=== PATIENT | female | born 1965 | race Caucasian/White ===

== ENCOUNTER 2017-11-18 15:36 | Emergency (ER) | payer MEDICAID ==
[2015-08-10 13:39] VITALS: Wt 90.7 kg
[~2017-11-18 15:36] MED LIST: ACE3 PO; ACE325 PO; ACE325S PR; ADV250/50 INH; ADV500/50 INH; ALB17R INH; ALB18R INH; ALBU8.5H IH; ALBU8.5H12 IH; ALBUDR INH; AMO500 PO; ASPI-1061 PO; AZI250 PO; AZIT-1 PO; AZIT-18 PO; BACDS PO; BEN100 PO; CALC-515 PO; CEF300 PO; CIPR-214 PO; CLI150 PO; CODE118S5 PO; CYC10 PO; CYCL10TA29 PO; DIA10 PO; DILT30TA63 PO; DIP25 PO; DOC100 PO; DOXY-179 PO; DOXY-228 PO; ESOM40CA42 PO; ESTR1.2525 PO; FLUT1DIS28 IH; GAB300 PO; GABA-549 PO; GLIM2TAB42 PO; GLIM4TAB49 PO; GLIM4TAB50 PO; HYD5L PO; HYDR-3250 PO; HYDR-385 PO; HYDR-4309 PO; HYDR12.558 PO; HYDR473S4 PO; IBU800 PO; IBUP-1487 PO; IBUP800T37 PO; INSU100C12 SQ; INSU100I30 SUBQ; INSU100V24 SQ; KET10 PO; LANI SUBQ; LEVA1.2513 NEB; LEVO-85 PO; LEVO750T25 PO; LIS10 PO; LISI-346 PO; LISI-355 PO; LISI-362 PO; LISI20TA29 PO; LOR10/325 PO; LOR5/325 PO; LOR7.5/325 PO; LORA10TA2 PO; METF-420 PO; METH4TAB66 PO; METO50TA19 PO; MON10 PO; MULT-1379 PO; NAP250 PO; NAP500 PO; NIC10R INH; NITR-105 PO; NOR5/325 PO; OMEP-114 PO; OMEP-125 PO; OMEP-218 PO; OMEP40CA79 PO; OND4 PO; ONDA4TAB PO; ONDA8TAB94 PO; OXYC-689 PO; OXYC-763 PO; OXYC-865 PO; OXYC5TAB38 PO; OXYGEN INH; OXYXL5 PO; PANT20TA26 PO; PENI-22 PO; PER PO; PRE20 PO; PRED-1 PO; PRED-416 PO; PRED20TA6 PO; SUC1 FT; SUCR1TAB51 PO; TAM4 PO; TIO18R; TIO18R IH; TIO18R INH; TOLT4CAP13 PO; TRA50 PO; VEN375 PO; VENL75CA58 PO; VENL75TA98 PO; ZOLP-350 PO; [UNRECOGNIZED DRUG - CODE] PO; [UNRECOGNIZED DRUG - CODE] TD
[2017-11-18] MEDS ORDERED: DICL-195 (15:49)
[2017-11-18] MEDS ORDERED: GEMF600T91 (15:49)
--- NOTE | 2017-11-18 16:35 | RADIOLOGY IMAGING REPORT ---
FACILITY: [facility] [place] PATIENT NAME: Subha Martinez : 1965 MR: [id number] V: [id number] EXAM DATE: ORDERING PHYSICIAN: CANDE GALICIA TECHNOLOGIST: [facility] Patient: Subha Martinez : 1965 Visit/Account:[id number] Date of Sevice: 11/18/2017 CHEST PA AND LAT History: Chest pain, shortness of breath. Comparison to 01/14/2017. FINDINGS: Lungs are clear, no effusion. No pneumothorax. Heart size within normal limits. Mediastinal contour w ithin normal limits. IMPRESSION: No evidence of acute cardiopulmonary disease. Report Dictated By: Bradford Hoover MD at 11/18/2017 4:30 PM Report E-Signed By: Bradford Hoover MD at 11/18/2017 4:31 PM WSN:[id number]
--- NOTE | 2017-11-18 16:39 | EKG ---
FACILITY: [facility] PATIENT NAME: ANJANA GONZALEZ : [id number] MR: [id number] V: [id number] EXAM DATE: ORDERING PHYSICIAN: CANDE GALICIA TECHNOLOGIST: CARLOTA Test Reason : WEAKNESS Blood Pressure : / mmHG Vent. Rate : 092 BPM Atrial Rate : 092 BPM P-R Int : 128 ms QRS Dur : 090 ms QT Int : 380 ms P-R-T Axes : 071 051 071 degrees QTc Int : 469 ms Normal sinus rhythm Widespread, non-specific T changes. When compared with ECG of 16-JUN-2016 12:16, T changes are more prominent on current ECG Confirmed by ROJAS VARGAS ([id number]) on 11/18/2017 5:25:43 PM Referred By: RONNA Confirmed By:ORJAS VARGAS
[2017-11-18 16:50] LABS: PLATELET COUNT, AUTOMATED 370 K/uL (150-450)
[2017-11-18] MEDS ORDERED: INSU HUM REG 100 U/ML(ER ONLY) 10 ML VIAL SUBQ ONE (17:05)
[2017-11-18] MEDS ORDERED: DOXYCYCLINE HYCL 100 MG TAB TH PO ONE (17:55)
[2017-11-18 18:00] VITALS: BP 135/89
[2017-11-18] MEDS ORDERED: DOXY-179 PO (18:03)
--- NOTE | 2017-11-18 18:06 | ER Report ---
History and Physical Time Seen By MD: 16:05 Hx. of Stated Complaint: PT REPORTS SORE THROAT, COUGH, CHEST PAIN FOR A COUPLE WEEKS HPI/ROS CHIEF COMPLAINT: Not feeling well HISTORY OF PRESENT ILLNESS: 52-year-old female patient presents to emergency room with complaint of not feeling well. Patient states she is having a cough, body aches. She denies having a fever. She states she is not taking any medication for this. She states that her grandchildren have had influenza. She states she started getting sick a 2 weeks ago, however states she was feeling better approximate four-day started feeling worse. She states she does have some generalized body aches. She denies having any fevers, nausea, vomiting or diarrhea. REVIEW OF SYSTEMS: Respiratory: As noted above Cardiovascular: No chest pain, no palpitations. Gastrointestinal: No vomiting, no abdominal pain. Musculoskeletal: No back pain. Allergies: Coded Allergies: Penicillins (Verified Allergy, Severe, BLISTERS, 11/18/17) corn (Verified Allergy, Mild, UNKNOWN, 11/18/17) TINGLING FEELING dextromethorphan (Verified Allergy, Mild, 11/18/17) grass pollen-January ([employer] blue) grass, std (Verified Allergy, Mild, ITCHING, 11/18/17) guaifenesin (Verified Allergy, Mild, 11/18/17) pseudoephedrine (Verified Allergy, Mild, 11/18/17) pneumococcal vaccine (Unverified Allergy, Unknown, 11/18/17) Uncoded Allergies: ANIMALS (Allergy, Mild, 09/03/08) FLU VACCINE (Allergy, Unknown, SWELLING TO FACE, 01/29/14) MOLD (Allergy, Unknown, 01/29/14) Home Meds Active Scripts Doxycycline Hyclate (DOXYCYCLINE HYCLATE) 100 Mg Tablet, 100 MG PO BID, #18 TAB Prov:CANDE GALICIA 11/18/17 Prednisone (PREDNISONE) 20 Mg Tablet, 60 MG PO QDAY, #6 TAB 0 Refills Prov:PERRI SCOTT MD 01/14/17 Ondansetron (ZOFRAN ODT) 4 Mg Tab.rapdis, 4 MG PO Q6H Y for NAUSEA/VOMITING, # 20 TAB.MARGOT 0 Refills Prov:PERRI SCOTT MD 11/05/16 Oxycodone Hcl/Acetaminophen (PERCOCET 5-325 MG TABLET) 1 Each Tablet, 1 EACH PO Q4H Y for PAIN, #10 TAB 0 Refills Prov:PERRI SCOTT MD 11/05/16 Methylprednisolone (METHYLPREDNISOLONE) 4 Mg Tab.ds.pk, 4 MG PO DIRECTED, #1 PACK 0 Refills Prov:PERRI SCOTT MD 11/05/16 Acetaminophen/Codeine (TYLENOL #3 (OR EQUIV)) 1 Ea Tab, 1 EA PO Q4H Y for COUGH , #12 TAB 0 Refills Prov:PERRI SCOTT MD 10/02/16 Prednisone (PREDNISONE) 20 Mg Tablet, 60 MG PO QDAY, #6 TAB 0 Refills Prov:PERRI SCOTT MD 10/02/16 Estrogens, Conjugated (PREMARIN) 1.25 Mg Tablet, 1.25 MG PO QDAY, #30 TAB Prov:LARS BECKFORD MD 08/09/15 Fluticasone/Salmeterol (ADVAIR 250-50 DISKUS) 1 Each Disk.w.dev, 1 PUFF IH DAILY , #1 DISK Prov:LARS BECKFORD MD 08/09/15 Omeprazole (OMEPRAZOLE) 20 Mg Capsule.dr, 1 CAP PO BID, #60 CAP Prov:LARS BECKFORD MD 08/09/15 Albuterol Sulfate 90 Mcg/Act (PROAIR HFA 90 MCG/ACT) 8.5 Gm Hfa.aer.ad, 2 PUFF IH QID, #1 INHALER Prov:LARS BECKFORD MD 08/09/15 Venlafaxine Hcl (VENLAFAXINE HCL ER) 75 Mg Tab.er.24, 75 MG PO BID, #60 TAB Prov:LARS BECKFORD MD 08/09/15 Glimepiride (GLIMEPIRIDE) 4 Mg Tablet, 0.5 TAB PO QDAY, #15 TAB Prov:LARS BECKFORD MD 08/09/15 Reported Medications Gemfibrozil (GEMFIBROZIL) 600 Mg Tablet, QDAY 11/18/17 Diclofenac Sodium (DICLOFENAC SODIUM) 75 Mg Tablet., PRN 11/18/17 Lisinopril (LISINOPRIL) 10 Mg Tablet, 10 MG PO HS 09/09/15 Insulin Glargine (LANTUS) 100 Unit/Ml Soln, 42 UNIT SUBQ HS 09/09/15 Lisinopril (LISINOPRIL) 10 Mg Tablet, 20 MG PO QAM 08/18/15 Metoprolol Succinate (METOPROLOL SUCCINATE) 50 Mg Tab.er.24h, 1 TAB PO QDAY, TAB 01/23/15 Gabapentin (GABAPENTIN) 300 Mg Capsule, 300 MG PO TID Take one three times a day 03/15/13 Oxygen (Oxygen) 2 L Inha, 2.5 L INH, 0 Refills OR DIRECTED 06/24/11 Fluvastatin Sodium (Lescol) 20 Mg Capsule, 20 MG PO QHS, 0 Refills 06/24/11 Past Medical/Surgical History Patient has a past medical history of migraines, angina, hypertension, hyperlipidemia, sleep apnea, asthma, emphysema, pneumonia, tuberculosis, COPD, ulcers, reflux, cholecystitis, pyelonephritis, frequent UTIs, ovarian cancer, bursitis, arthritis, back pain, diabetes, alcohol use, depression, anxiety, suicide attempt, cervical cancer. Patient has a surgical history of pancreas removed, hysterectomy, right elbow surgery, no surgery, cholecystectomy. Patient has a family medical history of cancer, CAD, stroke, diabetes. Reviewed Nurses Notes: Yes Hx Smoking: Yes (3-4 cigarettes/day FOR 40YEARS ) Smoking Status: Current: Every Day Smoker Exposure to Second Hand Smoke?: Yes Hx Substance Use Disorder: No Hx Alcohol Use: Yes Constitutional Vital Sign - Last 24 Hours 11/18/17 11/18/17 11/18/17 11/18/17 15:40 15:45 16:00 16:30 Temp 98.2 Pulse 93 Resp 16 B/P (MAP) 146/108 146/108 (121) 129/100 (110) 92/72 (79) Pulse Ox 93 O2 Delivery Room Air 11/18/17 11/18/17 11/18/17 11/18/17 17:00 17:36 17:45 17:55 Pulse 89 92 B/P (MAP) 125/96 (106) 117/90 (99) Pulse Ox 87 98 11/18/17 11/18/17 18:00 18:05 Pulse 89 91 B/P (MAP) 135/89 (104) Pulse Ox 85 91 Medical Decision Making Data Points Result Diagram: 11/18/17 1627 11/18/17 1627 Laboratory Hematology Test 11/18/17 15:50 11/18/17 16:27 11/18/17 17:36 11/18/17 17:48 Influenza Virus Type A (PCR) Negative (NEGATIVE) Influenza Virus Type B (PCR) Negative (NEGATIVE) Group A Streptococcus Screen Negative (NEGATIVE) Red Blood Count 5.64 M/uL (4.17-5.56) Mean Corpuscular Volume 91.8 fL (80.0-96.0) Mean Corpuscular Hemoglobin 31.1 pg (26.0-33.0) Mean Corpuscular Hemoglobin Concent 33.9 g/dL (32.0-36.0) Red Cell Distribution Width 13.8 % (11.5-14.5) Mean Platelet Volume 9.2 fL (7.2-11.1) Neutrophils (%) (Auto) 68.4 % (39.4-72.5) Lymphocytes (%) (Auto) 21.2 % (17.6-49.6) Monocytes (%) (Auto) 8.9 % (4.1-12.4) Eosinophils (%) (Auto) 0.5 % (0.4-6.7) Basophils (%) (Auto) 1.0 % (0.3-1.4) Nucleated RBC Relative Count (auto) 0.0 /100WBC Neutrophils # (Auto) 14.7 K/uL (2.0-7.4) Lymphocytes # (Auto) 4.6 K/uL (1.3-3.6) Monocytes # (Auto) 1.9 K/uL (0.3-1.0) Eosinophils # (Auto) 0.1 K/uL (0.0-0.5) Basophils # (Auto) 0.2 K/uL (0.0-0.1) Nucleated RBC Absolute Count (auto) 0.01 K/uL Peripheral Blood Smear Yes Y/N Sodium Level 131 mmol/L (137-145) Potassium Level 4.4 mmol/L (3.5-5.0) Chloride Level 91 mmol/L (98-107) Carbon Dioxide Level 23 mmol/L (22-31) Blood Urea Nitrogen 12 mg/dl (7-18) Creatinine 0.70 mg/dl (0.52-1.04) Glomerular Filtration Rate Calc > 60.0 Random Glucose 439 mg/dl (75-110) Calcium Level 9.9 mg/dl (8.4-10.2) Total Bilirubin 0.8 mg/dl (0.2-1.3) Aspartate Amino Transf (AST/SGOT) 23 U/L (0-35) Alanine Aminotransferase (ALT/SGPT) 21 U/L (0-56) Alkaline Phosphatase 164 U/L (0-126) Troponin I < 0.012 ng/ml B-Type Natriuretic Peptide 13 pg/ml (0-100) Total Protein 8.7 gm/dl (6.3-8.2) Albumin 4.7 g/dl (3.5-5.0) Urine Color Yellow Urine Clarity Clear Urine pH 6.0 pH (4.8-9.5) Urine Specific [place] 1.026 Urine Protein Negative mg/dL (NEGATIVE) Urine Glucose (UA) 500 mg/dL (NEGATIVE) Urine Ketones 20 mg/dL (NEGATIVE) Urine Blood Negative (NEGATIVE) Urine Nitrite Negative (NEGATIVE) Urine Bilirubin Negative (NEGATIVE) Urine Urobilinogen Negative mg/dL (0.2-1.9) Urine Leukocyte Esterase Negative (NEGATIVE) Urine RBC <1 /HPF (0-2/HPF) Urine WBC None /HPF (0-5/HPF) Urine Squamous Epithelial Cells Few /LPF (</=FEW) Urine Transitional Epithelial Cells Few /LPF (NONE-FEW) Urine Bacteria Negative /HPF (NONE-FEW) Urine Mucus None /HPF (NONE-FEW) Whole Blood Glucose 392 mg/DL (75-110) Chemistry Test 11/18/17 15:50 11/18/17 16:27 11/18/17 17:36 11/18/17 17:48 Influenza Virus Type A (PCR) Negative (NEGATIVE) Influenza Virus Type B (PCR) Negative (NEGATIVE) Group A Streptococcus Screen Negative (NEGATIVE) White Blood Count 21.5 k/uL (4.5-11.0) Red Blood Count 5.64 M/uL (4.17-5.56) Hemoglobin 17.6 g/dL (12.0-16.0) Hematocrit 51.8 % (34.0-47.0) Mean Corpuscular Volume 91.8 fL (80.0-96.0) Mean Corpuscular Hemoglobin 31.1 pg (26.0-33.0) Mean Corpuscular Hemoglobin Concent 33.9 g/dL (32.0-36.0) Red Cell Distribution Width 13.8 % (11.5-14.5) Platelet Count 370 K/uL (150-450) Mean Platelet Volume 9.2 fL (7.2-11.1) Neutrophils (%) (Auto) 68.4 % (39.4-72.5) Lymphocytes (%) (Auto) 21.2 % (17.6-49.6) Monocytes (%) (Auto) 8.9 % (4.1-12.4) Eosinophils (%) (Auto) 0.5 % (0.4-6.7) Basophils (%) (Auto) 1.0 % (0.3-1.4) Nucleated RBC Relative Count (auto) 0.0 /100WBC Neutrophils # (Auto) 14.7 K/uL (2.0-7.4) Lymphocytes # (Auto) 4.6 K/uL (1.3-3.6) Monocytes # (Auto) 1.9 K/uL (0.3-1.0) Eosinophils # (Auto) 0.1 K/uL (0.0-0.5) Basophils # (Auto) 0.2 K/uL (0.0-0.1) Nucleated RBC Absolute Count (auto) 0.01 K/uL Peripheral Blood Smear Yes Y/N Glomerular Filtration Rate Calc > 60.0 Calcium Level 9.9 mg/dl (8.4-10.2) Total Bilirubin 0.8 mg/dl (0.2-1.3) Aspartate Amino Transf (AST/SGOT) 23 U/L (0-35) Alanine Aminotransferase (ALT/SGPT) 21 U/L (0-56) Alkaline Phosphatase 164 U/L (0-126) Troponin I < 0.012 ng/ml B-Type Natriuretic Peptide 13 pg/ml (0-100) Total Protein 8.7 gm/dl (6.3-8.2) Albumin 4.7 g/dl (3.5-5.0) Urine Color Yellow Urine Clarity Clear Urine pH 6.0 pH (4.8-9.5) Urine Specific [place] 1.026 Urine Protein Negative mg/dL (NEGATIVE) Urine Glucose (UA) 500 mg/dL (NEGATIVE) Urine Ketones 20 mg/dL (NEGATIVE) Urine Blood Negative (NEGATIVE) Urine Nitrite Negative (NEGATIVE) Urine Bilirubin Negative (NEGATIVE) Urine Urobilinogen Negative mg/dL (0.2-1.9) Urine Leukocyte Esterase Negative (NEGATIVE) Urine RBC <1 /HPF (0-2/HPF) Urine WBC None /HPF (0-5/HPF) Urine Squamous Epithelial Cells Few /LPF (</=FEW) Urine Transitional Epithelial Cells Few /LPF (NONE-FEW) Urine Bacteria Negative /HPF (NONE-FEW) Urine Mucus None /HPF (NONE-FEW) Whole Blood Glucose 392 mg/DL (75-110) Urinalysis Test 11/18/17 17:36 Urine Color Yellow Urine Clarity Clear Urine pH 6.0 pH (4.8-9.5) Urine Specific [place] 1.026 Urine Protein Negative mg/dL (NEGATIVE) Urine Glucose (UA) 500 mg/dL (NEGATIVE) Urine Ketones 20 mg/dL (NEGATIVE) Urine Blood Negative (NEGATIVE) Urine Nitrite Negative (NEGATIVE) Urine Bilirubin Negative (NEGATIVE) Urine Urobilinogen Negative mg/dL (0.2-1.9) Urine Leukocyte Esterase Negative (NEGATIVE) Urine RBC <1 /HPF (0-2/HPF) Urine WBC None /HPF (0-5/HPF) Urine Squamous Epithelial Cells Few /LPF (</=FEW) Urine Transitional Epithelial Cells Few /LPF (NONE-FEW) Urine Bacteria Negative /HPF (NONE-FEW) Urine Mucus None /HPF (NONE-FEW) EKG/Imaging EKG Interpretation 12 lead EKG: Rhythm: normal sinus rhythm with a ventricular rate of 92 bpm [place]: normal QRS: normal ST segments: normal Imaging CHEST PA AND LAT History: Chest pain, shortness of breath. Comparison to 01/14/2017. FINDINGS: Lungs are clear, no effusion. No pneumothorax. Heart size within normal limits. Mediastinal contour within normal limits. IMPRESSION: No evidence of acute cardiopulmonary disease. Report Dictated By: Bradford Hoover MD at 11/18/2017 4:30 PM Report E-Signed By: Bradford Hoover MD at 11/18/2017 4:31 PM ED Course/Re-evaluation ED Course Patient was admitted to exam room, history and physical were obtained. Differential diagnoses were considered. On examination lungs are clear, heart was regular. A CBC, CMP, chest x-ray, EKG, troponin were done. The lab results were unremarkable except the patient did have an elevated blood sugar 435, elevated white count 21,000. Chest x-ray was unremarkable, EKG showed a normal sinus rhythm. Discussed with patient about her high blood sugar which I believe is contributing to her not feeling well. She states that she has not been taking her insulin as she has run out and been out for couple days. 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 Patient received 10 units of regular insulin subcutaneous here in the emergency room. I did bring her blood sugar down to 390. We'll go ahead and discharge patient home. She is to increase her fluid intake, get plenty of rest. I would like her to take the antibiotics were prescribed as a believe she has a sinusitis. The elevated white count I do not believe is remarkable as she does have a history of her white count being elevated. Patient doesn't have a left shift today nor has she in the past. I discussed taking decongestants for the congestion, increasing fluid intake and return to emergency room if condition worsens. Patient verbalized understanding and agreement with plan. Decision to Disposition Date: Nov 18, 2017 Decision to Disposition Time: 18:05 Depart Departure Latest Vital Signs Vital Signs Date Time Temp Pulse Resp B/P (MAP) Pulse Ox O2 Delivery O2 Flow Rate FiO2 11/18/17 18:05 91 91 11/18/17 18:00 135/89 (104) 11/18/17 15:40 98.2 16 Room Air Impression: Primary Impression: Sinusitis Condition: Improved Disposition: HOME OR SELF-CARE Referrals: IVORY TORRES PA-C (PCP) New Scripts Doxycycline Hyclate (DOXYCYCLINE HYCLATE) 100 Mg Tablet 100 MG PO BID, #18 TAB Prov: CANDE GALICIA 11/18/17 Patient Instructions: Sinusitis (ED) Additional Instructions: Increase fluid intake. Get plenty of rest. superintendent warehouse your insulin as directed. Return to the ER if condition worsens. You should have improvement in the next 3-5 days. You may take a decongestant of choice. Problem Qualifiers Primary Impression: Sinusitis Sinusitis location: frontal Chronicity: acute Recurrence: non-recurrent Qualified Codes: J01.10 - Acute frontal sinusitis, unspecified CANDE GALICIA Nov 18, 2017 18:06
== END 2017-11-18 18:13 | disposition home or self-care (01) ==
LOC: ER 15:49
DX: J01.10 Acute frontal sinusitis, unspecified (principal); E11.65 Type 2 diabetes mellitus with hyperglycemia; F17.210 Nicotine dependence, cigarettes, uncomplicated; R06.02 Shortness of breath
CPT/HCPCS: 36416; 71046; 81001; 82948; 83880; 84484; 85025; 87081; 87502; 87880; 93005; 96372; 99284; J1815; 82040; 82247; 82310; 82374; 82435; 82565; 82947; 84075; 84132; 84155; 84295; 84450; 84460; 84520

== ENCOUNTER 2018-01-01 12:11 | Emergency (ER) | payer MEDICAID ==
[2015-08-10 13:39] VITALS: Wt 90.7 kg
[~2018-01-01 12:11] MED LIST changes: +DICL-195; +GEMF600T91
--- NOTE | 2018-01-01 12:21 | ER Report ---
History and Physical Time Seen By MD: 12:21 Hx. of Stated Complaint: patient states that she has been having really bad left shoulder pain for a long time; pain has been getting worse; states pain at a 8/10 pain HPI/ROS CHIEF COMPLAINT: Left shoulder pain HISTORY OF PRESENT ILLNESS: 52-year-old female patient presents to emergency room with complaint of left shoulder pain. Patient states she's had this pain for quite some time. States it is gotten worse recently. Patient states the pain became so bad that she was dropped her grandchild. She denies any injury to the shoulder, she states she's not had any treatment for this in the past. She denies any numbness tingling to the arm. States she occasionally gets numbness and tailing to the fingers. States pain seems to radiate through the back of the shoulder as well as the anterior shoulder. Patient states she is not taking any medication for this. REVIEW OF SYSTEMS: Respiratory: Patient is a pack-a-day smoker. Cardiovascular: No chest pain, no palpitations. Gastrointestinal: No vomiting, no abdominal pain. Musculoskeletal: No back pain. Allergies: Coded Allergies: Penicillins (Verified Allergy, Severe, BLISTERS, 01/01/18) corn (Verified Allergy, Mild, UNKNOWN, 01/01/18) TINGLING FEELING dextromethorphan (Verified Allergy, Mild, 01/01/18) grass pollen-January ([facility] blue) grass, std (Verified Allergy, Mild, ITCHING, 01/01/18) guaifenesin (Verified Allergy, Mild, 01/01/18) pseudoephedrine (Verified Allergy, Mild, 01/01/18) pneumococcal vaccine (Unverified Allergy, Unknown, 01/01/18) Uncoded Allergies: ANIMALS (Allergy, Mild, 09/03/08) FLU VACCINE (Allergy, Unknown, SWELLING TO FACE, 01/29/14) MOLD (Allergy, Unknown, 01/29/14) Home Meds Active Scripts Ondansetron (ZOFRAN ODT) 4 Mg Tab.rapdis, 4 MG PO Q6H Y for NAUSEA/VOMITING, # 20 TAB.MARGOT 0 Refills Prov:PERRI SCOTT MD 11/05/16 Estrogens, Conjugated (PREMARIN) 1.25 Mg Tablet, 1.25 MG PO QDAY, #30 TAB Prov:LARS BECKFORD MD 08/09/15 Fluticasone/Salmeterol (ADVAIR 250-50 DISKUS) 1 Each Disk.w.dev, 1 PUFF IH DAILY , #1 DISK Prov:LARS BECKFORD MD 08/09/15 Omeprazole (OMEPRAZOLE) 20 Mg Capsule.dr, 1 CAP PO BID, #60 CAP Prov:LARS BECKFORD MD 08/09/15 Albuterol Sulfate 90 Mcg/Act (PROAIR HFA 90 MCG/ACT) 8.5 Gm Hfa.aer.ad, 2 PUFF IH QID, #1 INHALER Prov:LARS BECKFORD MD 08/09/15 Venlafaxine Hcl (VENLAFAXINE HCL ER) 75 Mg Tab.er.24, 75 MG PO BID, #60 TAB Prov:LARS BECKFORD MD 08/09/15 Glimepiride (GLIMEPIRIDE) 4 Mg Tablet, 0.5 TAB PO QDAY, #15 TAB Prov:LARS BECKFORD MD 08/09/15 Reported Medications Cyclobenzaprine Hcl (CYCLOBENZAPRINE HCL) 10 Mg Tablet, 10 MG PO TID, #9 TAB 01/01/18 Gemfibrozil (GEMFIBROZIL) 600 Mg Tablet, QDAY 11/18/17 Diclofenac Sodium (DICLOFENAC SODIUM) 75 Mg Tablet., PRN 11/18/17 Lisinopril (LISINOPRIL) 10 Mg Tablet, 10 MG PO HS 09/09/15 Insulin Glargine (LANTUS) 100 Unit/Ml Soln, 42 UNIT SUBQ HS 09/09/15 Lisinopril (LISINOPRIL) 10 Mg Tablet, 20 MG PO QAM 08/18/15 Metoprolol Succinate (METOPROLOL SUCCINATE) 50 Mg Tab.er.24h, 1 TAB PO QDAY, TAB 01/23/15 Gabapentin (GABAPENTIN) 300 Mg Capsule, 300 MG PO TID Take one three times a day 03/15/13 Fluvastatin Sodium (Lescol) 20 Mg Capsule, 20 MG PO QHS, 0 Refills 06/24/11 Discontinued Reported Medications Oxygen (Oxygen) 2 L Inha, 2.5 L INH, 0 Refills OR DIRECTED 06/24/11 Discontinued Scripts Doxycycline Hyclate (DOXYCYCLINE HYCLATE) 100 Mg Tablet, 100 MG PO BID, #18 TAB Prov:CANDE GALICIA 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/18/17 Prednisone (PREDNISONE) 20 Mg Tablet, 60 MG PO QDAY, #6 TAB 0 Refills Prov:PERRI SCOTT MD 01/14/17 Oxycodone Hcl/Acetaminophen (PERCOCET 5-325 MG TABLET) 1 Each Tablet, 1 EACH PO Q4H Y for PAIN, #10 TAB 0 Refills Prov:PERRI SCOTT MD 11/05/16 Methylprednisolone (METHYLPREDNISOLONE) 4 Mg Tab.ds.pk, 4 MG PO DIRECTED, #1 PACK 0 Refills Prov:PERRI SCOTT MD 11/05/16 Acetaminophen/Codeine (TYLENOL #3 (OR EQUIV)) 1 Ea Tab, 1 EA PO Q4H Y for COUGH , #12 TAB 0 Refills Prov:PERRI SCOTT MD 10/02/16 Prednisone (PREDNISONE) 20 Mg Tablet, 60 MG PO QDAY, #6 TAB 0 Refills Prov:PERRI SCOTT MD 10/02/16 Past Medical/Surgical History Patient has a past medical history of migraines, angina, hypertension, hyperlipidemia, asthma, emphysema, pneumonia, tuberculosis, COPD, reflux, cholecystitis, pyelonephritis, ovarian cancer, right hip bursitis, arthritis to hands, slipped disc in back, or dentition, diabetes, alcohol use, depression, anxiety, suicide attempt. Patient has a surgical history of nose surgery, right elbow surgery, hysterectomy, cholecystectomy, appendectomy, pancreatic surgery, heart catheter. Patient has a family medical history cancer, CAD, stroke, diabetes. Reviewed Nurses Notes: Yes Hx Smoking: Yes (3-4 cigarettes/day FOR 40YEARS ) Smoking Status: Current: Every Day Smoker Exposure to Second Hand Smoke?: Yes Hx Substance Use Disorder: No Hx Alcohol Use: Yes Constitutional Vital Sign - Last 24 Hours 01/01/18 01/01/18 01/01/18 01/01/18 12:15 12:15 12:30 12:41 Temp 98.4 Pulse 81 79 Resp 19 B/P (MAP) 151/101 151/101 (118) 130/95 (107) Pulse Ox 89 86 O2 Delivery Room Air 01/01/18 01/01/18 01/01/18 01/01/18 12:41 12:41 12:44 12:44 Pulse 79 75 Resp 16 16 Pulse Ox 86 97 O2 Delivery Room Air Nasal Cannula O2 Flow Rate 2.0 01/01/18 01/01/18 01/01/18 01/01/18 12:45 13:11 13:15 13:20 Pulse 82 77 B/P (MAP) 138/95 (109) 135/96 (109) Pulse Ox 91 91 01/01/18 01/01/18 13:30 13:45 B/P (MAP) 126/95 (105) 111/88 (96) Physical Exam General Appearance: The patient is alert, has no immediate need for airway protection and no current signs of toxicity. Respiratory: Chest is non tender, lungs are wheezy throughout to auscultation. Cardiac: regular rate and rhythm Gastrointestinal: Abdomen is soft and non tender, no masses, bowel sounds normal. Musculoskeletal: Neck: Neck is supple and non tender. Extremities have full range of motion and are non tender. Patient has tenderness with palpation, passive range of motion with the left arm. Skin: No rashes or lesions. DIFFERENTIAL DIAGNOSIS: After history and physical exam differential diagnosis was considered for strain, arthritis, fracture, tendinitis. Medical Decision Making EKG/Imaging Imaging Technique: CHEST PA AND LAT HISTORY: wheezing COMPARISON: Chest radiographs November 18, 2017 Findings: The lungs are clear. No pleural effusion or pneumothorax. The cardiomediastinal silhouette is unchanged. Impression: 1. No acute cardiopulmonary process. Report Dictated By: Danis Galicia DO at 01/01/2018 1:24 PM Report E-Signed By: Danis Galicia DO at 01/01/2018 1:25 PM Technique: SHOULDER MIN 2 VIEWS LEFT HISTORY: shoulder pain Comparison studies: None FINDINGS: There is no acute fracture. The alignment of the left shoulder is maintained. Mild marginal osteophyte formation is seen within the glenohumeral and acromioclavicular joints. Soft tissues are unremarkable. IMPRESSION: 1. No acute osseous process. 2. Mild degenerative changes. Report Dictated By: Danis Galicia DO at 01/01/2018 1:23 PM Report E-Signed By: Danis Galicia DO at 01/01/2018 1:24 PM ED Course/Re-evaluation ED Course Patient was admitted to an exam room, history and physical were obtained. Differential diagnoses were considered. On reexamination patient had tenderness to the left shoulder. There is no swelling or bruising noted. X-rays done of the left shoulder which showed no acute fractures, however did show mild degeneration. I discussed the findings with the patient. Patient was placed in a sling. We will go ahead and discharge her home at this time. She is to wear the sling for the next 7-10 days. She is to follow-up with her primary care provider in next 3-5 days for further evaluation. I anticipated probably recommend doing physical therapy. She is to ice her shoulder. I anticipate progressed will help with the shoulder pain and then patient can take Tylenol or ibuprofen as if her pain as well. Discusses the patient who verbalized understanding and agreement with plan. Decision to Disposition Date: January 01, 2018 Decision to Disposition Time: 13:40 Depart Departure Latest Vital Signs Vital Signs Date Time Temp Pulse Resp B/P (MAP) Pulse Ox O2 Delivery O2 Flow Rate FiO2 01/01/18 13:45 111/88 (96) 01/01/18 13:20 77 91 01/01/18 12:44 16 01/01/18 12:44 Nasal Cannula 2.0 01/01/18 12:15 98.4 Impression: Primary Impression: Chronic shoulder pain Condition: Improved Disposition: HOME OR SELF-CARE Referrals: IVORY TORRES PA-C (PCP) Patient Instructions: Shoulder Pain (ED) Additional Instructions: Wear sling 23/24 hours a day for the next 7-10 days. Limit activity by pain. Alternate ice and heat to the shoulder. Follow up with your primary care provider in the next 3-5 days. Take Tylenol or Ibuprofen as needed for pain. Return to the ER if condition worsens. Continue with normal medications. Problem Qualifiers Primary Impression: Chronic shoulder pain Laterality: left Qualified Codes: M25.512 - Pain in left shoulder; G89.29 - Other chronic pain CANDE GALICIA January 01, 2018 12:21
[2018-01-01] MEDS ORDERED: CYCL10TA29 PO (12:25)
[2018-01-01] MEDS ORDERED: ALBUTEROL/IPRATROPIUM 3 ML NEB NEB ONE (12:30)
--- NOTE | 2018-01-01 13:28 | RADIOLOGY IMAGING REPORT ---
FACILITY: [facility] PATIENT NAME: Subha Martinez : 1965 MR: [id number] V: [id number] EXAM DATE: ORDERING PHYSICIAN: CANDE GALICIA TECHNOLOGIST: Location: [facility] [place] Patient: Subha Martinez : 1965 Visit/Account:[id number] Date of Sevice: 01/01/2018 Technique: SHOULDER MIN 2 VIEWS LEFT HISTORY: shoulder pain Comparison studies: None FINDINGS: There is no acute fracture. The alignment of the left shoulder is maintained. Mild margin al osteophyte formation is seen within the glenohumeral and acromioclavicular joints. Soft tissues a re unremarkable. IMPRESSION: 1. No acute osseous process. 2. Mild degenerative changes. Report Dictated By: Danis Galicia DO at 01/01/2018 1:23 PM Report E-Signed By: Danis Galicia DO at 01/01/2018 1:24 PM WSN:[email or web address]
--- NOTE | 2018-01-01 13:29 | RADIOLOGY IMAGING REPORT ---
[place] [facility] [place]IENT NAME: Subha Martinez : 1965 MR: [id number] V: [id number] EXAM DATE: ORDERING PHYSICIAN: CANDE GALICIA TECHNOLOGIST: Location: [facility] Patient: Subha Martinez : 1965 Visit/Account:[id number] Date of Sevice: 01/01/2018 Technique: CHEST PA AND LAT HISTORY: wheezing COMPARISON: Chest radiographs November 18, 2017 Findings: The lungs are clear. No pleural effusion or pneumothorax. The cardiomediastinal silhouett e is unchanged. Impression: 1. No acute cardiopulmonary process. Report Dictated By: Danis Galicia DO at 01/01/2018 1:24 PM Report E-Signed By: Danis Galicia DO at 01/01/2018 1:25 PM WSN:[id number]
[2018-01-01 13:45] VITALS: BP 111/88
== END 2018-01-01 13:48 | disposition home or self-care (01) ==
LOC: ER 12:15
DX: M25.512 Pain in left shoulder (principal); G89.29 Other chronic pain
CPT/HCPCS: 71046; 73030; 94640; 99282; A4565; J7620

== ENCOUNTER 2018-01-14 19:23 | Emergency (ER) | payer MEDICAID ==
[2015-08-10 13:39] VITALS: Wt 90.7 kg
[~2018-01-14 19:23] MED LIST changes: +METF-421 PO
--- NOTE | 2018-01-14 19:36 | ER Report ---
History and Physical Time Seen By MD: 19:36 Hx. of Stated Complaint: PATIENT STATES THAT SHE HAS LEFT LOWER LEG PAIN DUE TO A FALL HPI/ROS CHIEF COMPLAINT: Fall with left knee pain HISTORY OF PRESENT ILLNESS: 52-year-old female patient presents to emergency room with complaint of left knee pain. Patient states that she was at home and had just taken her bowl to the sink. She states she had her granddaughter in her arm, when her legs gave out. She states she fell to her knees. She states that she is having significant amount of tenderness to the knee and the tibia. She states she has had some numbness and tingling to the lateral aspect of the left lower leg. She states she did put some ice on her knee, however she is not taking any medication for this. She denies any head injury, nausea, vomiting or diarrhea. REVIEW OF SYSTEMS: Respiratory: No cough, no dyspnea. Cardiovascular: No chest pain, no palpitations. Gastrointestinal: No vomiting, no abdominal pain. Musculoskeletal: As noted above Allergies: Coded Allergies: Penicillins (Verified Allergy, Severe, BLISTERS, 01/14/18) corn (Verified Allergy, Mild, UNKNOWN, 01/14/18) TINGLING FEELING dextromethorphan (Verified Allergy, Mild, 01/14/18) grass pollen-January ([facility]) grass, std (Verified Allergy, Mild, ITCHING, 01/14/18) guaifenesin (Verified Allergy, Mild, 01/14/18) pseudoephedrine (Verified Allergy, Mild, 01/14/18) pneumococcal vaccine (Unverified Allergy, Unknown, 01/14/18) Uncoded Allergies: ANIMALS (Allergy, Mild, 09/03/08) FLU VACCINE (Allergy, Unknown, SWELLING TO FACE, 01/29/14) MOLD (Allergy, Unknown, 01/29/14) Home Meds Active Scripts Ondansetron (ZOFRAN ODT) 4 Mg Tab.rapdis, 4 MG PO Q6H Y for NAUSEA/VOMITING, # 20 TAB.MARGOT 0 Refills Prov:PERRI SCOTT MD 11/05/16 Estrogens, Conjugated (PREMARIN) 1.25 Mg Tablet, 1.25 MG PO QDAY, #30 TAB Prov:LARS BECKFORD MD 08/09/15 Fluticasone/Salmeterol (ADVAIR 250-50 DISKUS) 1 Each Disk.w.dev, 1 PUFF IH DAILY , #1 DISK Prov:LARS BECKFORD MD 08/09/15 Omeprazole (OMEPRAZOLE) 20 Mg Capsule.dr, 1 CAP PO BID, #60 CAP Prov:LARS BECKFORD MD 08/09/15 Albuterol Sulfate 90 Mcg/Act (PROAIR HFA 90 MCG/ACT) 8.5 Gm Hfa.aer.ad, 2 PUFF IH QID, #1 INHALER Prov:LARS BECKFORD MD 08/09/15 Venlafaxine Hcl (VENLAFAXINE HCL ER) 75 Mg Tab.er.24, 75 MG PO BID, #60 TAB Prov:LARS BECKFORD MD 08/09/15 Glimepiride (GLIMEPIRIDE) 4 Mg Tablet, 0.5 TAB PO QDAY, #15 TAB Prov:LARS BECKFORD MD 08/09/15 Reported Medications Cyclobenzaprine Hcl (CYCLOBENZAPRINE HCL) 10 Mg Tablet, 10 MG PO TID, #9 TAB 01/01/18 Gemfibrozil (GEMFIBROZIL) 600 Mg Tablet, QDAY 11/18/17 Lisinopril (LISINOPRIL) 10 Mg Tablet, 10 MG PO HS 09/09/15 Insulin Glargine (LANTUS) 100 Unit/Ml Soln, 42 UNIT SUBQ HS 09/09/15 Lisinopril (LISINOPRIL) 10 Mg Tablet, 20 MG PO QAM 08/18/15 Metoprolol Succinate (METOPROLOL SUCCINATE) 50 Mg Tab.er.24h, 1 TAB PO QDAY, TAB 01/23/15 Gabapentin (GABAPENTIN) 300 Mg Capsule, 300 MG PO TID Take one three times a day 03/15/13 Fluvastatin Sodium (Lescol) 20 Mg Capsule, 20 MG PO QHS, 0 Refills 06/24/11 Discontinued Reported Medications Diclofenac Sodium (DICLOFENAC SODIUM) 75 Mg Tablet., PRN 11/18/17 Past Medical/Surgical History Patient has a past medical history of migraines, angina, hypertension, hyperlipidemia, sleep apnea, asthma, emphysema, pneumonia, tuberculosis, COPD, reflux, cholecystitis, pyelonephritis, frequent UTI, ovarian cancer, right hip bursitis, arthritis, back pain, diabetes, alcohol use, depression, anxiety, suicide attempt. Patient has surgical history of nose surgery, right elbow surgery, hysterectomy , cholecystectomy, appendectomy, pancreatic surgery, heart catheter. Patient has a family medical history of cancer, CAD, stroke, diabetes. Reviewed Nurses Notes: Yes Hx Smoking: Yes (3-4 cigarettes/day FOR 40YEARS ) Smoking Status: Current: Every Day Smoker Exposure to Second Hand Smoke?: Yes Hx Substance Use Disorder: No Hx Alcohol Use: Yes Constitutional Vital Sign - Last 24 Hours 01/14/18 19:28 Temp 98.9 Pulse 95 Resp 18 B/P (MAP) 153/105 Pulse Ox 90 O2 Delivery Room Air Physical Exam General Appearance: The patient is alert, has no immediate need for airway protection and no current signs of toxicity. Respiratory: Chest is non tender, lungs are wheezy throughout to auscultation. Cardiac: regular rate and rhythm Musculoskeletal: Extremities have full range of motion and are non tender. Patient does have tenderness to the left knee, there is no swelling noted, no bruising. Skin: No rashes or lesions. DIFFERENTIAL DIAGNOSIS: After history and physical exam differential diagnosis was considered for contusion, fracture, sprain. Medical Decision Making EKG/Imaging Imaging EXAMINATION: Left knee 4 views HISTORY: Fall with pain. COMPARISON: None. FINDINGS: Bones of the left knee demonstrate normal alignment. No evidence of fracture or dislocation. Joint spaces are preserved. Soft tissues are radiographically unremarkable. No significant knee joint effusion is evident. IMPRESSION: Negative left knee. Report Dictated By: Galen Ott MD at 01/14/2018 8:20 PM Report E-Signed By: Galen Ott MD at 01/14/2018 8:21 PM ED Course/Re-evaluation ED Course Patient was admitted and examined, history and physical were obtained. Differential diagnoses were considered. On examination patient has tenderness to the left knee, there is no swelling, no bruising noted. And x-rays done of the left knee, was read by the radiologist as negative. I discussed findings with patient. We will go ahead and treat her with anti-inflammatories and have her follow-up with her primary care provider. Patient is to limit her activity by pain, she is to take Tylenol as needed for pain as well. Patient verbalized understanding and agreement with plan. Decision to Disposition Date: January 14, 2018 Decision to Disposition Time: 20:29 Depart Departure Latest Vital Signs Vital Signs Date Time Temp Pulse Resp B/P (MAP) Pulse Ox O2 Delivery O2 Flow Rate FiO2 01/14/18 19:28 98.9 95 18 153/105 90 Room Air Impression: Primary Impression: Knee contusion Condition: Improved Disposition: HOME OR SELF-CARE Referrals: IVROY TORRES PA-C (PCP) New Scripts Ketorolac Tromethamine (KETOROLAC TROMETHAMINE) 10 Mg Tab 10 MG PO Q6H, #20 TAB Prov: CANDE GALICIA 01/14/18 Patient Instructions: Contusion in Adults (ED) Additional Instructions: Limit activity by pain. Ice the knee 2-3 times a day for 10-15 minutes. Continue with normal medications. Follow up with your primary care provider in the next week. You may take Tylenol as needed for pain. Return to the ER if condition worsens. Problem Qualifiers Primary Impression: Knee contusion Encounter type: initial encounter Laterality: left Qualified Codes: S80.02XA - Contusion of left knee, initial encounter CANDE GALICIA January 14, 2018 19:36
--- NOTE | 2018-01-14 20:26 | RADIOLOGY IMAGING REPORT ---
[place] [facility] [place] Subha [place] : 1965 MR: [id number] V: [id number] EXAM DATE: ORDERING PHYSICIAN: CANDE GALICIA TECHNOLOGIST: Location: [facility] - [place] Patient: Subha Martinez : 1965 Visit/Account:[id number] Date of Sevice: 01/14/2018 EXAMINATION: Left knee 4 views HISTORY: Fall with pain. COMPARISON: None. FINDINGS: Bones of the left knee demonstrate normal alignment. No evidence of fracture or dislocation. Joint sp aces are preserved. Soft tissues are radiographically unremarkable. No significant knee joint effusio n is evident. IMPRESSION: Negative left knee. Report Dictated By: Galen Ott MD at 01/14/2018 8:20 PM Report E-Signed By: Galen Ott MD at 01/14/2018 8:21 PM [id number]
[2018-01-14 20:30] VITALS: BP 120/89
[2018-01-14] MEDS ORDERED: KETOROLAC TROM 10 MG TAB TH PO ONE (20:30)
[2018-01-14] MEDS ORDERED: KET10 PO (20:31)
== END 2018-01-14 20:36 | disposition home or self-care (01) ==
LOC: ER 19:34
DX: S80.02XA Contusion of left knee, initial encounter (principal)
CPT/HCPCS: 73564; 99282

== ENCOUNTER 2018-03-22 13:11 | Emergency (ER) | payer MEDICAID ==
[2015-08-10 13:39] VITALS: Wt 91.0 kg
[~2018-03-22 13:11] MED LIST changes: -GEMF600T91; +GEMF600T91 PO
[2018-03-22] MEDS ORDERED: BENZ100C4 PO (13:21)
[2018-03-22] MEDS ORDERED: BUSP7.5T7 PO (13:21)
--- NOTE | 2018-03-22 13:25 | ER Report ---
History and Physical Time Seen By MD: 13:24 Hx. of Stated Complaint: "I THINK A SPIDER BIT ME" REDNESS TO MEDIAL LOWER BACK HPI/ROS Chief Concern: spider bite History of Present Illnesses: 52-year-old reports she noticed a spot on her back yesterday and was unsure what it was from. Reports recently getting of an illness but vomiting twice this morning. States she has had a sore throat starting this morning. Denies treatments tried. Denies associated symptoms. Reports a cough due to a long history of smoking since she can remember. No treatments tried. Further reports having to urinate more and feeling a significant urge to urinate starting 1 week ago. Denies treatments tried. Denies associated symptoms. Reports increased stress following a in the family. No medical treatments tired. Constitutional: Reports recent illness. Denies malaise, chills, fever. HEENT: Denies headache. Reports sore throat. Cardiovascular: Denies chest pain, palpitations, or diaphoresis. Respiratory: Reports cough. Denies shortness of breath or wheezing. Gastrointestinal System: Reports vomiting. Denies diarrhea or constipation. Genitourinary: Reports urinary frequency and urgency. Denies hematuria. Musculoskeletal: Denies muscular pain, no joint pain. Psychiatric. Reports increased stress. Allergies: Coded Allergies: Penicillins (Verified Allergy, Severe, BLISTERS, 03/22/18) corn (Verified Allergy, Mild, UNKNOWN, 03/22/18) TINGLING FEELING dextromethorphan (Verified Allergy, Mild, 03/22/18) grass pollen-January ([place] blue) grass, std (Verified Allergy, Mild, ITCHING, 03/22/18) guaifenesin (Verified Allergy, Mild, 03/22/18) pseudoephedrine (Verified Allergy, Mild, 03/22/18) pneumococcal vaccine (Unverified Allergy, Unknown, 03/22/18) Uncoded Allergies: ANIMALS (Allergy, Mild, 09/03/08) FLU VACCINE (Allergy, Unknown, SWELLING TO FACE, 01/29/14) MOLD (Allergy, Unknown, 01/29/14) Home Meds Active Scripts Lidocaine (Lidocaine) 5 % Adh..patch, 1 PATCH TD DAILY for 10 Days, PATCH Prov:CANDE GALICIA SPA RECEPTIONIST 03/22/18 Valacyclovir Hcl (VALACYCLOVIR) 1,000 Mg Tablet, 1000 MG PO TID for 7 Days, #21 Prov:FRIDACANDE SPA RECEPTIONIST 03/22/18 Ketorolac Tromethamine (KETOROLAC TROMETHAMINE) 10 Mg Tab, 10 MG PO Q6H, #20 TAB Prov:CANDE GALICIA SPA RECEPTIONIST 01/14/18 Ondansetron (ZOFRAN ODT) 4 Mg Tab.rapdis, 4 MG PO Q6H Y for NAUSEA/VOMITING, # 20 TAB.MARGOT 0 Refills Prov:PERRI SCOTT MD 11/05/16 Estrogens, Conjugated (PREMARIN) 1.25 Mg Tablet, 1.25 MG PO QDAY, #30 TAB Prov:LARS BECKFORD MD 08/09/15 Fluticasone/Salmeterol (ADVAIR 250-50 DISKUS) 1 Each Disk.w.dev, 1 PUFF IH DAILY , #1 DISK Prov:LARS BECKFORD MD 08/09/15 Omeprazole (OMEPRAZOLE) 20 Mg Capsule.dr, 1 CAP PO BID, #60 CAP Prov:LARS BECKFORD MD 08/09/15 Albuterol Sulfate 90 Mcg/Act (PROAIR HFA 90 MCG/ACT) 8.5 Gm Hfa.aer.ad, 2 PUFF IH QID, #1 INHALER Prov:LARS BECKFORD MD 08/09/15 Venlafaxine Hcl (VENLAFAXINE HCL ER) 75 Mg Tab.er.24, 75 MG PO BID, #60 TAB Prov:LARS BECKFORD MD 08/09/15 Glimepiride (GLIMEPIRIDE) 4 Mg Tablet, 0.5 TAB PO QDAY, #15 TAB Prov:LARS BECKFORD MD 08/09/15 Reported Medications Buspirone Hcl (BUSPIRONE HCL) 7.5 Mg Tablet, 7.5 MG PO BID, #10 TAB 03/22/18 Benzonatate 100 Mg Cap (TESSALON PERLE 100 MG CAP) 100 Mg Capsule, 100 MG PO ONCE, #15 CAP 03/22/18 Cyclobenzaprine Hcl (CYCLOBENZAPRINE HCL) 10 Mg Tablet, 10 MG PO TID, #9 TAB 01/01/18 Gemfibrozil (GEMFIBROZIL) 600 Mg Tablet, 1 TAB PO QDAY 11/18/17 Lisinopril (LISINOPRIL) 10 Mg Tablet, 10 MG PO HS 09/09/15 Insulin Glargine (LANTUS) 100 Unit/Ml Soln, 42 UNIT SUBQ HS 09/09/15 Lisinopril (LISINOPRIL) 10 Mg Tablet, 20 MG PO QAM 08/18/15 Metoprolol Succinate (METOPROLOL SUCCINATE) 50 Mg Tab.er.24h, 1 TAB PO QDAY, TAB 01/23/15 Gabapentin (GABAPENTIN) 300 Mg Capsule, 300 MG PO TID Take one three times a day 03/15/13 Fluvastatin Sodium (Lescol) 20 Mg Capsule, 20 MG PO QHS, 0 Refills 06/24/11 Past Medical/Surgical History Past Medical History: Asthma, sleep apnea, "spots on lungs" 1985, hypertension, hypercholesterolemia Past Surgical History: Colonoscopy 2006, cholecystectomy 2006, heart cath 1999 Reviewed Nurses Notes: Yes Hx Smoking: Yes (3-4 cigarettes/day FOR 40YEARS ) Smoking Status: Current: Every Day Smoker Exposure to Second Hand Smoke?: Yes Hx Substance Use Disorder: No Hx Alcohol Use: Yes Constitutional Vital Sign - Last 24 Hours 03/22/18 03/22/18 13:15 14:50 Temp 98.6 Pulse 89 Resp 18 B/P (MAP) 143/92 122/85 (97) Pulse Ox 90 O2 Delivery Room Air Physical Exam Constitutional: 52-year-old female in no acute distress. Skin: [place] and well perfused BL. Papular rash 3cm in diameter located on the lumbar spine. HEENT: Normocephalic and atraumatic. Non-injected. No exudates. PERRLA. Corneas grossly intact. Extra ocular movements intact, peripheral vision grossly intact. TMs beatrice hawkins without effusion. Throat with erythema. Cardiovascular: PMI - left midclavicular at the 5th ICS. Aortic, pulmonic, tricuspid, and mitral areas - clear S1/S2; no murmur, no S3, or S4. Respiratory: Respiratory Excursion BL equal and symmetrical; no presence of lag ; quiet, rhythmic and effortless. No retractions. BL clear and equal. GI: nondistended, normoactive BS x4 quadrants, nontender. Musculoskeletal: Active motion of all extremities. Neurologic: Alert and oriented x3. Language clear. Normal and coordinated gait. Differential Diagnoses: infection, shingles, strep throat, UTI Medical Decision Making Data Points Laboratory Hematology Test 03/22/18 13:54 03/22/18 13:55 Group A Streptococcus Screen Negative (NEGATIVE) Urine Color Yellow Urine Clarity Clear Urine pH 6.0 pH (4.8-9.5) Urine Specific [place] 1.030 Urine Protein Negative mg/dL (NEGATIVE) Urine Glucose (UA) 500 mg/dL (NEGATIVE) Urine Ketones 20 mg/dL (NEGATIVE) Urine Blood Negative (NEGATIVE) Urine Nitrite Negative (NEGATIVE) Urine Bilirubin Negative (NEGATIVE) Urine Urobilinogen Negative mg/dL (0.2-1.9) Urine Leukocyte Esterase Small (NEGATIVE) Urine RBC 1 /HPF (0-2/HPF) Urine WBC 2 /HPF (0-5/HPF) Urine Squamous Epithelial Cells Many /LPF (</=FEW) Urine Bacteria Negative /HPF (NONE-FEW) Urine Mucus None /HPF (NONE-FEW) Chemistry Test 03/22/18 13:54 03/22/18 13:55 Group A Streptococcus Screen Negative (NEGATIVE) Urine Color Yellow Urine Clarity Clear Urine pH 6.0 pH (4.8-9.5) Urine Specific [place] 1.030 Urine Protein Negative mg/dL (NEGATIVE) Urine Glucose (UA) 500 mg/dL (NEGATIVE) Urine Ketones 20 mg/dL (NEGATIVE) Urine Blood Negative (NEGATIVE) Urine Nitrite Negative (NEGATIVE) Urine Bilirubin Negative (NEGATIVE) Urine Urobilinogen Negative mg/dL (0.2-1.9) Urine Leukocyte Esterase Small (NEGATIVE) Urine RBC 1 /HPF (0-2/HPF) Urine WBC 2 /HPF (0-5/HPF) Urine Squamous Epithelial Cells Many /LPF (</=FEW) Urine Bacteria Negative /HPF (NONE-FEW) Urine Mucus None /HPF (NONE-FEW) Urinalysis Test 03/22/18 13:55 Urine Color Yellow Urine Clarity Clear Urine pH 6.0 pH (4.8-9.5) Urine Specific [place] 1.030 Urine Protein Negative mg/dL (NEGATIVE) Urine Glucose (UA) 500 mg/dL (NEGATIVE) Urine Ketones 20 mg/dL (NEGATIVE) Urine Blood Negative (NEGATIVE) Urine Nitrite Negative (NEGATIVE) Urine Bilirubin Negative (NEGATIVE) Urine Urobilinogen Negative mg/dL (0.2-1.9) Urine Leukocyte Esterase Small (NEGATIVE) Urine RBC 1 /HPF (0-2/HPF) Urine WBC 2 /HPF (0-5/HPF) Urine Squamous Epithelial Cells Many /LPF (</=FEW) Urine Bacteria Negative /HPF (NONE-FEW) Urine Mucus None /HPF (NONE-FEW) ED Course/Re-evaluation ED Course 52-year-old female presents to the emergency department after she noticed a rash on her back. History and physical examination obtained. Differential diagnoses considered and shared with the patient. UA and rapid strep test obtained which were negative. The patients rash is indicated fo shingles. She will be placed on valacyclovir and lidocaine patch. She has been encouraged to keep the rash covered. Her urine is not indicative of a UTI but we will culture the urine and call her if she necessitates treatment. Her symptoms of vomiting and cough are likely due to a viral infection. The patient has been encouraged to retnurn to the emergency department if her condition does not improve or if it worsens. She states understanding and has no further questions at this time. Decision to Disposition Date: Mar 22, 2018 Decision to Disposition Time: 14:46 Depart Departure Latest Vital Signs Vital Signs Date Time Temp Pulse Resp B/P (MAP) Pulse Ox O2 Delivery O2 Flow Rate FiO2 03/22/18 14:50 122/85 (97) 03/22/18 13:15 98.6 89 18 90 Room Air Impression: Primary Impression: Shingles Condition: Improved Disposition: HOME OR SELF-CARE Referrals: IVORY TORRES PA-C (PCP) New Scripts Lidocaine (Lidocaine) 5 % Adh..patch 1 PATCH TD DAILY for 10 Days, PATCH Prov: CANDE GALICIAP 03/22/18 Valacyclovir Hcl (VALACYCLOVIR) 1,000 Mg Tablet 1000 MG PO TID for 7 Days, #21 Prov: CANDE GALICIA 03/22/18 Patient Instructions: Shingles (ED) Additional Instructions: Take valacyclovir once in the morning, once in the afternoon, and once in the evening for 7 days. Use lidocaine patch once daily as needed for pain. We will call you if you need to placed on antibiotics for a urinary tract infection. Return to the emergency department if your condition worsens. Problem Qualifiers Primary Impression: Shingles Herpes zoster complications: without complications Qualified Codes: B02.9 - Zoster without complications CANDE GALICIA [facility] Mar 22, 2018 13:25
[2018-03-22] MEDS ORDERED: LIDO700A19 TD (14:44)
[2018-03-22] MEDS ORDERED: VALA100059 PO (14:44)
[2018-03-22 14:50] VITALS: BP 122/85
== END 2018-03-22 15:01 | disposition home or self-care (01) ==
LOC: ER 13:22
DX: B02.9 Zoster without complications (principal)
CPT/HCPCS: 81001; 87081; 87088; 87880; 99282

== ENCOUNTER 2018-05-09 16:34 | Inpatient (IN) | payer MEDICAID ==
[~2018-05-09] VITALS: Ht 162.6 cm; Wt 72.6 kg
[~2018-05-09 16:34] MED LIST changes: +BENZ100C4 PO; +BUSP7.5T7 PO; +DILT120C18 PO; -GEMF600T91 PO; +GEMF600T92 PO; +INSU100I28 SQ; +LIDO700A19 TD; -METF-421 PO; +METF-452 PO; +VALA100059 PO
[2018-05-09 16:54] VITALS: BP 115/77
[2018-05-09] MEDS ORDERED: ZOLP-350 PO (17:00)
[2018-05-09] MEDS ORDERED: NS(*) 0.9% 1000 ML BAG 1,000 ML IV PRN (17:32)
[2018-05-09] MEDS ORDERED: LEVALBUTEROL 1.25 MG/3 ML NEB NEB PRN (17:35)
[2018-05-09] MEDS ORDERED: ZOLPIDEM TARTRATE 10 MG TAB PO PRN (17:40)
[2018-05-09] MEDS ORDERED: BENZONATATE 100 MG CAP PO PRN (17:40)
--- NOTE | 2018-05-09 17:54 | History & Physical ---
History of Present Illness Chief Complaint Short of breath History of Present Illness 52yo female with PMHx significant for COPD, type 2 DM, HTN. She was [facility] for an exacerbation of her COPD. She states she has not done very well since returning home. She has had continued cough, wheezing, dyspnea, feverish/flushed sensations, high blood glucose readings. She reports she was unable to use her oxygen as her machine was not functional. She states she has been taking her medications as prescribed. She has been smoking "3 or 4" cigarettes a day. She was evaluated in the outpatient clinic and referred for admission. History Problems: (1) Adjustment disorder with depressed mood Status: Chronic (2) Depression Status: Chronic (3) Hyperlipidemia Status: Chronic (4) GERD (gastroesophageal reflux disease) Status: Chronic (5) Type II diabetes mellitus Status: Chronic (6) Sleep apnea Status: Chronic (7) Chronic back pain Status: Chronic (8) Chronic hip pain Status: Chronic (9) Tobacco dependency Status: Chronic (10) Chronic shoulder pain Status: Chronic (11) Shingles Status: Acute (12) COPD (chronic obstructive pulmonary disease) Status: Chronic (13) HTN (hypertension) Status: Chronic (14) History of hysterectomy Status: Chronic (15) Hx of splenectomy Status: Chronic (16) Hx of cholecystectomy Status: Chronic (17) Hx of elbow surgery Status: Chronic (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 Prov:LARS BECKFORD MD 05/04/18 Insulin Lispro 100 Un/Ml Pen (HUMALOG 3 ML PEN) 100 Unit/1 Ml Insuln.pen, 3-15 UNIT SQ PRN PRN for sliding scale Humalog, #5 UNITS 4 Refills Prov:LARS BECKFORD MD 05/04/18 Insulin Glargine 100 Un/Ml Pen (LANTUS SOLOSTAR PEN) 100 Unit/1 Ml Insuln.pen, 50 UNIT SUBQ QAM, #5 UNITS 4 Refills Prov:LARS BECKFORD MD 05/04/18 Glimepiride (GLIMEPIRIDE) 4 Mg Tablet, 0.5 TAB PO BID, #15 TAB Prov:LARS BECKFORD MD 05/04/18 Ondansetron (ZOFRAN ODT) 4 Mg Tab.rapdis, 4 MG PO Q6H PRN for NAUSEA/VOMITING, #20 TAB.MARGOT 0 Refills Prov:PERRI SCOTT MD 11/05/16 Estrogens, Conjugated (PREMARIN) 1.25 Mg Tablet, 1.25 MG PO QDAY, #30 TAB Prov:LARS BECKFORD MD 08/09/15 Fluticasone/Salmeterol (ADVAIR 250-50 DISKUS) 1 Each Disk.w.dev, 1 PUFF IH DAILY, #1 DISK Prov:LARS BECKFORD MD 08/09/15 Omeprazole (OMEPRAZOLE) 20 Mg Capsule.dr, 1 CAP PO BID, #60 CAP Prov:LARS BECKFORD MD 08/09/15 Albuterol Sulfate 90 Mcg/Act (PROAIR HFA 90 MCG/ACT) 8.5 Gm Hfa.aer.ad, 2 PUFF IH QID, #1 INHALER Prov:LARS BECKFORD MD 08/09/15 Venlafaxine Hcl (VENLAFAXINE HCL ER) 75 Mg Tab.er.24, 75 MG PO BID, #60 TAB Prov:LARS BECKFORD MD 08/09/15 Reported Medications Zolpidem Tartrate (AMBIEN) 10 Mg Tablet, 1 TAB PO QHS PRN for INSOMNIA, TAB 05/09/18 Buspirone Hcl (BUSPIRONE HCL) 7.5 Mg Tablet, 7.5 MG PO BID, #10 TAB 03/22/18 Benzonatate 100 Mg Cap (TESSALON PERLE 100 MG CAP) 100 Mg Capsule, 100 MG PO DAILY, #15 CAP 03/22/18 Cyclobenzaprine Hcl (CYCLOBENZAPRINE HCL) 10 Mg Tablet, 10 MG PO TID, #9 TAB 01/01/18 Lisinopril (LISINOPRIL) 10 Mg Tablet, 10 MG PO HS 09/09/15 Lisinopril (LISINOPRIL) 10 Mg Tablet, 20 MG PO QAM 08/18/15 Fluvastatin Sodium (Lescol) 20 Mg Capsule, 20 MG PO QHS, 0 Refills 06/24/11 Discontinued Reported Medications Gemfibrozil (GEMFIBROZIL) 600 Mg Tablet, 1 TAB PO QDAY 11/18/17 Insulin Glargine (LANTUS) 100 Unit/Ml Soln, 42 UNIT SUBQ HS 09/09/15 Allergies: Coded Allergies: Penicillins (Verified Allergy, Severe, BLISTERS, 05/09/18) Influenza Virus Vaccines (Verified Allergy, Intermediate, SWELLING TO FACE, 05/09/18) corn (Verified Allergy, Mild, UNKNOWN, 05/09/18) TINGLING FEELING dextromethorphan (Verified Allergy, Mild, 05/09/18) grass pollen-January ([employer] blue) grass, std (Verified Allergy, Mild, ITCHING, 05/09/18) guaifenesin (Verified Allergy, Mild, 05/09/18) pseudoephedrine (Verified Allergy, Mild, 05/09/18) pneumococcal vaccine (Unverified Allergy, Unknown, 05/09/18) Uncoded Allergies: ANIMALS (Allergy, Mild, 09/03/08) MOLD (Allergy, Unknown, 01/29/14) Patient History: Blood clots CHILD FH: CAD (coronary artery disease) FATHER BROTHER OR SISTER FH: COPD (chronic obstructive pulmonary disease) BROTHER OR SISTER BROTHER OR SISTER FH: CVA (cerebrovascular accident) FATHER FH: HTN (hypertension) FATHER BROTHER OR SISTER FH: depression MOTHER FH: diabetes mellitus FATHER BROTHER OR SISTER MOTHER FH: kidney failure FATHER FH: stroke FATHER Hx Smoking: Yes (4-5 cigarettes/day FOR 40YEARS ) Smoking Status: Current: Every Day Smoker Exposure to Second Hand Smoke?: Yes Caffeine Intake: Coffee, Tea, Soda Caffeine/Cups Per Day: 10-15 cups Hx Alcohol Use: Yes Hx Substance Use Disorder: No Social Drug Use: Never Social Drugs: Marijuana Review of Systems Constitutional: Fever; No Chills, No Night Sweats Neurological: No Syncope, No Confusion, No Weakness Eyes: No Vision Change, No Loss of Vision ENT: No Hearing Loss, No Sinus Congestion Cardiovascular: No Chest Pain, No Palpitations Respiratory: Shortness of Breath, Cough, Wheezing Gastrointestinal: No Nausea, No Vomiting, No Diarrhea, No Constipation, No Hematemesis, No Hematochezia, No Melena Genitourinary: Dysuria Musculoskeletal: Pain Psychiatric: Depression, Anxiety Exam Vital Signs Vital Signs Date Time Temp Pulse Resp B/P (MAP) Pulse Ox O2 Delivery O2 Flow Rate FiO2 05/09/18 17:15 95 Nasal Cannula 2.0 05/09/18 16:54 98.7 77 27 115/77 (90) General Appearance: Alert, Awake Neuro: No Gross deficits Eyes: PERRLA ENT: Oropharynx Clear, Other (edentulous) Neck: No Masses Cardiovascular: Regular Rate and Rhythm, No Edema, No JVD Respiratory: Other (bilateral wheezing/no rales) Chest: No Tenderness GI: Abd Soft and Non-Tender : No CVA Tenderness Extremities: Warm, Perfused Integumentary: Skin Intact without Lesion / Mass Psych: Alert & Oriented X3 Assessment and Plan Problems: (1) COPD exacerbation Status: Acute Assessment & Plan: Will admit to medical floor, place on supplemental oxygen, give respiratory treatments, start IV steroids, check CXR and labs. Will consider starting IV antibiotics as well. Monitor closely and modify therapy as needed. We did discuss the need to stop smoking completely and she reports understanding. (2) Type II diabetes mellitus Status: Chronic Assessment & Plan: Place on ADA diet. Will change to twice daily dosing of her Lantus. Will continue her Amaryl as well. Will monitor glucoses and use SSI as needed. The steroids will certainly exacerbate her glucose levels. (3) HTN (hypertension) Status: Chronic Assessment & Plan: Will continue the diltiazem for now. Hold the lisinopril. Monitor closely. (4) GERD (gastroesophageal reflux disease) Status: Chronic Assessment & Plan: Continue PPI therapy. (5) Hyperlipidemia Status: Chronic Assessment & Plan: She has been on Lescol, which is not on formulary. Venous Thromboembolism Antithrombotics Is Pt On Any Antithrombotics?: Yes DEE BECKFORD MD May 09, 2018 17:54
[2018-05-09] MEDS: INSULIN HUM LISPRO 100 UN/ML 3 ML VIAL SUBQ PRN ×2 (18:18→21:22)
[2018-05-09 19:15] LABS: PLATELET COUNT, AUTOMATED 566 K/uL (150-450)
[2018-05-09 19:22] VITALS: BP 128/84
--- NOTE | 2018-05-09 20:50 | RADIOLOGY IMAGING REPORT ---
FAC[place] [facility] [place] NAME: Subha Martinez : 1965 MR: [id number] V: [id number] EXAM DATE: ORDERING PHYSICIAN: DEE BECKFORD TECHNOLOGIST: Location: [facility] Patient: Subha Martinez : 1965 Visit/Account:[id number] Date of Sevice: 05/09/2018 Study: Frontal and lateral views of the chest Indication: Dyspnea/hypoxia/COPD Comparison study: April 29, 2018 Findings: PA and lateral views of the chest demonstrate no evidence of acute infiltrate. There is no evidence of pleural effusion. There is no evidence of pneumothorax. The mediastinal, cardiac, and diaphragmatic contours are unremarkable. The visualized bony structures are unremarkable. IMPRESSION: Unremarkable chest. Report Dictated By: Nicolas Schwartz at 05/09/2018 8:46 PM Report E-Signed By: Nicolas Schwartz at 05/09/2018 8:46 PM WSN:[id number]
[2018-05-09] MEDS: methylPREDNIS SUCC 125 MG/2ML IVP SCH (21:23)
[2018-05-09] MEDS: INSULIN GLARGINE 100 U/ML 3 ML PEN SUBQ SCH (21:24)
[2018-05-09] MEDS: busPIRone HCL 5 MG TAB PO SCH (21:24)
[2018-05-10 04:59] VITALS: BP 134/87
[2018-05-10] MEDS: LEVALBUTEROL 1.25 MG/3 ML NEB NEB PRN ×3 (05:10→23:29)
[2018-05-10 08:06] VITALS: BP 122/86
[2018-05-10] MEDS: INSULIN HUM LISPRO 100 UN/ML 3 ML VIAL SUBQ PRN ×4 (08:28→21:00)
[2018-05-10] MEDS: methylPREDNIS SUCC 125 MG/2ML IVP SCH (08:28)
[2018-05-10] MEDS: PANTOPRAZOLE SOD 40 MG TABEC PO SCH (08:29)
[2018-05-10] MEDS: ACETAMINOPHEN 325 MG TAB PO PRN ×2 (08:29→15:44)
[2018-05-10] MEDS: busPIRone HCL 5 MG TAB PO SCH ×2 (08:30→20:57)
[2018-05-10] MEDS: DILTIAZEM CD 120 MG CAPCR PO SCH (08:30)
[2018-05-10] MEDS: GLIMEPIRIDE 2 MG TAB PO SCH (08:30)
[2018-05-10] MEDS: INSULIN GLARGINE 100 U/ML 3 ML PEN SUBQ SCH ×3 (08:31→21:01)
[2018-05-10] MEDS: ENOXAPARIN 40 MG/0.4ML SYR SC SCH (08:31)
[2018-05-10] MEDS ORDERED: predniSONE 20 MG TAB PO SCH (08:45)
[2018-05-10 10:21] VITALS: Ht 162.6 cm; Wt 72.6 kg
--- NOTE | 2018-05-10 10:55 | Hospitalist Progress Note ---
Subjective Progress Notes Subjective 52F admitted for hyperglycemia and acute on chronic hypoxic respiratory failure. CARLOS overnight, remains on slightly elevated O2. Patient Complains of: Neurological: No: Syncope Cardiovascular: No: Chest Pain, Palpitations Respiratory: Cough, Shortness of Breath, Wheezing Gastrointestinal: No Nausea, No Vomiting Physical Exam Vital Signs Date Time Temp Pulse Resp B/P (MAP) Pulse Ox O2 Delivery O2 Flow Rate FiO2 05/10/18 10:37 96 Nasal Cannula 3.0 05/10/18 08:06 97.7 74 20 122/86 (98) Intake and Output 05/10/18 07:00 # Voids 2 General Appearance: Alert, Awake, No Acute Distress Neuro: No Gross deficits Eyes: PERRLA ENT: Normal Neck: No Masses Cardiovascular: Normal Rhythm & Peripheral Pulses Respiratory: Other (wheezing mild, 2L NC.) GI: Soft and Non-Tender Musculoskeletal: No Weakness/Pain Extremities: Soft and Non Tender Integumentary: Skin Intact without Lesion / Mass Psych: Alert & Oriented X3 Result Diagram: 05/09/18190605/09/181906 Assessment and Plan Problems: (1) COPD exacerbation Status: Acute Assessment & Plan: Supplemental oxygen, give respiratory treatments, steroids, CXR no acute changes. Monitor off Abx. Monitor closely and modify therapy as needed. We did discuss the need to stop smoking completely and she reports understanding. Home O2 apparently not functioning, will contact provider to have service. (2) Type II diabetes mellitus Status: Chronic Assessment & Plan: Place on ADA diet. Will change to twice daily dosing of her Lantus and increased dose. Will continue her Amaryl as well. Will monitor glucoses and use SSI as needed. The steroids will certainly exacerbate her glucose levels. (3) HTN (hypertension) Status: Chronic Assessment & Plan: Will continue the diltiazem for now. Hold the lisinopril. Monitor closely. (4) GERD (gastroesophageal reflux disease) Status: Chronic Assessment & Plan: Continue PPI therapy. (5) Hyperlipidemia Status: Chronic Assessment & Plan: She has been on Lescol, which is not on formulary. Exam Sepsis Risk: No Definite Risk PASTOR ELIOT REYNA DO May 10, 2018 10:55
[2018-05-10] MEDS ORDERED: predniSONE 20 MG TAB PO ONE (12:00)
--- NOTE | 2018-05-10 13:17 | Medical Nutrition Therapy ---
Nutrition Anthropometrics Height (Inches): 64.00 Height (Calculated Centimeters: [phone] Weight (Pounds): 160 Weight (Calculated Kilograms): 72.575 Harvey Nutrition Score: Adequate Harvey Nutrition Risk Score: 19 Dietary Referral Nutrition Risk Factors: Unplanned Loss >10lbs Nutrition Risk Comment: pt. states rosanne her throat is sore from the intubation Physical Findings Physical Appearance: Overweight BMI 25-29 Skin Appearance Skin Appearance: Edema Edema Location Modifier: Edema Location: Type of Edema: Degree of Edema: Gastrointestinal Symptoms GI Symtoms: Tube Present: Bowel Sounds: Recent Bowel Pattern: Stool Characteristics: Nutritional Diagnosis Nutritional Risk Acuity 2: Blood Glucose > 300mg/dl Nutritional Risk Acuity 3: COPD Unstable Nutritional Risk Acuity 4: Good Appetite Past Medical History: Hx of hyperlipidemia, GERD, T2DM, shingles, COPD, and HTN. Nutritional Acuity: 2-Moderate Nutrition Diagnosis: Inappropriate Carb Intake Nutrition Etiology: Inadeq. Food/Ginette Intake Nutrition Problem/Etiology/Sym: Inappropriate carb intake, as related to inadequate food/beverage intake, as evidenced by BG levels >300. Energy Requirement: 1700 (Scott , AF-1.3) Protein Requirement: 60 (.8g/kg) Fluid Requirement: 1700 (1ml/kcal) Diet Type: Diabetic Nutrition Intervention: Cont diet as ordered, Encourage intake Diet Comment To RSA: ALLERGY- CORN Nutrition Monitoring & Eval RD Patient Assessment Time: [address] Assessment Type: RD Assessment Patient Nutrition Acuity: 2-Moderate Follow Up Date: May 14, 2018 Nutritional Comment: 05/10. Admitted for SOB. Pt being treated for COPD exacerbation. Pt is having BG levels >300. Receiving 30 units lantus BID and 2-10 units Humalog SUBQ. Pt is on diabetic diet, has been consuming 100% of meals. Pt is 64in, 160lbs, and has a BMI of 27.5. Noted pt has poor dentition, suggest soft foods. Observed pt was going into kitchen on floor and taking yogurt, cheese and regular pop. Possible hoarding. Which may be contributing to elevated BG levels. Upon last visit, diabetes education was provided but pt was not very perceptive. Pt also mentioned money was an issue for food. Recommend pt cosumes 1700 kcal and 60g of protein each day. Will cont to monitor BG. NURY MAS May 10, 2018 11:58
[2018-05-10 13:59] VITALS: BP 132/85
[2018-05-10 15:35] VITALS: BP 121/77
[2018-05-10] MEDS ORDERED: INSULIN HUM LISPRO 100 UN/ML 3 ML VIAL SUBQ ONE ×2 (17:15→20:50)
[2018-05-10 19:28] VITALS: BP 128/84
[2018-05-10 23:41] VITALS: BP 107/64
[2018-05-11 03:55] VITALS: BP 108/72
[2018-05-11 05:48] LABS: PLATELET COUNT, AUTOMATED 515 K/uL (150-450)
[2018-05-11 07:30] VITALS: BP 100/73
[2018-05-11] MEDS: INSULIN HUM LISPRO 100 UN/ML 3 ML VIAL SUBQ PRN ×2 (08:09→11:57)
[2018-05-11] MEDS: INSULIN HUM LISPRO 100 UN/ML 3 ML VIAL SUBQ SCH ×2 (08:09→11:56)
--- NOTE | 2018-05-11 08:39 | Hospitalist Progress Note ---
Subjective Progress Notes Subjective Overall, she reports feeling improved. She still has some cough and audible wheezes. Glucoses still up, but improved. Physical Exam Vital Signs Date Time Temp Pulse Resp B/P (MAP) Pulse Ox O2 Delivery O2 Flow Rate FiO2 05/11/18 07:30 98.2 81 16 100/73 (82) 95 Nasal Cannula 1.0 Intake and Output 05/11/18 06:59 Intake Total 3259 ml Balance 3259 ml Intake Oral 2580 ml IV Total 679 ml # Voids 5 # Bowel Movements 1 General Appearance: Alert, Awake Cardiovascular: Regular Rate and Rhythm Respiratory: Other (scattered expiratory wheezes bilaterally) GI: Soft and Non-Tender Extremities: Warm, Perfused Result Diagram: 05/11/18 0505/11/18 05 Item Value Date Time Whole Blood Glucose 256 mg/DL H 05/11/18 0751 Random Glucose 616 mg/dl *H 05/10/18 2037 Whole Blood Glucose 560 mg/DL *H 05/10/18 2026 Whole Blood Glucose 468 mg/DL H 05/10/18 1710 Whole Blood Glucose 325 mg/DL H 05/10/18 1156 Whole Blood Glucose 330 mg/DL H 05/10/18 0808 Whole Blood Glucose 203 mg/DL H 05/09/18 2122 Assessment and Plan Problems: (1) COPD exacerbation Status: Acute Assessment & Plan: Continue supplemental oxygen, respiratory treatments and transitioned to oral steroids. CXR no acute changes. Monitor off Antibiotics. We did discuss the need to stop smoking completely and she reports understanding. Home O2 apparently not functioning, will contact provider to have service. (2) Type II diabetes mellitus Status: Chronic Assessment & Plan: On ADA diet. We have increased her Lantus to 35 units BID. Will continue her Amaryl as well. Will monitor glucoses and use SSI as needed. The steroids will certainly exacerbate her glucose levels. (3) HTN (hypertension) Status: Chronic Assessment & Plan: Will continue the diltiazem for now. Hold the lisinopril. Monitor closely. (4) GERD (gastroesophageal reflux disease) Status: Chronic Assessment & Plan: Continue PPI therapy. (5) Hyperlipidemia Status: Chronic Assessment & Plan: She has been on Lescol, which is not on formulary. Exam Sepsis Risk: No Definite Risk DEE BECKFORD MD May 11, 2018 08:39
[2018-05-11] MEDS: DILTIAZEM CD 120 MG CAPCR PO SCH (08:42)
[2018-05-11] MEDS: ENOXAPARIN 40 MG/0.4ML SYR SC SCH (08:43)
[2018-05-11] MEDS: GLIMEPIRIDE 2 MG TAB PO SCH (08:43)
[2018-05-11] MEDS: PANTOPRAZOLE SOD 40 MG TABEC PO SCH (08:43)
[2018-05-11] MEDS: busPIRone HCL 5 MG TAB PO SCH (08:44)
[2018-05-11] MEDS ORDERED: INSULIN GLARGINE 100 U/ML 3 ML PEN SUBQ SCH (09:00)
[2018-05-11] MEDS ORDERED: predniSONE 20 MG TAB PO SCH (09:00)
[2018-05-11 11:39] VITALS: BP 109/75
[2018-05-11] MEDS ORDERED: INSU100I30 SUBQ (14:25)
[2018-05-11] MEDS ORDERED: PRED20TA6 PO (14:25)
--- NOTE | 2018-05-11 14:31 | Hospitalist Depart ---
Discharge Summary Reason for Hosp/Final Diag: (1) COPD exacerbation Status: Acute Hospital Course & Plan: She will continue supplemental oxygen, respiratory treatments and complete a weaning course of oral steroids. Her CXR showed no acute changes. Her WBC count was elevated secondary to steroids. We did discuss the need to stop smoking completely and she reports understanding. Her home O2 was apparently not functioning as well. We did contact provider to have service repaired/restarted. She will follow up closely with her primary care provider as an outpatient. (2) Type II diabetes mellitus Status: Chronic Hospital Course & Plan: On ADA diet. We have increased her Lantus to 35 units BID. She will continue her Amaryl as well. She will monitor glucoses AC and HS and use SSI as needed. The steroids will certainly exacerbate her glucose levels. (3) HTN (hypertension) Status: Chronic Hospital Course & Plan: Will continue the diltiazem for now. We have stopped the lisinopril. (4) GERD (gastroesophageal reflux disease) Status: Chronic Hospital Course & Plan: Continue PPI therapy. (5) Hyperlipidemia Status: Chronic Hospital Course & Plan: She has been on Lescol, which will be continued. Departure Weight (Pounds): 160 Weight (Ounces): 9.0 Result Diagram: 05/11/1852305/11/18523 Condition: Improved Discharge: Home Time Spent: > 30 min Discharge Instructions Home Meds Active Scripts Prednisone (PREDNISONE) 20 Mg Tablet, 60 MG PO QDAY, #14 TAB 0 Refills Three tabs PO daily for two days, then two tabs a day for two days, then one tab a day for two days, then one-half tab a day for two days then off. Prov:DEE BECKFORD MD 05/11/18 Insulin Glargine 100 Un/Ml Pen (LANTUS SOLOSTAR PEN) 100 Unit/1 Ml Insuln.pen, 35 UNIT SUBQ BID, #5 UNITS 4 Refills Prov:DEE BECKFORD MD 05/11/18 Diltiazem Hcl (DILTIAZEM 24HR CD) 120 Mg Cap.er.24h, 120 MG PO QDAY, #30 CAP 4 Refills Prov:LARS BECKFORD MD 05/04/18 Insulin Lispro 100 Un/Ml Pen (HUMALOG 3 ML PEN) 100 Unit/1 Ml Insuln.pen, 3-15 UNIT SQ PRN PRN for sliding scale Humalog, #5 UNITS 4 Refills Prov:LARS BECKFORD MD 05/04/18 Glimepiride (GLIMEPIRIDE) 4 Mg Tablet, 0.5 TAB PO BID, #15 TAB Prov:LARS BECKFORD MD 05/04/18 Estrogens, Conjugated (PREMARIN) 1.25 Mg Tablet, 1.25 MG PO QDAY, #30 TAB Prov:LARS BECKFORD MD 08/09/15 Fluticasone/Salmeterol (ADVAIR 250-50 DISKUS) 1 Each Disk.w.dev, 1 PUFF IH DAILY, #1 DISK Prov:LARS BECKFORD MD 08/09/15 Omeprazole (OMEPRAZOLE) 20 Mg Capsule.dr, 1 CAP PO BID, #60 CAP Prov:LARS BECKFORD MD 08/09/15 Albuterol Sulfate 90 Mcg/Act (PROAIR HFA 90 MCG/ACT) 8.5 Gm Hfa.aer.ad, 2 PUFF IH QID, #1 INHALER Prov:LARS BECKFORD MD 08/09/15 Venlafaxine Hcl (VENLAFAXINE HCL ER) 75 Mg Tab.er.24, 75 MG PO BID, #60 TAB Prov:LARS BECKFORD MD 08/09/15 Reported Medications Zolpidem Tartrate (AMBIEN) 10 Mg Tablet, 1 TAB PO QHS PRN for INSOMNIA, TAB 05/09/18 Buspirone Hcl (BUSPIRONE HCL) 7.5 Mg Tablet, 7.5 MG PO BID, #10 TAB 03/22/18 Benzonatate 100 Mg Cap (TESSALON PERLE 100 MG CAP) 100 Mg Capsule, 100 MG PO DAILY, #15 CAP 03/22/18 Cyclobenzaprine Hcl (CYCLOBENZAPRINE HCL) 10 Mg Tablet, 10 MG PO TID, #9 TAB 01/01/18 Fluvastatin Sodium (Lescol) 20 Mg Capsule, 20 MG PO QHS, 0 Refills 06/24/11 Discontinued Reported Medications Lisinopril (LISINOPRIL) 10 Mg Tablet, 10 MG PO HS 09/09/15 Lisinopril (LISINOPRIL) 10 Mg Tablet, 20 MG PO QAM 08/18/15 Gemfibrozil (GEMFIBROZIL) 600 Mg Tablet, 1 TAB PO QDAY 11/18/17 Insulin Glargine (LANTUS) 100 Unit/Ml Soln, 42 UNIT SUBQ HS 09/09/15 Discontinued Scripts Prednisone 10 Mg Tab (PREDNISONE 10 MG TAB) 10 Mg Tablet, 0 PO DAILY PRN for as directed, #34 TAB 40mg po qd X 4d, then 30mg po qd X 3d, then 20mg po qd X 3d, then 10mg po qd x 3d then stop. Prov:LARS BECKFORD MD 05/04/18 Ondansetron (ZOFRAN ODT) 4 Mg Tab.rapdis, 4 MG PO Q6H PRN for NAUSEA/VOMITING, #20 TAB.MARGOT 0 Refills Prov:PERRI SCOTT MD 11/05/16 Diet: Diabetic Activity: As Tolerated, No Exertion Special Instructions: Continue home oxygen. Follow up with Dr. Hampton in next 4-5 days or sooner if any problems. Copies to: SILVERIO HAMPTON MD ; Venous Thromboembolism Antithrombotics Is Pt On Any Antithrombotics?: Yes DEE BECKFORD MD May 11, 2018 14:31
== END 2018-05-11 15:45 | disposition home or self-care (01) | DRG 192 ==
LOC: MED 16:39
PROVIDERS: ADMIT Internal Medicine; ATTEND Internal Medicine
DX: J44.1 Chronic obstructive pulmonary disease with (acute) exacerbation (principal); F17.210 Nicotine dependence, cigarettes, uncomplicated; E11.9 Type 2 diabetes mellitus without complications; I10 Essential (primary) hypertension; K21.9 Gastro-esophageal reflux disease without esophagitis; G89.29 Other chronic pain; E78.5 Hyperlipidemia, unspecified; F32.9 Major depressive disorder, single episode, unspecified; G47.30 Sleep apnea, unspecified; Z79.4 Long term (current) use of insulin; Z99.81 Dependence on supplemental oxygen; Z90.710 Acquired absence of both cervix and uterus; Z90.49 Acquired absence of other specified parts of digestive tract; Z88.0 Allergy status to penicillin; Z88.8 Allergy status to other drugs, medicaments and biological substances; Z88.7 Allergy status to serum and vaccine
CPT/HCPCS: 36415; 36416; 71046; 81001; 82040; 82247; 82310; 82374; 82435; 82565; 82947; 82948; 84075; 84132; 84155; 84295; 84450; 84460; 84520; 85025; 87088; 94640; J1650; J1815; J2930; J7030; J7512

== ENCOUNTER 2018-11-19 11:19 | Inpatient (IN) | payer MEDICAID ==
[~2018-11-19] VITALS: Ht 167.6 cm; Wt 67.6 kg
[2018-11-19] VITALS (22 sets, daily range): BP systolic 91–132; BP diastolic 56–80
[~2018-11-19 11:19] MED LIST changes: -LIDO700A19 TP; -POLY17PO11 PO; -VANC1.5P11 IV; -[UNRECOGNIZED DRUG - OTHER] PO
--- NOTE | 2018-11-19 11:23 | ER Report ---
History and Physical Time Seen By MD: 11:22 HPI/ROS CHIEF COMPLAINT: Altered mental status elevated blood sugar HISTORY OF PRESENT ILLNESS: History mostly provided by EMS, she was altered and confused. Past medical history for COPD apparently uncontrolled diabetes patient was found prone in her bed there is no history of fall or trauma. Patient is unable to provide useful history. Electronic medical record was reviewed on this patient patient has no significant contact with a primary care provider. Her most recent visits are either trip to the emergency department for acute care of or admissions due to COPD or diabetes. Patient has no living will and is a full code. Additional history from EMS is that there is a fair amount of vomit that appeared "no" in the home the home itself is fairly filthy and there is evidence of hoarding REVIEW OF SYSTEMS: Unable to obtain useful working review of systems as patient is obtunded. Allergies: Coded Allergies: Penicillins (Verified Allergy, Severe, BLISTERS, 08/18/18) pneumococcal vaccine (Verified Allergy, Severe, HIVES, 08/18/18) Influenza Virus Vaccines (Verified Allergy, Intermediate, SWELLING TO FACE, 08/18/18) corn (Verified Allergy, Mild, UNKNOWN, 08/18/18) TINGLING FEELING dextromethorphan (Verified Allergy, Mild, 08/18/18) grass pollen-January ([place] blue) grass, std (Verified Allergy, Mild, ITCHING, 08/18/18) guaifenesin (Verified Allergy, Mild, 08/18/18) ibuprofen (Verified Allergy, Mild, 08/18/18) LIQUID CAPSULES pseudoephedrine (Verified Allergy, Mild, 08/18/18) Uncoded Allergies: ANIMALS (Allergy, Mild, 09/03/08) MOLD (Allergy, Unknown, 01/29/14) Home Meds Active Scripts Prednisone (PREDNISONE) 20 Mg Tablet, 40 MG PO DAILY, #10 TAB Prov:CANDE GALICIA 08/18/18 Prednisone (PREDNISONE) 20 Mg Tablet, 60 MG PO QDAY, #14 TAB 0 Refills Three tabs PO daily for two days, then two tabs a day for two days, then one tab a day for two days, then one-half tab a day for two days then off. Prov:DEE BECKFORD MD 05/11/18 Insulin Glargine 100 Un/Ml Pen (LANTUS SOLOSTAR PEN) 100 Unit/1 Ml Insuln.pen, 35 UNIT SUBQ BID, #5 UNITS 4 Refills Prov:DEE BECKFORD MD 05/11/18 Diltiazem Hcl (DILTIAZEM 24HR CD) 120 Mg Cap.er.24h, 120 MG PO QDAY, #30 CAP 4 Refills Prov:LARS BECKFORD MD 05/04/18 Insulin Lispro 100 Un/Ml Pen (HUMALOG 3 ML PEN) 100 Unit/1 Ml Insuln.pen, 3-15 UNIT SQ PRN PRN for sliding scale Humalog, #5 UNITS 4 Refills Prov:LARS BECKFORD MD 05/04/18 Glimepiride (GLIMEPIRIDE) 4 Mg Tablet, 0.5 TAB PO BID, #15 TAB Prov:LARS BECKFORD MD 05/04/18 Estrogens, Conjugated (PREMARIN) 1.25 Mg Tablet, 1.25 MG PO QDAY, #30 TAB Prov:LARS BECKFORD MD 08/09/15 Fluticasone/Salmeterol (ADVAIR 250-50 DISKUS) 1 Each Disk.w.dev, 1 PUFF IH DAILY, #1 DISK Prov:LARS BECKFORD MD 08/09/15 Omeprazole (OMEPRAZOLE) 20 Mg Capsule.dr, 1 CAP PO BID, #60 CAP Prov:LARS BECKFORD MD 08/09/15 Albuterol Sulfate 90 Mcg/Act (PROAIR HFA 90 MCG/ACT) 8.5 Gm Hfa.aer.ad, 2 PUFF IH QID, #1 INHALER Prov:LARS BECKFORD MD 08/09/15 Venlafaxine Hcl (VENLAFAXINE HCL ER) 75 Mg Tab.er.24, 75 MG PO BID, #60 TAB Prov:LARS BECKFORD MD 08/09/15 Reported Medications Zolpidem Tartrate (AMBIEN) 10 Mg Tablet, 1 TAB PO QHS PRN for INSOMNIA, TAB 05/09/18 Buspirone Hcl (BUSPIRONE HCL) 7.5 Mg Tablet, 7.5 MG PO BID, #10 TAB 03/22/18 Benzonatate 100 Mg Cap (TESSALON PERLE 100 MG CAP) 100 Mg Capsule, 100 MG PO DAILY, #15 CAP 03/22/18 Cyclobenzaprine Hcl (CYCLOBENZAPRINE HCL) 10 Mg Tablet, 10 MG PO TID, #9 TAB 01/01/18 Fluvastatin Sodium (Lescol) 20 Mg Capsule, 20 MG PO QHS, 0 Refills 06/24/11 Past Medical/Surgical History Past Medical/Surgical History Patient has a past medical history of migraines, chest pain, angina, hypertension, hyperlipidemia, sleep apnea, asthma, if his edema, pneumonia, tuberculosis, COPD, reflux, cholecystitis, pyelonephritis, frequent UTI, ovarian cancer, right hip bursitis, arthritis, back pain, diabetes, alcohol use, depression, anxiety, suicide attempt, cervical cancer. Patient has a surgical history of nose surgery, elbow surgery, hysterectomy, cholecystectomy, appendectomy, Gabrielle pancreectomy, heart catheter. Patient has a family medical history of cancer, CAD, stroke, diabetes. Hx Smoking: Yes (4-5 cigarettes/day FOR 40YEARS ) Smoking Status: Current: Every Day Smoker Exposure to Second Hand Smoke?: Yes Hx Substance Use Disorder: No Hx Alcohol Use: Yes Constitutional Vital Sign - Last 24 Hours 11/19/18 11/19/18 11/19/18 11/19/18 11:19 11:20 11:20 11:30 Resp 24 B/P (MAP) 139/101 (114) 139/111 157/122 (134) O2 Delivery Nasal Cannula 11/19/18 11/19/18 11/19/18 11/19/18 11:34 11:45 11:49 12:00 Pulse 102 100 Resp 23 23 B/P (MAP) 163/111 (128) 154/103 (120) Pulse Ox 99 97 11/19/18 11/19/18 11/19/18 11/19/18 12:04 12:15 12:19 12:30 Pulse 99 Resp 23 19 B/P (MAP) 145/113 (124) 150/125 (133) Pulse Ox 99 94 11/19/18 11/19/18 11/19/18 11/19/18 12:34 12:38 12:45 12:50 Pulse 96 93 Resp 20 20 B/P (MAP) 140/85 (103) 127/86 (100) Pulse Ox 97 11/19/18 11/19/18 11/19/18 11/19/18 13:00 13:05 13:15 13:20 Pulse 91 90 Resp 18 20 B/P (MAP) 134/89 (104) 120/81 (94) Pulse Ox 95 95 11/19/18 11/19/18 11/19/18 11/19/18 13:30 13:35 13:45 13:50 Pulse 88 89 Resp 20 19 B/P (MAP) 126/82 (97) 128/89 (102) Pulse Ox 95 96 Intake and Output 11/19/18 11/19/18 11/20/18 15:00 23:00 07:00 Intake Total 2000 ml Output Total 600 ml Balance 1400 ml Physical Exam General/Constitutional: Patient is awake, confused, mumbling words patient is able to state her name. Increased work of breathing with accessory muscle use is noted Head: Normocephalic and atraumatic. Eyes: Conjunctival clear, Pupils are equal and reactive to light. Anicteric Ears:External canals are clear. Tympanic membranes are clear with normal landmarks and light reflex. Nares: No rhinorrhea or bleeding. Turbinates are pink and moist. Oropharyngeal: Mucous membranes are moist. There is no pharyngeal erythema or exudate. There are no palatal petechiae. Uvula is midline and symmetrical. No pooling of secretions, and is able to phonate her name. There is no stridor Neck: Supple, no adenopathy. Cardiovascular: Heart is regular rate and rhythm without audible murmurs, rubs or gallops. Pulmonary: Lungs are clear to auscultation bilaterally. There are no wheezes, rales, or rhonchi. Chest rise is symmetrical small respirations are present and tidal CO2 was 8 with sats 98% Abdomen: Soft, nontender, no guarding or peritoneal signs. Extremities: No gross deformities, No peripheral cyanosis. Able to move all 4 extremities. Neuro: Obtunded.. Skin: No rashes, skin is warm dry and well perfused. Medical Decision Making Data Points Result Diagram: 11/20/1844611/20/18446 Laboratory Hematology Test 11/19/18 11:25 11/19/18 11:40 11/19/18 11:56 11/19/18 12:39 Prothrombin Time 14.0 seconds (12.0-14.4) Prothromb Time International Ratio 1.08 Activated Partial Thromboplast Time 24 seconds (23-35) Urine Color Straw Urine Clarity Clear Urine pH 6.0 pH (4.8-9.5) Urine Specific [place] 1.024 Urine Protein 30 mg/dL (NEGATIVE) Urine Glucose (UA) 500 mg/dL (NEGATIVE) Urine Ketones 80 mg/dL (NEGATIVE) Urine Blood Large (NEGATIVE) Urine Nitrite Negative (NEGATIVE) Urine Bilirubin Negative (NEGATIVE) Urine Urobilinogen Negative mg/dL (0.2-1.9) Urine Leukocyte Esterase Trace (NEGATIVE) Urine RBC 2 /HPF (0-2/HPF) Urine WBC 16 /HPF (0-5/HPF) Urine WBC Clumps Few /HPF Urine Squamous Epithelial Cells None /LPF (NONE-FEW) Urine Bacteria Negative /HPF (NONE-FEW) Urine Mucus Few /HPF (NONE-FEW) Urine Opiates Screen Negative Urine Barbiturates Screen Negative Ur Tricyclic Antidepressants Screen Negative Urine Phencyclidine Screen Negative Urine Amphetamines Screen Negative Urine Benzodiazepines Screen Negative Urine Cocaine Screen Negative Urine Cannabinoids Screen Negative Blood Gas Puncture Site Right radial Blood Gas Patient Temperature 36.9 DEGREES Arterial Blood Partial Pressure CO2 < 25 mmHg (32-37) Arterial Blood Partial Pressure O2 90 mmHg (60-80) Arterial Blood HCO3 3 mmol/L (20-26) Arterial Blood Oxygen Saturation 95 % (92-100) Arterial Blood Base Excess -25.0 mmol/L Bharat Test Acceptable Oxygen Liters/Minute 21% Magnesium Level 2.3 mg/dl (1.7-2.2) Ammonia < 9 UMOL/L (9-33) Total Creatine Kinase 21 U/L (30-135) Troponin I < 0.012 ng/ml Salicylates Level < 10 mg/L Salicylate Last Dose Date unk Acetaminophen Level < 10 ug/ml Acetone, Qualitative Moderate Chemistry Test 11/19/18 11:25 11/19/18 11:40 11/19/18 11:56 11/19/18 12:39 Prothrombin Time 14.0 seconds (12.0-14.4) Prothromb Time International Ratio 1.08 Activated Partial Thromboplast Time 24 seconds (23-35) Urine Color Straw Urine Clarity Clear Urine pH 6.0 pH (4.8-9.5) Urine Specific [place] 1.024 Urine Protein 30 mg/dL (NEGATIVE) Urine Glucose (UA) 500 mg/dL (NEGATIVE) Urine Ketones 80 mg/dL (NEGATIVE) Urine Blood Large (NEGATIVE) Urine Nitrite Negative (NEGATIVE) Urine Bilirubin Negative (NEGATIVE) Urine Urobilinogen Negative mg/dL (0.2-1.9) Urine Leukocyte Esterase Trace (NEGATIVE) Urine RBC 2 /HPF (0-2/HPF) Urine WBC 16 /HPF (0-5/HPF) Urine WBC Clumps Few /HPF Urine Squamous Epithelial Cells None /LPF (NONE-FEW) Urine Bacteria Negative /HPF (NONE-FEW) Urine Mucus Few /HPF (NONE-FEW) Urine Opiates Screen Negative Urine Barbiturates Screen Negative Ur Tricyclic Antidepressants Screen Negative Urine Phencyclidine Screen Negative Urine Amphetamines Screen Negative Urine Benzodiazepines Screen Negative Urine Cocaine Screen Negative Urine Cannabinoids Screen Negative Blood Gas Puncture Site Right radial Blood Gas Patient Temperature 36.9 DEGREES Arterial Blood Partial Pressure CO2 < 25 mmHg (32-37) Arterial Blood Partial Pressure O2 90 mmHg (60-80) Arterial Blood HCO3 3 mmol/L (20-26) Arterial Blood Oxygen Saturation 95 % (92-100) Arterial Blood Base Excess -25.0 mmol/L Bharat Test Acceptable Oxygen Liters/Minute 21% Magnesium Level 2.3 mg/dl (1.7-2.2) Ammonia < 9 UMOL/L (9-33) Total Creatine Kinase 21 U/L (30-135) Troponin I < 0.012 ng/ml Salicylates Level < 10 mg/L Salicylate Last Dose Date unk Acetaminophen Level < 10 ug/ml Acetone, Qualitative Moderate Coagulation Test 11/19/18 11:25 Prothrombin Time 14.0 seconds Prothromb Time International Ratio 1.08 Activated Partial Thromboplast Time 24 seconds Toxicology Test 11/19/18 11:40 11/19/18 12:39 Urine Opiates Screen Negative Urine Barbiturates Screen Negative Ur Tricyclic Antidepressants Screen Negative Urine Phencyclidine Screen Negative Urine Amphetamines Screen Negative Urine Benzodiazepines Screen Negative Urine Cocaine Screen Negative Urine Cannabinoids Screen Negative Salicylates Level < 10 mg/L Salicylate Last Dose Date unk Acetaminophen Level < 10 ug/ml Acetone, Qualitative Moderate Urinalysis Test 11/19/18 11:40 Urine Color Straw Urine Clarity Clear Urine pH 6.0 pH (4.8-9.5) Urine Specific [place] 1.024 Urine Protein 30 mg/dL (NEGATIVE) Urine Glucose (UA) 500 mg/dL (NEGATIVE) Urine Ketones 80 mg/dL (NEGATIVE) Urine Blood Large (NEGATIVE) Urine Nitrite Negative (NEGATIVE) Urine Bilirubin Negative (NEGATIVE) Urine Urobilinogen Negative mg/dL (0.2-1.9) Urine Leukocyte Esterase Trace (NEGATIVE) Urine RBC 2 /HPF (0-2/HPF) Urine WBC 16 /HPF (0-5/HPF) Urine WBC Clumps Few /HPF Urine Squamous Epithelial Cells None /LPF (NONE-FEW) Urine Bacteria Negative /HPF (NONE-FEW) Urine Mucus Few /HPF (NONE-FEW) Microbiology Microbiology Date/Time Source Procedure Growth Status 11/19/18 11:36 Blood Line Draw Blood Culture - Final Resulted 11/19/18 11:36 Blood Culture - Preliminary Staphylococcus, Coagulase Pos Resulted 11/19/18 11:25 Blood Line Draw Blood Culture - Final Resulted 11/19/18 11:25 Blood Culture - Preliminary Staphylococcus, Coagulase Pos Resulted 11/19/18 11:40 Cath Urine Urine Culture - Preliminary Staphylococcus, Coagulase Pos Resulted EKG/Imaging EKG Interpretation EKG shows sinus tachycardia with bilateral enlargement of the atria. Monitor Interpretation: Normal Sinus Rhythm ED Course/Re-evaluation Clinical Indication for ER IV: Hydration, IV Access ED Course Plan at this time will be workup for hyperglycemia suspect diabetic ketoacidosis also considering possibility of infection and placed on the sepsis protocol will give IV fluid resuscitation at 30 mL/kg evidence of upper airway obstruction patient appears to be maintaining her own airway we will check an ABG along with chemistry panel CBC troponin EKG CT of the head and C-spine and will consider CT of the abdomen and pelvis if abdominal pathology is concerned Decision to Disposition Date: Nov 19, 2018 Decision to Disposition Time: 13:41 Depart Departure Latest Vital Signs Vital Signs Date Time Temp Pulse Resp B/P (MAP) Pulse Ox O2 Delivery O2 Flow Rate FiO2 11/19/18 13:50 89 19 96 11/19/18 13:45 128/89 (102) 11/19/18 11:20 Nasal Cannula Impression: Primary Impression: Hyperglycemia Additional Impression: DKA (diabetic ketoacidoses) Condition: Improved Disposition: Admitted from ER (to ICU DR Roman) Referrals: IVORY TORRES PA-C (PCP) Problem Qualifiers Additional Impression: DKA (diabetic ketoacidoses) Diabetes mellitus type: type 1 Diabetes mellitus complication detail: with coma Qualified Codes: E10.11 - Type 1 diabetes mellitus with ketoacidosis with coma LULI FRIEND MD Nov 19, 2018 11:23
[2018-11-19] MEDS ORDERED: NS(*) 0.9% 1000 ML BAG 1,000 ML IV ONE ×4 (11:25→13:25)
[2018-11-19] MEDS ORDERED: INSU HUM REG 100 U/ML(ER ONLY) 10 ML VIAL IV ONE (11:30)
[2018-11-19] MEDS ORDERED: INS HUM REG* 100 U/ML(ER ONLY) 100 UNIT in NS(*) 0.9% 100 ML BAG 99 ML IV SCH ×2 (11:30→17:05)
[2018-11-19] MEDS ORDERED: SODIUM BICARB 8.4% 50 MEQ/50ML IV ONE (12:00)
[2018-11-19 12:03] LABS: INR 1.08
[2018-11-19] MEDS ORDERED: SODIUM BICAR(* 8.4% 50 ML SYR 50 ML SYR IVP ONE (12:05)
[2018-11-19 12:06] LABS: PLATELET COUNT, AUTOMATED 529 K/uL (150-450)
--- NOTE | 2018-11-19 12:25 | EKG ---
FACILITY: [facility] PATIENT NAME: ANJANA GONZALEZ : [id number] MR: [id number] V: [id number] EXAM DATE: ORDERING PHYSICIAN: LULI FRIEND TECHNOLOGIST: Test Reason : sepsis Blood Pressure : / mmHG Vent. Rate : 102 BPM Atrial Rate : 102 BPM P-R Int : 122 ms QRS Dur : 090 ms QT Int : 352 ms P-R-T Axes : 083 079 058 degrees QTc Int : 458 ms Sinus tachycardia Biatrial enlargement Abnormal ECG When compared with ECG of 03-MAY-2018 11:23, Questionable change in QRS duration Confirmed by SILVERIO RIZZO ([id number]) on 11/19/2018 7:24:07 PM Referred By: Confirmed By:SILVERIO RIZZO
--- NOTE | 2018-11-19 12:33 | RADIOLOGY IMAGING REPORT ---
FACILITY: [facility] [place] PATIENT NAME: Subha Martinez : 1965 MR: [id number] V: [id number] EXAM DATE: ORDERING PHYSICIAN: LLUI FRIEND TECHNOLOGIST: Location: [facility] [place] Patient: Subha Martinez : 1965 Visit/Account:[id number] Date of Sevice: 11/19/2018 Chest single view: HISTORY: AMS. Diabetic ketoacidosis. COMPARISON: 08/18/2018 FINDINGS: Portable chest 1208 hours: Cardiomediastinal silhouette is within normal limits. There is no infiltrate or pleural effusion. No pneumothorax. Pulmonary vasculature is normal. Atherosclerotic changes are present in the aorta. IMPRESSION: No evidence of acute cardiopulmonary abnormality. Report Dictated By: Kareen Metcalf MD at 11/19/2018 12:24 PM Report E-Signed By: Kareen Metcalf MD at 11/19/2018 12:26 PM WSN:[id number]
--- NOTE | 2018-11-19 12:43 | RADIOLOGY IMAGING REPORT ---
FACILITY: [facility] [place] PATIENT NAME: Subha Martinez : 1965 MR: [id number] V: [id number] EXAM DATE: ORDERING PHYSICIAN: LULI FRIEND TECHNOLOGIST: Location: [facility] Patient: Subha Martinez : 1965 Visit/Account:[id number] Date of Sevice: 11/19/2018 EXAMINATION: CT head without IV contrast HISTORY: Altered mental status. COMPARISON: CT head from 06/16/2016. TECHNIQUE: Contiguous axial images were obtained from the skull base to the vertex without intraven ous contrast. Sagittal and coronal reformatted images are also submitted. One of the following dose optimization techniques was utilized in the performance of this exam: Autom ated exposure control; adjustment of the mA and/or kV according to the patient's size; or use of an i terative reconstruction technique. Specific details can be referenced in the facility's radiology C T exam operational policy. FINDINGS: Brain volume: Normal. Ventricles: Normal. Acute ischemic changes: None. Hemorrhage: No acute intracranial hemorrhage. Masses/edema: None. Conklin-white: Negative. White matter: Normal. Vessels: Minimal calcified plaque of the bilateral carotid siphons. Extra-axial: Negative. Calvarium/scalp: Negative. Skull base/visualized face: Negative. Visualized sinuses/orbits: Negative. IMPRESSION: No acute hemorrhage or intracranial mass lesion. No CT evidence of acute infarct. Report Dictated By: May Hill MD at 11/19/2018 12:36 PM Report E-Signed By: May Hill MD at 11/19/2018 12:39 PM WSN:[id number]
[2018-11-19] MEDS ORDERED: INSU HUM REG 100 U/ML(ER ONLY) 10 ML VIAL IVP ONE (13:30)
[2018-11-19] MEDS: KCL/NS* 20 MEQ/1000 ML PREMIX 1,000 ML IV SCH ×2 (16:30→23:10)
[2018-11-19] MEDS ORDERED: INSULIN HUM REG 100 UN/ML 3 ML 100 UNIT in NS(*) 0.9% 100 ML BAG 100 ML IV SCH (16:30)
--- NOTE | 2018-11-19 16:42 | History & Physical ---
History of Present Illness Chief Complaint Altered mental status History of Present Illness This patient was brought to the emergency room by EMS after being found unresponsive. It is unclear how long she was down and the patient is unable to provide history. He family reports that she has been noncompliant with her medications. 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 Prov:DEE BECKFORD MD 05/11/18 Insulin Glargine 100 Un/Ml Pen (LANTUS SOLOSTAR PEN) 100 Unit/1 Ml Insuln.pen, 35 UNIT SUBQ BID, #5 UNITS 4 Refills Prov:DEE BECKFORD MD 05/11/18 Diltiazem Hcl (DILTIAZEM 24HR CD) 120 Mg Cap.er.24h, 120 MG PO QDAY, #30 CAP 4 Refills Prov:LARS BECKFORD MD 05/04/18 Insulin Lispro 100 Un/Ml Pen (HUMALOG 3 ML PEN) 100 Unit/1 Ml Insuln.pen, 3-15 UNIT SQ PRN PRN for sliding scale Humalog, #5 UNITS 4 Refills Prov:LARS BECKFORD MD 05/04/18 Glimepiride (GLIMEPIRIDE) 4 Mg Tablet, 0.5 TAB PO BID, #15 TAB Prov:LARS BECKFORD MD 05/04/18 Estrogens, Conjugated (PREMARIN) 1.25 Mg Tablet, 1.25 MG PO QDAY, #30 TAB Prov:LARS BECKFORD MD 08/09/15 Fluticasone/Salmeterol (ADVAIR 250-50 DISKUS) 1 Each Disk.w.dev, 1 PUFF IH DAILY, #1 DISK Prov:LARS BECKFORD MD 08/09/15 Omeprazole (OMEPRAZOLE) 20 Mg Capsule.dr, 1 CAP PO BID, #60 CAP Prov:LARS BECKFORD MD 08/09/15 Albuterol Sulfate 90 Mcg/Act (PROAIR HFA 90 MCG/ACT) 8.5 Gm Hfa.aer.ad, 2 PUFF IH QID, #1 INHALER Prov:LARS BECKFORD MD 08/09/15 Venlafaxine Hcl (VENLAFAXINE HCL ER) 75 Mg Tab.er.24, 75 MG PO BID, #60 TAB Prov:LARS BECKFORD MD 08/09/15 Reported Medications Zolpidem Tartrate (AMBIEN) 10 Mg Tablet, 1 TAB PO QHS PRN for INSOMNIA, TAB 05/09/18 Buspirone Hcl (BUSPIRONE HCL) 7.5 Mg Tablet, 7.5 MG PO BID, #10 TAB 03/22/18 Benzonatate 100 Mg Cap (TESSALON PERLE 100 MG CAP) 100 Mg Capsule, 100 MG PO DAILY, #15 CAP 03/22/18 Cyclobenzaprine Hcl (CYCLOBENZAPRINE HCL) 10 Mg Tablet, 10 MG PO TID, #9 TAB 01/01/18 Fluvastatin Sodium (Lescol) 20 Mg Capsule, 20 MG PO QHS, 0 Refills 06/24/11 Allergies: Coded Allergies: Penicillins (Verified Allergy, Severe, BLISTERS, 08/18/18) pneumococcal vaccine (Verified Allergy, Severe, HIVES, 08/18/18) Influenza Virus Vaccines (Verified Allergy, Intermediate, SWELLING TO FACE, 08/18/18) corn (Verified Allergy, Mild, UNKNOWN, 08/18/18) TINGLING FEELING dextromethorphan (Verified Allergy, Mild, 08/18/18) grass pollen-January ([place] blue) grass, std (Verified Allergy, Mild, ITCHING, 08/18/18) guaifenesin (Verified Allergy, Mild, 08/18/18) ibuprofen (Verified Allergy, Mild, 08/18/18) LIQUID CAPSULES pseudoephedrine (Verified Allergy, Mild, 08/18/18) Uncoded Allergies: ANIMALS (Allergy, Mild, 09/03/08) MOLD (Allergy, Unknown, 01/29/14) Patient History: Blood clots CHILD FH: CAD (coronary artery disease) FATHER BROTHER OR SISTER FH: COPD (chronic obstructive pulmonary disease) BROTHER OR SISTER BROTHER OR SISTER FH: CVA (cerebrovascular accident) FATHER FH: HTN (hypertension) FATHER BROTHER OR SISTER FH: depression MOTHER FH: diabetes mellitus FATHER BROTHER OR SISTER MOTHER FH: kidney failure FATHER FH: stroke FATHER Hx Smoking: Yes (4-5 cigarettes/day FOR 40YEARS ) Smoking Status: Current: Every Day Smoker Exposure to Second Hand Smoke?: Yes Caffeine Intake: Coffee, Tea, Soda Caffeine/Cups Per Day: 10-15 cups Hx Alcohol Use: Yes Hx Substance Use Disorder: No Social Drug Use: Never Social Drugs: Marijuana Review of Systems All Systems Reviewed/Normal: Yes Exam Vital Signs Vital Signs Date Time Temp Pulse Resp B/P (MAP) Pulse Ox O2 Delivery O2 Flow Rate FiO2 11/19/18 16:05 87 41 89 11/19/18 15:45 106/66 (79) 11/19/18 11:20 Nasal Cannula Neuro: No Gross deficits Eyes: PERRLA Cardiovascular: Regular Rate and Rhythm Respiratory: Clear to Auscultation GI: Abd Soft and Non-Tender Extremities: Edema Integumentary: No Cyanosis Psych: Other (Confused to person, place, and time.) Medical Decision Making Data Points Result Diagram: 11/19/18 1125 11/19/18 1427 Assessment and Plan Problems: (1) DKA (diabetic ketoacidoses) Status: Acute Assessment & Plan: She was profoundly acidotic and her glucose was elevated on arrival. She has been started on fluid resuscitation and an IV insulin infusion. (2) Pancreatitis, acute Assessment & Plan: She is NPO. Venous Thromboembolism Antithrombotics Is Pt On Any Antithrombotics?: No Exam Sepsis Risk: No Definite Risk Problem Qualifiers (1) DKA (diabetic ketoacidoses): Diabetes mellitus type: type 1 Diabetes mellitus complication detail: with coma Qualified Codes: E10.11 - Type 1 diabetes mellitus with ketoacidosis with coma SILVERIO RIZZO DO Nov 19, 2018 16:42
[2018-11-19] MEDS: KCL/D1/2NS 20 MEQ 1000 ML 1,000 ML IV PRN ×2 (17:25→23:10)
--- NOTE | 2018-11-19 17:31 | NUR ---
Patient's blood sugar at [address] Roman called and order to start NS 1/2 with 20KCL @ 150cc/hr
[2018-11-20] VITALS (20 sets, daily range): BP systolic 107–156; BP diastolic 66–97; Ht 167.6 cm; Wt 67.6 kg
[2018-11-20 04:53] LABS: PLATELET COUNT, AUTOMATED 412 K/uL (150-450)
[2018-11-20] MEDS: KCL/NS* 20 MEQ/1000 ML PREMIX 1,000 ML IV SCH (05:50)
[2018-11-20] MEDS: KCL/D1/2NS 20 MEQ 1000 ML 1,000 ML IV PRN (05:56)
[2018-11-20] MEDS ORDERED: KCL/D1/2NS 20 MEQ 1000 ML 1,000 ML IV PRN (07:28)
[2018-11-20] MEDS ORDERED: VANCOMYCIN(*) 1 GM VIAL 1 GM, VANCOMYCIN HCL 0.750 GM VIAL 0.75 GM in NS(*) 0.9% 250 ML... IVPB ONE (07:30)
--- NOTE | 2018-11-20 08:06 | Hospitalist Progress Note ---
Subjective Progress Notes Subjective She rested all night, but still not interactive. Physical Exam Vital Signs Date Time Temp Pulse Resp B/P (MAP) Pulse Ox O2 Delivery O2 Flow Rate FiO2 11/20/18 06:00 84 20 131/87 (102) 89 Room Air 11/20/18 04:00 99.0 2.0 Intake and Output 11/20/18 07:00 Intake Total 5106 ml Output Total 2235 ml Balance 2871 ml Intake Oral 0 ml IV Total 5106 ml Output Urine Total 2235 ml General Appearance: No Acute Distress Neuro: Other (Responds to voice, but not answering questions. Following some commands. GLORIA) ENT: Other (No teeth. No obvious discharge or swelling from the gums) Cardiovascular: Regular Rate and Rhythm Respiratory: Clear to Auscultation GI: Soft and Non-Tender (Non-distended) Integumentary: Other (No sores on feet/legs/buttock/back) Result Diagram: 11/20/1844611/20/18446 Monitor Interpretation: Normal Sinus Rhythm Assessment and Plan Problems: (1) DKA (diabetic ketoacidoses) Status: Acute Assessment & Plan: She was found severely altered and on the ground in her home. She was profoundly acidotic and her glucose was elevated on arrival. She has been hydrated and started on an insulin drip. The AG has closed and the bicarb is 19. Will try stopping insulin drip, decreased D5 IVF, start Lantus and cover with SSI. (2) Bacteremia Status: Acute Assessment & Plan: Blood cultures x2 growing GPC. Vancomycin started. No obvious source, but possibly urinary (i.e. 16 wbc and no SCE). Urine culture pending. Recheck CXR and will get an echo. (3) Altered mental status Status: Acute Assessment & Plan: Likely secondary to DKA and bacteremia. Head CT without acute abnormalities. She responds to voice. GLORIA. Might need an MRI of the brain if not improving. (4) Pancreatitis, acute Status: Resolved Assessment & Plan: Lipase was elevated upon admission. Now wnl and has a benign abdominal exam. She can eat when mental status improves. Exam Sepsis Risk: No Definite Risk Problem Qualifiers (1) DKA (diabetic ketoacidoses): Diabetes mellitus type: type 1 Diabetes mellitus complication detail: with coma Qualified Codes: E10.11 - Type 1 diabetes mellitus with ketoacidosis with coma WESLY MARIN MD Nov 20, 2018 08:06
--- NOTE | 2018-11-20 08:36 | RADIOLOGY IMAGING REPORT ---
FACILITY: [facility] PATIENT NAME: Subha Martinez : 1965 MR: [id number] V: [id number] EXAM DATE: ORDERING PHYSICIAN: WESLY MARIN TECHNOLOG[place]: [place] [facility] [place] : 1965 Visit/Account:[id number] Date of Sevice: 11/20/2018 Single view of the chest Indication: Hypoxia. Comparison: Examination chest November 19, 2018 Findings: Heart size within normal limits. Lungs are stable and clear. No new focal infiltrate or failure. No acute bony finding. No pneumothorax or pleural effusion. IMPRESSION: 1. No acute cardiopulmonary process. Report Dictated By: Kaiden Vee MD at 11/20/2018 8:30 AM Report E-Signed By: Kaiden Vee MD at 11/20/2018 8:30 AM WSN:[id number]
[2018-11-20] MEDS: ENOXAPARIN 40 MG/0.4ML SYR SC SCH (08:57)
[2018-11-20] MEDS: INSULIN GLARGINE 100 U/ML 3 ML PEN SUBQ SCH ×2 (08:57→20:59)
[2018-11-20] MEDS: PANTOPRAZOLE SOD 40 MG IV VIAL IVP SCH (09:50)
--- NOTE | 2018-11-20 10:55 | Pharmacy Note ---
Vancomycin Management Note Vanco Dosing Note Pharmacy Services Pharmacokinetic Dosing Consult, Vancomycin Pharmacy has been consulted for dosing and monitoring of vancomycin for 53 year old female for bacteremia/UTI. Pertinent Past Medical History: * Antibiotics prior to admission; unknown Additional Antimicrobials: [*] Start [*] , Stop [*] [*] Start [*] , Stop [*] [*] Start [*] , Stop [*] [*] Start [*] , Stop [*] Patient Information: Height (cm): 167.6 cm Actual Body Weight (ABW): 67.8 kg Pertinent Lab Tests WHITE BLOOD COUNT 26.4 NEUTROPHILS 82.3% BLOOD UREA NITROGEN 19 SCR 0.5 (calculated CrCl using 0.8) VANCOMYCIN TROUGH VANCOMYCIN RANDOM Culture Results: BLOOD G+ cocci URINE G+ cocci SPUTUM * WOUND * Assessment: CrCl ~65 ml/min Renal function is stable Vancomycin Monitoring Assessment Goal Vancomycin Trough Level: 15-20 Plan: 1) Vancomycin 25 mg/kg loading dose (based on ABW): 1750 mg IV x 1 2) Vancomycin maintenance dose (based on ABW): 1000mg Q12H 3) Vancomycin monitoring: vanco level ordered for 11/21 @1830 (before the 4th dose) Pharmacy will continue to monitor daily and adjust regimen as appropriate. Thank you for the consult. WENDY MARQUEZ Nov 20, 2018 10:55
[2018-11-20] MEDS: INSULIN HUM LISPRO 100 UN/ML 3 ML VIAL SUBQ PRN ×4 (11:08→20:59)
--- NOTE | 2018-11-20 11:19 | Medical Nutrition Therapy ---
Nutrition Anthropometrics Height (Inches): 66.00 Height (Calculated Centimeters: 167.694488 Weight (Pounds): 149 Weight (Calculated Kilograms): 67.755 Harvey Nutrition Score: Probably Inadequate Harvey Nutrition Risk Score: 14 Dietary Referral Nutrition Risk Factors: Unplanned Loss >10lbs Nutrition Risk Comment: pt. states rosanne her throat is sore from the intubation Physical Findings Physical Appearance: Skin Appearance Skin Appearance: Edema Edema Location Modifier: Edema Location: Type of Edema: Degree of Edema: Gastrointestinal Symptoms GI Symtoms: Tube Present: Bowel Sounds: Recent Bowel Pattern: Stool Characteristics: Nutritional Diagnosis Nutritional Risk Acuity 2: Blood Glucose > 300mg/dl Nutritional Risk Acuity 3: COPD Unstable Nutritional Risk Acuity 4: Good Appetite Past Medical History: Hx of hyperlipidemia, GERD, T2DM, shingles, COPD, pancreatectomy, elbow surgery, cholecystectomy, hysterectomy, tuberculosis and HTN. Nutritional Acuity: 2-Moderate Nutrition Diagnosis: Inappropriate Carb Intake Nutrition Etiology: Inability Manage SelfCare Nutrition Problem/Etiology/Sym: Inappropriate carb intake related to inability to manage self care as evidenced by dx of DKA and elevated WBG (320-392) and RBG (367) levels. Energy Requirement: 1701 (MSJ, 1.1 TEF 1.2 AF) Protein Requirement: 68 (1g AA/kg of BW) Fluid Requirement: 1701 (1ml/kcal) Diet Type: NPO (Nothing by Mouth) Nutrition Intervention: Incr diet as tolerated Diet Comment To RSA: ALLERGIC TO CORN Nutrition Monitoring & Eval RD Patient Assessment Time: [address] Assessment Type: RD Assessment Patient Nutrition Acuity: 2-Moderate Follow Up Date: Nov 23, 2018 Nutritional Comment: 11/20: Pt dx with DKA, acute pancreatitis-resolved, and bacteremia. Pt has hx of hyperlipidemia, GERD, T2DM, shingles, COPD, pancreatectomy, elbow surgery, cholecystectomy, hysterectomy, tuberculosis and HTN. Pt is currently taking enoxaparin (anticoagulant). Pt has elevated WBG (320-392), RBG (367), BUN (19), alkaline phosphatase (154). Pt has decreased creatinine (0.50), albumin (3.1), total protein (6.0). Pt is allergic to corn. regulatory intern talked to Pt's daughter (primary care consultant) about diabetes, carbohydrate counting, and provided her with educational handouts. Pt is on NPO day 1. Continue to monitor and icrease diet as able. -INGRIS GARCIA Nov 20, 2018 08:46
[2018-11-20] MEDS: ACETAMINOPHEN(*)1000 MG/100 ML 100 ML IVPB PRN ×2 (12:22→20:53)
[2018-11-20] MEDS: GI COCKTAIL 60 ML BTL PO PRN (18:48)
[2018-11-20] MEDS: VANCOMYCIN(*) 1 GM VIAL 1 GM in NS(*) 0.9% 250 ML BAG 250 ML IVPB SCH (19:23)
[2018-11-21 00:45] VITALS: BP 128/77
[2018-11-21 04:24] VITALS: BP 141/95
[2018-11-21] MEDS: GI COCKTAIL 60 ML BTL PO PRN (05:15)
[2018-11-21] MEDS: ACETAMINOPHEN(*)1000 MG/100 ML 100 ML IVPB PRN (05:19)
[2018-11-21 06:10] LABS: PLATELET COUNT, AUTOMATED 372 K/uL (150-450)
[2018-11-21] MEDS: INSULIN HUM LISPRO 100 UN/ML 3 ML VIAL SUBQ PRN ×4 (06:58→17:04)
[2018-11-21 07:30] VITALS: BP 122/79
[2018-11-21] MEDS: VANCOMYCIN(*) 1 GM VIAL 1 GM in NS(*) 0.9% 250 ML BAG 250 ML IVPB SCH ×2 (07:46→17:54)
[2018-11-21] MEDS ORDERED: KCL (*) 20 MEQ/100 ML PREMIX 100 ML IV SCH ×2 (08:05→15:30)
[2018-11-21] MEDS ORDERED: VANCOMYCIN(*) 1 GM VIAL 1 GM in NS(*) 0.9% 250 ML BAG 250 ML IVPB SCH (09:00)
[2018-11-21] MEDS: ENOXAPARIN 40 MG/0.4ML SYR SC SCH (09:26)
[2018-11-21] MEDS: INSULIN GLARGINE 100 U/ML 3 ML PEN SUBQ SCH ×2 (09:36→20:19)
[2018-11-21] MEDS: PANTOPRAZOLE SOD 40 MG IV VIAL IVP SCH (09:38)
[2018-11-21] MEDS ORDERED: ACETAMINOPHEN 500 MG TAB PO PRN (11:20)
[2018-11-21] MEDS: FAMOTIDINE 20 MG TAB PO SCH ×2 (12:17→20:18)
--- NOTE | 2018-11-21 12:56 | NUR ---
Physical Therapy Impression PT eval complete. Recommendations pending progress. Currently Pt is confused and demonstrates unsteady and impulsive mobility. Physical Therapy Goals 1. I bed mobility. 2. Mod I transfers. 3. Mod I gait x 150' with appropriate assistive device. 4. Ascend/descend 12 stairs Mod I. Patient's Goals
[2018-11-21 13:36] VITALS: BP 136/89
--- NOTE | 2018-11-21 13:40 | NUR ---
0938 11/21 called pharmacy and spoke to Pamela-- informed Pamela that only half of 0730 IV vanco dose infused earlier and IV access was lost. Stated new IV and asked for instructions. Pamela stated to finish vanco dose and she with re-time trough and future doses. New dose of vanco appeared in EMAR at this time--- this dose was non-administered as the original 0730 dose was to finish.
--- NOTE | 2018-11-21 15:29 | Hospitalist Progress Note ---
Subjective Progress Notes Subjective 53F admitted for DKA. Sleeping on entering room, reports abdominal pain. Minimal PO intake. Patient Complains of: Gastrointestinal: No Nausea, No Vomiting Physical Exam Vital Signs Date Time Temp Pulse Resp B/P (MAP) Pulse Ox O2 Delivery O2 Flow Rate FiO2 11/21/18 15:13 89 Nasal Cannula 1.0 11/21/18 13:36 99.4 87 20 136/89 (105) Intake and Output 11/21/18 07:00 Intake Total 2018 ml Output Total 1950 ml Balance 68 ml Intake Oral 500 ml IV Total 1518 ml Output Urine Total 1950 ml # Voids 1 General Appearance: Awake, No Acute Distress, Afebrile Neuro: No Gross deficits ENT: Normal Cardiovascular: Normal Rhythm & Peripheral Pulses Respiratory: No Respiratory Distress GI: Soft and Non-Tender Extremities: Soft and Non Tender, Warm, Pulses, Perfused Result Diagram: 11/21/18 0547 11/21/18 0807 Monitor Interpretation: Normal Sinus Rhythm Assessment and Plan Problems: (1) DKA (diabetic ketoacidoses) Status: Acute Assessment & Plan: She was found severely altered and on the ground in her home. She was profoundly acidotic and her glucose was elevated on arrival. She was hydrated and started on an insulin drip. Lantus and cover with SSI. (2) Bacteremia Status: Acute Assessment & Plan: Blood cultures x2 growing MRSA. Urine culture growing same MRSA. On vancomycin. Echo no evidence of vegetations. (3) Altered mental status Status: Acute Assessment & Plan: Improved. Likely secondary to DKA and bacteremia. Head CT without acute abnormalities. She responds to voice and is participating in her care. (4) Pancreatitis, acute Status: Resolved Assessment & Plan: Lipase was elevated upon admission. Continues to endorse abdominal pain, increased pain Rx regimen. Exam Sepsis Risk: Severe Sepsis Risk Problem Qualifiers (1) DKA (diabetic ketoacidoses): Diabetes mellitus type: type 1 Diabetes mellitus complication detail: with coma Qualified Codes: E10.11 - Type 1 diabetes mellitus with ketoacidosis with coma ELIOT MARQUEZ DO Nov 21, 2018 15:29
--- NOTE | 2018-11-21 17:43 | RADIOLOGY IMAGING REPORT ---
FACILITY: [facility] - [place] PATIENT NAME: Subha Martinez : 1965 MR: [id number] V: [id number] EXAM DATE: ORDERING PHYSICIAN: ELIOT REYNA TECHNOLOGIST: Location: [facility] - [place] Patient: Subha Martinez : 1965 Visit/Account:[id number] Date of Sevice: 11/21/2018 US GUIDANCE VASCULAR ACCESS HISTORY: PICC for vancomycin Ultrasound was utilized to gain entrance into the left brachial vein. An image documenting needle wi thin the left brachial vein was saved and sent to PACS for permanent archiving. IMPRESSION: 1. Ultrasound utilized for entry into left brachial vein. Images sent to PACS for permanent archivi ng Report Dictated By: Alex Miller MD at 11/21/2018 5:37 PM Report E-Signed By: Alex Miller MD at 11/21/2018 5:38 PM WSN:[email or web address]
--- NOTE | 2018-11-21 17:44 | RADIOLOGY IMAGING REPORT ---
FACILITY: [facility] - [place] PATIENT NAME: Subha Martinez : 1965 MR: [id number] V: [id number] EXAM DATE: ORDERING PHYSICIAN: ELIOT REYNA TECHNOLOGIST: Location: [facility] [place] Patient: Subha Martinez : 1965 Visit/Account:[id number] Date of Sevice: 11/21/2018 PICC LINE INSERTION HISTORY: halfway IV vanc Technique: The skin over the left arm was prepped draped and anesthetized with 1% lidocaine. Utilizing ultrasou nd guidance entry into the left brachial vein was achieved. An image was sent to PACS for permanent archiving. An 018 wire was advanced to the cavoatrial junction. The peel-away sheath was placed. A n appropriately measured PICC catheter was then advanced to the cavoatrial junction documented with a fluoroscopic image. The PICC line was secured with a stay fix device. IMPRESSION: 1. Successful placement of a a PIC line within the left brachial vein as described. Four separate time of 0.2 minutes. AK 0.80mGy Report Dictated By: Alex Miller MD at 11/21/2018 5:32 PM Report E-Signed By: Alex Miller MD at 11/21/2018 5:39 PM GIOVANNIN:ANDRIY
[2018-11-21] MEDS: NS(*) 0.9% 1000 ML BAG 1,000 ML IV PRN (17:53)
[2018-11-21] MEDS: KCL (*) 20 MEQ/100 ML PREMIX 100 ML IV SCH ×2 (18:15→20:40)
[2018-11-21] MEDS ORDERED: NS(*) 0.9% 250 ML BAG 250 ML ONE (18:15)
[2018-11-21] MEDS ORDERED: ACETAMINOPHEN(*)1000 MG/100 ML 100 ML IVPB PRN (19:35)
[2018-11-21] MEDS: DOCUSATE SODIUM 100 MG CAP PO SCH (20:18)
[2018-11-21] MEDS: oxyCODONE HCL 5 MG CAP PO PRN (20:18)
[2018-11-21 20:22] VITALS: BP 118/78
[2018-11-21] MEDS ORDERED: ALBUTEROL 2.5 MG/3 ML NEB NEB PRN (20:50)
[2018-11-21] MEDS ORDERED: PANTOPRAZOLE SOD 20 MG TABEC PO SCH (21:00)
[2018-11-21] MEDS ORDERED: PANTOPRAZOLE SOD 40 MG TABEC PO SCH (21:00)
[2018-11-21] MEDS: VENLAFAXINE XR 75 MG CAPCR PO SCH (21:16)
[2018-11-21] MEDS: busPIRone HCL 5 MG TAB PO SCH (21:16)
[2018-11-21] MEDS: ONDANSETRON 4 MG/2 ML VIAL IVP PRN (23:04)
[2018-11-21 23:10] VITALS: BP 98/65
[2018-11-22 04:00] VITALS: BP 123/86
[2018-11-22] MEDS: oxyCODONE HCL 5 MG CAP PO PRN ×3 (04:51→18:22)
[2018-11-22] MEDS: NS(*) 0.9% 1000 ML BAG 1,000 ML IV PRN (04:53)
[2018-11-22 04:58] LABS: PLATELET COUNT, AUTOMATED 377 K/uL (150-450)
[2018-11-22] MEDS: ONDANSETRON 4 MG/2 ML VIAL IVP PRN (05:20)
[2018-11-22] MEDS: VANCOMYCIN(*) 1 GM VIAL 1 GM in NS(*) 0.9% 250 ML BAG 250 ML IVPB SCH (05:21)
[2018-11-22] MEDS: SALMETEROL/FLUTIC 250/50 1 INH INH SCH ×2 (06:00→17:58)
[2018-11-22 07:45] VITALS: BP 103/74
[2018-11-22] MEDS: INSULIN HUM LISPRO 100 UN/ML 3 ML VIAL SUBQ PRN ×4 (08:18→20:42)
[2018-11-22] MEDS ORDERED: DILTIAZEM CD 120 MG CAPCR PO SCH (09:00)
[2018-11-22] MEDS: POLYETHYLENE GLYCOL 17 GM PKT PO SCH (09:00)
[2018-11-22] MEDS: VENLAFAXINE XR 75 MG CAPCR PO SCH ×2 (09:21→20:40)
[2018-11-22] MEDS: DOCUSATE SODIUM 100 MG CAP PO SCH ×2 (09:21→20:40)
[2018-11-22] MEDS: busPIRone HCL 5 MG TAB PO SCH ×2 (09:21→20:43)
[2018-11-22] MEDS: FAMOTIDINE 20 MG TAB PO SCH ×2 (09:21→20:40)
[2018-11-22] MEDS: PANTOPRAZOLE SOD 40 MG TABEC PO SCH ×2 (09:22→20:40)
[2018-11-22] MEDS: INSULIN GLARGINE 100 U/ML 3 ML PEN SUBQ SCH ×2 (09:25→20:41)
[2018-11-22] MEDS: ENOXAPARIN 40 MG/0.4ML SYR SC SCH (09:25)
[2018-11-22] MEDS ORDERED: IOPAMIDOL 76% 150 ML INFUS BTL 0 ML ONE (09:45)
[2018-11-22] MEDS ORDERED: IOPAMIDOL 76% 150 ML INFUS BTL 150 ML ONE (10:21)
--- NOTE | 2018-11-22 10:53 | Hospitalist Progress Note ---
Subjective Progress Notes Subjective She c/o left flank pain. No fever. Decreased appetite. No N/V. Physical Exam Vital Signs Date Time Temp Pulse Resp B/P (MAP) Pulse Ox O2 Delivery O2 Flow Rate FiO2 11/22/18 07:45 98.5 72 14 103/74 (84) 96 Nasal Cannula 1.0 Intake and Output 11/22/18 07:00 Intake Total 2233 ml Balance 2233 ml Intake Oral 680 ml IV Total 1553 ml # Voids 3 General Appearance: Alert, Awake Cardiovascular: Regular Rate and Rhythm Respiratory: Clear to Auscultation Chest: No Tenderness GI: Other (Tender over left upper and lower quadrants/some guarding/no rebound/BS present) Result Diagram: 11/22/1843811/22/18438 Monitor Interpretation: Normal Sinus Rhythm Assessment and Plan Problems: (1) DKA (diabetic ketoacidoses) Status: Acute Assessment & Plan: She was found with altered mental status on the ground in her home. She was profoundly acidotic and her glucose was elevated on arrival. She was given IV fluids and started on an insulin drip. She has now been transitioned to Lantus and additional coverage with SSI. (2) Bacteremia Status: Acute Assessment & Plan: Blood cultures x2 growing MRSA. Urine culture growing same MRSA. On IV vancomycin. Echocardiogram showed no evidence of vegetations. (3) Altered mental status Status: Acute Assessment & Plan: Improved. Likely secondary to acute illness/bacteremia. Head CT without acute abnormalities. She is now awake and alert. (4) Pancreatitis, acute Status: Resolved Assessment & Plan: Lipase was elevated upon admission. Continues to have left- sided abdominal pain. Will check CT scan to evaluate. Question if abdomen may be source of her bacteremia? Exam Sepsis Risk: Sepsis Risk Problem Qualifiers (1) DKA (diabetic ketoacidoses): Diabetes mellitus type: type 1 Diabetes mellitus complication detail: with coma Qualified Codes: E10.11 - Type 1 diabetes mellitus with ketoacidosis with coma DEE BECKFORD MD Nov 22, 2018 10:53
[2018-11-22] MEDS: KCL/NS* 20 MEQ/1000 ML PREMIX 1,000 ML IV PRN ×2 (11:08→20:43)
[2018-11-22 11:09] VITALS: BP 126/92
--- NOTE | 2018-11-22 12:25 | RADIOLOGY IMAGING REPORT ---
FACILITY: [facility] PATIENT NAME: Subha Martinez : 1965 MR: [id number] V: [id number] EXAM DATE: ORDERING PHYSICIAN: DEE BECKFORD TECHNOLOGIST: Location: [facility] Patient: Subha Martinez : 1965 Visit/Account:[id number] Date of Sevice: 11/22/2018 EXAMINATION: CT chest with IV contrast CT abdomen with IV contrast CT pelvis with IV contrast HISTORY: Left flank pain. Bacteremia. TECHNIQUE: Spiral scan was obtained through the chest, abdomen and pelvis during injection of nonio savanah iodinated intravenous contrast. Sagittal and coronal reformatted images are also submitted. One of the following dose optimization techniques was utilized in the performance of this exam: Autom ated exposure control; adjustment of the mA and/or kV according to the patient's size; or use of an i terative reconstruction technique. Specific details can be referenced in the facility's radiology C T exam operational policy. CONTRAST: 75 mL of IV Isovue-370 COMPARISON: None available. FINDINGS: CT THORAX: Lower neck: Negative. Lungs / pleura: Patchy opacities in the lung bases with trace bilateral pleural effusion, left worse than right. 4 mm pulmonary nodule in the right upper lobe (series 3, image 129). 5 mm pulmonary no dule in the lateral right middle lobe (series 3, image 227). 6 mm pulmonary nodule in the medial rig ht lower lobe (series 3, image 183). Calcified granuloma in the medial left upper lobe. Mediastinum / marsha: Negative. Heart / pericardium: Negative. Vessels: The left upper extremity central line terminates near the atrial caval junction. Mild calc ified plaque in the aortic arch. Lymph nodes: Mildly enlarged mediastinal lymph nodes measuring up to 1.2 x 1.0 cm. Calcified para-ao rtic lymph nodes. Musculoskeletal / Body wall: Negative. CT ABDOMEN AND PELVIS: Liver / biliary: Periportal edema. Postop cholecystectomy. Mild biliary ductal dilatation is likely related to the prior cholecystectomy. The common bile duct measures up to 8 mm. Pancreas: Distal pancreatectomy. Otherwise negative. Spleen: Splenectomy. Otherwise negative. Adrenal glands: Negative. Kidneys: Focal hypoenhancement of the superior lateral portion of the left kidney with associated rama tral region of hypoenhancement measuring 1.5 cm consistent with pyelonephritis and phlegmon/early abs cess. Hypoenhancement of the superior posterior portion of the right kidney with associated 1.4 cm r egion of hypoenhancement in the renal parenchyma and adjacent 3.1 x 1.9 cm perinephric fluid collecti on posteriorly consistent with pyelonephritis, parenchymal phlegmon/early abscess, and perinephric ab scess. Partial thrombosis of the right renal vein. The left renal vein is patent. No hydronephrosi s. 3 mm nonobstructing stone in the inferior right kidney. Pelvic structures: Hysterectomy. Otherwise negative. Bowel: No obstruction or bowel wall thickening. The appendix is not confidently identified, however there are no pericecal inflammatory changes to suggest acute appendicitis. Peritoneum / retroperitoneum / mesenteries: Mild free fluid. No free air. Vessels: Partial thrombosis of the right renal vein. Moderate aortoiliac calcification with no aneur ysm. Lymph nodes: Mildly prominent retroperitoneal and periportal lymph nodes are likely reactive. Musculoskeletal / Body wall: 2.7 x 1.9 cm fluid collection with peripheral enhancement suspicious for abscess in the abductor musculature of the right thigh (series 2, image 211). Multilevel degenerati ve disc disease and facet hypertrophy in the thoracolumbar spine. IMPRESSION: 1. Bilateral pyelonephritis with small areas of phlegmon/early abscess in the renal parenchyma and 3 .1 x 1.9 cm perinephric abscess posterior to the upper right kidney. No hydronephrosis. Nonobstruct ing 3 mm stone in the right kidney. 2. Partially thrombosed right renal vein. 3. Patchy opacities in the lung bases with trace pleural effusions, left worse than right. Possible aspiration or pneumonia. 4. Mildly enlarged mediastinal and upper abdominal lymph nodes are likely reactive.5. 2.7 x 1.9 cm fluid collection with peripheral enhancement suspicious for abscess in the abductor musculature of th e right thigh (series 2, image 211). 6. Nonspecific periportal edema and mild free fluid in the abdomen and pelvis. This could be relate d to IV hydration. 7. 3 pulmonary nodules measuring up to 6 mm. Follow-up chest CT in 3-6 months is recommended. Results were called to DEE BECKFORD at 11/22/2018 12:19 PM. Report Dictated By: Darwin Menard MD at 11/22/2018 11:50 AM Report E-Signed By: Darwin Menard MD at 11/22/2018 12:20 PM WSN:[email or web address]
--- NOTE | 2018-11-22 12:46 | NUR ---
Occupational Therapy Impression OT evaluation complete. Pt c/o of abdominal pain requiring Min A bed mobility in/out. Independent LB dressing. Requiring CGA sit<>stands and side steps with RW. Pt impulsive and unsteady. Pt requesting return to bed. Family present and involved in cares. Pt may require further rehab prior to discharge home pending length of stay medically and functional improvements. Occupational Therapy Goals 1) Pt will be SBA UB/LB dressing. 2) Pt will be SBA toilet task. 3) Pt will be SBA grooming seated. 4) Pt and family will be educated on appropriate AE needs. Patient's Goal
[2018-11-22 14:42] VITALS: BP 133/85
--- NOTE | 2018-11-22 16:40 | NUR ---
Physical Therapy Impression Pt reporting significant abdominal pain, refusing PT session at this time. RN aware of pain. Physical Therapy Goals 1. I bed mobility. 2. Mod I transfers. 3. Mod I gait x 150' with appropriate assistive device. 4. Ascend/descend 12 stairs Mod I. Patient's Goals
[2018-11-22] MEDS ORDERED: VANCOMYCIN(*) 1 GM VIAL 1 GM, VANCOMYCIN HCL 0.750 GM VIAL 0.75 GM in NS(*) 0.9% 250 ML... IVPB ONE (18:00)
--- NOTE | 2018-11-22 18:15 | Pharmacy Note ---
Vancomycin Management Note Vanco Dosing Note Patient is on vancomycin for bacteremia/UTI, pharmacy monitoring and adjusting doses. Antimicrobials: Vancomycin 1000 mg every 12 hours, Day 2 Pertinent Lab Tests WHITE BLOOD COUNT 26.4, 16.7 today NEUTROPHILS 82.3 down today to73.2 SCR 0.5 (using 0.8 for CrCL calculation: CrCl ~ 74 ml/min) VANCOMYCIN RANDOM done on 11/21 was 7.72 (patient lost IV access and only partial dose given). Another random done today was 5.03 Culture Results: BLOOD growing MRSA URINE growing MRS Assessment: CrCl 74 ml/min Renal function is stable Vancomycin Monitoring Assessment: Goal Vancomycin Trough Level: 15-20 mcg/ml Plan: 1) Vancomycin dose: Re-load with 25 mg/kg dose of 1759 mg then 1000 mg every 12 hours 2) Vancomycin monitoring: A level will be ordered for 1 hour before the 3rd dose on 11/23/18 at 1700 Pharmacy will continue to monitor daily and adjust regimen as appropriate. ITZEL VICTORIA Nov 22, 2018 18:15
[2018-11-22 19:36] VITALS: BP 139/95
--- NOTE | 2018-11-22 19:42 | Antimicrobial Stewardship ---
Antimicrobial Stewardship Empiricly appropriate: Yes Comment On Vancomycin for treatment of bacteremia/UTI. Approriate Cultures done: Yes Gram stain show Microbs: Yes Organism identified: Yes Review the antibiotic sensitiv: Yes (MRSA) Renal/Hepatic dosing: Yes Serum concentration checked: Yes (Patient started 11/20/18 on Vancomycin with 1.75 gm load then 1 gm q12h. Patient lost IV access and only partial dose received. Random Tr on 11/21 was 7.72 and another random on 11/22 was 5.03) Comment Re-loaded with Vancomycin 1.75 gm on 11/22/18 then continue with 1 gm IV q12h due to subtherapeutic troughs. Reviewed for Drug Interaction: Yes Monitored for Toxicities: Yes IV to PO Opportunity: No Determine standard duration: 14 days ITZEL VICTORIA Nov 22, 2018 19:42
[2018-11-22 23:28] VITALS: BP 137/96
[2018-11-23 03:13] VITALS: BP 121/78
[2018-11-23] MEDS: oxyCODONE HCL 5 MG CAP PO PRN ×4 (03:20→22:10)
[2018-11-23] MEDS: KCL/NS* 20 MEQ/1000 ML PREMIX 1,000 ML IV PRN ×2 (03:20→15:36)
[2018-11-23 05:55] LABS: PLATELET COUNT, AUTOMATED 340 K/uL (150-450)
[2018-11-23] MEDS: SALMETEROL/FLUTIC 250/50 1 INH INH SCH ×2 (06:00→18:00)
[2018-11-23] MEDS ORDERED: VANCOMYCIN(*) 1 GM VIAL 1 GM in NS(*) 0.9% 250 ML BAG 250 ML IVPB SCH (06:00)
[2018-11-23] MEDS ORDERED: VANCOMYCIN(*) 1 GM VIAL 1 GM, VANCOMYCIN (*) 0.5 GM VIAL 0.5 GM in NS(*) 0.9% 250 ML BA... IVPB SCH (06:30)
[2018-11-23] MEDS ORDERED: VANCOMYCIN (*) 0.5 GM VIAL 0.5 GM in NS(*) 0.9% 100 ML BAG 100 ML IVPB ONE (07:00)
[2018-11-23] MEDS: KCL (*) 20 MEQ/100 ML PREMIX 100 ML IV SCH ×2 (07:08→09:31)
[2018-11-23 07:11] VITALS: BP 111/72
[2018-11-23] MEDS ORDERED: NS(*) 0.9% 250 ML BAG 250 ML ONE (07:11)
[2018-11-23] MEDS: INSULIN HUM LISPRO 100 UN/ML 3 ML VIAL SUBQ PRN ×4 (08:02→20:27)
[2018-11-23] MEDS: busPIRone HCL 5 MG TAB PO SCH ×2 (09:32→20:28)
[2018-11-23] MEDS: FAMOTIDINE 20 MG TAB PO SCH ×2 (09:32→20:29)
[2018-11-23] MEDS: PANTOPRAZOLE SOD 40 MG TABEC PO SCH ×2 (09:33→20:29)
[2018-11-23] MEDS: POLYETHYLENE GLYCOL 17 GM PKT PO SCH (09:33)
[2018-11-23] MEDS: ENOXAPARIN 40 MG/0.4ML SYR SC SCH (09:33)
[2018-11-23] MEDS: DOCUSATE SODIUM 100 MG CAP PO SCH ×2 (09:33→20:29)
[2018-11-23] MEDS: VENLAFAXINE XR 75 MG CAPCR PO SCH ×2 (09:33→20:29)
[2018-11-23] MEDS: INSULIN GLARGINE 100 U/ML 3 ML PEN SUBQ SCH ×2 (09:34→20:27)
--- NOTE | 2018-11-23 10:09 | Hospitalist Progress Note ---
Subjective Progress Notes Subjective This patient was admitted for DKA and was also found to have pyelonephritis. She had no acute events overnight. Patient Complains of: Cardiovascular: No: Chest Pain Respiratory: No: Shortness of Breath Physical Exam Vital Signs Date Time Temp Pulse Resp B/P (MAP) Pulse Ox O2 Delivery O2 Flow Rate FiO2 11/23/18 07:36 95 Nasal Cannula 1.0 11/23/18 07:11 99.3 86 18 111/72 (85) Intake and Output 11/23/18 07:00 Intake Total 570 ml Balance 570 ml Intake Oral 0 ml IV Total 570 ml # Voids 5 Cardiovascular: Regular Rate and Rhythm Respiratory: Clear to Auscultation Result Diagram: 11/23/18 0536 11/23/18 0536 Monitor Interpretation: Normal Sinus Rhythm Assessment and Plan Problems: (1) DKA (diabetic ketoacidoses) Status: Acute Assessment & Plan: She was found with altered mental status on the ground in her home. She was profoundly acidotic and her glucose was elevated on arrival. She was given IV fluids and started on an insulin drip. She has now been transitioned to Lantus and additional coverage with SSI. (2) Pyelonephritis Assessment & Plan: She is growing MRSA out of all blood cultures and a urine culture. She is on vancomycin, but has been slow to reach therapeutic range. A CT scan showed a possible abscess in the right kidney. Dr. Ryan is aware of her case. (3) Altered mental status Status: Acute Assessment & Plan: Resolved with treatment of DKA. (4) Pancreatitis, acute Status: Resolved Assessment & Plan: Lipase was elevated upon admission. She was initially NPO and now her lipase is normal. Exam Sepsis Risk: No Definite Risk Problem Qualifiers (1) DKA (diabetic ketoacidoses): Diabetes mellitus type: type 1 Diabetes mellitus complication detail: with coma Qualified Codes: E10.11 - Type 1 diabetes mellitus with ketoacidosis with coma SILVERIO RIZZO DO Nov 23, 2018 10:08
[2018-11-23 11:46] VITALS: BP 117/85
--- NOTE | 2018-11-23 14:18 | NUR ---
Occupational Therapy Impression Upon OT arrival, pt fdc to bathroom with no walker, no socks, and IV plugged into wall while running. Pt safely assisted to bathroom by OT. Educated family on appropriate safety measures if they are adamant to assist pt when OOB. Pt independent with bed mobility. independent toileting, independent ambulation in room. Skilled OT goals met. No further skilled OT needs at this time. Rec HH if pt desires for continued strengthening. Occupational Therapy Goals 1) Pt will be SBA UB/LB dressing. 2) Pt will be SBA toilet task. 3) Pt will be SBA grooming seated. 4) Pt and family will be educated on appropriate AE needs. Patient's Goal
--- NOTE | 2018-11-23 14:21 | NUR ---
Physical Therapy Impression This PT responded to ondina's request for someone to come into Pt's room because, "my grandma is shaking". This PT responded immediately and noted Pt alert and resting in bed. Pt states her hands are shaking. No visible shaking noted. Nursing then responded to evaluate Pt's blood sugar - measured at 168. Offered PT services at this time, Pt declined. Offered and retrieved warm blanket for Pt. Physical Therapy Goals 1. I bed mobility. 2. Mod I transfers. 3. Mod I gait x 150' with appropriate assistive device. 4. Ascend/descend 12 stairs Mod I. Patient's Goals
[2018-11-23 15:29] VITALS: BP 128/87
--- NOTE | 2018-11-23 15:40 | Medical Nutrition Therapy ---
Nutrition Anthropometrics Height (Inches): 66.00 Height (Calculated Centimeters: 167.188820 Weight (Pounds): 149 Weight (Calculated Kilograms): 67.755 Harvey Nutrition Score: Probably Inadequate Harvey Nutrition Risk Score: 16 Dietary Referral Nutrition Risk Factors: Unplanned Loss >10lbs Nutrition Risk Comment: pt. states rosanne her throat is sore from the intubation Physical Findings Physical Appearance: Skin Appearance Skin Appearance: Edema Edema Location Modifier: Edema Location: Type of Edema: Degree of Edema: Gastrointestinal Symptoms GI Symtoms: Tube Present: Bowel Sounds: Recent Bowel Pattern: Stool Characteristics: Nutritional Diagnosis Nutritional Risk Acuity 2: Blood Glucose > 300mg/dl Nutritional Risk Acuity 3: COPD Unstable Nutritional Risk Acuity 4: Good Appetite Past Medical History: Hx of hyperlipidemia, GERD, T2DM, shingles, COPD, pancreatectomy, elbow surgery, cholecystectomy, hysterectomy, tuberculosis and HTN. Nutritional Acuity: 2-Moderate Nutrition Diagnosis: Inappropriate Carb Intake Nutrition Etiology: Inability Manage SelfCare Nutrition Problem/Etiology/Sym: Inappropriate carb intake related to inability to manage self care as evidenced by dx of DKA and elevated WBG (320-392) and RBG (367) levels. Energy Requirement: 1701 (MSJ, 1.1 TEF 1.2 AF) Protein Requirement: 68 (1g AA/kg of BW) Fluid Requirement: 1701 (1ml/kcal) Diet Type: Medical Liquid/GI soft Nutrition Intervention: Incr diet as tolerated Nutritional Needs Comment: OFFER NUTRITIONAL SUPPLEMENT Diet Comment To RSA: ALLERGIC TO CORN Nutrition Monitoring & Eval Nutrition Goals: Eat 50-100% Meal Nutrition Follow-Up: Fair Intake RD Patient Assessment Time: [address] Assessment Type: RD Assessment Patient Nutrition Acuity: 2-Moderate Follow Up Date: Nov 24, 2018 Nutritional Comment: 11/20: Pt dx with DKA, acute pancreatitis-resolved, and bacteremia. Pt has hx of hyperlipidemia, GERD, T2DM, shingles, COPD, pancreatectomy, elbow surgery, cholecystectomy, hysterectomy, tuberculosis and HTN. Pt is currently taking enoxaparin (anticoagulant). Pt has elevated WBG (320-392), RBG (367), BUN (19), alkaline phosphatase (154). Pt has decreased creatinine (0.50), albumin (3.1), total protein (6.0). Pt is allergic to corn. advisory internship talked to Pt's daughter (primary rn care manager) about diabetes, carbohydrate counting, and provided her with educational handouts. Pt is on NPO day 1. Continue to monitor and icrease diet as able. -JTrinh 11/23: Per doc note, pt is having decreased appetite. Pt was NPO for 5 meals, ordered 3 meals and consumed: 80%, 10%, 90%, and denied 2 meals. Pt has decreased albumin (2.3), total AA (4.9), calicum (7.7), creatinine (0.50), BUN (5), sodium (130), potassium (2.9) and elevated AST (169), ALT (105), alkaline phosphate (499), RBG (163), WBG (173-271). Pt is on a soft mechanical diet. Pt is not meeting nutritional needs for past 3 days, recommend nutrition support if appetite does not increase, Jevity- 2.4ml/hr over 10 hours, providing 780 kcal, 222 kcal from fat, 438 kcal from carbohydrates, 123 kcal from protein. Continue to monitor. -JJ Nutritional Support Current Enteral / Parental: Tube Feeding Recommended Enteral / Parental: Tube Feeding Recommended Tube Feeding Formu: Jevity 1cal/ml-Standard Tube Feeding Supplement Streng: Full Recommended Feeding Route: FT Placed Nasogastric Recommended Rate: 2.4ml/hr Recommended Goal Rate: 2.4ml/hr Recommended Duration: 10 (10 hours, overnight while asleep) Recommended Feeding Comment: overnight, or while asleep Recommended Calories: 780 Recommended Protein: 31 (31 g of AA) Recommended Lipids Calories: 225 Total Recommended Calories: 780 INGRIS VICTORIA Nov 23, 2018 09:48
[2018-11-23] MEDS: VANCOMYCIN(*) 1 GM VIAL 1 GM, VANCOMYCIN (*) 0.5 GM VIAL 0.5 GM in NS(*) 0.9% 250 ML BA... IVPB SCH (18:12)
[2018-11-23 19:18] VITALS: BP 118/82
[2018-11-23] MEDS ORDERED: ZOLPIDEM TARTRATE 10 MG TAB PO PRN (19:30)
[2018-11-23] MEDS: ONDANSETRON 4 MG/2 ML VIAL IVP PRN (20:27)
[2018-11-23] MEDS: GI COCKTAIL 60 ML BTL PO PRN (20:28)
[2018-11-23 23:23] VITALS: BP 106/89
[2018-11-24 03:38] VITALS: BP 111/79
[2018-11-24] MEDS: SALMETEROL/FLUTIC 250/50 1 INH INH SCH ×2 (05:23→17:31)
[2018-11-24] MEDS: KCL/NS* 20 MEQ/1000 ML PREMIX 1,000 ML IV PRN (05:28)
[2018-11-24] MEDS: oxyCODONE HCL 5 MG CAP PO PRN ×3 (05:28→20:45)
[2018-11-24] MEDS: VANCOMYCIN(*) 1 GM VIAL 1 GM, VANCOMYCIN (*) 0.5 GM VIAL 0.5 GM in NS(*) 0.9% 250 ML BA... IVPB SCH (06:07)
[2018-11-24 07:12] VITALS: BP 105/77
[2018-11-24] MEDS: INSULIN HUM LISPRO 100 UN/ML 3 ML VIAL SUBQ PRN ×4 (08:00→20:48)
[2018-11-24] MEDS: FAMOTIDINE 20 MG TAB PO SCH ×2 (08:58→20:45)
[2018-11-24] MEDS: VENLAFAXINE XR 75 MG CAPCR PO SCH ×2 (08:58→20:45)
[2018-11-24] MEDS: PANTOPRAZOLE SOD 40 MG TABEC PO SCH ×2 (08:58→20:45)
[2018-11-24] MEDS: DOCUSATE SODIUM 100 MG CAP PO SCH ×2 (08:59→20:45)
[2018-11-24] MEDS: busPIRone HCL 5 MG TAB PO SCH ×2 (08:59→20:46)
[2018-11-24] MEDS: POLYETHYLENE GLYCOL 17 GM PKT PO SCH (08:59)
[2018-11-24] MEDS: ENOXAPARIN 40 MG/0.4ML SYR SC SCH (08:59)
[2018-11-24] MEDS: INSULIN GLARGINE 100 U/ML 3 ML PEN SUBQ SCH ×2 (09:00→20:48)
--- NOTE | 2018-11-24 09:28 | Hospitalist Consultation ---
History of Present Illness Requesting Physician Hospitalist service Reason for Consult Pyelonephritis with bacteremia and perinephric abscess History of Present Illness 53 yo woman who presented with DKA and sepsis, found to have MRSA UTI and bacteremia. Imaging studies demonstrated bilateral pyelonephritis and likely right upper pole posterior perinephric abscess. History Home Meds Active Scripts Prednisone (PREDNISONE) 20 Mg Tablet, 40 MG PO DAILY, #10 TAB Prov:CANDE GALICIA WEB OPERATIONS LEAD 08/18/18 Prednisone (PREDNISONE) 20 Mg Tablet, 60 MG PO QDAY, #14 TAB 0 Refills Three tabs PO daily for two days, then two tabs a day for two days, then one tab a day for two days, then one-half tab a day for two days then off. Prov:DEE BECKFORD MD 05/11/18 Insulin Glargine 100 Un/Ml Pen (LANTUS SOLOSTAR PEN) 100 Unit/1 Ml Insuln.pen, 35 UNIT SUBQ BID, #5 UNITS 4 Refills Prov:DEE BECKFORD MD 05/11/18 Diltiazem Hcl (DILTIAZEM 24HR CD) 120 Mg Cap.er.24h, 120 MG PO QDAY, #30 CAP 4 Refills Prov:LARS BECKFORD MD 05/04/18 Insulin Lispro 100 Un/Ml Pen (HUMALOG 3 ML PEN) 100 Unit/1 Ml Insuln.pen, 3-15 UNIT SQ PRN PRN for sliding scale Humalog, #5 UNITS 4 Refills Prov:LARS BECKFORD MD 05/04/18 Glimepiride (GLIMEPIRIDE) 4 Mg Tablet, 0.5 TAB PO BID, #15 TAB Prov:LARS BECKFORD MD 05/04/18 Estrogens, Conjugated (PREMARIN) 1.25 Mg Tablet, 1.25 MG PO QDAY, #30 TAB Prov:LARS BECKFORD MD 08/09/15 Fluticasone/Salmeterol (ADVAIR 250-50 DISKUS) 1 Each Disk.w.dev, 1 PUFF IH DAILY, #1 DISK Prov:LARS BECKFORD MD 08/09/15 Omeprazole (OMEPRAZOLE) 20 Mg Capsule.dr, 1 CAP PO BID, #60 CAP Prov:LARS BECKFORD MD 08/09/15 Albuterol Sulfate 90 Mcg/Act (PROAIR HFA 90 MCG/ACT) 8.5 Gm Hfa.aer.ad, 2 PUFF IH QID, #1 INHALER Prov:LARS BECKFORD MD 08/09/15 Venlafaxine Hcl (VENLAFAXINE HCL ER) 75 Mg Tab.er.24, 75 MG PO BID, #60 TAB Prov:LARS BECKFORD MD 08/09/15 Reported Medications Zolpidem Tartrate (AMBIEN) 10 Mg Tablet, 1 TAB PO QHS PRN for INSOMNIA, TAB 05/09/18 Buspirone Hcl (BUSPIRONE HCL) 7.5 Mg Tablet, 7.5 MG PO BID, #10 TAB 03/22/18 Benzonatate 100 Mg Cap (TESSALON PERLE 100 MG CAP) 100 Mg Capsule, 100 MG PO DAILY, #15 CAP 03/22/18 Cyclobenzaprine Hcl (CYCLOBENZAPRINE HCL) 10 Mg Tablet, 10 MG PO TID, #9 TAB 01/01/18 Fluvastatin Sodium (Lescol) 20 Mg Capsule, 20 MG PO QHS, 0 Refills 06/24/11 Allergies: Coded Allergies: Penicillins (Verified Allergy, Severe, BLISTERS, 08/18/18) pneumococcal vaccine (Verified Allergy, Severe, HIVES, 08/18/18) Influenza Virus Vaccines (Verified Allergy, Intermediate, SWELLING TO FACE, 08/18/18) corn (Verified Allergy, Mild, UNKNOWN, 08/18/18) TINGLING FEELING dextromethorphan (Verified Allergy, Mild, 08/18/18) grass pollen-January ([facility]) grass, std (Verified Allergy, Mild, ITCHING, 08/18/18) guaifenesin (Verified Allergy, Mild, 08/18/18) ibuprofen (Verified Allergy, Mild, 08/18/18) LIQUID CAPSULES pseudoephedrine (Verified Allergy, Mild, 08/18/18) Uncoded Allergies: ANIMALS (Allergy, Mild, 09/03/08) MOLD (Allergy, Unknown, 01/29/14) Patient History: Blood clots CHILD FH: CAD (coronary artery disease) FATHER BROTHER OR SISTER FH: COPD (chronic obstructive pulmonary disease) BROTHER OR SISTER BROTHER OR SISTER FH: CVA (cerebrovascular accident) FATHER FH: HTN (hypertension) FATHER BROTHER OR SISTER FH: depression MOTHER FH: diabetes mellitus FATHER BROTHER OR SISTER MOTHER FH: kidney failure FATHER FH: stroke FATHER Hx Smoking: Yes (4-5 cigarettes/day FOR 40YEARS ) Smoking Status: Current: Every Day Smoker Exposure to Second Hand Smoke?: Yes Caffeine Intake: Coffee, Tea, Soda Caffeine/Cups Per Day: 10-15 cups Hx Alcohol Use: Yes Hx Substance Use Disorder: No Social Drug Use: Occasional Social Drugs: Marijuana Exam Vital Signs Vital Signs Date Time Temp Pulse Resp B/P (MAP) Pulse Ox O2 Delivery O2 Flow Rate FiO2 11/24/18 07:12 98.7 82 20 105/77 (86) 92 High-Flow Nasal Cannula 1.0 Medical Decision Making Data Points Result Diagram: 11/23/18 0536 11/23/18 1356 Assessment and Plan Condition I reviewed her CT scan. She is clinically responding to therapy but has persistent elevated WBC. If that fails to normalize in next 1-2 days or if her fever recurs, it would be reasonable to drain the collection percutaneously and may speed her recovery. If her WBC count does normalize and she continues to make progress I would re-image her kidneys in 2-3 weeks. Call me for any questions [phone] Venous Thromboembolism Antithrombotics Is Pt On Any Antithrombotics?: No Exam Sepsis Risk: No Definite Risk MIYA ASENCIO MD Nov 24, 2018 09:28
--- NOTE | 2018-11-24 09:51 | Medical Nutrition Therapy ---
Nutrition Anthropometrics Height (Inches): 66.00 Height (Calculated Centimeters: 167.498577 Weight (Pounds): 149 Weight (Calculated Kilograms): 67.755 Harvey Nutrition Score: Probably Inadequate Harvey Nutrition Risk Score: 17 Dietary Referral Nutrition Risk Factors: Unplanned Loss >10lbs Nutrition Risk Comment: pt. states rosanne her throat is sore from the intubation Physical Findings Physical Appearance: Skin Appearance Skin Appearance: Edema Edema Location Modifier: Edema Location: Type of Edema: Degree of Edema: Gastrointestinal Symptoms GI Symtoms: Tube Present: Bowel Sounds: Recent Bowel Pattern: Stool Characteristics: Nutritional Diagnosis Nutritional Risk Acuity 2: Blood Glucose > 300mg/dl Nutritional Risk Acuity 3: COPD Unstable Nutritional Risk Acuity 4: Good Appetite Past Medical History: Hx of hyperlipidemia, GERD, T2DM, shingles, COPD, pancreatectomy, elbow surgery, cholecystectomy, hysterectomy, tuberculosis and HTN. Nutritional Acuity: 2-Moderate Nutrition Diagnosis: Inappropriate Carb Intake Nutrition Etiology: Inability Manage SelfCare Nutrition Problem/Etiology/Sym: Inappropriate carb intake related to inability to manage self care as evidenced by dx of DKA and elevated WBG (320-392) and RBG (367) levels. Energy Requirement: 1701 (MSJ, 1.1 TEF 1.2 AF) Protein Requirement: 68 (1g AA/kg of BW) Fluid Requirement: 1701 (1ml/kcal) Diet Type: Medical Liquid/GI soft Nutrition Intervention: Incr diet as tolerated Nutritional Needs Comment: OFFER NUTRITIONAL SUPPLEMENT Diet Comment To RSA: ALLERGIC TO CORN Nutritional Support Current Enteral / Parental: Tube Feeding Recommended Enteral / Parental: Tube Feeding Recommended Tube Feeding Formu: Jevity 1cal/ml-Standard Tube Feeding Supplement Streng: Full Recommended Feeding Route: FT Placed Nasogastric Recommended Rate: 2.4ml/hr Recommended Goal Rate: 2.4ml/hr Recommended Duration: 10 (10 hours, overnight while asleep) Recommended Feeding Comment: overnight, or while asleep Recommended Calories: 780 Recommended Protein: 31 (31 g of AA) Recommended Lipids Calories: 225 Total Recommended Calories: 780 Nutrition Monitoring & Eval RD Patient Assessment Time: [address] Assessment Type: RD Re-Assessment Patient Nutrition Acuity: 2-Moderate Follow Up Date: Nov 25, 2018 Nutritional Comment: 11/20: Pt dx with DKA, acute pancreatitis-resolved, and bacteremia. Pt has hx of hyperlipidemia, GERD, T2DM, shingles, COPD, pancreatectomy, elbow surgery, cholecystectomy, hysterectomy, tuberculosis and HTN. Pt is currently taking enoxaparin (anticoagulant). Pt has elevated WBG (320-392), RBG (367), BUN (19), alkaline phosphatase (154). Pt has decreased creatinine (0.50), albumin (3.1), total protein (6.0). Pt is allergic to corn. cad intern talked to Pt's daughter (primary resident care supervisor) about diabetes, carbohydrate counting, and provided her with educational handouts. Pt is on NPO day 1. Continue to monitor and icrease diet as able. -JJ 11/23: Per doc note, pt is having decreased appetite. Pt was NPO for 5 meals, ordered 3 meals and consumed: 80%, 10%, 90%, and denied 2 meals. Pt has decreased albumin (2.3), total AA (4.9), calicum (7.7), creatinine (0.50), BUN (5), sodium (130), potassium (2.9) and elevated AST (169), ALT (105), alkaline phosphate (499), RBG (163), WBG (173-271). Pt is on a soft mechanical diet. Pt is not meeting nutritional needs for past 3 days, recommend nutrition support if appetite does not increase, Jevity- 2.4ml/hr over 10 hours, providing 780 kcal, 222 kcal from fat, 438 kcal from carbohydrates, 123 kcal from protein. Continue to monitor. -JJ 11/24/18 Monitoring for improved intake. Pt refused dinner on 11/23/18. No new labs or notes to assess progress from. Pt on mechanical soft diet due to sore throat. Pt allergic to corn, no corn/corn products will be provided. cad intern wrote nutrition support recommendation if improvement in intake is not observed. Continue to monitor intakes. -SHREYAS SPARKS Nov 24, 2018 09:51
[2018-11-24] MEDS ORDERED: ASPIRIN 325 MG TAB PO ONE (09:55)
[2018-11-24 11:46] VITALS: BP 119/84
--- NOTE | 2018-11-24 12:45 | Hospitalist Progress Note ---
Subjective Progress Notes Subjective 53F admitted for DKA and MRSA bacteremia. CARLOS overnight, slowly improving. Some CP this am, EKG and troponin pending. Patient Complains of: Cardiovascular: Chest Pain Respiratory: No: Cough Gastrointestinal: No Nausea, No Vomiting Physical Exam Vital Signs Date Time Temp Pulse Resp B/P (MAP) Pulse Ox O2 Delivery O2 Flow Rate FiO2 11/24/18 11:46 98.5 84 16 119/84 (96) 91 High-Flow Nasal Cannula 2.0 Intake and Output 11/24/18 06:59 Intake Total 1847 ml Balance 1847 ml Intake Oral 0 ml IV Total 1847 ml # Voids 10 # Bowel Movements 1 General Appearance: Alert, Awake, No Acute Distress Neuro: No Gross deficits ENT: Normal Cardiovascular: Normal Rhythm & Peripheral Pulses Respiratory: No Respiratory Distress Result Diagram: 11/23/18 0536 11/23/18 1356 Monitor Interpretation: Normal Sinus Rhythm Assessment and Plan Problems: (1) MRSA bacteremia Assessment & Plan: Therapeutic on vancomycin, repeat Cx pending for 03.31 am, small abscess near kidney and in hip abductor. Dr Negron looked at image of leg, very deep abscess is of size may resolve with antibiotic. If not resolved would need IR drainage. (2) Pyelonephritis Assessment & Plan: She is growing MRSA out of all blood cultures and a urine culture. She is on vancomycin, but has been slow to reach therapeutic range. A CT scan showed a possible abscess in the right kidney. Dr. Ryan is aware of her case. Will need re-imaging and may need IR drainage if not resolving. (3) DKA (diabetic ketoacidoses) Status: Acute Assessment & Plan: She was found with altered mental status on the ground in her home. She was profoundly acidotic and her glucose was elevated on arrival. She was given IV fluids and started on an insulin drip. She has now been transitioned to Lantus and additional coverage with SSI. (4) Altered mental status Status: Acute Assessment & Plan: Resolved with treatment of DKA. (5) Pancreatitis, acute Status: Resolved Assessment & Plan: Lipase was elevated upon admission. She was initially NPO and now her lipase is normal. Exam Sepsis Risk: No Definite Risk Problem Qualifiers (1) DKA (diabetic ketoacidoses): Diabetes mellitus type: type 1 Diabetes mellitus complication detail: with coma Qualified Codes: E10.11 - Type 1 diabetes mellitus with ketoacidosis with coma ELIOT MARQUEZ DO Nov 24, 2018 12:45
--- NOTE | 2018-11-24 12:50 | NUR ---
Physical Therapy Impression Pt. demonstrates independence with transfers and ambulation within her room. She declined further ambulation due to stomach discomfort. Pt. declines to practice stairs, but expressed confidence ascending/descending the steps at her home. Because of these things, it may be appropriate for pt to be d/c'd from therapy. Recommend home when medially appropriate. Physical Therapy Goals 1. I bed mobility. 2. Mod I transfers. 3. Mod I gait x 150' with appropriate assistive device. 4. Ascend/descend 12 stairs Mod I. Patient's Goals
--- NOTE | 2018-11-24 14:58 | EKG ---
FACILITY: [facility] [place] PATIENT NAME: ANJANA GONZALEZ : [id number] MR: [id number] V: [id number] EXAM DATE: ORDERING PHYSICIAN: ELIOT REYNA TECHNOLOGIST: Test Reason : chest pain Blood Pressure : / mmHG Vent. Rate : 084 BPM Atrial Rate : 084 BPM P-R Int : 118 ms QRS Dur : 096 ms QT Int : 376 ms P-R-T Axes : 055 049 032 degrees QTc Int : 444 ms Normal sinus rhythm with sinus arrhythmia Nonspecific T wave abnormality Abnormal ECG When compared with ECG of 19-NOV-2018 11:36, Nonspecific T wave abnormality now evident in Inferior leads Nonspecific T wave abnormality now evident in Lateral leads Confirmed by Eliot Gloria ([id number]) on 11/24/2018 10:11:05 PM Referred By: Confirmed By:Eliot Reyna
[2018-11-24 15:41] VITALS: BP 115/83
[2018-11-24] MEDS ORDERED: NITROGLYCERIN 0.4 MG SUBL SL PRN (17:25)
[2018-11-24] MEDS ORDERED: VANCOMYCIN(*) 1 GM VIAL 1 GM, VANCOMYCIN (*) 0.5 GM VIAL 0.25 GM in NS(*) 0.9% 250 ML B... IVPB SCH (18:15)
--- NOTE | 2018-11-24 18:17 | Pharmacy Note ---
Vancomycin Management Note Vanco Dosing Note Vancomycin Management Note Vanco Dosing Note Patient is on vancomycin for bacteremia/UTI, pharmacy monitoring and adjusting doses. Antimicrobials: Vancomycin 1500 mg every 12 hours Pertinent Lab Tests WHITE BLOOD COUNT 20.5 NEUTROPHILS 82.3 down today to 73.7 SCR 0.5 (using 0.8 for CrCL calculation: CrCl ~ 74 ml/min) VANCOMYCIN RANDOM done on 11/21 was 7.72 (patient lost IV access and only partial dose given). Another random done today was 5.03 VANCOMYCIN TROUGH on 11/24/18 0500 was 16.2 and 11/24/18 1700 was 20.58 Culture Results: BLOOD growing MRSA URINE growing MRSA Assessment: CrCl 74 ml/min Renal function is stable Vancomycin Monitoring Assessment: Goal Vancomycin Trough Level: 15-20 mcg/ml Plan: 1) Vancomycin dose: Reduce dose down to 1250 mg IV q12h 2) Vancomycin monitoring: A level will be ordered for 1 hour before the next dose on 11/25/18 at 0500 Pharmacy will continue to monitor daily and adjust regimen as appropriate. ITZEL VICTORIA Nov 24, 2018 18:17
[2018-11-24 19:12] VITALS: BP 112/75
[2018-11-24] MEDS ORDERED: ACETAMINOPHEN 500 MG TAB PO PRN (21:10)
[2018-11-24 23:38] VITALS: BP 109/72
[2018-11-25] MEDS: KCL/NS* 20 MEQ/1000 ML PREMIX 1,000 ML IV PRN (00:19)
[2018-11-25 03:57] VITALS: BP 117/75
[2018-11-25] MEDS: SALMETEROL/FLUTIC 250/50 1 INH INH SCH ×2 (05:17→17:27)
[2018-11-25 06:00] LABS: PLATELET COUNT, AUTOMATED 439 K/uL (150-450)
[2018-11-25 07:11] VITALS: BP 105/68
[2018-11-25] MEDS: oxyCODONE HCL 5 MG CAP PO PRN ×3 (07:25→20:01)
[2018-11-25] MEDS: POLYETHYLENE GLYCOL 17 GM PKT PO SCH (08:28)
[2018-11-25] MEDS: FAMOTIDINE 20 MG TAB PO SCH ×2 (08:32→21:10)
[2018-11-25] MEDS: DOCUSATE SODIUM 100 MG CAP PO SCH ×2 (08:32→21:10)
[2018-11-25] MEDS: VENLAFAXINE XR 75 MG CAPCR PO SCH ×2 (08:32→21:10)
[2018-11-25] MEDS: ENOXAPARIN 40 MG/0.4ML SYR SC SCH (08:33)
[2018-11-25] MEDS: INSULIN GLARGINE 100 U/ML 3 ML PEN SUBQ SCH ×2 (08:33→21:10)
[2018-11-25] MEDS: busPIRone HCL 5 MG TAB PO SCH ×2 (08:33→21:09)
[2018-11-25] MEDS: POTASSIUM CHL 10 MEQ TABCR PO SCH ×2 (09:10→17:07)
[2018-11-25] MEDS ORDERED: MAGNESIUM SUL* 2 GM/50 ML IVPB 50 ML IVPB ONE (09:30)
--- NOTE | 2018-11-25 10:50 | Medical Nutrition Therapy ---
Nutrition Anthropometrics Height (Inches): 66.00 Height (Calculated Centimeters: 167.638937 Weight (Pounds): 149 Weight (Calculated Kilograms): 67.755 Harvey Nutrition Score: Probably Inadequate Harvey Nutrition Risk Score: 17 Dietary Referral Nutrition Risk Factors: Unplanned Loss >10lbs Nutrition Risk Comment: pt. states rosanne her throat is sore from the intubation Physical Findings Physical Appearance: Skin Appearance Skin Appearance: Edema Edema Location Modifier: Edema Location: Type of Edema: Degree of Edema: Gastrointestinal Symptoms GI Symtoms: Tube Present: Bowel Sounds: Recent Bowel Pattern: Stool Characteristics: Nutritional Diagnosis Nutritional Risk Acuity 2: Blood Glucose > 300mg/dl Nutritional Risk Acuity 3: COPD Unstable Nutritional Risk Acuity 4: Good Appetite Past Medical History: Hx of hyperlipidemia, GERD, T2DM, shingles, COPD, pancreatectomy, elbow surgery, cholecystectomy, hysterectomy, tuberculosis and HTN. Nutritional Acuity: 2-Moderate Nutrition Diagnosis: Inappropriate Carb Intake Nutrition Etiology: Inability Manage SelfCare Nutrition Problem/Etiology/Sym: Inappropriate carb intake related to inability to manage self care as evidenced by dx of DKA and elevated WBG (320-392) and RBG (367) levels. Energy Requirement: 1701 (MSJ, 1.1 TEF 1.2 AF) Protein Requirement: 68 (1g AA/kg of BW) Fluid Requirement: 1701 (1ml/kcal) Diet Type: Medical Liquid/GI soft Nutrition Intervention: Incr diet as tolerated Nutritional Needs Comment: OFFER NUTRITIONAL SUPPLEMENT Diet Comment To RSA: ALLERGIC TO CORN Nutritional Support Current Enteral / Parental: Tube Feeding Recommended Enteral / Parental: Tube Feeding Recommended Tube Feeding Formu: Jevity 1cal/ml-Standard Tube Feeding Supplement Streng: Full Recommended Feeding Route: FT Placed Nasogastric Recommended Rate: 2.4ml/hr Recommended Goal Rate: 2.4ml/hr Recommended Duration: 10 (10 hours, overnight while asleep) Recommended Feeding Comment: overnight, or while asleep Recommended Calories: 780 Recommended Protein: 31 (31 g of AA) Recommended Lipids Calories: 225 Total Recommended Calories: 780 Nutrition Monitoring & Eval Nutrition Goals: Eat 50-100% Meal Nutrition Follow-Up: Poor Intake Nutrition Monitoring: Pt consuming 0-25% of mechanical soft and ADA diet. RD Patient Assessment Time: [address] Assessment Type: RD Re-Assessment Patient Nutrition Acuity: 2-Moderate Follow Up Date: Nov 26, 2018 Nutritional Comment: 11/20: Pt dx with DKA, acute pancreatitis-resolved, and bacteremia. Pt has hx of hyperlipidemia, GERD, T2DM, shingles, COPD, pancreatectomy, elbow surgery, cholecystectomy, hysterectomy, tuberculosis and HTN. Pt is currently taking enoxaparin (anticoagulant). Pt has elevated WBG (320-392), RBG (367), BUN (19), alkaline phosphatase (154). Pt has decreased creatinine (0.50), albumin (3.1), total protein (6.0). Pt is allergic to corn. senior internal auditor talked to Pt's daughter (primary child care center assistant director) about diabetes, carbohydrate counting, and provided her with educational handouts. Pt is on NPO day 1. Continue to monitor and icrease diet as able. -JJ 11/23: Per doc note, pt is having decreased appetite. Pt was NPO for 5 meals, ordered 3 meals and consumed: 80%, 10%, 90%, and denied 2 meals. Pt has decreased albumin (2.3), total AA (4.9), calicum (7.7), creatinine (0.50), BUN (5), sodium (130), potassium (2.9) and elevated AST (169), ALT (105), alkaline phosphate (499), RBG (163), WBG (173-271). Pt is on a soft mechanical diet. Pt is not meeting nutritional needs for past 3 days, recommend nutrition support if appetite does not increase, Jevity- 2.4ml/hr over 10 hours, providing 780 kcal, 222 kcal from fat, 438 kcal from carbohydrates, 123 kcal from protein. Continue to monitor. -JJ 11/24/18 Monitoring for improved intake. Pt refused dinner on 11/23/18. No new labs or notes to assess progress from. Pt on mechanical soft diet due to sore throat. Pt allergic to corn, no corn/corn products will be provided. senior internal auditor wrote nutrition support recommendation if improvement in intake is not observed. Continue to monitor intakes. -AKG 11/25 Diet now ADA and mechanical soft. Intake remains poor with 0-25% intakes at meals. Offering nutritional supplement. MD note reports no acute events. Pt on enoxaparin and insulin. Pt has MRSA bacteriaemia and pyelonephritis. Whole blood glucose ranging from 81-253. K is decreased 3.3, as is Na 132. AST of 37 is increased. ALP of 595 is increased. Total protein of 4.6 and albumin of 2.1 are decreased. senior internal auditor did calaculate TF to meet a portion of pt needs, if intake continues to be poor. Continue to monitor intake. -SHREYAS SPARKS Nov 25, 2018 10:50
--- NOTE | 2018-11-25 11:00 | Hospitalist Progress Note ---
Subjective Progress Notes Subjective Still having abdominal pain. Eating and drinking some. She reported getting more sleep last night. Physical Exam Vital Signs Date Time Temp Pulse Resp B/P (MAP) Pulse Ox O2 Delivery O2 Flow Rate FiO2 11/25/18 08:00 79 11/25/18 07:20 95 Nasal Cannula 1.0 11/25/18 07:11 98.8 20 105/68 (80) Intake and Output 11/25/18 07:00 Intake Total 1370 ml Balance 1370 ml Intake Oral 120 ml IV Total 1250 ml # Voids 2 General Appearance: Alert, Awake, No Acute Distress GI: Other (Soft, but reported diffuse abdominal pain with palpation.) : Other (Mild flank pain with percussion) Result Diagram: 11/25/18 0510 11/25/18 0510 Monitor Interpretation: Normal Sinus Rhythm Assessment and Plan Problems: (1) MRSA bacteremia Status: Acute Assessment & Plan: Therapeutic on vancomycin, repeat Cx pending for 03.31 am, small abscess near kidney and in hip abductor. Dr Negron looked at image of leg, very deep abscess is of size may resolve with antibiotic. If not resolved would need IR drainage. No valvular vegetations on TTE. Still with low grade fevers. WBC elevated, but trending down. Repeat blood cultures tomorrow. (2) Pyelonephritis Status: Acute Assessment & Plan: She is growing MRSA out of all blood cultures and a urine culture. She is on vancomycin, but has been slow to reach therapeutic range. A CT scan showed a possible abscess in the right kidney. Dr. Ryan is aware of her case. Will need re-imaging and may need IR drainage if not resolving. (3) Elevated LFTs Status: Acute Assessment & Plan: AST peaked at 593 on 11/22 and now trending down. Alkaline phosphatase has persistently been elevated and trending up since 11/20. Total bilirubin is WNL. GGT pending. Will follow. (4) DKA (diabetic ketoacidoses) Status: Acute Assessment & Plan: She was found with altered mental status on the ground in her home. She was profoundly acidotic and her glucose was elevated on arrival. She was given IV fluids and started on an insulin drip. She has now been transitioned to Lantus and additional coverage with SSI. (5) Altered mental status Status: Acute Assessment & Plan: Resolved with treatment of DKA. (6) Pancreatitis, acute Status: Resolved Assessment & Plan: Lipase was elevated upon admission. She was initially NPO and now her lipase is normal. Exam Sepsis Risk: No Definite Risk Problem Qualifiers (1) DKA (diabetic ketoacidoses): Diabetes mellitus type: type 1 Diabetes mellitus complication detail: with coma Qualified Codes: E10.11 - Type 1 diabetes mellitus with ketoacidosis with coma WESLY MARIN MD Nov 25, 2018 11:00
[2018-11-25 11:37] VITALS: BP 116/84
[2018-11-25] MEDS ORDERED: MAGNESIUM HYDROXIDE* 30ML UDCP PO PRN (14:50)
[2018-11-25] MEDS ORDERED: BISACODYL 10 MG SUPP PR PRN (14:50)
[2018-11-25 15:22] VITALS: BP 117/94
[2018-11-25] MEDS: LIDOCAINE 5% PATCH TP SCH (15:22)
[2018-11-25] MEDS: INSULIN HUM LISPRO 100 UN/ML 3 ML VIAL SUBQ PRN ×2 (17:07→21:10)
[2018-11-25] MEDS ORDERED: VANCOMYCIN(*) 1 GM VIAL 1 GM, VANCOMYCIN (*) 0.5 GM VIAL 0.5 GM in NS(*) 0.9% 250 ML BA... IVPB SCH (18:00)
[2018-11-25] MEDS ORDERED: NS(*) 0.9% 500 ML BAG 500 ML ONE (18:18)
--- NOTE | 2018-11-25 19:07 | Pharmacy Note ---
Vancomycin Management Note Vanco Dosing Note Vancomycin Management Note Vanco Dosing Note Patient is on vancomycin for bacteremia/UTI, pharmacy monitoring and adjusting doses. Antimicrobials: Vancomycin 1500 mg every 12 hours Pertinent Lab Tests WHITE BLOOD COUNT 20.5 NEUTROPHILS 82.3 down today to 73.7 SCR 0.5 (using 0.8 for CrCL calculation: CrCl ~ 74 ml/min) VANCOMYCIN RANDOM done on 11/21 was 7.72 (patient lost IV access and only partial dose given). Another random done today was 5.03 so dose increased to 1500 mg q12h VANCOMYCIN TROUGH on 11/24/18 0500 16.2 and next Tr was 20.58 on 11/24/18 1700 so reduced dose to 1.25 gm q12h; 11/25/18 24.16 so held dose for 12 hrs TR 15.66 started 1500 mg Q18h with next Tr 11/26/18 1100. Culture Results: BLOOD growing MRSA URINE growing MRSA Assessment: CrCl 74 ml/min Renal function is stable Vancomycin Monitoring Assessment: Goal Vancomycin Trough Level: 15-20 mcg/ml Plan: 1) Vancomycin dose: Reduce dose down to 1500 mg IV q18h due to drug accumulation 2) Vancomycin monitoring: A level will be ordered for 1 hour before the next dose on 11/26/18 at 1100 Pharmacy will continue to monitor daily and adjust regimen as appropriate. ITZEL VICTORIA Nov 25, 2018 19:07
[2018-11-25 20:01] VITALS: BP 98/75
[2018-11-25] MEDS ORDERED: PATCH REMOVAL 1 EA TP SCH (21:00)
[2018-11-25 23:24] VITALS: BP 99/70
[2018-11-26 03:24] VITALS: BP 110/78
[2018-11-26] MEDS: oxyCODONE HCL 5 MG CAP PO PRN ×2 (03:32→11:39)
[2018-11-26] MEDS: SALMETEROL/FLUTIC 250/50 1 INH INH SCH (06:02)
[2018-11-26 06:19] LABS: PLATELET COUNT, AUTOMATED 563 K/uL (150-450)
[2018-11-26 07:21] VITALS: BP 99/69
[2018-11-26] MEDS: POTASSIUM CHL 10 MEQ TABCR PO SCH (08:27)
[2018-11-26] MEDS: FAMOTIDINE 20 MG TAB PO SCH (08:28)
[2018-11-26] MEDS: busPIRone HCL 5 MG TAB PO SCH (08:28)
[2018-11-26] MEDS: VENLAFAXINE XR 75 MG CAPCR PO SCH (08:28)
[2018-11-26] MEDS: POLYETHYLENE GLYCOL 17 GM PKT PO SCH (08:28)
[2018-11-26] MEDS: DOCUSATE SODIUM 100 MG CAP PO SCH (08:28)
[2018-11-26] MEDS: LIDOCAINE 5% PATCH TP SCH (08:28)
[2018-11-26] MEDS: ENOXAPARIN 40 MG/0.4ML SYR SC SCH (08:29)
[2018-11-26] MEDS: INSULIN HUM LISPRO 100 UN/ML 3 ML VIAL SUBQ PRN (08:29)
[2018-11-26] MEDS: INSULIN GLARGINE 100 U/ML 3 ML PEN SUBQ SCH (08:30)
--- NOTE | 2018-11-26 09:43 | Hospitalist Depart ---
Discharge Summary Reason for Hosp/Final Diag: (1) MRSA bacteremia Status: Acute Hospital Course & Plan: She had blood and urine cultures done at the time of admission, all of which did grow MRSA. She was placed on IV vancomycin for initial treatment. CT scan showed a perinephric abscess in the right kidney and phlegmon/possible early abscess on left. She was also noted to have possible abscess in right hip abductor musculature. Her transthoracic echocardiogram did not show any definite vegetations. The case was discussed with cardiology (regarding possible KEITH) and urology (regarding possible drainage of perinephric abscess). 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 Unfortunately, she had repeat blood cultures which are already growing gram positive cocci at day one. The case was further discussed with Dr. Landeros (Hospitalist at [facility]) who was willing to take her in transfer for further evaluation and treatment. She will most likely need KEITH and possible Interventional Radiology drainage of her renal abscess. (2) Pyelonephritis Status: Acute Hospital Course & Plan: It is possible this could be the original source, but it is suspected these probably arose from septic emboli from possible endocarditis. (3) Elevated LFTs Status: Acute Hospital Course & Plan: She had transient elevation of her liver function tests. AST peaked at 593 on 11/22 and returned to normal. Alkaline phosphatase has persistently been mildly elevated and trending upwards. Total bilirubin has remained in normal range. GGT pending. (4) DKA (diabetic ketoacidoses) Status: Acute Hospital Course & Plan: She was found with altered mental status on the ground in her home. She was profoundly acidotic and her glucose was elevated on arrival. She was given IV fluids and initially started on an IV insulin drip. She has now been transitioned to Lantus and additional coverage with SSI. (5) Altered mental status Status: Acute Hospital Course & Plan: Her mental status has returned to normal. CT scan of brain was unremarkable. Resolved with initiation of treatment of acute illness. (6) Pancreatitis, acute Status: Resolved Hospital Course & Plan: Lipase was modestly elevated upon admission. Her lipase did normalize quickly. She was initially NPO, but is now eating and drinking fairly normally. Departure Weight (Pounds): 149 Weight (Ounces): 6.0 Result Diagram: 11/26/18 0551 11/26/1851 Item Value Date Time Sodium Level 139 mmol/L 11/19/18 1239 Potassium Level 4.8 mmol/L 11/19/18 1239 Chloride Level 98 mmol/L 11/19/18 1239 Carbon Dioxide Level 7 mmol/L *L 11/19/18 1239 Blood Urea Nitrogen 29 mg/dl H 11/19/18 1239 Creatinine 1.00 mg/dl 11/19/18 1239 Glomerular Filtration Rate Calc 57.6 11/19/18 1239 Random Glucose 835 mg/dl *H 11/19/18 1239 Calcium Level 10.6 mg/dl H 11/19/18 1239 Magnesium Level 2.3 mg/dl H 11/19/18 1239 Total Bilirubin 0.4 mg/dl 11/19/18 1239 Aspartate Amino Transf (AST/SGOT) 12 U/L 11/19/18 1239 Alanine Aminotransferase (ALT/SGPT) 17 U/L 11/19/18 1239 Alkaline Phosphatase 222 U/L H 11/19/18 1239 Total Protein 6.9 g/dl 11/19/18 1239 Albumin 4.0 g/dl 11/19/18 1239 Lipase 2662 U/L H 11/19/18 1239 Troponin I < 0.012 ng/ml 11/19/18 1239 Total Creatine Kinase 21 U/L L 11/19/18 1239 Lactate 3.2 mmol/L H 11/19/18 1239 Lactate 1.6 mmol/L 11/19/18 1639 Lipase 136 U/L 11/20/18 0447 Albumin 3.1 g/dl L 11/20/18 0447 Total Protein 6.0 g/dl L 11/20/18 0447 Alkaline Phosphatase 154 U/L H 11/20/18 0447 Alanine Aminotransferase (ALT/SGPT) 16 U/L 11/20/18 0447 Aspartate Amino Transf (AST/SGOT) 9 U/L 11/20/18 0447 Total Bilirubin 0.3 mg/dl 11/20/18 0447 Calcium Level 9.2 mg/dl 11/20/18 0447 Random Glucose 367 mg/dl H 11/20/18 0447 Glomerular Filtration Rate Calc > 60.0 11/20/18 0447 Creatinine 0.50 mg/dl L 11/20/18 0447 Blood Urea Nitrogen 19 mg/dl H 11/20/18 0447 Carbon Dioxide Level 19 mmol/L L 11/20/18 0447 Chloride Level 115 mmol/L H 11/20/18 0447 Potassium Level 3.6 mmol/L 11/20/18 0447 Sodium Level 141 mmol/L 11/20/18 0447 Albumin 2.3 g/dl L 11/23/18 0536 Total Protein 4.9 g/dl L 11/23/18 0536 Alkaline Phosphatase 499 U/L H 11/23/18 0536 Alanine Aminotransferase (ALT/SGPT) 105 U/L H 11/23/18 0536 Aspartate Amino Transf (AST/SGOT) 169 U/L H 11/23/18 0536 Total Bilirubin 1.3 mg/dl 11/23/18 0536 Calcium Level 7.7 mg/dl L 11/23/18 0536 Random Glucose 163 mg/dl H 11/23/18 0536 Glomerular Filtration Rate Calc > 60.0 11/23/18 0536 Creatinine 0.50 mg/dl L 11/23/18 0536 Blood Urea Nitrogen 5 mg/dl L 11/23/18 0536 Carbon Dioxide Level 24 mmol/L 11/23/18 0536 Chloride Level 100 mmol/L 11/23/18 0536 Potassium Level 2.9 mmol/L *L 11/23/18 0536 Sodium Level 130 mmol/L L 11/23/18 0536 Troponin I < 0.012 ng/ml 11/24/18 1024 Troponin I < 0.012 ng/ml 11/24/18 1710 Albumin 2.1 g/dl L 11/25/18 0510 Total Protein 4.6 g/dl L 11/25/18 0510 Alkaline Phosphatase 595 U/L H 11/25/18 0510 Alanine Aminotransferase (ALT/SGPT) 50 U/L 11/25/18 0510 Aspartate Amino Transf (AST/SGOT) 37 U/L H 11/25/18 0510 Total Bilirubin 1.1 mg/dl 11/25/18 0510 Calcium Level 7.7 mg/dl L 11/25/18 0510 Random Glucose 76 mg/dl 11/25/18 0510 Glomerular Filtration Rate Calc > 60.0 11/25/18 0510 Creatinine 0.80 mg/dl 11/25/18 0510 Blood Urea Nitrogen 3 mg/dl L 11/25/18 0510 Carbon Dioxide Level 24 mmol/L 11/25/18 0510 Chloride Level 102 mmol/L 11/25/18 0510 Potassium Level 3.3 mmol/L L 11/25/18 0510 Sodium Level 132 mmol/L L 11/25/18 0510 Troponin I < 0.012 ng/ml 11/24/18 2215 Albumin 2.1 g/dl L 11/26/18 0551 Total Protein 4.8 g/dl L 11/26/18 0551 Alkaline Phosphatase 662 U/L H 11/26/18 0551 Alanine Aminotransferase (ALT/SGPT) 44 U/L 11/26/18 0551 Aspartate Amino Transf (AST/SGOT) 24 U/L 11/26/18 0551 Total Bilirubin 0.8 mg/dl 11/26/18 0551 Magnesium Level 1.9 mg/dl 11/26/18 0551 Calcium Level 7.9 mg/dl L 11/26/18 0551 Urine Mucus Few /HPF 11/19/18 1140 Urine Bacteria Negative /HPF 11/19/18 1140 Urine Squamous Epithelial Cells None /LPF 11/19/18 1140 Urine WBC Clumps Few /HPF 11/19/18 1140 Urine WBC 16 /HPF 11/19/18 1140 Urine RBC 2 /HPF 11/19/18 1140 Urine Leukocyte Esterase Trace H 11/19/18 1140 Urine Urobilinogen Negative mg/dL 11/19/18 1140 Urine Bilirubin Negative 11/19/18 1140 Urine Nitrite Negative 11/19/18 1140 Urine Blood Large 11/19/18 1140 Urine Ketones 80 mg/dL H 11/19/18 1140 Urine Glucose (UA) 500 mg/dL 11/19/18 1140 Urine Protein 30 mg/dL 11/19/18 1140 Urine Specific Woodruff 1.024 11/19/18 1140 Urine pH 6.0 pH 11/19/18 1140 Urine Clarity Clear 11/19/18 1140 Urine Color Straw 11/19/18 1140 Vancomycin Level Trough 24.16 ug/ml 11/25/18 0510 Random Vancomycin Level 15.66 ug/ml 11/25/18 1713 Vancomycin Level Trough 20.58 ug/ml 11/24/18 1710 Vancomycin Level Trough 16.20 ug/ml 11/24/18 0524 Vancomycin Level Trough 13.83 ug/ml 11/23/18 1720 Random Vancomycin Level 7.72 ug/ml 11/21/18 1614 Salicylates Level < 10 mg/L 11/19/18 1239 Salicylate Last Dose Date unk 11/19/18 1239 Acetaminophen Level < 10 ug/ml 11/19/18 1239 Acetone, Qualitative Moderate 11/19/18 1239 Urine Cannabinoids Screen Negative 11/19/18 1140 Urine Cocaine Screen Negative 11/19/18 1140 Urine Benzodiazepines Screen Negative 11/19/18 1140 Urine Amphetamines Screen Negative 11/19/18 1140 Urine Phencyclidine Screen Negative 11/19/18 1140 Ur Tricyclic Antidepressants Screen Negative 11/19/18 1140 Urine Barbiturates Screen Negative 11/19/18 1140 Urine Opiates Screen Negative 11/19/18 1140 White Blood Count 23.5 k/uL H 11/19/18 1125 Hemoglobin 16.3 g/dL H 11/19/18 1125 Platelet Count 529 K/uL H 11/19/18 1125 White Blood Count 26.4 k/uL H 11/20/18 0447 Hemoglobin 13.8 g/dL 11/20/18 0447 Hematocrit 42.2 % 11/20/18 0447 Platelet Count 412 K/uL 11/20/18 0447 White Blood Count 16.7 k/uL H 11/22/18 0439 Hemoglobin 12.8 g/dL 11/22/18 0439 Hematocrit 37.7 % 11/22/18 0439 Platelet Count 377 K/uL 11/22/18 0439 White Blood Count 20.5 k/uL H 11/23/18 0536 Hemoglobin 12.3 g/dL 11/23/18 0536 Hematocrit 35.7 % 11/23/18 0536 Platelet Count 340 K/uL 11/23/18 0536 White Blood Count 20.3 k/uL H 11/21/18 0547 Hemoglobin 12.8 g/dL 11/21/18 0547 Hematocrit 39.2 % 11/21/18 0547 Platelet Count 372 K/uL 11/21/18 0547 White Blood Count 18.7 k/uL H 11/25/18 0510 Hemoglobin 11.0 g/dL L 11/25/18 0510 Hematocrit 32.6 % L 11/25/18 0510 Platelet Count 439 K/uL 11/25/18 0510 Blood Gas Puncture Site Right radial 11/19/18 1156 Blood Gas Patient Temperature 36.9 DEGREES 11/19/18 1156 Arterial Blood pH 7.16 *L 11/19/18 1156 Arterial Blood Partial Pressure CO2 < 25 mmHg L 11/19/18 1156 Arterial Blood Partial Pressure O2 90 mmHg H 11/19/18 1156 Arterial Blood HCO3 3 mmol/L *L 11/19/18 1156 Arterial Blood Oxygen Saturation 95 % 11/19/18 1156 Arterial Blood Base Excess -25.0 mmol/L 11/19/18 1156 Bharat Test Acceptable 11/19/18 1156 Oxygen Liters/Minute 21% 11/19/18 1156 Oxygen Liters/Minute 21% 11/21/18 0433 Bharat Test Acceptable 11/21/18 0433 Arterial Blood Base Excess -8.0 mmol/L 11/21/18 0433 Arterial Blood Oxygen Saturation 91 % L 11/21/18 0433 Arterial Blood HCO3 17 mmol/L L 11/21/18 0433 Arterial Blood Partial Pressure O2 62 mmHg 11/21/18 0433 Arterial Blood Partial Pressure CO2 26 mmHg L 11/21/18 0433 Arterial Blood pH 7.41 11/21/18 0433 Blood Gas Patient Temperature 101 DEGREES 11/21/18 0433 Blood Gas Puncture Site Left radial 11/21/18 0433 Arterial Blood pH 7.22 L 11/19/18 1504 Prothrombin Time 14.0 seconds 11/19/18 1125 Prothromb Time International Ratio 1.08 11/19/18 1125 Activated Partial Thromboplast Time 24 seconds 11/19/18 1125 [facility] *LIVE* [address] [place] [address] ALEXANDRA CHOWDHURY M.D., DIRECTOR OF LABORATORY SERVICES ELIOT KUO M.D., PATHOLOGIST RUN DATE: 11/22/18 Specimen Inquiry Report PAGE 1 RUN TIME: 0940 PATIENT: ANJANA GONZALEZ ACCT: [id number] LOC: [facility] U: [id number] AGE/SX: 53/F ROOM: [facility] RE11/19/[address]: SILVERIO RIZZO DO : 1965 BED: 273 DIS: STATUS: ADM IN TLOC: SPEC #: [id number] MIKO: 11/19/18 STATUS: COMP REQ #: [id number] RECD: 11/19/[address] [facility] [place] [address]: LULI FRIEND MD SOURCE: BLOOD LINE ENTR: 11/19/[address] [facility] [address]: IVORY TORRES PA-C SPDESC: ORDERED: BCGS, CULT BLOOD Procedure Result Verified ------- ----- BLOOD CULTURE GRAM STAIN Final 11/20/18 AEROBIC BOTTLE POSITIVE GRAM POSITIVE COCCI IN CLUSTERS PRESENT POSITIVE BLOOD CULTURE GRAM STAIN REPORT CALLED TO: MARYLOU HELMS RN ICU DATE/TIME REPORT CALLED: 11/20/18 @ 0125 CALLED BY: RICARDO FORMAN GROWTH IN BOTH THE AEROBIC AND ANAEROBIC BOTTLES CALLED AT 11/20/18 04:40 TO: MARYLOU HELMS RN CALLED BY: RICARDO FORMAN * This is a updated result. * A prior result that was reported as final has been changed.@ Old result entered: by LAB.[email or web address]@ Old result verified: by LAB.[email or web address]@ New result added: by LABANGELO RESULTS CALLED TO AND READ BACK BY (FIRST & LAST NAME, CREDENTIALS) MARYLOU HELMS RN ICU @ 0440 BLOOD CULTURE Final 11/22/18-939 Organism 1 STAPHYLOCOCCUS AUREUS GROWTH PRESENT IN BOTH THE AEROBIC AND A NAEROBIC BOTTLES BETA LACTAMASE: POSITIVE * This is a updated result. * A prior result that was reported as final has been changed.@ Old result entered: by [email or web address]@ Old result verified: by LAB.[email or web address]@ New result added: by LAB.WILLIAM CONTINUED ON NEXT PAGE [facility] [place] [place] [facility]* [address] [place] [address] ALEXANDRA CHOWDHURY M.D., DIRECTOR OF LABORATORY SERVICES ELIOT KUO M.D., PATHOLOGIST RUN DATE: 11/22/18 Specimen Inquiry Report PAGE 2 RUN TIME: 939 SPEC: [id number] PATIENT: ANJANA GONZALEZ [id number] (Continued) Procedure Result Verified BLOOD CULTURE Final (continued) 11/22/18 RESULTS CALLED TO AND READ BACK BY (FIRST & LAST NAME, CREDENTIALS) HILL TRAYLOR RN [facility]. RX --------- --- CIPROFLOXACIN >=8 R CLINDAMYCIN <=0.25 S ERYTHROMYCIN >=8 R GENTAMICIN <=0.5 S LEVOFLOXACIN 4 I LINEZOLID 2 S OXACILLIN >=4 R BENZYLPENICILLIN >=0.5 R RIFAMPIN <=0.5 S TETRACYCLINE <=1 S TRIMETHOPRIM/SULFAMETHOXAZOLE <=10 S VANCOMYCIN 1 S END OF REPORT [facility] *LIVE* [address] [facility] [place] [address] ALEXANDRA CHOWDHURY M.D., DIRECTOR OF LABORATORY SERVICES ELIOT KUO M.D., PATHOLOGIST RUN DATE: 11/22/18 Specimen Inquiry Report PAGE 1 RUN TIME: 938 PATIENT: ANJANA GONZALEZ ACCT: [id number] LOC: MED U: [id number] AGE/SX: 53/F ROOM: 2273 RE11/19/[address]: SILVERIO RIZZO DO : 1965 BED: 273 DIS: STATUS: ADM IN TLOC: SPEC #: [id number] MIKO: 11/19/18 STATUS: COMP REQ #: [id number] RECD: 11/19/18-[address]: LULI FRIEND MD SOURCE: BLOOD LINE ENTR: 11/19/18-[address]: IVORY TORRES PA-C SPDESC: ORDERED: BCGS, CULT BLOOD Procedure Result Verified BLOOD CULTURE GRAM STAIN Final 11/20/18-441 AEROBIC BOTTLE POSITIVE (PEDIATRIC BOT) GRAM POSITIVE COCCI IN CLUSTERS PRESENT POSITIVE BLOOD CULTURE GRAM STAIN REPORT CALLED TO: MARYLOU HELMS RN ICU DATE/TIME REPORT CALLED: 11/20/18 @ 2687 CALLED BY: RICARDO FORMAN BLOOD CULTURE Final 11/22/18-1172 Organism 1 STAPHYLOCOCCUS AUREUS GROWTH PRESENT IN THE AEROBIC BOTTLE BETA LACTAMASE: POSITIVE STA [facility]UREUS M.I.C. RX --------- --- CIPROFLOXACIN >=8 R CLINDAMYCIN <=0.25 S ERYTHROMYCIN >=8 R GENTAMICIN <=0.5 S LEVOFLOXACIN 4 I LINEZOLID 2 S OXACILLIN >=4 R BENZYLPENICILLIN >=0.5 R RIFAMPIN <=0.5 S TETRACYCLINE <=1 S TRIMETHOPRIM/SULFAMETHOXAZOLE <=10 S VANCOMYCIN 1 S [facility] *LIVE* [address] [place], [place] [address] ALEXANDRA CHOWDHURY M.D., DIRECTOR OF LABORATORY SERVICES ELIOT KUO M.D., PATHOLOGIST RUN DATE: 11/21/18 Specimen Inquiry Report PAGE 1 RUN TIME: 825 PATIENT: ANJANA GONZALEZ ACCT: [id number] LOC: MED U: [id number] AGE/SX: 53/F ROOM: [facility] R E11/19/[address]: SILVERIO RIZZO DO : 1965 BED: 273 DIS: STATUS: ADM IN TLOC: SPEC #: [id number] MIKO: 11/19/18 STATUS: COMP REQ #: [id number] RECD: 11/19/[address] [facility] [place] [address]: LULI FRIEND MD SOURCE: SO ENTR: 11/19/[address] [facility] [address]: IVORY TORRES PA-C SPDESC: ORDERED: CULT URINE Procedure Result Verified URINE CULTURE Final 11/21/18-824 Organism 1 STAPHYLOCOCCUS AUREUS >100,000 COL/ML BETA LACTAMASE: POSITIVE STA [facility] M.I.C. RX --------- --- CIPROFLOXACIN >=8 R GENTAMICIN <=0.5 S LEVOFLOXACIN 4 I LINEZOLID 2 S NITROFURANTOIN <=16 S OXACILLIN >=4 R BENZYLPENICILLIN >=0.5 R RIFAMPIN <=0.5 S TETRACYCLINE <=1 S TRIMETHOPRIM/SULFAMETHOXAZOLE <=10 S VANCOMYCIN 1 S [facility] *LIVE* [address] [facility] [place] [address] ALEXANDRA CHOWDHURY M.D., DIRECTOR OF LABORATORY SERVICES ELIOT KUO M.D., PATHOLOGIST RUN DATE: 11/24/18 Specimen Inquiry Report PAGE 1 RUN TIME: 1312 PATIENT: ANJANA GONZALEZ ACCT: [id number] LOC: MED U: [id number] AGE/SX: 53/F ROOM: [facility] RE11/19/[address]: SILVERIO RIZZO DO : 1965 BED: 273 DIS: STATUS: ADM IN TLOC: SPEC #: [id number] MIKO: 11/21/18 STATUS: COMP REQ #: [id number] RECD: 11/21/[address] [facility] [place] [address]: WESLY MARIN MD SOURCE: BLOOD ENTR: 11/20/[address] [facility] [address]: IVORY TORRES PA-C [facility]: SILVERIO RIZZO DO ORDERED: BCGS, CULT BLOOD Procedure Result Verified ------- ----- BLOOD CULTURE GRAM STAIN Final 11/22/18-552 AEROBIC BOTTLE POSITIVE GRAM POSITIVE COCCI POSITIVE BLOOD CULTURE GRAM STAIN REPORT CALLED TO: DEWEY GORDON RN DATE/TIME REPORT CALLED: 11/21/2018 AT 2150 CALLED BY: EFREN FORDE ANAEROBIC BOTTLE POSITIVE GRAM POSITIVE COCCI PRESENT CALLED TO: SHELLIE SUBRAMANIAN RN DATE/TIME REPORT CALLED: 11/22/18 @ 05 CALLED BY: RICARDO FORMAN * This is a updated result. * A prior result that was reported as final has been changed.@ Old result entered: by [email or web address]@ Old result verified: by LAB.BETO@ New result added: by ALVIN RESULTS CALLED TO AND READ BACK BY (FIRST & LAST NAME, CREDENTIALS) CALLED TO: SHELLIE RODRIGUEZ [facility] & READ BACK BY: ALVIN BLOOD CULTURE Final 11/24/18-1312 Organism 1 STAPHYLOCOCCUS AUREUS GROWTH PRESENT IN BOTH THE AEROBIC AND ANAEROBIC BOTTLES CONTINUED ON NEXT PAGE [facility] *LIVE* [address] [place] [address] ALEXANDRA CHOWDHURY M.D., DIRECTOR OF LABORATORY SERVICES ELIOT KUO M.D., PATHOLOGIST RUN DATE: 11/24/18 Specimen Inquiry Report PAGE 2 RUN TIME: 1312 SPEC: [id number] PATIENT: ANJANA GONZALEZ [id number] (Continued) Procedure Result Verified BLOOD CULTURE Final (continued) 11/24/18-1312 [facility] M.I.[facility] RX --------- --- CIPROFLOXACIN >=8 R CLINDAMYCIN <=0.25 S ERYTHROMYCIN >=8 R GENTAMICIN <=0.5 S LEVOFLOXACIN 4 I LINEZOLID 2 S OXACILLIN >=4 R BENZYLPENICILLIN >=0.5 R RIFAMPIN <=0.5 S TETRACYCLINE <=1 S TRIMETHOPRIM/SULFAMETHOXAZOLE <=10 S VANCOMYCIN 1 S END OF REPORT [facility] *LIVE* [address] [place] [address] ALEXANDRA CHOWDHURY M.D., DIRECTOR OF LABORATORY SERVICES ELIOT KUO M.D., PATHOLOGIST RUN DATE: 11/24/18 Specimen Inquiry Report PAGE 1 RUN TIME: 1313 PATIENT: ANJANA GONZALEZ ACCT: [id number] LOC: MED U: [id number] AGE/SX: 53/F ROOM: 2273 RE11/19/[address]: SILVERIO RIZZO DO : 1965 BED: 273 DIS: STATUS: ADM IN TLOC: SPEC #: [id number] MIKO: 11/21/18 STATUS: COMP REQ #: [id number] RECD: 11/21/[address]: WESLY MARIN MD SOURCE: BLOOD ENTR: 11/20/[address] [facility] [address]: IVORY TORRES PA-C SPDESC: SILVERIO RIZZO DO ORDERED: BCGS, CULT BLOOD Procedure Result Verified BLOOD CULTURE GRAM STAIN Final 11/22/18 AEROBIC BOTTLE POSITIVE GRAM POSITIVE COCCI POSITIVE BLOOD CULTURE GRAM STAIN REPORT CALLED TO: DEWEY GORDON RN DATE/TIME REPORT CALLED: 11/21/2018 AT 2150 CALLED BY: EFREN FORDE ANAEROBIC BOTTLE POSITIVE GRAM POSITIVE COCCI PRESENT CALLED TO: SHELLIE SUBRAMANIAN RN DATE/TIME REPORT CALLED: 11/22/18 @ 0546 CALLED BY: RICARDO FORMAN * This is a updated result. * A prior result that was reported as final has been changed.@ Old result entered: by LAB.[email or web address]@ Old result verified: by LAB.[email or web address]@ New result added: by ALVIN RESULTS CALLED TO AND READ BACK BY (FIRST & LAST NAME, CREDENTIALS) CALLED TO: SHELLIE SUBRAMANIAN RN MEDSUR & READ BACK BY: ALVIN BLOOD CULTURE Final 11/24/18-1313 Organism 1 STAPHYLOCOCCUS AUREUS GROWTH PRESENT IN BOTH THE AEROBIC AND ANAEROBIC BOTTLES SEE #410 FOR SUSCEPTIBILITIES [facility] *LIVE* [address] [place] [address] ALEXANDRA CHOWDHURY M.D., DIRECTOR OF LABORATORY SERVICES ELIOT KUO M.D., PATHOLOGIST RUN DATE: 11/26/18 Specimen Inquiry Report PAGE 1 RUN TIME: 0014 PATIENT: ANJANA GONZALEZ ACCT: [id number] LOC: MED U: [id number] AGE/SX: 53/F ROOM: 2273 RE11/19/[address]: SILVERIO RIZZO DO : 1965 BED: 273 DIS: STATUS: ADM IN TLOC: --------- --- SPEC #: [id number] MIKO: 11/25/18 STATUS: RES REQ #: [id number] RECD: 11/25/[address]: ELIOT MARQUEZ DO SOURCE: BLOOD ENTR: 11/24/18-[address]: IVORY TORRES PA-C SPDESC: SILVERIO RIZZO DO ORDERED: BCGS, CULT BLOOD COMMENTS: Comments: Collect 2 samples from different sites 15 minutes apart Procedure Result Verified BLOOD CULTURE GRAM STAIN Final 11/26/18-13 AEROBIC BOTTLE POSITIVE GRAM POSITIVE COCCI POSITIVE BLOOD CULTURE GRAM STAIN REPORT CALLED TO: REYES GONZALEZ DATE/TIME REPORT CALLED: 11-26-18 @0011 CALLED BY: ANGELICA LEÓN BLOOD CULTURE Preliminary 11/25/18-999 NO GROWTH SO FAR, SET LATE. REINCUBATED [facility] [place] [place] [facility]* [address] [facility] [place] [address] ALEXANDRA CHOWDHURY M.D., DIRECTOR OF LABORATORY SERVICES ELIOT KUO M.D., PATHOLOGIST RUN DATE: 11/26/18 Specimen Inquiry Report PAGE 1 RUN TIME: 227 PATIENT: ANJANA GONZALEZ ACCT: [id number] LOC: MED U: [id number] AGE/SX: 53/F ROOM: 227 RE11/19/[address]: SILVERIO RIZZO DO : 1965 BED: 273 DIS: STATUS: ADM IN TLOC: SPEC #: [id number] MIKO: 11/25/18 STATUS: RES REQ #: [id number] RECD: 11/25/[address]: ELIOT MARQUEZ DO SOURCE: BLOOD ENTR: 11/24/[address] [facility] [address]: IVORY TORRES PA-C SPDESC: SILVERIO RIZZO DO ORDERED: BCGS, CULT BLOOD COMMENTS: Comments: Collect 2 samples from different sites 15 minutes apart Procedure Result Verified BLOOD CULTURE GRAM STAIN Final 11/26/18 AEROBIC BOTTLE POSITIVE (PEDS) GRAM POSITIVE COCCI POSITIVE BLOOD CULTURE GRAM STAIN REPORT CALLED TO: MARYLOU FRANCOIS DATE/TIME REPORT CALLED: 11-26-18 @0 CALLED BY: ANGELICA LEÓN BLOOD CULTURE Preliminary 11/25/18-999 NO GROWTH SO FAR, SET LATE. REINCUBATED Imaging PATIENT NAME: Anjana Gonzalez : 1965 MR: [id number] V: [id number] EXAM DATE: ORDERING PHYSICIAN: LULI FRIEND TECHNOLOGIST: Location: [facility] Patient: Anjana Gonzalez : 1965 Visit/Account:[id number] Date of Sevice: 11/19/2018 EXAMINATION: CT head without IV contrast HISTORY: Altered mental status. COMPARISON: CT head from 06/16/2016. TECHNIQUE: Contiguous axial images were obtained from the skull base to the vertex without intravenous contrast. Sagittal and coronal reformatted images are also submitted. One of the following dose optimization techniques was utilized in the performance of this exam: Automated exposure control; adjustment of the mA and/or kV according to the patient's size; or use of an iterative reconstruction technique. Specific details can be referenced in the facility's radiology CT exam operational policy. FINDINGS: Brain volume: Normal. Ventricles: Normal. Acute ischemic changes: None. Hemorrhage: No acute intracranial hemorrhage. Masses/edema: None. Conklin-white: Negative. White matter: Normal. Vessels: Minimal calcified plaque of the bilateral carotid siphons. Extra-axial: Negative. Calvarium/scalp: Negative. Skull base/visualized face: Negative. Visualized sinuses/orbits: Negative. IMPRESSION: No acute hemorrhage or intracranial mass lesion. No CT evidence of acute infarct. Report Dictated By: May Hill MD at 11/19/2018 12:36 PM Report E-Signed By: May Hill MD at 11/19/2018 12:39 PM WSN:[id number] PATIENT NAME: Anjana Gonzalez : 1965 MR: [id number] V: [id number] EXAM DATE: ORDERING PHYSICIAN: DEE BECKFORD TECHNOLOGIST: Location: [facility] [place] Patient: Anjana Gonzalez : 1965 Visit/Account:[id number] Date of Sevice: 11/22/2018 EXAMINATION: CT chest with IV contrast CT abdomen with IV contrast CT pelvis with IV contrast HISTORY: Left flank pain. Bacteremia. TECHNIQUE: Spiral scan was obtained through the chest, abdomen and pelvis during injection of nonionic iodinated intravenous contrast. Sagittal and coronal reformatted images are also submitted. One of the following dose optimization techniques was utilized in the performance of this exam: Automated exposure control; adjustment of the mA and/or kV according to the patient's size; or use of an iterative reconstruction technique. Specific details can be referenced in the facility's radiology CT exam operational policy. CONTRAST: 75 mL of IV [id number] COMPARISON: None available. FINDINGS: CT THORAX: Lower neck: Negative. Lungs / pleura: Patchy opacities in the lung bases with trace bilateral pleural effusion, left worse than right. 4 mm pulmonary nodule in the right upper lobe (series 3, image 129). 5 mm pulmonary nodule in the lateral right middle lobe (series 3, image 227). 6 mm pulmonary nodule in the medial right lower lobe (series 3, image 183). Calcified granuloma in the medial left upper lobe. Mediastinum / marsha: Negative. Heart / pericardium: Negative. Vessels: The left upper extremity central line terminates near the atrial caval junction. Mild calcified plaque in the aortic arch. Lymph nodes: Mildly enlarged mediastinal lymph nodes measuring up to 1.2 x 1.0 cm. Calcified para-aortic lymph nodes. Musculoskeletal / Body wall: Negative. CT ABDOMEN AND PELVIS: Liver / biliary: Periportal edema. Postop cholecystectomy. Mild biliary ductal dilatation is likely related to the prior cholecystectomy. The common bile duct measures up to 8 mm. Pancreas: Distal pancreatectomy. Otherwise negative. Spleen: Splenectomy. Otherwise negative. Adrenal glands: Negative. Kidneys: Focal hypoenhancement of the superior lateral portion of the left kidney with associated central region of hypoenhancement measuring 1.5 cm con sistent with pyelonephritis and phlegmon/early abscess. Hypoenhancement of the superior posterior portion of the right kidney with associated 1.4 cm region of hypoenhancement in the renal parenchyma and adjacent 3.1 x 1.9 cm perinephric fluid collection posteriorly consistent with pyelonephritis, parenchymal phlegmon/early abscess, and perinephric abscess. Partial thrombosis of the right renal vein. The left renal vein is patent. No hydronephrosis. 3 mm nonobstructing stone in the inferior right kidney. Pelvic structures: Hysterectomy. Otherwise negative. Bowel: No obstruction or bowel wall thickening. The appendix is not confidently identified, however there are no pericecal inflammatory changes to suggest acute appendicitis. Peritoneum / retroperitoneum / mesenteries: Mild free fluid. No free air. Vessels: Partial thrombosis of the right renal vein. Moderate aortoiliac calcification with no aneurysm. Lymph nodes: Mildly prominent retroperitoneal and periportal lymph nodes are likely reactive. Musculoskeletal / Body wall: 2.7 x 1.9 cm fluid collection with peripheral enhancement suspicious for abscess in the abductor musculature of the right thigh (series 2, image 211). Multilevel degenerative disc disease and facet hypertrophy in the thoracolumbar spine. IMPRESSION: 1. Bilateral pyelonephritis with small areas of phlegmon/early abscess in the renal parenchyma and 3.1 x 1.9 cm perinephric abscess posterior to the upper right kidney. No hydronephrosis. Nonobstructing 3 mm stone in the right kidney. 2. Partially thrombosed right renal vein. 3. Patchy opacities in the lung bases with trace pleural effusions, left worse than right. Possible aspiration or pneumonia. 4. Mildly enlarged mediastinal and upper abdominal lymph nodes are likely reactive.5. 2.7 x 1.9 cm fluid collection with peripheral enhancement suspicious for abscess in the abductor musculature of the right thigh (series 2, image 211). 6. Nonspecific periportal edema and mild free fluid in the abdomen and pelvis. This could be related to IV hydration. 7. 3 pulmonary nodules measuring up to 6 mm. Follow-up chest CT in 3-6 months is recommended. Results were called to DEE BECKFORD at 11/22/2018 12:19 PM. Report Dictated By: Darwin Menard MD at 11/22/2018 11:50 AM Report E-Signed By: Darwin Menard MD at 11/22/2018 12:20 PM WSN:[id number] EKG PATIENT NAME: ANJANA GONZALEZ : [id number] MR: [id number] V: [id number] EXAM DATE: ORDERING PHYSICIAN: LULI FRIEND TECHNOLOGIST: Test Reason : sepsis Blood Pressure : / mmHG Vent. Rate : 102 BPM Atrial Rate : 102 BPM P-R Int : 122 ms QRS Dur : 090 ms QT Int : 352 ms P-R-T Axes : 083 079 058 degrees QTc Int : 458 ms Sinus tachycardia Biatrial enlargement Abnormal ECG When compared with ECG of 03-MAY-2018 11:23, Questionable change in QRS duration Confirmed by SILVERIO RIZZO ([id number]) on 11/19/2018 7:24:07 PM Referred By: Confirmed By:SILVERIO RIZZO Condition: Improved Discharge: Another Hospital ([facility]) Time Spent: > 30 min Discharge Instructions Home Meds Active Scripts Vancomycin HCl/D5w (Vancomycin 1.5 Gram/250 ml-D5w) 1.5 Gram/250 Ml Plast..bag, 1.5 GM IV q18hrs for 42 Days, BAG Prov:DEE BECKFORD MD 11/26/18 [Gi Cocktail 60 Ml Btl] 60 ML SUSP No Conflict Check, 10 ML PO TID PRN for DYSPEPSIA for 14 Days, #30 BOT 5 ML Prov:DEE BECKFORD MD 11/26/18 Lidocaine (Lidocaine) 5 % Adh..patch, 1 EACH TP QDAY for 14 Days, #14 PATCH.24H Prov:DEE BECKFORD MD 11/26/18 Polyethylene Glycol 3350 (POLYETHYLENE GLYCOL 3350) 17 Gm Powd.pack, 17 GM PO QDAY for 30 Days, #30 PACK Prov:DEE BECKFORD MD 11/26/18 Oxycodone Hcl (OXYCODONE HCL) 5 Mg Tablet, 5 MG PO Q6H PRN for PAIN for 7 Days, #30 TAB Prov:DEE BECKFORD MD 11/26/18 Insulin Glargine 100 Un/Ml Pen (LANTUS SOLOSTAR PEN) 100 Unit/1 Ml Insuln.pen, 20 UNIT SUBQ BID, #5 UNITS 4 Refills Prov:DEE BECKFORD MD 11/26/18 Insulin Lispro 100 Un/Ml Pen (HUMALOG 3 ML PEN) 100 Unit/1 Ml Insuln.pen, 3-15 UNIT SQ PRN PRN for sliding scale Humalog, #5 UNITS 4 Refills Prov:LARS BECKFORD MD 05/04/18 Estrogens, Conjugated (PREMARIN) 1.25 Mg Tablet, 1.25 MG PO QDAY, #30 TAB Prov:LARS BECKFORD MD 08/09/15 Fluticasone/Salmeterol (ADVAIR 250-50 DISKUS) 1 Each Disk.w.dev, 1 PUFF IH DAILY, #1 DISK Prov:LARS BECKFORD MD 08/09/15 Omeprazole (OMEPRAZOLE) 20 Mg Capsule.dr, 1 CAP PO BID, #60 CAP Prov:LARS BECKFORD MD 08/09/15 Albuterol Sulfate 90 Mcg/Act (PROAIR HFA 90 MCG/ACT) 8.5 Gm Hfa.aer.ad, 2 PUFF IH QID, #1 INHALER Prov:LARS BECKFORD MD 08/09/15 Venlafaxine Hcl (VENLAFAXINE HCL ER) 75 Mg Tab.er.24, 75 MG PO BID, #60 TAB Prov:LARS BECKFORD MD 08/09/15 Reported Medications Zolpidem Tartrate (AMBIEN) 10 Mg Tablet, 1 TAB PO QHS PRN for INSOMNIA, TAB 05/09/18 Buspirone Hcl (BUSPIRONE HCL) 7.5 Mg Tablet, 7.5 MG PO BID, #10 TAB 03/22/18 Fluvastatin Sodium (Lescol) 20 Mg Capsule, 20 MG PO QHS, 0 Refills 06/24/11 Discontinued Reported Medications Benzonatate 100 Mg Cap (TESSALON PERLE 100 MG CAP) 100 Mg Capsule, 100 MG PO DAILY, #15 CAP 03/22/18 Cyclobenzaprine Hcl (CYCLOBENZAPRINE HCL) 10 Mg Tablet, 10 MG PO TID, #9 TAB 01/01/18 Discontinued Scripts Prednisone (PREDNISONE) 20 Mg Tablet, 40 MG PO DAILY, #10 TAB Prov:CANDE GALICIA [facility] 08/18/18 Prednisone (PREDNISONE) 20 Mg Tablet, 60 MG PO QDAY, #14 TAB 0 Refills Three tabs PO daily for two days, then two tabs a day for two days, then one tab a day for two days, then one-half tab a day for two days then off. Prov:DEE BECKFORD MD 05/11/18 Diltiazem Hcl (DILTIAZEM 24HR CD) 120 Mg Cap.er.24h, 120 MG PO QDAY, #30 CAP 4 Refills Prov:LARS BECKFORD MD 05/04/18 Glimepiride (GLIMEPIRIDE) 4 Mg Tablet, 0.5 TAB PO BID, #15 TAB Prov:LARS BECKFORD MD 05/04/18 Diet: Diabetic Activity: As Tolerated Special Instructions: She will be transferred to [facility] for further evaluation and treatment. Venous Thromboembolism Antithrombotics Is Pt On Any Antithrombotics?: No Problem Qualifiers (1) DKA (diabetic ketoacidoses): Diabetes mellitus type: type 1 Diabetes mellitus complication detail: with coma Qualified Codes: E10.11 - Type 1 diabetes mellitus with ketoacidosis with coma DEE BECKFORD MD Nov 26, 2018 09:43
[2018-11-26] MEDS ORDERED: VANC1.5P11 IV (09:49)
[2018-11-26] MEDS ORDERED: OXYC5TAB38 PO (09:49)
[2018-11-26] MEDS ORDERED: POLY17PO11 PO (09:49)
[2018-11-26] MEDS ORDERED: [UNRECOGNIZED DRUG - OTHER] PO (09:49)
[2018-11-26] MEDS ORDERED: INSU100I30 SUBQ (09:49)
[2018-11-26] MEDS ORDERED: LIDO700A19 TP (09:49)
[2018-11-26] MEDS ORDERED: VANCOMYCIN(*) 1 GM VIAL 1 GM, VANCOMYCIN (*) 0.5 GM VIAL 0.5 GM in NS(*) 0.9% 250 ML BA... IVPB ONE (10:00)
[2018-11-26] MEDS ORDERED: ALTEPLASE RECOMB 2 MG VIAL IVP ONE (10:45)
--- NOTE | 2018-11-26 15:40 | Medical Nutrition Therapy ---
Nutrition Anthropometrics Height (Inches): 66.00 Height (Calculated Centimeters: 167.603133 Weight (Pounds): 149 Weight (Calculated Kilograms): 67.755 BMI: 24 Harvey Nutrition Score: Probably Inadequate Harvey Nutrition Risk Score: 17 Dietary Referral Nutrition Risk Factors: Unplanned Loss >10lbs Nutrition Risk Comment: pt. states rosanne her throat is sore from the intubation Physical Findings Physical Appearance: Skin Appearance Skin Appearance: Edema Edema Location Modifier: Edema Location: Type of Edema: Degree of Edema: Gastrointestinal Symptoms GI Symtoms: Tube Present: Bowel Sounds: Recent Bowel Pattern: Stool Characteristics: Nutritional Diagnosis Nutritional Risk Acuity 2: Blood Glucose > 300mg/dl Nutritional Risk Acuity 3: COPD Unstable Nutritional Risk Acuity 4: Good Appetite Past Medical History: Hx of hyperlipidemia, GERD, T2DM, shingles, COPD, pancreatectomy, elbow surgery, cholecystectomy, hysterectomy, tuberculosis and HTN. Nutritional Acuity: 2-Moderate Nutrition Diagnosis: Inappropriate Carb Intake Nutrition Etiology: Inability Manage SelfCare Nutrition Problem/Etiology/Sym: Inappropriate carb intake related to inability to manage self care as evidenced by dx of DKA and elevated WBG (320-392) and RBG (367) levels. Energy Requirement: 1701 (MSJ, 1.1 TEF 1.2 AF) Protein Requirement: 68 (1g AA/kg of BW) Fluid Requirement: 1701 (1ml/kcal) Diet Type: Medical Liquid/GI soft Nutrition Intervention: Incr diet as tolerated Nutritional Needs Comment: OFFER NUTRITIONAL SUPPLEMENT Diet Comment To RSA: ALLERGIC TO CORN Nutritional Support Recommended Enteral / Parental: Tube Feeding Recommended Tube Feeding Formu: Jevity 1cal/ml-Standard Tube Feeding Supplement Streng: Full Recommended Feeding Route: FT Placed Nasogastric Recommended Rate: 2.4ml/hr Recommended Goal Rate: 2.4ml/hr Recommended Duration: 10 (10 hours, overnight while asleep) Recommended Feeding Comment: overnight, or while asleep Recommended Calories: 780 Recommended Protein: 31 (31 g of AA) Recommended Lipids Calories: 225 Total Recommended Calories: 780 Nutrition Monitoring & Eval RD Patient Assessment Time: [address] Assessment Type: RD Re-Assessment Patient Nutrition Acuity: 2-Moderate Follow Up Date: Nov 27, 2018 Nutritional Comment: 11/20: Pt dx with DKA, acute pancreatitis-resolved, and bacteremia. Pt has hx of hyperlipidemia, GERD, T2DM, shingles, COPD, pancreatectomy, elbow surgery, cholecystectomy, hysterectomy, tuberculosis and HTN. Pt is currently taking enoxaparin (anticoagulant). Pt has elevated WBG (320-392), RBG (367), BUN (19), alkaline phosphatase (154). Pt has decreased creatinine (0.50), albumin (3.1), total protein (6.0). Pt is allergic to corn. [employer] compliance internship talked to Pt's daughter (primary child day care provider) about diabetes, carbohydrate counting, and provided her with educational handouts. Pt is on NPO day 1. Continue to monitor and icrease diet as able. -J 11/23: Per doc note, pt is having decreased appetite. Pt was NPO for 5 meals, ordered 3 meals and consumed: 80%, 10%, 90%, and denied 2 meals. Pt has decreased albumin (2.3), total AA (4.9), calicum (7.7), creatinine (0.50), BUN (5), sodium (130), potassium (2.9) and elevated AST (169), ALT (105), alkaline phosphate (499), RBG (163), WBG (173-271). Pt is on a soft mechanical diet. Pt is not meeting nutritional needs for past 3 days, recommend nutrition support if appetite does not increase, Jevity- 2.4ml/hr over 10 hours, providing 780 kcal, 222 kcal from fat, 438 kcal from carbohydrates, 123 kcal from protein. Continue to monitor. - 11/24/18 Monitoring for improved intake. Pt refused dinner on 11/23/18. No new labs or notes to assess progress from. Pt on mechanical soft diet due to sore throat. Pt allergic to corn, no corn/corn products will be provided. [employer] compliance internship wrote nutrition support recommendation if improvement in intake is not observed. Continue to monitor intakes. -AK 11/25 Diet now ADA and mechanical soft. Intake remains poor with 0-25% intakes at meals. Offering nutritional supplement. MD note reports no acute events. Pt on enoxaparin and insulin. Pt has MRSA bacteriaemia and pyelonephritis. Whole blood glucose ranging from 81-253. K is decreased 3.3, as is Na 132. AST of 37 is increased. ALP of 595 is increased. Total protein of 4.6 and albumin of 2.1 are decreased. [employer] compliance internship did calaculate TF to meet a portion of pt needs, if intake continues to be poor. Continue to monitor intake. -AKG 11/26: Pt on ADA diet and mechanical soft. Pt has decreased sodium (130), creatinine (5), calcium (7.9), albumin (2.1), and total protein (4.8) levels. Pt has elevated WBG (285), RBG (296), alkaline phosphatase (662) levels. Pt refused breakfast, lunch and dinner on 11/25. Recommend nutrition support. Continue to monitor. -INGRIS GARCIA Nov 26, 2018 10:02
== END 2018-11-26 12:05 | disposition short-term general hospital (02) | DRG 637 ==
LOC: ER 11:49 → ICU 13:57 → MED 11-20 16:10
PROVIDERS: ADMIT Family Medicine; ATTEND Family Medicine
PROC: 05HA33Z Insertion of Infusion Device into Left Brachial Vein, Percutaneous Approach (ICD-10-PCS; principal; 2018-11-19)
PROC: B54NZZA Ultrasonography of Left Upper Extremity Veins, Guidance (ICD-10-PCS; 2018-11-19)
DX: E10.11 Type 1 diabetes mellitus with ketoacidosis with coma (principal); K85.90 Acute pancreatitis without necrosis or infection, unspecified; N15.1 Renal and perinephric abscess; N10 Acute pyelonephritis; L02.415 Cutaneous abscess of right lower limb; B95.62 Methicillin resistant Staphylococcus aureus infection as the cause of diseases classified elsewhere; I10 Essential (primary) hypertension; E78.5 Hyperlipidemia, unspecified; G47.30 Sleep apnea, unspecified; J44.9 Chronic obstructive pulmonary disease, unspecified; K21.9 Gastro-esophageal reflux disease without esophagitis; F32.9 Major depressive disorder, single episode, unspecified; F17.210 Nicotine dependence, cigarettes, uncomplicated; Z88.0 Allergy status to penicillin; Z88.7 Allergy status to serum and vaccine; Z88.8 Allergy status to other drugs, medicaments and biological substances; Z88.6 Allergy status to analgesic agent; Z79.4 Long term (current) use of insulin; Z85.41 Personal history of malignant neoplasm of cervix uteri; Z90.49 Acquired absence of other specified parts of digestive tract; Z90.710 Acquired absence of both cervix and uterus
CPT/HCPCS: 36415; 36416; 36573; 36600; 70450; 71045; 71260; 74177; 80202; 80305; 80329; 81001; 82009; 82040; 82140; 82247; 82310; 82374; 82435; 82550; 82565; 82800; 82803; 82947; 82948; 82977; 83605; 83690; 83735; 84075; 84132; 84155; 84295; 84450; 84460; 84484; 84520; 85025; 85610; 85730; 87040; 87077; 87088; 87186; 93005; 93306; 94640; 96365; 96366; 96375; 97163; 97166; 99285; C1751; C1758; C9113; J0131; J1650; J1815; J2405; J2997; J3370; J3475; J3480; J3490; J7030; J7040; J7050; Q9967

== ENCOUNTER → 2018-11-19 | Outpatient (CLI) | payer MEDICAID ==
[~2018-11-19] MED LIST changes: +DILT120C12 PO; -DILT120C18 PO; -GEMF600T92 PO; +GEMF600T96 PO; -HYDR-4309 PO; +HYDR-653 PO; +LIDO700A19 TP; +POLY17PO11 PO; +VANC1.5P11 IV; +[UNRECOGNIZED DRUG - OTHER] PO
[2018-11-20 08:36] VITALS: BMI 24.1
== END ==
LOC: AMB 10:49
PROVIDERS: ATTEND Nurse Practitioner
DX: R40.4 Transient alteration of awareness (principal); E10.65 Type 1 diabetes mellitus with hyperglycemia; Z79.4 Long term (current) use of insulin; R06.82 Tachypnea, not elsewhere classified; E86.0 Dehydration; R11.2 Nausea with vomiting, unspecified
CPT/HCPCS: A0425; A0427

== ENCOUNTER → 2018-11-26 | Outpatient (CLI) | payer MEDICAID ==
[2018-11-20 08:36] VITALS: BMI 24.1
[~2018-11-26] MED LIST changes: +LIDO700A19 TP; +POLY17PO11 PO; +VANC1.5P11 IV; +[UNRECOGNIZED DRUG - OTHER] PO
== END ==
LOC: AMB 11:33
PROVIDERS: ATTEND Nurse Practitioner
DX: N12 Tubulo-interstitial nephritis, not specified as acute or chronic (principal); R79.89 Other specified abnormal findings of blood chemistry; R09.02 Hypoxemia
CPT/HCPCS: A0425; A0426

== ENCOUNTER 2018-12-21 09:47 | Inpatient (IN) | payer MEDICAID ==
[2018-11-20 08:36] VITALS: Ht 160 cm; Wt 72.1 kg
[~2018-12-21] VITALS: Ht 160 cm; Wt 72.1 kg
[~2018-12-21 09:47] MED LIST changes: -OMEP-125 PO; +OMEP-126 PO
[2018-12-21 14:45] VITALS: BP 139/81
[2018-12-21] MEDS: oxyCODONE HCL 5 MG CAP PO PRN ×2 (15:47→20:18)
--- NOTE | 2018-12-21 15:53 | NUR ---
Physical Therapy Impression PT eval complete. Please see EMR Other Reports for details. Physical Therapy Goals 1. Independent bed mobility. 2. Mod I transfers. 3. Mod I gait x 150' with appropriate assistive device. 4. Ascend/descend 4 stairs SBA. Patient's Goals
--- NOTE | 2018-12-21 16:00 | PT ECF NOTE ---
Type of Note: Initial Note Primary Medical Diagnosis: MRSA Bacteremia, please see MD documentation for details., IV antibiotics Physical Therapy Evaluation Date: 12/21/18 SUBJECTIVE: Prior Hospitalization: [facility] 11/19/18-11/26/18 then transfer to [facility] until 12/21/18 Prior Level of Function: Independent with functional mobility and also caring for her young grandchildren Prior Living Status: Single level house, Living with family Community Services: No known needs Home Accessibility: Stairs without rails Equipment Owned: none Medical Complications/Past Medical History: Extensive, please see EMR for details Psychosocial Support: Pt lives with her daughter and grandchildren Pain Scale (0-10): Pt requesting pain medication at time of eval, nurse aware. OBJECTIVE: Bed Mobility: Min A for LEs into bed; SBA supine>sit Assistive device: Head of bed elevated Transfers: CGA to stand from bed Assistive Device: none Gait: CGA x 20' with hand-hold assist ASSESSMENT: Pt presents with decreased functional endurance and independence with mobility due to prolonged hospitalization. Pt will benefit from skilled PT for functional endurance and mobility training in order to return to prior level of function. Problem List/Current Limitations: Pain, Decreased activity tolerance, Decreased strength, Generalized weakness Short Term Goals: 1. Independent bed mobility. 2. Mod I transfers. 3. Mod I gait x 150' with appropriate assistive device. 4. Ascend/descend 4 stairs SBA. Senior Care Goals: Return home. Patient Goals: Return home Rehabilitation Prognosis: Fair Barriers for Discharge: None identified PLAN: The patient will benefit from skilled physical therapy services 5 times per week for 2 weeks including: Therapeutic Exercise Therapeutic Activities Transfer Training Gait Training Stair Training Manual Therapy ADL's Safety Training Neuromuscular Re-educ. Pt/Caregiver Training Bed Mobility Thank you for this referral. If you have any questions, concerns, or comments about this report or plan, please contact me at . Jamee Gracia, PT, DPT, GCS MTDD
--- NOTE | 2018-12-21 16:01 | NUR ---
Occupational Therapy Impression OT evaluation completed. Please refer to notes regarding details for plan of care and goals. Occupational Therapy Goals 1. Pt. to perform dressing activities with I. 2. Pt. to perform showering activities with Mod I. 3. Pt. to perform toileting activities with I. 4. Pt. to improve Christine Index of ADL score by 2 points. Patient's Goal
--- NOTE | 2018-12-21 16:09 | OT ECF NOTE ---
Type of Note: Initial Note Primary Medical Diagnosis: MRSA bacterium / IV antibiotics Occupational Therapy Evaluation Date: 12/21/18 SUBJECTIVE: Prior Hospitalization: 11/19/18 to o11/26/18 ([facility] medical) transferred to [facility] on 11/26/18. Prior Level of Function: Independent Prior Living Status: Mobile home Living with family Assist by family Community Services: Independent Home Accessibility: Stairs without rails Equipment Owned: Medical Complications/Past Medical History: Please refer to chart for details. Psychosocial Support: Supportive family Pain Scale (0-10): 5/10 OBJECTIVE: Strength: MMT: Right Left Shoulder Flexion [*] [*] Elbow Flexion [*] [*] Wrist Extension [*] [*] Primary Clinician [*] [*] (5= normal, 4= good, 3= fair, 2= poor, 1= trace) ROM: Sensation: [*] Functional Transfer: Assistive Device: Gait belt Transfer Ability: CGA ADL: Upper body dressing: Assistive device: Upper body dressing ability: Lower body dressing: Assistive device: Lower body dressing ability: Toileting: Assistive device: Grab rails Toileting ability: SBA Grooming/hygiene: MARTINEZ Assistive device: Grooming ability: Bathing: N/T Assistive device: Bathing ability: Standardized Assessment: Christine Index of Activities of Daily Living- Pt. scored a 14/20 on this Index upon initial evaluation. ASSESSMENT: Pt. is a 53 year old female who was admitted to [facility] on 12/21/18 following a stay at [facility] from 11/26/18. Pt. is admitted with COPD and complicated extensive medical history. Pt. was independent with all activities prior to [facility] medical floor admission on 11/19/18. Pt. resides in [place] with her daughter and grand children and is currently moving from an apartment to mobile home. Pt. will need to be very Independent prior to d/c to home. Problem List/Current Limitations: Decreased activity radha Generalized weakness Short Term Goals: 1. Pt. to perform dressing activities with I. 2. Pt. to perform showering activities with Mod I. 3. Pt. to perform toileting activities with I. 4. Pt. to improve Christine Index of ADL score by 2 points. Helpdesk Manager Goals: Return home. Patient Goals: Return home Rehabilitation Prognosis: Fair Barriers to Discharge: Extensive health history PLAN: The patient will benefit from skilled occupational therapy services 5 times per week for 2 weeks including: Ther ex Ther act Thank you for this referral. If you have any questions, concerns, or comments about this report or plan, please contact me at . Arlene Khan OTR/L Occupational Therapist [place]
[2018-12-21] MEDS ORDERED: NS(*) 0.9% 500 ML BAG 500 ML ONE (16:14)
[2018-12-21] MEDS ORDERED: MAGNESIUM HYDROXIDE* 30ML UDCP PO PRN (16:15)
[2018-12-21] MEDS: CALCIUM CARBONATE/VITAMIN D3 PO SCH (16:22)
[2018-12-21] MEDS: VANCOMYCIN(*) 1 GM VIAL 1 GM, VANCOMYCIN HCL 0.750 GM VIAL 0.75 GM in NS(*) 0.9% 250 ML... IVPB SCH (16:22)
--- NOTE | 2018-12-21 16:33 | History & Physical ---
History of Present Illness Chief Complaint Antibiotic therapy, rehabilitation. History of Present Illness The patient is a 53 year old female transferred to [facility] from [facility] for ongoing Vancomycin therapy through January 16. She will also need rehabilitation with PT and OT. The patient [facility]. She was found to have bilateral pyelonephritis with perinephric abscesses. She was transferred to [facility] on November 26 for further evaluation and treatment. She underwent placement of percutaneous drains for both perinephric abscesses. She was also noted to have an empyema. All cultures including blood, perinephric abscess and empyema fluid grew MRSA. She underwent VATS for the empyema. She developed a catheter related clot in her L upper extremity and was placed on enoxaprin 80mg bid. She was started on Vancomycin for her infections and is currently on 1750mg daily. She was transferred to [facility] to finish antibiotic therapy and will complete treatment on January 16. History Problems: (1) Status post thoracotomy Status: Resolved (2) MRSA bacteremia Status: Resolved (3) DKA (diabetic ketoacidoses) Status: Resolved (4) Pyelonephritis Status: Resolved (5) Hx of tuberculosis Status: Chronic (6) Chronic hip pain Status: Chronic (7) Type II diabetes mellitus Status: Chronic (8) HTN (hypertension) Status: Chronic (9) GERD (gastroesophageal reflux disease) Status: Chronic (10) Hyperlipidemia Status: Chronic (11) Adjustment disorder with depressed mood Status: Chronic (12) Chronic back pain Status: Chronic (13) Sleep apnea Status: Chronic (14) Depression Status: Chronic (15) Hx of cervical cancer Status: Chronic (16) Empyema lung Status: Acute (17) Perinephric abscess Status: Acute Home Meds Active Scripts Vancomycin HCl/D5w (Vancomycin 1.5 Gram/250 ml-D5w) 1.5 Gram/250 Ml Plast..bag, 1.5 GM IV q18hrs for 42 Days, BAG Prov:DEE BECKFORD MD 11/26/18 [Gi Cocktail 60 Ml Btl] 60 ML SUSP No Conflict Check, 10 ML PO TID PRN for DYSPEPSIA for 14 Days, #30 BOT 5 ML Prov:DEE BECKFORD MD 11/26/18 Lidocaine (Lidocaine) 5 % Adh..patch, 1 EACH TP QDAY for 14 Days, #14 PATCH.24H Prov:DEE BECKFORD MD 11/26/18 Polyethylene Glycol 3350 (POLYETHYLENE GLYCOL 3350) 17 Gm Powd.pack, 17 GM PO QDAY for 30 Days, #30 PACK Prov:DEE BECKFORD MD 11/26/18 Oxycodone Hcl (OXYCODONE HCL) 5 Mg Tablet, 5 MG PO Q6H PRN for PAIN for 7 Days, #30 TAB Prov:DEE BECKFORD MD 11/26/18 Insulin Glargine 100 Un/Ml Pen (LANTUS SOLOSTAR PEN) 100 Unit/1 Ml Insuln.pen, 20 UNIT SUBQ BID, #5 UNITS 4 Refills Prov:DEE BECKFORD MD 11/26/18 Insulin Lispro 100 Un/Ml Pen (HUMALOG 3 ML PEN) 100 Unit/1 Ml Insuln.pen, 3-15 UNIT SQ PRN PRN for sliding scale Humalog, #5 UNITS 4 Refills Prov:LARS BECKFORD MD 05/04/18 Estrogens, Conjugated (PREMARIN) 1.25 Mg Tablet, 1.25 MG PO QDAY, #30 TAB Prov:LARS BECKFORD MD 08/09/15 Fluticasone/Salmeterol (ADVAIR 250-50 DISKUS) 1 Each Disk.w.dev, 1 PUFF IH DAILY, #1 DISK Prov:LARS BECKFORD MD 08/09/15 Omeprazole (OMEPRAZOLE) 20 Mg Capsule.dr, 1 CAP PO BID, #60 CAP Prov:LARS BECKFORD MD 08/09/15 Albuterol Sulfate 90 Mcg/Act (PROAIR HFA 90 MCG/ACT) 8.5 Gm Hfa.aer.ad, 2 PUFF IH QID, #1 INHALER Prov:LARS BECKFORD MD 08/09/15 Venlafaxine Hcl (VENLAFAXINE HCL ER) 75 Mg Tab.er.24, 75 MG PO BID, #60 TAB Prov:LARS BECKFORD MD 08/09/15 Reported Medications Zolpidem Tartrate (AMBIEN) 10 Mg Tablet, 1 TAB PO QHS PRN for INSOMNIA, TAB 05/09/18 Buspirone Hcl (BUSPIRONE HCL) 7.5 Mg Tablet, 7.5 MG PO BID, #10 TAB 03/22/18 Fluvastatin Sodium (Lescol) 20 Mg Capsule, 20 MG PO QHS, 0 Refills 06/24/11 Allergies: Coded Allergies: Penicillins (Verified Allergy, Severe, BLISTERS, 08/18/18) pneumococcal vaccine (Verified Allergy, Severe, HIVES, 08/18/18) Influenza Virus Vaccines (Verified Allergy, Intermediate, SWELLING TO FACE, 08/18/18) corn (Verified Allergy, Mild, UNKNOWN, 08/18/18) TINGLING FEELING dextromethorphan (Verified Allergy, Mild, 08/18/18) grass pollen-January (Novinda blue) grass, std (Verified Allergy, Mild, ITCHING, 08/18/18) guaifenesin (Verified Allergy, Mild, 08/18/18) ibuprofen (Verified Allergy, Mild, 08/18/18) LIQUID CAPSULES pseudoephedrine (Verified Allergy, Mild, 08/18/18) Uncoded Allergies: ANIMALS (Allergy, Mild, 09/03/08) MOLD (Allergy, Unknown, 01/29/14) Patient History: Blood clots CHILD FH: CAD (coronary artery disease) FATHER BROTHER OR SISTER FH: COPD (chronic obstructive pulmonary disease) BROTHER OR SISTER BROTHER OR SISTER FH: CVA (cerebrovascular accident) FATHER FH: HTN (hypertension) FATHER BROTHER OR SISTER FH: depression MOTHER FH: diabetes mellitus FATHER BROTHER OR SISTER MOTHER FH: kidney failure FATHER FH: stroke FATHER Other Social/Family Hx The patient is . She takes care of her daughter's children but is otherwise disabled. Hx Smoking: Yes (4-5 cigarettes/day FOR 40YEARS ) Smoking Status: Current: Every Day Smoker Exposure to Second Hand Smoke?: Yes Caffeine Intake: Coffee, Tea, Soda Caffeine/Cups Per Day: 10-15 cups Hx Alcohol Use: Yes Hx Substance Use Disorder: No Social Drug Use: Occasional Social Drugs: Marijuana History of IV Drug Use: No Review of Systems All Systems Reviewed/Normal: Yes, Except as Noted Constitutional: No Fever Neurological: Weakness Cardiovascular: Chest Pain (Due to thoracotomy.) Respiratory: Cough Musculoskeletal: Pain (L chest and abdomen.) Psychiatric: Depression Exam Vital Signs Vital Signs Date Time Temp Pulse Resp B/P (MAP) Pulse Ox O2 Delivery O2 Flow Rate FiO2 12/21/18 14:51 93 Room Air 12/21/18 14:45 98.2 80 16 139/81 (100) General Appearance: Alert, Awake, Other (Appears to be in pain.) Neuro: No Gross deficits Eyes: PERRLA Cardiovascular: Other (Tachy regular.) Respiratory: Other (Decreased BS without rales, rhonchi or wheezing.) Chest: Other (Bandage present over L posterior/lateral chest wall. No drainage.) GI: Other (Abdomen soft, nondistended. Tender on the L to palpation without mass, rebound or guarding. ) Medical Decision Making Pre-Admit Course Medical Record Review: Yes Assessment and Plan Problems: (1) Perinephric abscess Status: Acute Assessment & Plan: S/P percutaneous drainage. Cultures grew MRSA. To continue Vancomycin through January 16. She is on oxycodone for acute pain as well as gabapentin 300mg tid. Vanco trough, CBC, BMP and CRP ordered for Sunday 12/24. Will do a vanco trough and basic labs on 12/22 as well. (2) Empyema lung Status: Acute Assessment & Plan: S/P VATS. Cultures grew MRSA. Treatment with vancomycin through January 16. (3) MRSA bacteremia Status: Resolved Assessment & Plan: [facility] grew MRSA. Repeat cultures at [facility] were negative after the patient was on treatment with vancomycin. (4) Blood clot in vein Status: Acute Assessment & Plan: On enoxaprin 80mg bid. Per records from [facility], she is to be on treatment for at least 3 months. (5) DEANNE (iron deficiency anemia) Status: Acute Assessment & Plan: Continue ferrous sulfate 325mg daily with food. (6) Type II diabetes mellitus Status: Chronic Assessment & Plan: Will continue Lantus 5u daily and SSI. (7) HTN (hypertension) Status: Chronic Assessment & Plan: Continue lisinopril 5mg daily and Cardizem CD 120mg daily. (8) GERD (gastroesophageal reflux disease) Status: Chronic Assessment & Plan: Continue a PPI. She takes omeprazole at home. Will place on Protonix here. (9) Hyperlipidemia Status: Chronic Assessment & Plan: The patient takes fluvastatin 20mg at home. Will have her bring this in as it is not on formulary at [facility]. (10) Depression Status: Chronic Assessment & Plan: Continue Effexor XR 75mg bid. She also takes buspirone 5mg bid. (11) COPD (chronic obstructive pulmonary disease) Status: Chronic Assessment & Plan: Continue Advair 500/50 with prn albuterol nebs. Time Spent on Plan of Care: < 30 min Venous Thromboembolism Antithrombotics Is Pt On Any Antithrombotics?: Yes LARS BECKFORD MD Dec 21, 2018 16:33
[2018-12-21] MEDS ORDERED: oxyCODONE HCL 5 MG CAP PO ONE (16:50)
[2018-12-21] MEDS: INSULIN HUM LISPRO 100 UN/ML 3 ML VIAL SUBQ PRN ×2 (17:07→20:16)
[2018-12-21] MEDS: SALMETEROL/FLUTIC 500/50 1 INH INH SCH (17:23)
[2018-12-21] MEDS ORDERED: INSU100I30 SQ (17:58)
[2018-12-21] MEDS ORDERED: MAGN400T52 PO (17:58)
[2018-12-21] MEDS ORDERED: CALC-634 PO (17:58)
[2018-12-21] MEDS ORDERED: GABA-549 PO (17:58)
[2018-12-21] MEDS ORDERED: MOM PO (17:58)
[2018-12-21] MEDS ORDERED: MULT-1335 PO (17:58)
[2018-12-21] MEDS ORDERED: BUS5 PO (17:58)
[2018-12-21] MEDS ORDERED: DILT120C PO (17:58)
[2018-12-21] MEDS ORDERED: OXYC5TAB38 PO (17:58)
[2018-12-21] MEDS ORDERED: ERGO500037 PO (17:58)
[2018-12-21] MEDS ORDERED: DOCU-416 PO (17:58)
[2018-12-21] MEDS ORDERED: FLUT1DIS28 IH (17:58)
[2018-12-21] MEDS ORDERED: FERR-41 PO (17:58)
[2018-12-21] MEDS ORDERED: PANT40TA65 PO (17:58)
[2018-12-21] MEDS ORDERED: ALBU2.5V36 INH (17:58)
[2018-12-21] MEDS ORDERED: VENL37.514 PO (17:58)
[2018-12-21] MEDS ORDERED: INSU100V24 SQ (17:58)
[2018-12-21] MEDS ORDERED: LISI5TAB25 PO (17:58)
[2018-12-21] MEDS ORDERED: ENOX80DI8 SQ (17:58)
[2018-12-21] MEDS ORDERED: SALMETEROL/FLUTIC 250/50 1 INH INH SCH ×2 (18:00)
[2018-12-21] MEDS: INSULIN GLARGINE 100 U/ML 3 ML PEN SUBQ SCH (20:15)
[2018-12-21] MEDS: ENOXAPARIN 100 MG/ML SYR SC SCH (20:17)
[2018-12-21] MEDS: PANTOPRAZOLE SOD 40 MG TABEC PO SCH (20:17)
[2018-12-21] MEDS: VENLAFAXINE XR 75 MG CAPCR PO SCH (20:17)
[2018-12-21] MEDS: GABAPENTIN 300 MG CAP PO SCH (20:17)
[2018-12-21] MEDS: busPIRone HCL 5 MG TAB PO SCH (20:18)
[2018-12-21] MEDS: DOCUSATE SODIUM 100 MG CAP PO SCH (20:18)
[2018-12-21] MEDS: PATCH REMOVAL 1 EA TP SCH (20:18)
[2018-12-21] MEDS ORDERED: NS(*) 0.9% 500 ML BAG 500 ML IV PRN (21:20)
[2018-12-22] MEDS: oxyCODONE HCL 5 MG CAP PO PRN ×5 (00:20→23:36)
[2018-12-22] MEDS: SALMETEROL/FLUTIC 500/50 1 INH INH SCH ×2 (06:00→18:33)
[2018-12-22] MEDS ORDERED: VENLAFAXINE REG 37.5 MG TAB PO SCH (08:00)
[2018-12-22 08:55] VITALS: BP 109/73
[2018-12-22] MEDS: DOCUSATE SODIUM 100 MG CAP PO SCH ×3 (09:00→21:35)
[2018-12-22] MEDS ORDERED: FERROUS SULFATE 325 MG TAB PO SCH ×2 (09:00)
[2018-12-22] MEDS ORDERED: MAGNESIUM OXIDE 400 MG TAB PO SCH ×2 (09:00)
[2018-12-22] MEDS ORDERED: [UNRECOGNIZED DRUG - OTHER] PO SCH (09:00)
[2018-12-22] MEDS: FLUVASTATIN SODIUM 20 MG CAP PO SCH (09:00)
[2018-12-22] MEDS ORDERED: FERROUS SULFATE 325 MG TAB PO ONE (09:00)
[2018-12-22] MEDS: POLYETHYLENE GLYCOL 17 GM PKT PO SCH (09:00)
[2018-12-22] MEDS: PANTOPRAZOLE SOD 40 MG TABEC PO SCH ×2 (09:23→21:35)
[2018-12-22] MEDS: GABAPENTIN 300 MG CAP PO SCH ×3 (09:23→21:35)
[2018-12-22] MEDS: LISINOPRIL 5 MG TAB PO SCH (09:23)
[2018-12-22] MEDS: ESTROGENS CONJ 0.625 MG TAB PO SCH (09:23)
[2018-12-22] MEDS: busPIRone HCL 5 MG TAB PO SCH ×2 (09:23→21:35)
[2018-12-22] MEDS: DILTIAZEM CD 120 MG CAPCR PO SCH (09:23)
[2018-12-22] MEDS: VENLAFAXINE XR 75 MG CAPCR PO SCH ×2 (09:24→21:35)
[2018-12-22] MEDS: ENOXAPARIN 100 MG/ML SYR SC SCH ×2 (09:24→21:35)
[2018-12-22] MEDS: MULTIVITAMINS TAB PO SCH (09:24)
[2018-12-22] MEDS: CALCIUM CARBONATE/VITAMIN D3 PO SCH ×2 (09:24→17:33)
[2018-12-22] MEDS: [UNRECOGNIZED DRUG - OTHER] PO SCH (09:25)
--- NOTE | 2018-12-22 09:34 | Medical Nutrition Therapy ---
Nutrition Anthropometrics Height (Inches): 63.00 Height (Calculated Centimeters: 160.928656 Weight (Pounds): 166 Weight (Calculated Kilograms): 75.296 BMI: 29.4 Harvey Nutrition Score: Adequate Harvey Nutrition Risk Score: 19 Dietary Referral Nutrition Risk Factors: Unplanned Loss >10lbs Nutrition Risk Comment: pt. states rosanne her throat is sore from the intubation Nutritional Diagnosis Nutritional Risk Acuity 2: Abcess/Non-Healing Wound Past Medical History: Hx of hyperlipidemia, GERD, T2DM, shingles, COPD, pancreatectomy, elbow surgery, cholecystectomy, hysterectomy, tuberculosis and HTN. Nutritional Acuity: 2-Moderate Nutrition Diagnosis: Increased Nutrient Needs Nutrition Etiology: Physiological Causes Nutrition Problem/Etiology/Sym: AEB Perinephric abscess Energy Requirement: 1775 (MSJ X 1.1 SF) Protein Requirement: 75 (1ml/kg) Fluid Requirement: 2250 (30ml/kg) Diet Type: Diabetic Nutrition Intervention: Cont diet as ordered, Nutrition support Additional Diet Restrictions: ALLERGIC:CORN Nutrition Monitoring & Eval Nutrition Goals: Eat 75-100% Meal RD Patient Assessment Time: [address] Assessment Type: RD Assessment Patient Nutrition Acuity: 2-Moderate Follow Up Date: Dec 25, 2018 Nutritional Comment: 12/22 Pt admitted with Perinephric abscess. Pt on diabetic diet and ate 75% of first meal in facility. BG elevated up to 205. Wt is up 11% (17#) from last admit 11/19/18. Pt has 1= edema BLE. Anticipate wt loss when edema resolved. Will cont to monitor and encourage intake. SHIMA KAM Dec 22, 2018 09:34
[2018-12-22] MEDS: LIDOCAINE 5% PATCH TP SCH (09:41)
[2018-12-22] MEDS: INSULIN HUM LISPRO 100 UN/ML 3 ML VIAL SUBQ PRN ×3 (12:37→21:36)
[2018-12-22] MEDS ORDERED: MAGNESIUM HYDROXIDE* 30ML UDCP PO PRN (13:50)
--- NOTE | 2018-12-22 14:05 | Consultant Pharmacy Review ---
Vegetable Cook Review Medication Review Do All Mecications have a Diag: Yes Other General Cautions * Print * Help Title Anticoagulants / Estrogen Derivatives Dependencies: * Additional drug/group: The use of a progestin may modify the thromboembolic risk associated with this combination. * Comorbidity: Numerous comorbid states and other patient characteristics may modify the thromboembolic risk associated with this combination. * Indication: Recommendations for management of this interaction may differ depe nding on the indication for estrogen treatment (e.g., for hormone replacement therapy vs. contraception). Risk Rating D: Consider therapy modification Summary Estrogen Derivatives may diminish the anticoagulant effect of Anticoagulants. More specifically, the potential prothrombotic effects of some estrogens and progestin-estrogen combinations may counteract anticoagulant effects. Severity Major Reliability Rating Good Patient Management Carefully weigh the prospective benefits of estrogen derivative treatment in patients receiving anticoagulants against the potential increased risk of thromboembolism. Use is considered contraindicated under some circumstances. Specific recommendations may vary by source, indication, patient age, medical history, and other factors. Refer to related guidelines for specific recommendations. Anticoagulants Interacting Members Acenocoumarol; Antithrombin; Apixaban; Argatroban; Bemiparin; Betrixaban; Bivalirudin; Dabigatran Etexilate; Dalteparin; Danaparoid; Desirudin; Edoxaban; Enoxaparin; Fondaparinux; Heparin; Nadroparin; Phenindione; Protein C Concentrate (Human); Rivaroxaban; Tinzaparin; Warfarin Estrogen Derivatives Interacting Members Diethylstilbestrol; Estradiol (Systemic); Estradiol (Topical); Estriol (Systemic); Estriol (Topical); Estrogens (Conjugated A/Synthetic); Estrogens (Conjugated B/Synthetic); Estrogens (Conjugated/Equine, Systemic); Estrogens (Conjugated/Equine, Topical); Estrogens (Esterified); Estrone; Estropipate; Ethinyl Estradiol; Mestranol; Polyestradiol Exceptions Tibolone Discussion Estrogens used for contraception The overall risk of several cardiovascular adverse events is increased with the use of combined hormonal contraceptives (CHCs, those containing both estrogen and progestin components), and a number of factors that may modify this risk have been identified.1 The relative risk of myocardial infarction (MT) is increased roughly 2-6-fold with CHCs, although the absolute risk in women less than 30 years old without other risk factors is very low.1 The relative risk of ischemic stroke is increased about 3-fold, and likely increases with age over 35 years, hypertension, and smoking.1 The relative risk of deep vein thrombosis (DVT)/pulmonary embolism (PE) increases from 3-11 fold in women receiving CHCs. 1,2,3 The use of CHCs is not recommended in women with a number of potential risk factors, including major surgery with prolonged immobilization, a history of vascular disease, or thrombogenic disorders.2,3,4 In addition, the World Health Organization (WHO) Pneumococcal Vaccine HX Pneumo Vac ([id number]): No (refused) HX Pneumo Vac (Pneumovax): No (refused) Comments Regarding the Review Patient refuses/can't take flu and pneumococcal vaccines. Labs: Periodic LFTS, HgA1c, CBC,Potassium levels, vitamin D levels, Vancomycin troughs. Protonix may increase fracture risk and patient is on medications which may make her prone to falls. LARS GALLEGOS Dec 22, 2018 14:05
[2018-12-22] MEDS: VANCOMYCIN(*) 1 GM VIAL 1 GM, VANCOMYCIN HCL 0.750 GM VIAL 0.75 GM in NS(*) 0.9% 250 ML... IVPB SCH (15:45)
[2018-12-22 15:55] VITALS: BP 111/88
[2018-12-22] MEDS: PATCH REMOVAL 1 EA TP SCH (21:00)
[2018-12-22] MEDS: INSULIN GLARGINE 100 U/ML 3 ML PEN SUBQ SCH (21:35)
[2018-12-23] MEDS: oxyCODONE HCL 5 MG CAP PO PRN ×5 (03:44→20:46)
[2018-12-23] MEDS: SALMETEROL/FLUTIC 500/50 1 INH INH SCH ×2 (06:00→18:29)
[2018-12-23] MEDS: CALCIUM CARBONATE/VITAMIN D3 PO SCH ×2 (08:35→17:07)
[2018-12-23] MEDS: VENLAFAXINE XR 75 MG CAPCR PO SCH ×2 (08:35→20:46)
[2018-12-23] MEDS: DILTIAZEM CD 120 MG CAPCR PO SCH (08:35)
[2018-12-23] MEDS: ESTROGENS CONJ 0.625 MG TAB PO SCH (08:35)
[2018-12-23] MEDS: busPIRone HCL 5 MG TAB PO SCH ×2 (08:35→20:46)
[2018-12-23] MEDS: GABAPENTIN 300 MG CAP PO SCH ×3 (08:36→20:46)
[2018-12-23] MEDS: LISINOPRIL 5 MG TAB PO SCH (08:36)
[2018-12-23] MEDS: POLYETHYLENE GLYCOL 17 GM PKT PO SCH (08:36)
[2018-12-23] MEDS: PANTOPRAZOLE SOD 40 MG TABEC PO SCH ×2 (08:36→20:46)
[2018-12-23] MEDS: DOCUSATE SODIUM 100 MG CAP PO SCH ×2 (08:37→20:46)
[2018-12-23] MEDS: LIDOCAINE 5% PATCH TP SCH (08:38)
[2018-12-23] MEDS: MULTIVITAMINS TAB PO SCH (08:38)
[2018-12-23] MEDS: ENOXAPARIN 100 MG/ML SYR SC SCH ×2 (08:39→20:46)
[2018-12-23] MEDS: INSULIN HUM LISPRO 100 UN/ML 3 ML VIAL SUBQ PRN ×3 (08:39→20:45)
[2018-12-23] MEDS: FLUVASTATIN SODIUM 20 MG CAP PO SCH (08:41)
[2018-12-23] MEDS ORDERED: [UNRECOGNIZED DRUG - OTHER] PO SCH (09:00)
[2018-12-23 10:00] VITALS: BP 133/85
[2018-12-23] MEDS: MAGNESIUM OXIDE 400 MG TAB PO SCH (10:36)
--- NOTE | 2018-12-23 11:08 | Antimicrobial Stewardship ---
Antimicrobial Time Out Antimicrobial Stewardship MD Service: Hospitalist Indications: Other (MRSA infection; grew in blood, perinephric abscess, and empyema fluid in cultures done at [facility].) Antimicrobial Used Vancomycin, currently dosed at 1750 mg IVPB q 24 hours. Culture Results: Yes (MRSA grew in cultures done at [facility].) Eligible for PO Conversion Eligable for PO Conversion: No Comments Comments Vancomycin is to continue through 01/16. LARS GALLEGOS Dec 23, 2018 11:08
[2018-12-23] MEDS: FERROUS SULFATE 325 MG TAB PO SCH (12:09)
[2018-12-23] MEDS: ALBUTEROL 2.5 MG/3 ML NEB NEB PRN (12:48)
[2018-12-23 15:10] VITALS: BP 140/75
[2018-12-23] MEDS: VANCOMYCIN(*) 1 GM VIAL 1 GM, VANCOMYCIN HCL 0.750 GM VIAL 0.75 GM in NS(*) 0.9% 250 ML... IVPB SCH (15:30)
[2018-12-23] MEDS: INSULIN GLARGINE 100 U/ML 3 ML PEN SUBQ SCH (20:44)
[2018-12-23] MEDS: PATCH REMOVAL 1 EA TP SCH (20:46)
[2018-12-23 23:08] VITALS: BP 133/75
[2018-12-23] MEDS: diphenhydrAMINE 25 MG CAP PO SCH (23:57)
[2018-12-24] MEDS: oxyCODONE HCL 5 MG CAP PO PRN ×4 (04:11→21:15)
[2018-12-24] MEDS: diphenhydrAMINE 25 MG CAP PO SCH ×3 (05:32→17:17)
[2018-12-24] MEDS: SALMETEROL/FLUTIC 500/50 1 INH INH SCH ×2 (06:00→17:09)
[2018-12-24 07:30] VITALS: BP 156/86
[2018-12-24] MEDS: LIDOCAINE 5% PATCH TP SCH (08:43)
[2018-12-24] MEDS: ENOXAPARIN 100 MG/ML SYR SC SCH ×2 (08:44→21:16)
[2018-12-24] MEDS: VENLAFAXINE XR 75 MG CAPCR PO SCH ×2 (08:45→21:15)
[2018-12-24] MEDS: DOCUSATE SODIUM 100 MG CAP PO SCH ×2 (08:45→21:14)
[2018-12-24] MEDS: GABAPENTIN 300 MG CAP PO SCH ×3 (08:45→21:15)
[2018-12-24] MEDS: MULTIVITAMINS TAB PO SCH (08:45)
[2018-12-24] MEDS: ESTROGENS CONJ 0.625 MG TAB PO SCH (08:45)
[2018-12-24] MEDS: PANTOPRAZOLE SOD 40 MG TABEC PO SCH ×2 (08:45→21:14)
[2018-12-24] MEDS: INSULIN HUM LISPRO 100 UN/ML 3 ML VIAL SUBQ PRN ×3 (08:45→21:16)
[2018-12-24] MEDS: LISINOPRIL 5 MG TAB PO SCH (08:46)
[2018-12-24] MEDS: CALCIUM CARBONATE/VITAMIN D3 PO SCH ×2 (08:46→17:17)
[2018-12-24] MEDS: DILTIAZEM CD 120 MG CAPCR PO SCH (08:46)
[2018-12-24] MEDS: busPIRone HCL 5 MG TAB PO SCH ×2 (08:46→21:14)
[2018-12-24] MEDS: POLYETHYLENE GLYCOL 17 GM PKT PO SCH (08:47)
[2018-12-24] MEDS: FLUVASTATIN SODIUM 20 MG CAP PO SCH (08:47)
[2018-12-24] MEDS: MAGNESIUM OXIDE 400 MG TAB PO SCH (10:43)
[2018-12-24] MEDS: FERROUS SULFATE 325 MG TAB PO SCH (12:17)
--- NOTE | 2018-12-24 13:30 | Medical Nutrition Therapy ---
Nutrition Anthropometrics Height (Inches): 63.00 Height (Calculated Centimeters: 160.346517 Weight (Pounds): 166 Weight (Calculated Kilograms): 75.296 BMI: 29.4 Harvey Nutrition Score: Adequate Harvey Nutrition Risk Score: 19 Dietary Referral Nutrition Risk Factors: Unplanned Loss >10lbs Nutrition Risk Comment: pt. states rosanne her throat is sore from the intubation Physical Findings Physical Appearance: Overweight BMI 25-29 Skin Appearance Skin Appearance: Edema Edema Location Modifier: Both Edema Location: Lower Extremity Type of Edema: Degree of Edema: 1+ Gastrointestinal Symptoms GI Symtoms: Tube Present: Bowel Sounds: Recent Bowel Pattern: Stool Characteristics: Nutritional Diagnosis Nutritional Risk Acuity 2: Abcess/Non-Healing Wound Past Medical History: Hx of hyperlipidemia, GERD, T2DM, shingles, COPD, pancreatectomy, elbow surgery, cholecystectomy, hysterectomy, tuberculosis and HTN. Nutritional Acuity: 2-Moderate Nutrition Diagnosis: Increased Nutrient Needs Nutrition Etiology: Physiological Causes Nutrition Problem/Etiology/Sym: AEB Perinephric abscess Energy Requirement: 1775 (MSJ X 1.1 SF) Protein Requirement: 75 (1ml/kg) Fluid Requirement: 2250 (30ml/kg) Diet Type: Diabetic Nutrition Intervention: Cont diet as ordered, Nutrition support Additional Diet Restrictions: ALLERGIC:CORN Nutrition Monitoring & Eval Nutrition Goals: Eat 75-100% Meal Nutrition Follow-Up: Good Intake RD Patient Assessment Time: [address] Assessment Type: RD Re-Assessment Patient Nutrition Acuity: 2-Moderate Follow Up Date: January 01, 2019 Nutritional Comment: 12/22 Pt admitted with Perinephric abscess. Pt on diabetic diet and ate 75% of first meal in facility. BG elevated up to 205. Wt is up 11% (17#) from last admit 11/19/18. Pt has 1+ edema BLE. Anticipate wt loss when edema resolved. Will cont to monitor and encourage intake. BK 12/24 Pt cont on diabetic diet and eating 75-100% of meals. No new wt. Edema has declined to non-pitting BLE. RBG cont elevated up to 289. Will cont to monitor and encourage intake. SHIMA KAM Dec 24, 2018 13:30
--- NOTE | 2018-12-24 13:37 | NUR ---
Occupational Therapy Impression Pt. ambulated to shower while carrying bag and clothes with SBA. Pt. refused wearing of O2 while in shower (SPO2 at 82%). Pt. Mod I with showering activity. Continue with POC. Occupational Therapy Goals 1. Pt. to perform dressing activities with I. 2. Pt. to perform showering activities with Mod I. 3. Pt. to perform toileting activities with I. 4. Pt. to improve Christine Index of ADL score by 2 points. Patient's Goal
--- NOTE | 2018-12-24 14:27 | NUR ---
Physical Therapy Impression Pt able to ambulate at SBA level x 500' with RW and O2. Pt performed dynamic balance activities at SBA level while stooping and looking under objects for the lost pill. Pt was able to move bed-side table and change directions in tight spaces all with maintaining balance independently. Physical Therapy Goals 1. Independent bed mobility. 2. Mod I transfers. 3. Mod I gait x 150' with appropriate assistive device. 4. Ascend/descend 4 stairs SBA. Patient's Goals
[2018-12-24 15:34] LABS: PLATELET COUNT, AUTOMATED 642 K/uL (150-450)
[2018-12-24] MEDS: VANCOMYCIN(*) 1 GM VIAL 1 GM, VANCOMYCIN HCL 0.750 GM VIAL 0.75 GM in NS(*) 0.9% 250 ML... IVPB SCH (16:06)
[2018-12-24 16:55] VITALS: BP 121/75
--- NOTE | 2018-12-24 18:01 | Miscellaneous Provider Note ---
Miscellaneous Provider Note Note Item Value Date Time Vancomycin Level Trough 17.08 ug/ml 12/24/18 1520 Vancomycin Level Trough 18.31 ug/ml 12/22/18 1500 Hemoglobin 8.3 g/dL *L 12/24/18 1520 White Blood Count 11.5 k/uL H 12/24/18 1520 Platelet Count 642 K/uL H 12/24/18 1520 Blood Urea Nitrogen 10 mg/dl 12/24/18 1520 Creatinine 0.90 mg/dl 12/24/18 1520 Total Bilirubin < 0.1 mg/dl L 12/24/18 1520 Aspartate Amino Transf (AST/SGOT) 22 U/L 12/24/18 1520 Alkaline Phosphatase 249 U/L H 12/24/18 1520 Alanine Aminotransferase (ALT/SGPT) 24 U/L 12/24/18 1520 C-Reactive Protein 2.5 mg/dl H 12/24/18 1520 Random Glucose 157 mg/dl H 12/24/18 1520 Hgb 8.1, wbc 12.0, plt 778 on 12/21. Improving. No further testing for now. WESLY MARIN MD Dec 24, 2018 18:01
[2018-12-24] MEDS: PATCH REMOVAL 1 EA TP SCH (21:00)
[2018-12-24] MEDS: INSULIN GLARGINE 100 U/ML 3 ML PEN SUBQ SCH (21:15)
[2018-12-25] MEDS: oxyCODONE HCL 5 MG CAP PO PRN ×6 (01:59→21:50)
[2018-12-25] MEDS: SALMETEROL/FLUTIC 500/50 1 INH INH SCH ×2 (02:11→17:17)
[2018-12-25] MEDS: ALBUTEROL 2.5 MG/3 ML NEB NEB PRN (02:11)
[2018-12-25 07:50] VITALS: BP 142/71
[2018-12-25] MEDS: INSULIN HUM LISPRO 100 UN/ML 3 ML VIAL SUBQ PRN ×4 (08:06→21:29)
[2018-12-25] MEDS: POLYETHYLENE GLYCOL 17 GM PKT PO SCH (09:00)
[2018-12-25] MEDS: FLUVASTATIN SODIUM 20 MG CAP PO SCH (09:00)
[2018-12-25] MEDS: DOCUSATE SODIUM 100 MG CAP PO SCH ×2 (09:03→21:28)
[2018-12-25] MEDS: VENLAFAXINE XR 75 MG CAPCR PO SCH ×2 (09:03→21:28)
[2018-12-25] MEDS: busPIRone HCL 5 MG TAB PO SCH ×2 (09:03→21:28)
[2018-12-25] MEDS: DILTIAZEM CD 120 MG CAPCR PO SCH (09:03)
[2018-12-25] MEDS: LIDOCAINE 5% PATCH TP SCH (09:03)
[2018-12-25] MEDS: ESTROGENS CONJ 0.625 MG TAB PO SCH (09:03)
[2018-12-25] MEDS: GABAPENTIN 300 MG CAP PO SCH ×3 (09:03→21:28)
[2018-12-25] MEDS: PANTOPRAZOLE SOD 40 MG TABEC PO SCH ×2 (09:03→21:28)
[2018-12-25] MEDS: CALCIUM CARBONATE/VITAMIN D3 PO SCH ×2 (09:03→17:33)
[2018-12-25] MEDS: MULTIVITAMINS TAB PO SCH (09:03)
[2018-12-25] MEDS: LISINOPRIL 5 MG TAB PO SCH (09:03)
[2018-12-25] MEDS: ENOXAPARIN 100 MG/ML SYR SC SCH ×2 (09:04→21:29)
[2018-12-25] MEDS: MAGNESIUM OXIDE 400 MG TAB PO SCH (10:00)
--- NOTE | 2018-12-25 11:22 | NUR ---
Occupational Therapy Impression Independent ambulation in room with no AD. Good safety and management of O2 tubing. Independent retrieving item of floor and reaching into closet. Occasional v/c's for pursed lip breathing, pt with good carryover. SBA ambulation x450ft with no AD. SpO2 82% on 2L. Recovered with rest break and cues for breathing. Independent toileting. Independent grooming standing sinkfront. Pt progressing well towards goals. Occupational Therapy Goals 1. Pt. to perform dressing activities with I. 2. Pt. to perform showering activities with Mod I. 3. Pt. to perform toileting activities with I. 4. Pt. to improve Christine Index of ADL score by 2 points. Patient's Goal
[2018-12-25] MEDS: FERROUS SULFATE 325 MG TAB PO SCH (12:04)
--- NOTE | 2018-12-25 12:52 | NUR ---
Physical Therapy Impression Pt ambulated in hallways negotiating her own O2 tank with notable path deviations and poor problem solving. With head turns, deviation increased significantly. SpO2 in low 80's with activity on 2.0 L, 89-92% on 3.0 L with activity. Pt requires constant education on importance of pursed lip breathing, though she is highly resistant to this. Pt is safe to ambulate in her room to/from bathroom for voiding and in/out of bed. Noted that pt is to have O2 on at all times and that she would no longer be safe to be indep. in room if she was removing her O2. Pt verbalized understanding. Notified nursing, OT, and PT of this. Cont. with POC. Physical Therapy Goals 1. Independent bed mobility. 2. Mod I transfers. 3. Mod I gait x 150' with appropriate assistive device. 4. Ascend/descend 4 stairs SBA. Patient's Goals
[2018-12-25] MEDS: VANCOMYCIN(*) 1 GM VIAL 1 GM, VANCOMYCIN HCL 0.750 GM VIAL 0.75 GM in NS(*) 0.9% 250 ML... IVPB SCH (16:20)
[2018-12-25 17:05] VITALS: BP 138/68
[2018-12-25] MEDS: PATCH REMOVAL 1 EA TP SCH (21:00)
[2018-12-25] MEDS: INSULIN GLARGINE 100 U/ML 3 ML PEN SUBQ SCH (21:29)
[2018-12-26] MEDS: oxyCODONE HCL 5 MG CAP PO PRN ×5 (01:50→18:40)
[2018-12-26] MEDS: SALMETEROL/FLUTIC 500/50 1 INH INH SCH ×2 (05:43→17:38)
[2018-12-26 07:50] VITALS: BP 120/69
[2018-12-26] MEDS: INSULIN HUM LISPRO 100 UN/ML 3 ML VIAL SUBQ PRN ×4 (08:39→20:24)
[2018-12-26] MEDS: POLYETHYLENE GLYCOL 17 GM PKT PO SCH (09:00)
[2018-12-26] MEDS: FLUVASTATIN SODIUM 20 MG CAP PO SCH (09:00)
[2018-12-26] MEDS: DOCUSATE SODIUM 100 MG CAP PO SCH ×2 (09:00→20:24)
[2018-12-26] MEDS: MULTIVITAMINS TAB PO SCH (09:17)
[2018-12-26] MEDS: ESTROGENS CONJ 0.625 MG TAB PO SCH (09:18)
[2018-12-26] MEDS: DILTIAZEM CD 120 MG CAPCR PO SCH (09:18)
[2018-12-26] MEDS: PANTOPRAZOLE SOD 40 MG TABEC PO SCH ×2 (09:18→20:23)
[2018-12-26] MEDS: busPIRone HCL 5 MG TAB PO SCH ×2 (09:18→20:23)
[2018-12-26] MEDS: GABAPENTIN 300 MG CAP PO SCH ×3 (09:18→20:23)
[2018-12-26] MEDS: VENLAFAXINE XR 75 MG CAPCR PO SCH ×2 (09:18→20:23)
[2018-12-26] MEDS: CALCIUM CARBONATE/VITAMIN D3 PO SCH ×2 (09:18→16:51)
[2018-12-26] MEDS: LISINOPRIL 5 MG TAB PO SCH (09:18)
[2018-12-26] MEDS: LIDOCAINE 5% PATCH TP SCH (09:19)
[2018-12-26] MEDS: ENOXAPARIN 100 MG/ML SYR SC SCH ×2 (09:19→20:24)
[2018-12-26] MEDS: MAGNESIUM OXIDE 400 MG TAB PO SCH (11:24)
[2018-12-26] MEDS: FERROUS SULFATE 325 MG TAB PO SCH (13:39)
--- NOTE | 2018-12-26 15:26 | NUR ---
Physical Therapy Impression Pt states she does not feel well and is waiting for the doctor. Pt declines PT today. Will attempt tomorrow. Physical Therapy Goals 1. Independent bed mobility. 2. Mod I transfers. 3. Mod I gait x 150' with appropriate assistive device. 4. Ascend/descend 4 stairs SBA. Patient's Goals
[2018-12-26] MEDS: VANCOMYCIN(*) 1 GM VIAL 1 GM, VANCOMYCIN HCL 0.750 GM VIAL 0.75 GM in NS(*) 0.9% 250 ML... IVPB SCH (16:06)
--- NOTE | 2018-12-26 16:27 | Hospitalist Progress Note ---
Subjective Progress Notes Subjective The patient has developed a rash. It is pruritic. It is not worsened by the administration of Vanco. Benadryl helps. Physical Exam Vital Signs Date Time Temp Pulse Resp B/P (MAP) Pulse Ox O2 Delivery O2 Flow Rate FiO2 12/26/18 10:52 92 Nasal Cannula 2.5 12/26/18 07:50 99.0 76 10 120/69 (86) Intake and Output 12/26/18 07:00 Intake Total 2160 ml Balance 2160 ml Intake Oral 2160 ml # Voids 7 # Bowel Movements 1 General Appearance: Alert, Awake, No Acute Distress, Afebrile Neuro: No Gross deficits Eyes: PERRLA Cardiovascular: Regular Rate and Rhythm (With 2/6 RAYNE.) Respiratory: Other (Some rhonchi L base. Diminished BS in R lung.) GI: Soft and Non-Tender, Other (Small hernia in mid upper abdomen, reducible, nontender.) Extremities: Other (PICC line in L upper arm is clean and dry without redness or drainage.) Integumentary: Other (Skin over top of feet dry, red. Redness to flank, L lateral breast and arms. Excoriations noted over arms. Both cheeks with redness. No lesions.) Psych: Alert & Oriented X3, Appropriate Mood & Affect Result Diagram: 12/24/18 1520 12/24/18 1520 Assessment and Plan Problems: (1) Rash Status: Acute Assessment & Plan: The patient states it does not get worse when antibiotic given. Will give Benadryl prn and monitor. Hydrocortisone 1% to affected areas prn as well. (2) Perinephric abscess Status: Acute Assessment & Plan: S/P percutaneous drainage. Cultures grew MRSA. To continue Vancomycin through January 16. She is on oxycodone for acute pain as well as gabapentin 300mg tid. Vanco trough, CBC, BMP and CRP ordered for Sunday 12/31. Will do a vanco trough on 12/28 as well. (3) Empyema lung Status: Acute Assessment & Plan: S/P VATS. Cultures grew MRSA. Treatment with vancomycin through January 16. (4) MRSA bacteremia Status: Resolved Assessment & Plan: Blood cultures at [facility] grew MRSA. Repeat cultures at [facility] were negative after the patient was on treatment with vancomycin. (5) Blood clot in vein Status: Acute Assessment & Plan: On enoxaprin 80mg bid. Per records from [facility], she is to be on treatment for at least 3 months. (6) DEANNE (iron deficiency anemia) Status: Acute Assessment & Plan: Continue ferrous sulfate 325mg daily with food. (7) Type II diabetes mellitus Status: Chronic Assessment & Plan: Will continue Lantus 5u daily and SSI. (8) HTN (hypertension) Status: Chronic Assessment & Plan: Continue lisinopril 5mg daily and Cardizem CD 120mg daily. (9) GERD (gastroesophageal reflux disease) Status: Chronic Assessment & Plan: Continue a PPI. She takes omeprazole at home. Will place on Protonix here. (10) Hyperlipidemia Status: Chronic Assessment & Plan: The patient takes fluvastatin 20mg at home. Will have her bring this in as it is not on formulary at [facility]. (11) Depression Status: Chronic Assessment & Plan: Continue Effexor XR 75mg bid. She also takes buspirone 5mg bid. (12) COPD (chronic obstructive pulmonary disease) Status: Chronic Assessment & Plan: Continue Advair 500/50 with prn albuterol nebs. Time Spent on Plan of Care: < 30 min LARS BECKFORD MD December 26, 2018 16:27
[2018-12-26 18:23] VITALS: BP 124/81
[2018-12-26] MEDS: HYDROCORTISONE 1% CR 28.35 GM TP SCH (20:23)
[2018-12-26] MEDS: INSULIN GLARGINE 100 U/ML 3 ML PEN SUBQ SCH (20:24)
[2018-12-26] MEDS: PATCH REMOVAL 1 EA TP SCH (20:25)
[2018-12-26] MEDS: diphenhydrAMINE 50 MG/ML VIAL IVP PRN (20:31)
[2018-12-27] MEDS: oxyCODONE HCL 5 MG CAP PO PRN ×5 (00:46→22:15)
[2018-12-27] MEDS: diphenhydrAMINE 50 MG/ML VIAL IVP PRN (03:33)
[2018-12-27] MEDS: ACETAMINOPHEN 500 MG TAB PO PRN ×2 (03:33→14:04)
[2018-12-27] MEDS: SALMETEROL/FLUTIC 500/50 1 INH INH SCH ×2 (05:33→17:53)
[2018-12-27] MEDS: CALCIUM CARBONATE/VITAMIN D3 PO SCH ×2 (07:38→16:57)
[2018-12-27 07:45] VITALS: BP 116/70
[2018-12-27] MEDS: INSULIN HUM LISPRO 100 UN/ML 3 ML VIAL SUBQ PRN ×3 (08:12→16:58)
[2018-12-27] MEDS: POLYETHYLENE GLYCOL 17 GM PKT PO SCH (09:00)
[2018-12-27] MEDS: FLUVASTATIN SODIUM 20 MG CAP PO SCH (09:00)
[2018-12-27] MEDS: GABAPENTIN 300 MG CAP PO SCH ×3 (09:31→21:02)
[2018-12-27] MEDS: DOCUSATE SODIUM 100 MG CAP PO SCH ×2 (09:31→21:02)
[2018-12-27] MEDS: MULTIVITAMINS TAB PO SCH (09:31)
[2018-12-27] MEDS: busPIRone HCL 5 MG TAB PO SCH ×2 (09:31→21:02)
[2018-12-27] MEDS: DILTIAZEM CD 120 MG CAPCR PO SCH (09:31)
[2018-12-27] MEDS: ESTROGENS CONJ 0.625 MG TAB PO SCH (09:32)
[2018-12-27] MEDS: VENLAFAXINE XR 75 MG CAPCR PO SCH ×2 (09:32→21:02)
[2018-12-27] MEDS: LISINOPRIL 5 MG TAB PO SCH (09:32)
[2018-12-27] MEDS: PANTOPRAZOLE SOD 40 MG TABEC PO SCH ×2 (09:32→21:02)
[2018-12-27] MEDS: LIDOCAINE 5% PATCH TP SCH (09:32)
[2018-12-27] MEDS: HYDROCORTISONE 1% CR 28.35 GM TP SCH ×2 (09:32→21:00)
[2018-12-27] MEDS: ENOXAPARIN 100 MG/ML SYR SC SCH ×2 (09:33→21:01)
--- NOTE | 2018-12-27 10:34 | NUR ---
Occupational Therapy Impression Independent ambulation x450ft and x100ft incorporating various surfaces and thresholds. Independent sit<>stands from various surfaces. Independent dynamic balance task reaching for objects above shldr height and on the floor. Good tolerance. SpO2 WNL on 3L. Pt nearing OT goals. Plan for final visit tomorrow. Occupational Therapy Goals 1. Pt. to perform dressing activities with I. 2. Pt. to perform showering activities with Mod I. 3. Pt. to perform toileting activities with I. 4. Pt. to improve Christine Index of ADL score by 2 points. Patient's Goal
[2018-12-27] MEDS: MAGNESIUM OXIDE 400 MG TAB PO SCH (11:31)
[2018-12-27 11:37] VITALS: BP 124/68
--- NOTE | 2018-12-27 12:16 | NUR ---
Physical Therapy Impression Pt reporting she is not feeling well. Pt lying in bed with eyes closed. Noted she does not need anything at this time, but would like to rest. Pt will need to complete stairs then will be safe for D/C. Will attempt stairs tomorrow. Notified nursing of pt reports. Physical Therapy Goals 1. Independent bed mobility. 2. Mod I transfers. 3. Mod I gait x 150' with appropriate assistive device. 4. Ascend/descend 4 stairs SBA. Patient's Goals
--- NOTE | 2018-12-27 12:57 | Miscellaneous Provider Note ---
Miscellaneous Provider Note Note Subha has had persistent pain along left costal margin. Other than the pain she has not appreciated any dyspnea/cough/sputum/fevers/N/V. Her CXR shows elevated left hemidiaphragm vs. herniation vs. persistent effusion/hydropneumothorax. Will see if can get previous CXRs/CTs from her stay at [facility]. May need to get CT scan of chest/abdomen to further evaluate. DEE BECKFORD MD December 27, 2018 12:57
[2018-12-27] MEDS: FERROUS SULFATE 325 MG TAB PO SCH (13:58)
--- NOTE | 2018-12-27 14:58 | RADIOLOGY IMAGING REPORT ---
FACILITY: [facility] PATIENT NAME: Subha Martinez : 1965 MR: [id number] V: [id number] EXAM DATE: ORDERING PHYSICIAN: DEE BECKFORD TECHNOLOGIST: Location: [facility] [place] Patient: Subha Martinez : 1965 Visit/Account:[id number] Date of Sevice: 12/27/2018 Chest 2 views: HISTORY: Chest pain COMPARISON: 11/20/2018 FINDINGS: Frontal and lateral chest: There are vague bilateral infiltrates present. On the right the se appear to be mostly interstitial, and left there does appear to be an alveolar component. Trace l eft pleural effusion is present. Left hemidiaphragm is elevated. Stomach is mildly distended. Left arm PICC is in place, catheter tip near the right atrial SVC junction. IMPRESSION: Bilateral infiltrates left greater than right and trace left effusion, findings are consi stent with a pneumonia, clinically correlate. Radiographically, patient appears worse compared to prior chest x-ray. Report Dictated By: Kareen Metcalf MD at 12/27/2018 2:50 PM Report E-Signed By: Kareen Metcalf MD at 12/27/2018 2:54 PM WSN:[id number]
[2018-12-27] MEDS: VANCOMYCIN(*) 1 GM VIAL 1 GM, VANCOMYCIN HCL 0.750 GM VIAL 0.75 GM in NS(*) 0.9% 250 ML... IVPB SCH (15:27)
[2018-12-27 16:30] VITALS: BP 112/64
[2018-12-27] MEDS: PATCH REMOVAL 1 EA TP SCH (21:00)
[2018-12-27] MEDS: INSULIN GLARGINE 100 U/ML 3 ML PEN SUBQ SCH (21:02)
[2018-12-28] MEDS: oxyCODONE HCL 5 MG CAP PO PRN ×5 (02:12→19:45)
[2018-12-28] MEDS: SALMETEROL/FLUTIC 500/50 1 INH INH SCH ×2 (06:04→17:52)
[2018-12-28] MEDS ORDERED: IOPAMIDOL 76% 150 ML INFUS BTL 150 ML ONE (06:34)
[2018-12-28 06:55] LABS: PLATELET COUNT, AUTOMATED 566 K/uL (150-450)
[2018-12-28 07:38] VITALS: BP 139/40
--- NOTE | 2018-12-28 07:40 | NUR ---
blood sugar 212 this am, no insulin given at this time patient NPO for a CT .
[2018-12-28] MEDS: ENOXAPARIN 100 MG/ML SYR SC SCH ×2 (08:32→20:38)
[2018-12-28] MEDS: POLYETHYLENE GLYCOL 17 GM PKT PO SCH (09:00)
[2018-12-28] MEDS: DOCUSATE SODIUM 100 MG CAP PO SCH ×3 (09:00→21:00)
[2018-12-28] MEDS: FLUVASTATIN SODIUM 20 MG CAP PO SCH (09:00)
[2018-12-28] MEDS: MULTIVITAMINS TAB PO SCH (09:24)
[2018-12-28] MEDS: VENLAFAXINE XR 75 MG CAPCR PO SCH ×2 (09:24→20:37)
[2018-12-28] MEDS: ESTROGENS CONJ 0.625 MG TAB PO SCH (09:24)
[2018-12-28] MEDS: busPIRone HCL 5 MG TAB PO SCH ×2 (09:24→20:37)
[2018-12-28] MEDS: CALCIUM CARBONATE/VITAMIN D3 PO SCH ×2 (09:24→16:43)
[2018-12-28] MEDS: GABAPENTIN 300 MG CAP PO SCH ×3 (09:24→20:37)
[2018-12-28] MEDS: LIDOCAINE 5% PATCH TP SCH (09:25)
[2018-12-28] MEDS: PANTOPRAZOLE SOD 40 MG TABEC PO SCH ×2 (09:25→20:37)
[2018-12-28] MEDS: LISINOPRIL 5 MG TAB PO SCH (09:25)
[2018-12-28] MEDS: DILTIAZEM CD 120 MG CAPCR PO SCH (09:25)
[2018-12-28] MEDS: HYDROCORTISONE 1% CR 28.35 GM TP SCH ×2 (09:30→20:37)
[2018-12-28] MEDS: MAGNESIUM OXIDE 400 MG TAB PO SCH (10:56)
--- NOTE | 2018-12-28 11:08 | OT ECF NOTE ---
Type of Note: Discharge Note Primary Medical Diagnosis: MRSA bacterium / IV antibiotics Occupational Therapy Evaluation Date: 12/21/18 SUBJECTIVE: Prior Hospitalization: 11/19/18 to o11/26/18 ([facility] medical) transferred to [facility] on 11/26/18. Prior Level of Function: Independent Prior Living Status: Mobile home Living with family Assist by family Community Services: Independent Home Accessibility: Stairs without rails Equipment Owned: None Medical Complications/Past Medical History: Please refer to chart for details. Psychosocial Support: Supportive family Pain Scale (0-10): 5/10 OBJECTIVE: Strength: MMT: Right Left Shoulder Flexion WFL WFL Elbow Flexion WFL WFL Wrist Extension WFL WFL Appliance Servicer WFL WFL (5= normal, 4= good, 3= fair, 2= poor, 1= trace) ROM: Sensation: No paraesthesia reported Functional Transfer: Assistive Device: None Transfer Ability: Independent ADL: Upper body dressing: Assistive device: None Upper body dressing ability: Independent Lower body dressing: Assistive device: None Lower body dressing ability: Independent Toileting: Assistive device: None Toileting ability: Independent Grooming/hygiene: Assistive device: None Grooming ability: Independent Bathing: Assistive device: Shower chair Bathing ability: Modified Independent Standardized Assessment: Christine Index of Activities of Daily Living- Pt. scored a 14/20 on this Index upon initial evaluation. 20/20 upon discharge (12/28/18). ASSESSMENT: Pt. is a 53 year old female who was admitted to [facility] on 12/21/18 following a stay at [facility] from 11/26/18. Pt. is admitted with COPD and complicated extensive medical history. Pt. was independent with all activities prior to [facility] medical floor admission on 11/19/18. Pt has met all skilled OT goals. Reports no further questions/concerns for OT at this time. Short Term Goals: 1. Pt. to perform dressing activities with I. GOAL MET 2. Pt. to perform showering activities with Mod I. GOAL MET 3. Pt. to perform toileting activities with I.GOAL MET 4. Pt. to improve Christine Index of ADL score by 2 points. GOAL MET [facility] Goals: Return home. Patient Goals: Return home Rehabilitation Prognosis: Fair Barriers to Discharge: Extensive health history PLAN: Plan for discharge from OT services, pt agreeable with plan. Plan for pt to continue IV antibiotics on ECF, will follow for medical progression and needs that may arise. Thank you for this referral. If you have any questions, concerns, or comments about this report or plan, please contact me at . Amber Conteh MS, OTR/L Occupational Therapist [facility]
--- NOTE | 2018-12-28 11:10 | RADIOLOGY IMAGING REPORT ---
FACILITY: [facility] [place] PATIENT NAME: Subha Martinez : 1965 MR: [id number] V: [id number] EXAM DATE: ORDERING PHYSICIAN: DEE BECKFORD TECHNOLOGIST: Location: [facility] [place] Patient: Subha Martinez : 1965 Visit/Account:[id number] Date of Sevice: 12/28/2018 CT CHEST ABDOMEN PELVIS W/CON HISTORY: history of left empyema s/p VATS ADDITIONAL HISTORY: None. TECHNIQUE: Following administration of IV contrast axial images acquired through the chest abdomen a nd pelvis during the portal venous phase. Coronal and sagittal reformatting was also performed.Dose Lowering Technique One of the following dose optimization techniques was utilized in the performance of this exam: Autom ated exposure control; adjustment of the mA and/or kV according to the patient's size; or use of an i terative reconstruction technique. Specific details can be referenced in the facility's radiology C T exam operational policy. CONTRAST: 75 mL Isovue-370 and 800 mL of water as an oral contrast COMPARISON: November 14, 2018 FINDINGS: CHEST: Lungs/Pleura: There is diffuse centrilobular emphysema present. There is patchy airspace consolidation in the right lower lobe slightly increased when compared the prior study. Small right pleural effusion is slightly decreased . There is dense airspace consolidation in the left lower lobe has increased. There are Several areas of decreased attenuation which may represent focal abscesses.. Serpiginous hyperdense material is no timur within the left lower lobe which may be related to the recent surgical intervention. There is a small left pleural effusion present There is now elevation of the left hemidiaphragm. Recently reported 5 mm nodule posterior aspect of the right upper lobe is relatively unchanged best s een on image 115 of series 3 Previously noted 5 mm nodule lateral right middle lobe appears less prominent now measuring 4 mm in d iameter and is best appreciated on image 216 The previously noted 6 mm pulmonary nodule in the medial right lower lobe is no longer seen. There is a new small area of peripheral consolidation in the lateral right upper lobe best seen image 67. Two new small areas of peripheral consolidation are also seen along the anterior aspect of the right upper lobe best seen on image 102 and image 129. Mediastinum/lymph nodes: There are new prevascular space lymph nodes present. A billing representative node measures 1.1 x 0.8 cm. There are calcified prevascular space on the left hilar and AP window lymph nodes that appears simila r to the prior study There are increasing pretracheal, precarinal and subcarinal lymph nodes. A billing representative pretrachea l lymph node measures 1.5 x 0.9 cm. A billing representative precarinal lymph node measures 1.6 x 1.4 cm.. A billing representative subcarinal lymph node measures 2 x 1 cm bilateral axillary lymph nodes have also inc reased. A billing representative left axillary lymph node now measures 1.6 x 1.5 cm although is fatty replac ed. A billing representative right axillary lymph node measures 2.2 x 1 cm and is also fatty replaced . Heart/vessels: There is a left-sided central venous catheter with the distal tip in the superior rogers a cava. Bones/soft tissues: There is marked edema throughout the left breast and marked skin thickening whic h has increased when compared to the prior study ABDOMEN AND PELVIS: Hepatobiliary: There postsurgical changes from a cholecystectomy. Periportal edema is again noted s imilar to the prior study Spleen: Spleen is not identified Pancreas: Pancreatic tail is absent Adrenals: There is thickening of the left adrenal gland that appears unchanged Kidneys ureters and bladder : There is a 3 mm nonobstructing calculus lower pole calyx of the right k idney there is better enhancement of the superolateral portion of the left kidney although there is m ild decreased attenuation in this location. The adjacent fluid collection is no longer seen. Area o f decreased enhan ement in the superior pole the right kidney has resolved as has the adjacent perine phric fluid collection The partial thrombus previously noted right renal vein is no longer identified Genitalia: HysterectomyGI: Stomach is moderately distended with fluid projecting beneath the elevate d left hemidiaphragm. There is a large amount of fecal material seen throughout the colon consistent with constipation Vessels/spaces/nodes: Retroperitoneal adenopathy slightly increased. There is a left periaortic lymph node just below the level of the left renal vein measuring 1.3 x 1.1 cm previously measuring 1 x 0.8 cm A right common iliac lymph node measures 1.4 x 1.3 cm previously measuring 8 x 7 mm Bones/soft tissues: There is extensive subcutaneous soft tissue edema within the abdomen and pelvis which is particularly prominent over the anterior left lateral aspect of the abdomen . No aggressiv e appearing bone lesions are seen. Additional findings: None pertinent. IMPRESSION: Diffuse centrilobular emphysema Patchy airspace consolidation in the lower lobes is slightly increased, left greater than right. The small right pleural effusion is slightly decreased however the small left pleural effusion is slight ly increased. There are several areas of decreased attenuation within the left lower lobe consolidat ion which may represent focal abscesses. Serpiginous hyperdense material within the left lower lobe may be related to the recent surgical intervention. Period there is now elevation of the left hemidi aphragm.. Previously noted pulmonary nodules are either smaller or are no longer seen There is new small areas of peripheral consolidation the right upper lobe likely representing small i nfiltrates or atelectasis. There is increasing mediastinal and bilateral axillary and retroperitoneal adenopathy which is likely reactive given the history of empyema although follow-up recommended There is marked edema throughout the left breast with marked left breast skin thickening. Increased edema also noted throughout the subcutaneous tissues in the abdomen pelvis which is most prominent al varsha the atrium left side of the abdomen. This may represent anasarca although clinical correlation n eeded Periportal edema appears similar to the prior study There is better perfusion of both kidneys. There is still mild hyper pole perfusion along the upper pole the left kidney which may represent some residual pyelonephritis. The perinephric abscesses are no longer seen Previously noted partial thrombus in the right renal vein is no longer identified Stomach is moderately distended with fluid projecting beneath the elevated left hemidiaphragm. Large amount of fecal material throughout colon consistent with constipation.
[2018-12-28] MEDS: FERROUS SULFATE 325 MG TAB PO SCH (12:10)
[2018-12-28] MEDS: INSULIN HUM LISPRO 100 UN/ML 3 ML VIAL SUBQ PRN ×3 (12:10→20:38)
[2018-12-28] MEDS: ACETAMINOPHEN 500 MG TAB PO PRN (13:47)
[2018-12-28 15:45] VITALS: BP 156/73
--- NOTE | 2018-12-28 15:51 | NUR ---
Physical Therapy Impression Pt demonstrates independence with functional mobility including stairs and O2 management. Pt no longer requires skilled PT. Encouraged Pt to take walks around unit to maintain strength during hospitalization for IV antibiotics. Pt verbalized understanding. Physical Therapy Goals 1. Independent bed mobility. 2. Mod I transfers. 3. Mod I gait x 150' with appropriate assistive device. 4. Ascend/descend 4 stairs SBA. Patient's Goals
[2018-12-28] MEDS: VANCOMYCIN(*) 1 GM VIAL 1 GM, VANCOMYCIN HCL 0.750 GM VIAL 0.75 GM in NS(*) 0.9% 250 ML... IVPB SCH (16:12)
[2018-12-28] MEDS: INSULIN GLARGINE 100 U/ML 3 ML PEN SUBQ SCH (20:37)
[2018-12-28] MEDS: PATCH REMOVAL 1 EA TP SCH (20:37)
[2018-12-29] MEDS: oxyCODONE HCL 5 MG CAP PO PRN ×5 (00:07→21:25)
[2018-12-29 07:32] VITALS: BP 112/74
[2018-12-29] MEDS: SALMETEROL/FLUTIC 500/50 1 INH INH SCH ×2 (08:25→18:04)
[2018-12-29] MEDS: ENOXAPARIN 100 MG/ML SYR SC SCH ×2 (08:46→21:23)
[2018-12-29] MEDS: LIDOCAINE 5% PATCH TP SCH (08:46)
[2018-12-29] MEDS: CALCIUM CARBONATE/VITAMIN D3 PO SCH ×2 (08:47→17:19)
[2018-12-29] MEDS: busPIRone HCL 5 MG TAB PO SCH ×2 (08:47→21:25)
[2018-12-29] MEDS: INSULIN HUM LISPRO 100 UN/ML 3 ML VIAL SUBQ PRN ×4 (08:47→21:24)
[2018-12-29] MEDS: GABAPENTIN 300 MG CAP PO SCH ×3 (08:47→21:25)
[2018-12-29] MEDS: ESTROGENS CONJ 0.625 MG TAB PO SCH (08:47)
[2018-12-29] MEDS: VENLAFAXINE XR 75 MG CAPCR PO SCH ×2 (08:48→21:24)
[2018-12-29] MEDS: MULTIVITAMINS TAB PO SCH (08:48)
[2018-12-29] MEDS: LISINOPRIL 5 MG TAB PO SCH (08:48)
[2018-12-29] MEDS: DILTIAZEM CD 120 MG CAPCR PO SCH (08:48)
[2018-12-29] MEDS: DOCUSATE SODIUM 100 MG CAP PO SCH ×2 (08:48→21:25)
[2018-12-29] MEDS: PANTOPRAZOLE SOD 40 MG TABEC PO SCH ×2 (08:48→21:25)
[2018-12-29] MEDS: HYDROCORTISONE 1% CR 28.35 GM TP SCH ×2 (08:56→21:24)
[2018-12-29] MEDS: POLYETHYLENE GLYCOL 17 GM PKT PO SCH (08:56)
[2018-12-29] MEDS: FLUVASTATIN SODIUM 20 MG CAP PO SCH (08:56)
[2018-12-29] MEDS: MAGNESIUM OXIDE 400 MG TAB PO SCH (10:51)
[2018-12-29] MEDS: FERROUS SULFATE 325 MG TAB PO SCH (13:11)
[2018-12-29] MEDS: ACETAMINOPHEN 500 MG TAB PO PRN (13:11)
[2018-12-29] MEDS: VANCOMYCIN(*) 1 GM VIAL 1 GM, VANCOMYCIN HCL 0.750 GM VIAL 0.75 GM in NS(*) 0.9% 250 ML... IVPB SCH (16:03)
[2018-12-29] MEDS: PATCH REMOVAL 1 EA TP SCH (18:17)
[2018-12-29] MEDS: INSULIN GLARGINE 100 U/ML 3 ML PEN SUBQ SCH (21:24)
[2018-12-29] MEDS: diphenhydrAMINE 25 MG CAP PO PRN (22:25)
[2018-12-30] MEDS: oxyCODONE HCL 5 MG CAP PO PRN ×3 (02:29→21:21)
[2018-12-30] MEDS: SALMETEROL/FLUTIC 500/50 1 INH INH SCH ×2 (06:02→17:03)
[2018-12-30 07:45] VITALS: BP 114/72
[2018-12-30] MEDS: LIDOCAINE 5% PATCH TP SCH (08:19)
[2018-12-30] MEDS: ENOXAPARIN 100 MG/ML SYR SC SCH ×2 (08:20→21:22)
[2018-12-30] MEDS: GABAPENTIN 300 MG CAP PO SCH ×3 (08:21→21:22)
[2018-12-30] MEDS: CALCIUM CARBONATE/VITAMIN D3 PO SCH ×2 (08:21→17:11)
[2018-12-30] MEDS: VENLAFAXINE XR 75 MG CAPCR PO SCH ×2 (08:21→21:21)
[2018-12-30] MEDS: LISINOPRIL 5 MG TAB PO SCH (08:21)
[2018-12-30] MEDS: DOCUSATE SODIUM 100 MG CAP PO SCH ×2 (08:21→21:22)
[2018-12-30] MEDS: MULTIVITAMINS TAB PO SCH (08:21)
[2018-12-30] MEDS: busPIRone HCL 5 MG TAB PO SCH ×2 (08:21→21:21)
[2018-12-30] MEDS: DILTIAZEM CD 120 MG CAPCR PO SCH (08:21)
[2018-12-30] MEDS: PANTOPRAZOLE SOD 40 MG TABEC PO SCH ×2 (08:21→21:22)
[2018-12-30] MEDS: ESTROGENS CONJ 0.625 MG TAB PO SCH (08:21)
[2018-12-30] MEDS: INSULIN HUM LISPRO 100 UN/ML 3 ML VIAL SUBQ PRN ×4 (08:22→21:23)
[2018-12-30] MEDS: HYDROCORTISONE 1% CR 28.35 GM TP SCH ×2 (08:23→21:00)
[2018-12-30] MEDS: POLYETHYLENE GLYCOL 17 GM PKT PO SCH (08:24)
[2018-12-30] MEDS: [UNRECOGNIZED DRUG - OTHER] PO SCH (08:24)
[2018-12-30] MEDS: FLUVASTATIN SODIUM 20 MG CAP PO SCH (08:24)
[2018-12-30] MEDS: MAGNESIUM OXIDE 400 MG TAB PO SCH (10:32)
[2018-12-30] MEDS: FERROUS SULFATE 325 MG TAB PO SCH (12:20)
[2018-12-30] MEDS: VANCOMYCIN(*) 1 GM VIAL 1 GM, VANCOMYCIN HCL 0.750 GM VIAL 0.75 GM in NS(*) 0.9% 250 ML... IVPB SCH (15:50)
[2018-12-30 16:50] VITALS: BP 128/82
[2018-12-30 19:30] VITALS: BP 142/84
[2018-12-30] MEDS: PATCH REMOVAL 1 EA TP SCH (21:00)
[2018-12-30] MEDS: diphenhydrAMINE 25 MG CAP PO PRN (21:21)
[2018-12-30] MEDS: INSULIN GLARGINE 100 U/ML 3 ML PEN SUBQ SCH (21:22)
[2018-12-31] MEDS: oxyCODONE HCL 5 MG CAP PO PRN ×4 (02:09→21:10)
[2018-12-31] MEDS: SALMETEROL/FLUTIC 500/50 1 INH INH SCH ×2 (05:53→17:00)
[2018-12-31 07:50] VITALS: BP 135/71
[2018-12-31] MEDS: LIDOCAINE 5% PATCH TP SCH (08:21)
[2018-12-31] MEDS: ENOXAPARIN 100 MG/ML SYR SC SCH ×2 (08:22→21:08)
[2018-12-31] MEDS: busPIRone HCL 5 MG TAB PO SCH ×2 (08:23→21:09)
[2018-12-31] MEDS: CALCIUM CARBONATE/VITAMIN D3 PO SCH ×2 (08:23→17:21)
[2018-12-31] MEDS: ESTROGENS CONJ 0.625 MG TAB PO SCH (08:23)
[2018-12-31] MEDS: LISINOPRIL 5 MG TAB PO SCH (08:23)
[2018-12-31] MEDS: PANTOPRAZOLE SOD 40 MG TABEC PO SCH ×2 (08:23→21:09)
[2018-12-31] MEDS: MULTIVITAMINS TAB PO SCH (08:23)
[2018-12-31] MEDS: VENLAFAXINE XR 75 MG CAPCR PO SCH ×2 (08:23→21:09)
[2018-12-31] MEDS: DILTIAZEM CD 120 MG CAPCR PO SCH (08:23)
[2018-12-31] MEDS: DOCUSATE SODIUM 100 MG CAP PO SCH ×2 (08:23→21:09)
[2018-12-31] MEDS: GABAPENTIN 300 MG CAP PO SCH ×3 (08:23→21:09)
[2018-12-31] MEDS: FLUVASTATIN SODIUM 20 MG CAP PO SCH (08:24)
[2018-12-31] MEDS: HYDROCORTISONE 1% CR 28.35 GM TP SCH ×2 (08:24→21:00)
[2018-12-31] MEDS: INSULIN HUM LISPRO 100 UN/ML 3 ML VIAL SUBQ PRN ×4 (08:25→21:09)
[2018-12-31] MEDS: POLYETHYLENE GLYCOL 17 GM PKT PO SCH (08:27)
--- NOTE | 2018-12-31 09:13 | Miscellaneous Provider Note ---
Miscellaneous Provider Note Note Ms. Martinez has been on Lovenox for catheter associated upper extremity DVT. Will transition to oral warfarin (with overlapping Lovenox until INR >2.0) and plan on total of 3 months (minimum) therapy. She will need treatment through mid- February. DEE BECKFORD MD December 31, 2018 09:13
[2018-12-31] MEDS: MAGNESIUM OXIDE 400 MG TAB PO SCH (10:36)
[2018-12-31] MEDS: WARFARIN SOD 5 MG TAB PO SCH (13:10)
[2018-12-31] MEDS: FERROUS SULFATE 325 MG TAB PO SCH (13:10)
[2018-12-31 15:36] LABS: PLATELET COUNT, AUTOMATED 470 K/uL (150-450)
[2018-12-31 16:04] VITALS: BP 143/69
[2018-12-31] MEDS: VANCOMYCIN(*) 1 GM VIAL 1 GM, VANCOMYCIN HCL 0.750 GM VIAL 0.75 GM in NS(*) 0.9% 250 ML... IVPB SCH (16:41)
--- NOTE | 2018-12-31 19:02 | Pharmacy Note ---
Vancomycin Management Note Vanco Dosing Note VANCO trough today (12/31/18 at 1600) is 14.03. Serum creatinine has gone down slightly indicating improved renal clearance. Frequency of dosing reduced to q18h from q24h and a new vanco level to be ordered for 01/02/19 at 2000. New dosing to start 01/01/19 @ 0900 WENDY MARQUEZ December 31, 2018 18:58
[2018-12-31] MEDS: PATCH REMOVAL 1 EA TP SCH (21:00)
[2018-12-31] MEDS: INSULIN GLARGINE 100 U/ML 3 ML PEN SUBQ SCH (21:08)
[2018-12-31] MEDS: diphenhydrAMINE 25 MG CAP PO PRN (21:10)
[2019-01-01] MEDS: oxyCODONE HCL 5 MG CAP PO PRN ×5 (01:35→23:36)
[2019-01-01] MEDS: SALMETEROL/FLUTIC 500/50 1 INH INH SCH ×2 (06:03→17:36)
[2019-01-01 08:20] VITALS: BP 151/75
[2019-01-01] MEDS: VENLAFAXINE XR 75 MG CAPCR PO SCH ×2 (08:44→20:21)
[2019-01-01] MEDS: LIDOCAINE 5% PATCH TP SCH (08:44)
[2019-01-01] MEDS: PANTOPRAZOLE SOD 40 MG TABEC PO SCH ×2 (08:44→20:21)
[2019-01-01] MEDS: HYDROCORTISONE 1% CR 28.35 GM TP SCH ×2 (08:44→20:21)
[2019-01-01] MEDS: CALCIUM CARBONATE/VITAMIN D3 PO SCH ×2 (08:44→16:37)
[2019-01-01] MEDS: DOCUSATE SODIUM 100 MG CAP PO SCH ×2 (08:45→20:21)
[2019-01-01] MEDS: busPIRone HCL 5 MG TAB PO SCH ×2 (08:45→20:23)
[2019-01-01] MEDS: MULTIVITAMINS TAB PO SCH (08:45)
[2019-01-01] MEDS: DILTIAZEM CD 120 MG CAPCR PO SCH (08:45)
[2019-01-01] MEDS: LISINOPRIL 5 MG TAB PO SCH (08:45)
[2019-01-01] MEDS: GABAPENTIN 300 MG CAP PO SCH ×3 (08:45→20:21)
[2019-01-01] MEDS: INSULIN HUM LISPRO 100 UN/ML 3 ML VIAL SUBQ PRN ×4 (08:46→20:21)
[2019-01-01] MEDS: ENOXAPARIN 100 MG/ML SYR SC SCH ×2 (08:46→20:22)
[2019-01-01] MEDS: VANCOMYCIN(*) 1 GM VIAL 1 GM, VANCOMYCIN HCL 0.750 GM VIAL 0.75 GM in NS(*) 0.9% 250 ML... IVPB SCH (08:55)
[2019-01-01] MEDS: ESTROGENS CONJ 0.625 MG TAB PO SCH (09:00)
[2019-01-01] MEDS: POLYETHYLENE GLYCOL 17 GM PKT PO SCH (09:00)
[2019-01-01] MEDS: FLUVASTATIN SODIUM 20 MG CAP PO SCH (09:00)
[2019-01-01] MEDS: MAGNESIUM OXIDE 400 MG TAB PO SCH (10:54)
--- NOTE | 2019-01-01 12:36 | Medical Nutrition Therapy ---
Nutrition Anthropometrics Height (Inches): 63.00 Height (Calculated Centimeters: 160.597980 Weight (Pounds): 159 Weight (Calculated Kilograms): 72.291 BMI: 28.2 Harvey Nutrition Score: Adequate Harvey Nutrition Risk Score: 18 Dietary Referral Nutrition Risk Factors: Unplanned Loss >10lbs Nutrition Risk Comment: pt. states rosanne her throat is sore from the intubation Physical Findings Physical Appearance: Overweight BMI 25-29 Skin Appearance Skin Appearance: Edema Edema Location Modifier: Left Edema Location: Lateral Breast and BLE Type of Edema: Degree of Edema: Non-pitting Gastrointestinal Symptoms GI Symtoms: Tube Present: Bowel Sounds: Recent Bowel Pattern: Stool Characteristics: Nutrition/Food History Fair Skipped Meals: No Snacks: 100% Nutritional Diagnosis Nutritional Risk Acuity 2: Abcess/Non-Healing Wound Nutritional Risk Acuity 3: Fair Appetite Past Medical History: Hx of hyperlipidemia, GERD, T2DM, shingles, COPD, pancreatectomy, elbow surgery, cholecystectomy, hysterectomy, tuberculosis and HTN. Nutritional Acuity: 2-Moderate Nutrition Diagnosis: Increased Nutrient Needs Nutrition Etiology: Physiological Causes Nutrition Problem/Etiology/Sym: AEB Perinephric abscess Energy Requirement: 1775 (MSJ X 1.1 SF) Protein Requirement: 75 (1ml/kg) Fluid Requirement: 2250 (30ml/kg) Diet Type: Diabetic Nutrition Intervention: Cont diet as ordered, Encourage intake, Nutrition support Drug: Warfarin Do Not Serve Any of the Follow: Broccoli, Brussel Sprouts, Spinach, [place] Lettuce, Cranberry Juice Additional Diet Restrictions: ALLERGIC:CORN Nutrition Monitoring & Eval Nutrition Goals: Eat 75-100% Meal, Drink > 2 liters/day RD Patient Assessment Time: [address] Assessment Type: RD Re-Assessment Patient Nutrition Acuity: 2-Moderate Follow Up Date: January 08, 2019 Nutritional Comment: 12/22 Pt admitted with Perinephric abscess. Pt on diabetic diet and ate 75% of first meal in facility. BG elevated up to 205. Wt is up 11% (17#) from last admit 11/19/18. Pt has 1+ edema BLE. Anticipate wt loss when edema resolved. Will cont to monitor and encourage intake. BK 12/24 Pt cont on diabetic diet and eating 75-100% of meals. No new wt. Edema has declined to non-pitting BLE. RBG cont elevated up to 289. Will cont to monitor and encourage intake. BK 01/01 Pt is now on warfarin and needs to avoid high vit K+ foods. Pt has lost 3kg due to change in edema status to non-pitting. Pt RBG is no longer having a high of 300 since 12/25 and has been 174-248 the past few days. Pt has very low levels of Hgb 8.4 and Hct of 25.7. Pt is consuming 75% of meals and 100% of snacks. Will continue to encourage intake and will continue to monitor. MIGUEL ÁNGEL MARI January 01, 2019 12:00
--- NOTE | 2019-01-01 13:04 | NUR ---
5-day MDS completed with pt. C: 13, D: 09, E: no concerns, Q: no referrals made yet, but may be needed. Pt reports her daughter is still looking for a new place for them to live, but nothing solidified as of yet. SW will continue to follow for DC needs.
[2019-01-01] MEDS: FERROUS SULFATE 325 MG TAB PO SCH (13:10)
[2019-01-01] MEDS: WARFARIN SOD 5 MG TAB PO SCH (13:10)
[2019-01-01 17:00] VITALS: BP 153/88
[2019-01-01] MEDS: PATCH REMOVAL 1 EA TP SCH (20:22)
[2019-01-01] MEDS: INSULIN GLARGINE 100 U/ML 3 ML PEN SUBQ SCH (20:22)
[2019-01-02] MEDS: VANCOMYCIN(*) 1 GM VIAL 1 GM, VANCOMYCIN HCL 0.750 GM VIAL 0.75 GM in NS(*) 0.9% 250 ML... IVPB SCH (02:58)
[2019-01-02] MEDS: SALMETEROL/FLUTIC 500/50 1 INH INH SCH ×2 (05:33→17:51)
[2019-01-02 06:29] LABS: INR 1.14
[2019-01-02 08:20] VITALS: BP 135/67
[2019-01-02] MEDS: HYDROCORTISONE 1% CR 28.35 GM TP SCH ×2 (09:00→20:24)
[2019-01-02] MEDS: POLYETHYLENE GLYCOL 17 GM PKT PO SCH (09:00)
[2019-01-02] MEDS: FLUVASTATIN SODIUM 20 MG CAP PO SCH (09:00)
--- NOTE | 2019-01-02 09:03 | PT ECF NOTE ---
Type of Note: Discharge Summary 12/31/2018 Primary Medical Diagnosis: MRSA Bacteremia, please see MD documentation for details., IV antibiotics Physical Therapy Evaluation Date: 12/21/18 SUBJECTIVE: Prior Hospitalization: [facility] 11/19/18-11/26/18 then transfer to [facility] until 12/21/18 Prior Level of Function: Independent with functional mobility and also caring for her young grandchildren Prior Living Status: Single level house, Living with family Community Services: No known needs Home Accessibility: Stairs without rails Equipment Owned: none Medical Complications/Past Medical History: Extensive, please see EMR for details Psychosocial Support: Pt lives with her daughter and grandchildren Pain Scale (0-10): Pt requesting pain medication at time of eval, nurse aware. OBJECTIVE: Bed Mobility: Independent Transfers: Independent Gait: Independent x 1000' Stairs: Mod I x 4 stairs ASSESSMENT: Pt has met PT goals and demonstrates safety with functional mobility. Pt no longer requires skilled PT services. Pt encouraged to remain active while on ECF for IV antibiotics. Problem List/Current Limitations: Pain, Decreased activity tolerance, Decreased strength, Generalized weakness Short Term Goals: 1. Independent bed mobility. 2. Mod I transfers. 3. Mod I gait x 150' with appropriate assistive device. 4. Ascend/descend 4 stairs SBA. Penitentiary Goals: Return home. Patient Goals: Return home Rehabilitation Prognosis: Fair Barriers for Discharge: None identified PLAN: DC PT services. Thank you for this referral. If you have any questions, concerns, or comments about this report or plan, please contact me at . Jamee Gracia, PT, DPT, GCS MTDD
[2019-01-02] MEDS: LIDOCAINE 5% PATCH TP SCH (09:39)
[2019-01-02] MEDS: ENOXAPARIN 100 MG/ML SYR SC SCH ×2 (09:39→20:23)
[2019-01-02] MEDS: DILTIAZEM CD 120 MG CAPCR PO SCH (09:39)
[2019-01-02] MEDS: MULTIVITAMINS TAB PO SCH (09:40)
[2019-01-02] MEDS: PANTOPRAZOLE SOD 40 MG TABEC PO SCH ×2 (09:40→20:23)
[2019-01-02] MEDS: DOCUSATE SODIUM 100 MG CAP PO SCH ×2 (09:40→20:23)
[2019-01-02] MEDS: CALCIUM CARBONATE/VITAMIN D3 PO SCH ×2 (09:40→16:48)
[2019-01-02] MEDS: VENLAFAXINE XR 75 MG CAPCR PO SCH ×2 (09:40→20:23)
[2019-01-02] MEDS: ESTROGENS CONJ 0.625 MG TAB PO SCH (09:40)
[2019-01-02] MEDS: GABAPENTIN 300 MG CAP PO SCH ×3 (09:40→20:22)
[2019-01-02] MEDS: busPIRone HCL 5 MG TAB PO SCH ×2 (09:40→20:23)
[2019-01-02] MEDS: LISINOPRIL 5 MG TAB PO SCH (09:40)
[2019-01-02] MEDS: oxyCODONE HCL 5 MG CAP PO PRN ×2 (10:50→20:22)
[2019-01-02] MEDS: INSULIN HUM LISPRO 100 UN/ML 3 ML VIAL SUBQ PRN ×2 (12:04→16:49)
[2019-01-02] MEDS: MAGNESIUM OXIDE 400 MG TAB PO SCH (12:04)
[2019-01-02] MEDS: WARFARIN SOD 5 MG TAB PO SCH (13:18)
[2019-01-02] MEDS ORDERED: ALTEPLASE RECOMB 2 MG VIAL IVP PRN (13:30)
[2019-01-02] MEDS: FERROUS SULFATE 325 MG TAB PO SCH (14:06)
--- NOTE | 2019-01-02 15:05 | Hospitalist Progress Note ---
Subjective Progress Notes Subjective She has complaints of itching to her skin. She feels the benadryl was working, but has not been doing well now. She would like to try a different antihistamine. Patient Complains of: Cardiovascular: No: Chest Pain Respiratory: No: Shortness of Breath Physical Exam Vital Signs Date Time Temp Pulse Resp B/P (MAP) Pulse Ox O2 Delivery O2 Flow Rate FiO2 01/02/19 10:00 92 Nasal Cannula 2.0 01/02/19 08:20 99.0 76 16 135/67 (89) Intake and Output 01/02/19 01:00 Intake Total 1167 ml Balance 1167 ml Intake Oral 850 ml IV Total 317 ml General Appearance: Alert, Awake, No Acute Distress, Afebrile Neuro: No Gross deficits Cardiovascular: Regular Rate and Rhythm Respiratory: No Respiratory Distress, Clear to Auscultation GI: Soft and Non-Tender Psych: Alert & Oriented X3, Appropriate Mood & Affect Result Diagram: 12/31/18 1526 12/31/18 1526 Assessment and Plan Problems: (1) Rash Status: Acute Assessment & Plan: The patient states it does not get worse when antibiotic given. Will give Benadryl prn and monitor. Hydrocortisone 1% to affected areas prn as well. Will add Deanna scheduled to help with rash. (2) Perinephric abscess Status: Acute Assessment & Plan: S/P percutaneous drainage. Cultures grew MRSA. To continue Vancomycin through January 16. She is on oxycodone for acute pain as well as gabapentin 300mg tid. Vanco trough, CBC, BMP and CRP ordered for Sunday 12/31. Will do a vanco trough on 12/28 as well. (3) Empyema lung Status: Acute Assessment & Plan: S/P VATS. Cultures grew MRSA. Treatment with vancomycin through January 16. (4) MRSA bacteremia Status: Resolved Assessment & Plan: Blood cultures at [facility] grew MRSA. Repeat cultures at [facility] were negative after the patient was on treatment with vancomycin. (5) Blood clot in vein Status: Acute Assessment & Plan: On enoxaprin 80mg bid. Per records from [facility], she is to be on treatment for at least 3 months. She was transitioned to Warfarin. Daily INR ordered. (6) DEANNE (iron deficiency anemia) Status: Acute Assessment & Plan: Continue ferrous sulfate 325mg daily with food. Will check labs. (7) Type II diabetes mellitus Status: Chronic Assessment & Plan: Will continue Lantus 5u daily and SSI. (8) HTN (hypertension) Status: Chronic Assessment & Plan: Continue lisinopril 5mg daily and Cardizem CD 120mg daily. (9) GERD (gastroesophageal reflux disease) Status: Chronic Assessment & Plan: Continue a PPI. She takes omeprazole at home. Will place on Protonix here. (10) Hyperlipidemia Status: Chronic Assessment & Plan: The patient takes fluvastatin 20mg at home. Will have her bring this in as it is not on formulary at [facility]. (11) Depression Status: Chronic Assessment & Plan: Continue Effexor XR 75mg bid. She also takes buspirone 5mg bid. (12) COPD (chronic obstructive pulmonary disease) Status: Chronic Assessment & Plan: Continue Advair 500/50 with prn albuterol jack. ANDRA VILLATORO January 02, 2019 15:05
[2019-01-02 17:20] VITALS: BP 138/79
[2019-01-02] MEDS: FEXOFENADINE HCL 60 MG TAB PO SCH (20:22)
[2019-01-02] MEDS: INSULIN GLARGINE 100 U/ML 3 ML PEN SUBQ SCH (20:23)
[2019-01-02] MEDS: PATCH REMOVAL 1 EA TP SCH (20:24)
--- NOTE | 2019-01-02 20:55 | Pharmacy Note ---
Vancomycin Management Note Vanco Dosing Note Vanco trough 23.80 so will change back to 1.75 gm IV q24h. Will draw another trough before dose on 01/04/19 0300. ITZEL VICTORIA January 02, 2019 20:55
[2019-01-03] MEDS ORDERED: VANCOMYCIN(*) 1 GM VIAL 1 GM, VANCOMYCIN HCL 0.750 GM VIAL 0.75 GM in NS(*) 0.9% 250 ML... IVPB SCH (03:00)
[2019-01-03] MEDS: oxyCODONE HCL 5 MG CAP PO PRN ×4 (03:15→21:22)
[2019-01-03] MEDS: SALMETEROL/FLUTIC 500/50 1 INH INH SCH ×2 (05:24→18:00)
[2019-01-03 06:31] LABS: PLATELET COUNT, AUTOMATED 584 K/uL (150-450)
[2019-01-03 06:39] LABS: INR 1.22
[2019-01-03 08:20] VITALS: BP 152/79
[2019-01-03] MEDS: ESTROGENS CONJ 0.625 MG TAB PO SCH (08:35)
[2019-01-03] MEDS: PANTOPRAZOLE SOD 40 MG TABEC PO SCH ×2 (08:35→21:17)
[2019-01-03] MEDS: CALCIUM CARBONATE/VITAMIN D3 PO SCH ×2 (08:35→16:52)
[2019-01-03] MEDS: VENLAFAXINE XR 75 MG CAPCR PO SCH ×2 (08:35→21:17)
[2019-01-03] MEDS: busPIRone HCL 5 MG TAB PO SCH ×2 (08:35→21:17)
[2019-01-03] MEDS: FEXOFENADINE HCL 60 MG TAB PO SCH ×2 (08:35→21:17)
[2019-01-03] MEDS: DOCUSATE SODIUM 100 MG CAP PO SCH ×2 (08:36→21:17)
[2019-01-03] MEDS: LISINOPRIL 5 MG TAB PO SCH (08:36)
[2019-01-03] MEDS: GABAPENTIN 300 MG CAP PO SCH ×2 (08:36→21:17)
[2019-01-03] MEDS: DILTIAZEM CD 120 MG CAPCR PO SCH (08:36)
[2019-01-03] MEDS: MULTIVITAMINS TAB PO SCH (08:36)
[2019-01-03] MEDS: ENOXAPARIN 100 MG/ML SYR SC SCH ×2 (08:37→21:13)
[2019-01-03] MEDS: INSULIN HUM LISPRO 100 UN/ML 3 ML VIAL SUBQ PRN ×4 (08:38→21:14)
[2019-01-03] MEDS: FLUVASTATIN SODIUM 20 MG CAP PO SCH (08:54)
[2019-01-03] MEDS: POLYETHYLENE GLYCOL 17 GM PKT PO SCH (09:00)
[2019-01-03] MEDS: MAGNESIUM OXIDE 400 MG TAB PO SCH (11:02)
[2019-01-03] MEDS: HYDROCORTISONE 1% CR 28.35 GM TP SCH ×2 (11:26→21:12)
[2019-01-03] MEDS: WARFARIN SOD 5 MG TAB PO SCH (13:07)
[2019-01-03] MEDS: FERROUS SULFATE 325 MG TAB PO SCH (13:07)
--- NOTE | 2019-01-03 13:52 | NUR ---
pt. went out on pass. Provided pt. with portable oxygen to use while in the car and while ambulating in the store. She stated that she has an oxygen concentrator at home, where she plans on going as well to see her grandchildren. At first, pt. thought she did not need oxygen when walking around in the store and while in her vehicle. I reinforced that her oxygen saturation can drop quickly if she does not have it on. We also talked about making sure she gets set-up with a portable oxygen tank upon discharge.
[2019-01-03 16:50] VITALS: BP 166/87
[2019-01-03] MEDS: LIDOCAINE 5% PATCH TP SCH (21:11)
[2019-01-03] MEDS: INSULIN GLARGINE 100 U/ML 3 ML PEN SUBQ SCH (21:16)
[2019-01-03] MEDS: diphenhydrAMINE 25 MG CAP PO PRN (21:21)
[2019-01-04] MEDS: ACETAMINOPHEN 500 MG TAB PO PRN (00:21)
[2019-01-04] MEDS ORDERED: VANCOMYCIN(*) 1 GM VIAL 1 GM in NS(*) 0.9% 250 ML BAG 250 ML IVPB SCH (03:15)
[2019-01-04] MEDS: SALMETEROL/FLUTIC 500/50 1 INH INH SCH ×2 (05:54→17:00)
[2019-01-04 06:21] LABS: INR 1.28
[2019-01-04 08:15] VITALS: BP 146/78
[2019-01-04] MEDS: oxyCODONE HCL 5 MG CAP PO PRN ×3 (08:25→20:28)
[2019-01-04] MEDS: HYDROCORTISONE 1% CR 28.35 GM TP SCH ×2 (08:26→20:25)
[2019-01-04] MEDS: ENOXAPARIN 100 MG/ML SYR SC SCH ×2 (08:26→20:30)
[2019-01-04] MEDS: CALCIUM CARBONATE/VITAMIN D3 PO SCH ×2 (08:27→17:27)
[2019-01-04] MEDS: PANTOPRAZOLE SOD 40 MG TABEC PO SCH ×2 (08:27→20:29)
[2019-01-04] MEDS: FEXOFENADINE HCL 60 MG TAB PO SCH ×2 (08:27→20:28)
[2019-01-04] MEDS: ESTROGENS CONJ 0.625 MG TAB PO SCH (08:27)
[2019-01-04] MEDS: VENLAFAXINE XR 75 MG CAPCR PO SCH ×2 (08:27→20:29)
[2019-01-04] MEDS: GABAPENTIN 300 MG CAP PO SCH ×2 (08:27→20:29)
[2019-01-04] MEDS: busPIRone HCL 5 MG TAB PO SCH ×2 (08:27→20:29)
[2019-01-04] MEDS: DILTIAZEM CD 120 MG CAPCR PO SCH (08:28)
[2019-01-04] MEDS: DOCUSATE SODIUM 100 MG CAP PO SCH ×2 (08:28→20:28)
[2019-01-04] MEDS: MULTIVITAMINS TAB PO SCH (08:28)
[2019-01-04] MEDS: LISINOPRIL 5 MG TAB PO SCH (08:28)
[2019-01-04] MEDS: POLYETHYLENE GLYCOL 17 GM PKT PO SCH (08:29)
[2019-01-04] MEDS: INSULIN HUM LISPRO 100 UN/ML 3 ML VIAL SUBQ PRN ×4 (08:29→20:26)
[2019-01-04] MEDS: PATCH REMOVAL 1 EA TP SCH (08:35)
[2019-01-04] MEDS: FLUVASTATIN SODIUM 20 MG CAP PO SCH (08:35)
--- NOTE | 2019-01-04 09:57 | Pharmacy Note ---
Vancomycin Management Note Vanco Dosing Note Pharmacy Vancomycin Note: 01/04/19- Trough came back at 14.7 so dose was increased to 1 gm IV q12h with a Trough to be drawn before the 4th dose at 01/05/19 1500. Itzel Victoria [facility] ITZEL VICTORIA January 04, 2019 09:57
[2019-01-04] MEDS: MAGNESIUM OXIDE 400 MG TAB PO SCH (11:56)
--- NOTE | 2019-01-04 12:10 | NUR ---
[facility] in [place] called and states that patient had an appointment this morning, which she did not attend. Faxed lab results and Vanco information to the office. Gave patient a list of available appointments to reschedule. Patient states she will discuss these times with her daughter. P: [phone]. F: [phone].
[2019-01-04] MEDS: WARFARIN SOD 5 MG TAB PO SCH (13:53)
[2019-01-04] MEDS: FERROUS SULFATE 325 MG TAB PO SCH (13:54)
--- NOTE | 2019-01-04 13:58 | NUR ---
Spoke with Arlene at Infectious Disease, they will review labs and let us know the follow up plan.
[2019-01-04] MEDS: VANCOMYCIN(*) 1 GM VIAL 1 GM in NS(*) 0.9% 250 ML BAG 250 ML IVPB SCH (16:36)
[2019-01-04 16:50] VITALS: BP 150/84
[2019-01-04] MEDS: INSULIN GLARGINE 100 U/ML 3 ML PEN SUBQ SCH (20:27)
[2019-01-04] MEDS: LIDOCAINE 5% PATCH TP SCH (20:31)
[2019-01-05] MEDS: VANCOMYCIN(*) 1 GM VIAL 1 GM in NS(*) 0.9% 250 ML BAG 250 ML IVPB SCH (04:16)
[2019-01-05] MEDS: SALMETEROL/FLUTIC 500/50 1 INH INH SCH ×2 (05:43→16:56)
[2019-01-05 06:20] LABS: INR 1.41
[2019-01-05 08:25] VITALS: BP 178/104
[2019-01-05] MEDS: HYDROCORTISONE 1% CR 28.35 GM TP SCH ×2 (09:00→20:33)
[2019-01-05] MEDS: PATCH REMOVAL 1 EA TP SCH (09:00)
[2019-01-05] MEDS: FLUVASTATIN SODIUM 20 MG CAP PO SCH (09:00)
[2019-01-05] MEDS: POLYETHYLENE GLYCOL 17 GM PKT PO SCH (09:00)
[2019-01-05] MEDS: oxyCODONE HCL 5 MG CAP PO PRN ×2 (09:02→20:33)
[2019-01-05] MEDS: INSULIN HUM LISPRO 100 UN/ML 3 ML VIAL SUBQ PRN ×4 (09:03→20:32)
[2019-01-05] MEDS: LISINOPRIL 5 MG TAB PO SCH (09:03)
[2019-01-05] MEDS: ENOXAPARIN 100 MG/ML SYR SC SCH ×2 (09:03→20:32)
[2019-01-05] MEDS: CALCIUM CARBONATE/VITAMIN D3 PO SCH ×2 (09:04→17:31)
[2019-01-05] MEDS: MULTIVITAMINS TAB PO SCH (09:04)
[2019-01-05] MEDS: GABAPENTIN 300 MG CAP PO SCH ×2 (09:04→20:33)
[2019-01-05] MEDS: PANTOPRAZOLE SOD 40 MG TABEC PO SCH ×2 (09:04→20:33)
[2019-01-05] MEDS: ESTROGENS CONJ 0.625 MG TAB PO SCH (09:04)
[2019-01-05] MEDS: FEXOFENADINE HCL 60 MG TAB PO SCH ×2 (09:04→20:32)
[2019-01-05] MEDS: busPIRone HCL 5 MG TAB PO SCH ×2 (09:04→20:33)
[2019-01-05] MEDS: DOCUSATE SODIUM 100 MG CAP PO SCH ×2 (09:04→20:33)
[2019-01-05] MEDS: VENLAFAXINE XR 75 MG CAPCR PO SCH ×2 (09:04→20:33)
[2019-01-05] MEDS: DILTIAZEM CD 120 MG CAPCR PO SCH (09:09)
[2019-01-05] MEDS: MAGNESIUM OXIDE 400 MG TAB PO SCH (11:37)
[2019-01-05] MEDS: WARFARIN SOD 5 MG TAB PO SCH (12:35)
[2019-01-05] MEDS: FERROUS SULFATE 325 MG TAB PO SCH (14:00)
[2019-01-05 15:10] VITALS: BP 155/81
[2019-01-05] MEDS: VANCOMYCIN HCL(*) 0.750 GM ADD 0.75 GM in NS(*) 0.9% 250 ML ADDVAN BAG 250 ML IVPB SCH (16:29)
--- NOTE | 2019-01-05 16:52 | Pharmacy Note ---
Vancomycin Management Note Vanco Dosing Note Vanco was changed to 1G q12H and level today (24 hrs later) is up to 22.03. Changed dose to 750mg Q12h and will recheck in 24 hours. WENDY MARQUEZ January 05, 2019 16:52
[2019-01-05] MEDS: LIDOCAINE 5% PATCH TP SCH (20:31)
[2019-01-05] MEDS: INSULIN GLARGINE 100 U/ML 3 ML PEN SUBQ SCH (20:32)
[2019-01-06] MEDS: VANCOMYCIN HCL(*) 0.750 GM ADD 0.75 GM in NS(*) 0.9% 250 ML ADDVAN BAG 250 ML IVPB SCH ×2 (04:54→16:31)
[2019-01-06] MEDS: SALMETEROL/FLUTIC 500/50 1 INH INH SCH ×2 (05:30→18:00)
[2019-01-06 06:26] LABS: INR 1.39
[2019-01-06 08:25] VITALS: BP 143/83
[2019-01-06] MEDS: INSULIN HUM LISPRO 100 UN/ML 3 ML VIAL SUBQ PRN ×4 (08:51→21:35)
[2019-01-06] MEDS: ESTROGENS CONJ 0.625 MG TAB PO SCH (08:52)
[2019-01-06] MEDS: DOCUSATE SODIUM 100 MG CAP PO SCH ×2 (08:52→21:36)
[2019-01-06] MEDS: DILTIAZEM CD 120 MG CAPCR PO SCH (08:52)
[2019-01-06] MEDS: oxyCODONE HCL 5 MG CAP PO PRN ×2 (08:52→21:34)
[2019-01-06] MEDS: GABAPENTIN 300 MG CAP PO SCH ×2 (08:52→21:35)
[2019-01-06] MEDS: ENOXAPARIN 100 MG/ML SYR SC SCH ×2 (08:52→21:34)
[2019-01-06] MEDS: MULTIVITAMINS TAB PO SCH (08:52)
[2019-01-06] MEDS: CALCIUM CARBONATE/VITAMIN D3 PO SCH ×2 (08:52→17:31)
[2019-01-06] MEDS: FEXOFENADINE HCL 60 MG TAB PO SCH ×2 (08:52→21:36)
[2019-01-06] MEDS: VENLAFAXINE XR 75 MG CAPCR PO SCH ×2 (08:52→21:35)
[2019-01-06] MEDS: PANTOPRAZOLE SOD 40 MG TABEC PO SCH ×2 (08:53→21:35)
[2019-01-06] MEDS: LISINOPRIL 5 MG TAB PO SCH (08:53)
[2019-01-06] MEDS: busPIRone HCL 5 MG TAB PO SCH ×2 (08:53→21:36)
[2019-01-06] MEDS: HYDROCORTISONE 1% CR 28.35 GM TP SCH ×2 (09:00→21:00)
[2019-01-06] MEDS: PATCH REMOVAL 1 EA TP SCH (09:00)
[2019-01-06] MEDS: POLYETHYLENE GLYCOL 17 GM PKT PO SCH (09:00)
[2019-01-06] MEDS: FLUVASTATIN SODIUM 20 MG CAP PO SCH (09:00)
[2019-01-06] MEDS: [UNRECOGNIZED DRUG - OTHER] PO SCH (09:50)
[2019-01-06] MEDS: MAGNESIUM OXIDE 400 MG TAB PO SCH (11:39)
[2019-01-06] MEDS: FERROUS SULFATE 325 MG TAB PO SCH (12:49)
[2019-01-06] MEDS ORDERED: WARFARIN SOD 7.5 MG TAB PO SCH (13:00)
[2019-01-06 15:15] VITALS: BP 175/90
[2019-01-06 16:04] VITALS: BP 174/89
[2019-01-06 20:48] VITALS: BP 174/84
[2019-01-06] MEDS: LIDOCAINE 5% PATCH TP SCH (21:34)
[2019-01-06] MEDS: INSULIN GLARGINE 100 U/ML 3 ML PEN SUBQ SCH (21:35)
[2019-01-06 23:22] VITALS: BP 158/85
[2019-01-07] MEDS: VANCOMYCIN HCL(*) 0.750 GM ADD 0.75 GM in NS(*) 0.9% 250 ML ADDVAN BAG 250 ML IVPB SCH ×2 (04:57→15:47)
[2019-01-07] MEDS: SALMETEROL/FLUTIC 500/50 1 INH INH SCH ×2 (05:56→16:58)
[2019-01-07 07:30] VITALS: BP_SYST 135; BP_SYST 157; BP_DIAS 67; BP_DIAS 79
[2019-01-07 07:55] LABS: INR 1.46
[2019-01-07] MEDS: FEXOFENADINE HCL 60 MG TAB PO SCH ×2 (09:00→21:34)
[2019-01-07] MEDS: CALCIUM CARBONATE/VITAMIN D3 PO SCH ×2 (09:00→16:26)
[2019-01-07] MEDS: VENLAFAXINE XR 75 MG CAPCR PO SCH ×2 (09:00→21:34)
[2019-01-07] MEDS: ESTROGENS CONJ 0.625 MG TAB PO SCH (09:00)
[2019-01-07] MEDS: MULTIVITAMINS TAB PO SCH (09:00)
[2019-01-07] MEDS: GABAPENTIN 300 MG CAP PO SCH ×2 (09:00→21:33)
[2019-01-07] MEDS: HYDROCORTISONE 1% CR 28.35 GM TP SCH ×2 (09:00→21:00)
[2019-01-07] MEDS: FLUVASTATIN SODIUM 20 MG CAP PO SCH (09:00)
[2019-01-07] MEDS: POLYETHYLENE GLYCOL 17 GM PKT PO SCH (09:00)
[2019-01-07] MEDS: PANTOPRAZOLE SOD 40 MG TABEC PO SCH ×2 (09:01→21:33)
[2019-01-07] MEDS: LISINOPRIL 5 MG TAB PO SCH (09:01)
[2019-01-07] MEDS: ENOXAPARIN 100 MG/ML SYR SC SCH ×2 (09:01→21:32)
[2019-01-07] MEDS: busPIRone HCL 5 MG TAB PO SCH ×2 (09:01→21:34)
[2019-01-07] MEDS: DOCUSATE SODIUM 100 MG CAP PO SCH ×2 (09:01→21:33)
[2019-01-07] MEDS: INSULIN HUM LISPRO 100 UN/ML 3 ML VIAL SUBQ PRN ×4 (09:02→21:34)
[2019-01-07] MEDS: PATCH REMOVAL 1 EA TP SCH (09:04)
[2019-01-07] MEDS: DILTIAZEM CD 120 MG CAPCR PO SCH (09:15)
[2019-01-07] MEDS: oxyCODONE HCL 5 MG CAP PO PRN ×3 (09:15→21:39)
[2019-01-07] MEDS: MAGNESIUM OXIDE 400 MG TAB PO SCH (10:25)
[2019-01-07] MEDS: FERROUS SULFATE 325 MG TAB PO SCH (12:13)
[2019-01-07] MEDS: WARFARIN SOD 5 MG TAB PO SCH (14:09)
[2019-01-07 16:10] VITALS: BP 172/87
[2019-01-07] MEDS: LIDOCAINE 5% PATCH TP SCH ×2 (21:00→21:35)
[2019-01-07] MEDS: INSULIN GLARGINE 100 U/ML 3 ML PEN SUBQ SCH (21:33)
[2019-01-07 23:32] VITALS: BP 155/86
[2019-01-08] MEDS: ACETAMINOPHEN 500 MG TAB PO PRN ×2 (01:32→22:57)
[2019-01-08] MEDS: VANCOMYCIN HCL(*) 0.750 GM ADD 0.75 GM in NS(*) 0.9% 250 ML ADDVAN BAG 250 ML IVPB SCH ×2 (04:23→15:54)
[2019-01-08] MEDS: SALMETEROL/FLUTIC 500/50 1 INH INH SCH ×2 (06:07→17:00)
[2019-01-08 06:45] LABS: INR 1.53
[2019-01-08 08:30] VITALS: BP 147/91
[2019-01-08] MEDS: ENOXAPARIN 100 MG/ML SYR SC SCH ×2 (08:30→21:09)
[2019-01-08] MEDS: GABAPENTIN 300 MG CAP PO SCH ×2 (08:31→21:10)
[2019-01-08] MEDS: FEXOFENADINE HCL 60 MG TAB PO SCH ×2 (08:31→21:10)
[2019-01-08] MEDS: ESTROGENS CONJ 0.625 MG TAB PO SCH (08:31)
[2019-01-08] MEDS: CALCIUM CARBONATE/VITAMIN D3 PO SCH ×2 (08:31→16:18)
[2019-01-08] MEDS: oxyCODONE HCL 5 MG CAP PO PRN ×3 (08:31→21:10)
[2019-01-08] MEDS: PANTOPRAZOLE SOD 40 MG TABEC PO SCH ×2 (08:31→21:10)
[2019-01-08] MEDS: VENLAFAXINE XR 75 MG CAPCR PO SCH ×2 (08:31→21:10)
[2019-01-08] MEDS: MULTIVITAMINS TAB PO SCH (08:31)
[2019-01-08] MEDS: DILTIAZEM CD 120 MG CAPCR PO SCH (08:31)
[2019-01-08] MEDS: LISINOPRIL 5 MG TAB PO SCH (08:31)
[2019-01-08] MEDS: busPIRone HCL 5 MG TAB PO SCH ×2 (08:31→21:10)
[2019-01-08] MEDS: DOCUSATE SODIUM 100 MG CAP PO SCH ×2 (08:31→21:10)
[2019-01-08] MEDS: INSULIN HUM LISPRO 100 UN/ML 3 ML VIAL SUBQ PRN ×4 (08:32→21:11)
[2019-01-08] MEDS: PATCH REMOVAL 1 EA TP SCH (09:00)
[2019-01-08] MEDS: HYDROCORTISONE 1% CR 28.35 GM TP SCH ×2 (09:00→21:08)
[2019-01-08] MEDS: POLYETHYLENE GLYCOL 17 GM PKT PO SCH (09:00)
[2019-01-08] MEDS: FLUVASTATIN SODIUM 20 MG CAP PO SCH (09:00)
[2019-01-08] MEDS: MAGNESIUM OXIDE 400 MG TAB PO SCH (11:08)
[2019-01-08 11:25] LABS: PLATELET COUNT, AUTOMATED 724 K/uL (150-450)
[2019-01-08] MEDS: FERROUS SULFATE 325 MG TAB PO SCH (12:36)
[2019-01-08] MEDS: WARFARIN SOD 5 MG TAB PO SCH (12:36)
--- NOTE | 2019-01-08 12:47 | Medical Nutrition Therapy ---
Nutrition Anthropometrics Height (Inches): 63.00 Height (Calculated Centimeters: 160.818121 Weight (Pounds): 159 Weight (Calculated Kilograms): 72.291 BMI: 28.2 Harvey Nutrition Score: Adequate Harvey Nutrition Risk Score: 20 Dietary Referral Nutrition Risk Factors: Unplanned Loss >10lbs Nutrition Risk Comment: pt. states rosanne her throat is sore from the intubation Physical Findings Physical Appearance: Overweight BMI 25-29 Skin Appearance Skin Appearance: Edema Edema Location Modifier: Left Edema Location: LE Type of Edema: Degree of Edema: 1+ Gastrointestinal Symptoms GI Symtoms: Tube Present: Bowel Sounds: Recent Bowel Pattern: Stool Characteristics: Nutrition/Food History Fair Skipped Meals: No Nutritional Diagnosis Nutritional Risk Acuity 2: Blood Glucose > 300mg/dl (310 on 01/03), Abcess/Non- Healing Wound Nutritional Risk Acuity 3: Fair Appetite Past Medical History: Hx of hyperlipidemia, GERD, T2DM, shingles, COPD, pancreatectomy, elbow surgery, cholecystectomy, hysterectomy, tuberculosis and HTN. Nutritional Acuity: 2-Moderate Nutrition Diagnosis: Increased Nutrient Needs Nutrition Etiology: Physiological Causes Nutrition Problem/Etiology/Sym: AEB Perinephric abscess Energy Requirement: 1775 (MSJ X 1.1 SF) Protein Requirement: 75 (1ml/kg) Fluid Requirement: 2250 (30ml/kg) Diet Type: Diabetic Nutrition Intervention: Cont diet as ordered, Encourage intake, Nutrition support Drug: Warfarin Do Not Serve Any of the Follow: Broccoli, Brussel Sprouts, Spinach, Arapahoe Lettuce, Cranberry Juice Additional Diet Restrictions: ALLERGIC:CORN Nutrition Monitoring & Eval Nutrition Goals: Eat 75-100% Meal, Drink > 2 liters/day RD Patient Assessment Time: [address] Assessment Type: RD Re-Assessment Patient Nutrition Acuity: 2-Moderate Follow Up Date: January 15, 2019 Nutritional Comment: 12/22 Pt admitted with Perinephric abscess. Pt on diabetic diet and ate 75% of first meal in facility. BG elevated up to 205. Wt is up 11% (17#) from last admit 11/19/18. Pt has 1+ edema BLE. Anticipate wt loss when edema resolved. Will cont to monitor and encourage intake. BK 12/24 Pt cont on diabetic diet and eating 75-100% of meals. No new wt. Edema has declined to non-pitting BLE. RBG cont elevated up to 289. Will cont to monitor and encourage intake. BK 01/01 Pt is now on warfarin and needs to avoid high vit K+ foods. Pt has lost 3kg due to change in edema status to non-pitting. Pt RBG is no longer having a high of 300 since 12/25 and has been 174-248 the past few days. Pt has very low levels of Hgb 8.4 and Hct of 25.7. Pt is consuming 75% of meals and 100% of snacks. Will continue to encourage intake and will continue to monitor. CD 01/07 Pt has very low Hgb 8.7 and Hct 26.6. Pt is likely having iron anemia and could benefit from an iron supplement. Pt had a RBG of 310 on 01/03, but has since got it down to 167-276 the past 24 hours. Pt is eating most of their meals, but will lose some weight as edema resolves. Will continue to monitor and encourage intake. MIGUEL ÁNGEL MARI January 07, 2019 15:23
--- NOTE | 2019-01-08 13:25 | Hospitalist Progress Note ---
Subjective Progress Notes Subjective She reports some mild lingering pain at left costal margin, "but not bad enough to take any pills". No fever. Physical Exam Vital Signs Date Time Temp Pulse Resp B/P (MAP) Pulse Ox O2 Delivery O2 Flow Rate FiO2 01/08/19 08:30 97.5 66 18 147/91 (109) 97 Nasal Cannula 1.0 Intake and Output 01/08/19 07:00 Intake Total 790 ml Balance 790 ml Intake Oral 240 ml IV Total 550 ml # Voids 1 # Bowel Movements 1 General Appearance: Alert, Awake Cardiovascular: Regular Rate and Rhythm Respiratory: Other (diminished breath sounds at left base otherwise essentially clear) Psych: Alert & Oriented X3 Result Diagram: 01/08/19 1103 01/08/19 1103 Assessment and Plan Problems: (1) Perinephric abscess Status: Acute Assessment & Plan: S/P percutaneous drainage. Cultures grew MRSA. She will continue Vancomycin through January 16. She is on oxycodone for acute pain as well as gabapentin 300mg TID. Vancomycin levels have been good. Other labs are improved/normal as well. (2) Empyema lung Status: Acute Assessment & Plan: S/P VATS. Cultures grew MRSA. Treatment with vancomycin through January 16. Re-check CT scan early next week. (3) MRSA bacteremia Status: Resolved Assessment & Plan: Blood cultures at [facility] grew MRSA. Repeat cultures at [facility] were negative after the patient was on treatment with vancomycin. (4) Blood clot in vein Status: Acute Assessment & Plan: On enoxaparin 80mg SQ BID. Per records from [facility], she is to be on treatment for at least 3 months. She is being transitioned to Warfarin. Following daily INR. Will DC Lovenox when INR >2. (5) DEANNE (iron deficiency anemia) Status: Acute Assessment & Plan: Improved. Continue ferrous sulfate 325mg daily with food. (6) Type II diabetes mellitus Status: Chronic Assessment & Plan: Will continue Lantus 5units daily and SSI. (7) HTN (hypertension) Status: Chronic Assessment & Plan: Continue lisinopril 5mg daily and Cardizem CD 120mg daily. (8) GERD (gastroesophageal reflux disease) Status: Chronic Assessment & Plan: Continue a PPI. She takes omeprazole at home. Will place on Protonix here. (9) Hyperlipidemia Status: Chronic Assessment & Plan: The patient takes fluvastatin 20mg at home. Will have her bring this in as it is not on formulary at [facility]. (10) Depression Status: Chronic Assessment & Plan: Continue Effexor XR 75mg bid. She also takes buspirone 5mg bid. (11) COPD (chronic obstructive pulmonary disease) Status: Chronic Assessment & Plan: Continue Advair 500/50 with prn albuterol nebs. DEE BECKFORD MD January 08, 2019 13:25
[2019-01-08 17:00] VITALS: BP 187/89
[2019-01-08] MEDS: LIDOCAINE 5% PATCH TP SCH (21:00)
[2019-01-08] MEDS: INSULIN GLARGINE 100 U/ML 3 ML PEN SUBQ SCH (21:11)
[2019-01-09] MEDS: VANCOMYCIN HCL(*) 0.750 GM ADD 0.75 GM in NS(*) 0.9% 250 ML ADDVAN BAG 250 ML IVPB SCH ×2 (04:41→15:52)
[2019-01-09] MEDS: SALMETEROL/FLUTIC 500/50 1 INH INH SCH ×2 (06:11→18:00)
[2019-01-09 07:29] LABS: INR 1.57
[2019-01-09 08:25] VITALS: BP 175/91
[2019-01-09] MEDS: oxyCODONE HCL 5 MG CAP PO PRN ×2 (08:44→21:07)
[2019-01-09] MEDS: INSULIN HUM LISPRO 100 UN/ML 3 ML VIAL SUBQ PRN ×3 (08:45→21:08)
[2019-01-09] MEDS: ESTROGENS CONJ 0.625 MG TAB PO SCH (08:47)
[2019-01-09] MEDS: PANTOPRAZOLE SOD 40 MG TABEC PO SCH ×2 (08:47→21:08)
[2019-01-09] MEDS: FEXOFENADINE HCL 60 MG TAB PO SCH ×2 (08:47→21:08)
[2019-01-09] MEDS: MULTIVITAMINS TAB PO SCH (08:47)
[2019-01-09] MEDS: VENLAFAXINE XR 75 MG CAPCR PO SCH ×2 (08:47→21:08)
[2019-01-09] MEDS: CALCIUM CARBONATE/VITAMIN D3 PO SCH ×2 (08:47→16:53)
[2019-01-09] MEDS: busPIRone HCL 5 MG TAB PO SCH ×2 (08:47→21:08)
[2019-01-09] MEDS: ENOXAPARIN 100 MG/ML SYR SC SCH ×2 (08:47→21:06)
[2019-01-09] MEDS: DOCUSATE SODIUM 100 MG CAP PO SCH ×2 (08:48→21:08)
[2019-01-09] MEDS: GABAPENTIN 300 MG CAP PO SCH ×2 (08:48→21:08)
[2019-01-09] MEDS: LISINOPRIL 5 MG TAB PO SCH (08:48)
[2019-01-09] MEDS: DILTIAZEM CD 120 MG CAPCR PO SCH (08:48)
[2019-01-09] MEDS: HYDROCORTISONE 1% CR 28.35 GM TP SCH ×2 (08:52→21:07)
[2019-01-09] MEDS: POLYETHYLENE GLYCOL 17 GM PKT PO SCH (08:53)
[2019-01-09] MEDS: FLUVASTATIN SODIUM 20 MG CAP PO SCH (08:53)
[2019-01-09] MEDS: PATCH REMOVAL 1 EA TP SCH (08:54)
[2019-01-09] MEDS: MAGNESIUM OXIDE 400 MG TAB PO SCH (10:53)
[2019-01-09] MEDS: WARFARIN SOD 5 MG TAB PO SCH (13:47)
[2019-01-09] MEDS: FERROUS SULFATE 325 MG TAB PO SCH (13:47)
[2019-01-09 16:04] VITALS: BP 168/93
[2019-01-09] MEDS: LIDOCAINE 5% PATCH TP SCH (21:00)
[2019-01-09] MEDS: INSULIN GLARGINE 100 U/ML 3 ML PEN SUBQ SCH (21:07)
[2019-01-09] MEDS: ACETAMINOPHEN 500 MG TAB PO PRN (23:21)
[2019-01-10] MEDS: VANCOMYCIN HCL(*) 0.750 GM ADD 0.75 GM in NS(*) 0.9% 250 ML ADDVAN BAG 250 ML IVPB SCH ×2 (04:30→16:34)
[2019-01-10] MEDS: SALMETEROL/FLUTIC 500/50 1 INH INH SCH ×2 (05:33→17:00)
[2019-01-10 06:30] LABS: INR 1.51
[2019-01-10 08:15] VITALS: BP 168/87
[2019-01-10] MEDS: VENLAFAXINE XR 75 MG CAPCR PO SCH ×2 (08:45→20:39)
[2019-01-10] MEDS: FEXOFENADINE HCL 60 MG TAB PO SCH ×2 (08:45→20:39)
[2019-01-10] MEDS: LISINOPRIL 5 MG TAB PO SCH (08:45)
[2019-01-10] MEDS: oxyCODONE HCL 5 MG CAP PO PRN ×2 (08:45→19:15)
[2019-01-10] MEDS: CALCIUM CARBONATE/VITAMIN D3 PO SCH ×2 (08:45→16:32)
[2019-01-10] MEDS: GABAPENTIN 300 MG CAP PO SCH ×2 (08:45→20:39)
[2019-01-10] MEDS: ESTROGENS CONJ 0.625 MG TAB PO SCH (08:45)
[2019-01-10] MEDS: busPIRone HCL 5 MG TAB PO SCH ×2 (08:45→20:39)
[2019-01-10] MEDS: MULTIVITAMINS TAB PO SCH (08:45)
[2019-01-10] MEDS: PANTOPRAZOLE SOD 40 MG TABEC PO SCH ×2 (08:46→20:39)
[2019-01-10] MEDS: DOCUSATE SODIUM 100 MG CAP PO SCH ×2 (08:46→20:35)
[2019-01-10] MEDS: ENOXAPARIN 100 MG/ML SYR SC SCH ×2 (08:46→20:41)
[2019-01-10] MEDS: DILTIAZEM CD 120 MG CAPCR PO SCH (08:46)
[2019-01-10] MEDS: FLUVASTATIN SODIUM 20 MG CAP PO SCH (08:49)
[2019-01-10] MEDS: POLYETHYLENE GLYCOL 17 GM PKT PO SCH (08:49)
[2019-01-10] MEDS: PATCH REMOVAL 1 EA TP SCH (08:49)
[2019-01-10] MEDS: HYDROCORTISONE 1% CR 28.35 GM TP SCH ×2 (08:49→20:35)
[2019-01-10] MEDS: MAGNESIUM OXIDE 400 MG TAB PO SCH (11:38)
[2019-01-10] MEDS: INSULIN HUM LISPRO 100 UN/ML 3 ML VIAL SUBQ PRN ×3 (12:00→20:40)
[2019-01-10] MEDS: FERROUS SULFATE 325 MG TAB PO SCH (13:34)
[2019-01-10] MEDS: WARFARIN SOD 7.5 MG TAB PO SCH (13:36)
[2019-01-10 17:05] VITALS: BP 165/86
[2019-01-10] MEDS: LIDOCAINE 5% PATCH TP SCH (20:34)
[2019-01-10] MEDS: ACETAMINOPHEN 500 MG TAB PO PRN (20:39)
[2019-01-10] MEDS: INSULIN GLARGINE 100 U/ML 3 ML PEN SUBQ SCH (20:40)
[2019-01-11] MEDS: VANCOMYCIN HCL(*) 0.750 GM ADD 0.75 GM in NS(*) 0.9% 250 ML ADDVAN BAG 250 ML IVPB SCH ×2 (04:36→15:45)
[2019-01-11] MEDS: SALMETEROL/FLUTIC 500/50 1 INH INH SCH ×2 (06:06→17:17)
[2019-01-11 06:24] LABS: INR 1.62
[2019-01-11] MEDS: INSULIN HUM LISPRO 100 UN/ML 3 ML VIAL SUBQ PRN ×3 (08:40→20:51)
[2019-01-11 08:50] VITALS: BP 171/89
[2019-01-11] MEDS: oxyCODONE HCL 5 MG CAP PO PRN ×3 (08:53→23:10)
[2019-01-11] MEDS: PANTOPRAZOLE SOD 40 MG TABEC PO SCH ×2 (08:53→20:52)
[2019-01-11] MEDS: FEXOFENADINE HCL 60 MG TAB PO SCH ×2 (08:53→20:51)
[2019-01-11] MEDS: busPIRone HCL 5 MG TAB PO SCH ×2 (08:53→20:51)
[2019-01-11] MEDS: ESTROGENS CONJ 0.625 MG TAB PO SCH (08:53)
[2019-01-11] MEDS: DOCUSATE SODIUM 100 MG CAP PO SCH ×2 (08:54→20:51)
[2019-01-11] MEDS: DILTIAZEM CD 120 MG CAPCR PO SCH (08:54)
[2019-01-11] MEDS: LISINOPRIL 5 MG TAB PO SCH (08:54)
[2019-01-11] MEDS: GABAPENTIN 300 MG CAP PO SCH ×2 (08:54→20:52)
[2019-01-11] MEDS: VENLAFAXINE XR 75 MG CAPCR PO SCH ×2 (08:54→20:51)
[2019-01-11] MEDS: MULTIVITAMINS TAB PO SCH (08:54)
[2019-01-11] MEDS: ENOXAPARIN 100 MG/ML SYR SC SCH ×2 (08:55→20:52)
[2019-01-11] MEDS: PATCH REMOVAL 1 EA TP SCH (09:00)
[2019-01-11] MEDS: HYDROCORTISONE 1% CR 28.35 GM TP SCH ×2 (09:00→20:48)
[2019-01-11] MEDS: FLUVASTATIN SODIUM 20 MG CAP PO SCH (09:00)
[2019-01-11] MEDS: POLYETHYLENE GLYCOL 17 GM PKT PO SCH (09:00)
[2019-01-11] MEDS: CALCIUM CARBONATE/VITAMIN D3 PO SCH ×2 (09:01→16:39)
[2019-01-11] MEDS: MAGNESIUM OXIDE 400 MG TAB PO SCH (11:42)
[2019-01-11] MEDS: ACETAMINOPHEN 500 MG TAB PO PRN (12:06)
[2019-01-11] MEDS ORDERED: WARFARIN SOD 5 MG TAB PO SCH (13:00)
[2019-01-11] MEDS: FERROUS SULFATE 325 MG TAB PO SCH (14:04)
[2019-01-11 16:12] VITALS: BP 168/88
[2019-01-11] MEDS: LIDOCAINE 5% PATCH TP SCH (20:48)
[2019-01-11] MEDS: INSULIN GLARGINE 100 U/ML 3 ML PEN SUBQ SCH (20:52)
[2019-01-12] MEDS: VANCOMYCIN HCL(*) 0.750 GM ADD 0.75 GM in NS(*) 0.9% 250 ML ADDVAN BAG 250 ML IVPB SCH ×2 (04:14→15:47)
[2019-01-12 06:23] LABS: INR 1.77
[2019-01-12] MEDS: SALMETEROL/FLUTIC 500/50 1 INH INH SCH ×2 (06:23→18:00)
[2019-01-12] MEDS: INSULIN HUM LISPRO 100 UN/ML 3 ML VIAL SUBQ PRN ×3 (08:39→16:56)
[2019-01-12] MEDS: CALCIUM CARBONATE/VITAMIN D3 PO SCH ×2 (08:39→16:56)
[2019-01-12] MEDS: GABAPENTIN 300 MG CAP PO SCH ×2 (08:39→20:16)
[2019-01-12] MEDS: PATCH REMOVAL 1 EA TP SCH (09:00)
[2019-01-12] MEDS: HYDROCORTISONE 1% CR 28.35 GM TP SCH ×2 (09:00→20:05)
[2019-01-12] MEDS: POLYETHYLENE GLYCOL 17 GM PKT PO SCH (09:00)
[2019-01-12] MEDS: FLUVASTATIN SODIUM 20 MG CAP PO SCH (09:00)
[2019-01-12 09:15] VITALS: BP 160/81
[2019-01-12] MEDS: MULTIVITAMINS TAB PO SCH (09:29)
[2019-01-12] MEDS: DOCUSATE SODIUM 100 MG CAP PO SCH ×2 (09:29→20:16)
[2019-01-12] MEDS: DILTIAZEM CD 120 MG CAPCR PO SCH (09:29)
[2019-01-12] MEDS: busPIRone HCL 5 MG TAB PO SCH ×2 (09:30→20:16)
[2019-01-12] MEDS: PANTOPRAZOLE SOD 40 MG TABEC PO SCH ×2 (09:30→20:16)
[2019-01-12] MEDS: oxyCODONE HCL 5 MG CAP PO PRN ×2 (09:30→16:56)
[2019-01-12] MEDS: ESTROGENS CONJ 0.625 MG TAB PO SCH (09:30)
[2019-01-12] MEDS: LISINOPRIL 5 MG TAB PO SCH (09:30)
[2019-01-12] MEDS: VENLAFAXINE XR 75 MG CAPCR PO SCH ×2 (09:30→20:16)
[2019-01-12] MEDS: FEXOFENADINE HCL 60 MG TAB PO SCH ×2 (09:30→20:16)
[2019-01-12] MEDS: ENOXAPARIN 100 MG/ML SYR SC SCH ×2 (09:31→20:17)
[2019-01-12] MEDS: MAGNESIUM OXIDE 400 MG TAB PO SCH (11:12)
[2019-01-12] MEDS: ACETAMINOPHEN 500 MG TAB PO PRN ×2 (12:25→20:16)
[2019-01-12] MEDS: WARFARIN SOD 7.5 MG TAB PO SCH (13:22)
[2019-01-12] MEDS: FERROUS SULFATE 325 MG TAB PO SCH (13:22)
[2019-01-12 15:55] VITALS: BP 159/84
--- NOTE | 2019-01-12 17:04 | NUR ---
Given safety instructions for going out on pass. Instructed to keep oxygen on and monitor tank. BS before leaving for pass was 305, covered with 8 unit Humalog. Instructed to eat within about 30 minutes, watch for signs of hypoglycemia, and to monitor carbohydrates.
[2019-01-12] MEDS: INSULIN GLARGINE 100 U/ML 3 ML PEN SUBQ SCH (20:15)
[2019-01-12] MEDS: LIDOCAINE 5% PATCH TP SCH (20:17)
[2019-01-13] MEDS: VANCOMYCIN HCL(*) 0.750 GM ADD 0.75 GM in NS(*) 0.9% 250 ML ADDVAN BAG 250 ML IVPB SCH ×2 (04:32→15:50)
[2019-01-13] MEDS: SALMETEROL/FLUTIC 500/50 1 INH INH SCH ×2 (05:48→16:03)
[2019-01-13 05:50] LABS: INR 1.97
[2019-01-13 08:15] VITALS: BP 147/79
[2019-01-13] MEDS: ENOXAPARIN 100 MG/ML SYR SC SCH ×2 (08:19→21:00)
[2019-01-13] MEDS: INSULIN HUM LISPRO 100 UN/ML 3 ML VIAL SUBQ PRN ×4 (08:20→21:32)
[2019-01-13] MEDS: DILTIAZEM CD 120 MG CAPCR PO SCH (08:20)
[2019-01-13] MEDS: LISINOPRIL 5 MG TAB PO SCH (08:20)
[2019-01-13] MEDS: [UNRECOGNIZED DRUG - OTHER] PO SCH (08:21)
[2019-01-13] MEDS: CALCIUM CARBONATE/VITAMIN D3 PO SCH ×2 (08:21→17:11)
[2019-01-13] MEDS: DOCUSATE SODIUM 100 MG CAP PO SCH ×2 (08:21→21:00)
[2019-01-13] MEDS: GABAPENTIN 300 MG CAP PO SCH ×2 (08:21→21:00)
[2019-01-13] MEDS: busPIRone HCL 5 MG TAB PO SCH ×2 (08:21→21:00)
[2019-01-13] MEDS: ESTROGENS CONJ 0.625 MG TAB PO SCH (08:21)
[2019-01-13] MEDS: FEXOFENADINE HCL 60 MG TAB PO SCH ×2 (08:21→21:00)
[2019-01-13] MEDS: VENLAFAXINE XR 75 MG CAPCR PO SCH ×2 (08:21→21:00)
[2019-01-13] MEDS: MULTIVITAMINS TAB PO SCH (08:21)
[2019-01-13] MEDS: oxyCODONE HCL 5 MG CAP PO PRN ×3 (08:22→21:13)
[2019-01-13] MEDS: PANTOPRAZOLE SOD 40 MG TABEC PO SCH ×2 (08:22→21:00)
[2019-01-13] MEDS: FLUVASTATIN SODIUM 20 MG CAP PO SCH (08:22)
[2019-01-13] MEDS: POLYETHYLENE GLYCOL 17 GM PKT PO SCH (08:22)
[2019-01-13] MEDS: PATCH REMOVAL 1 EA TP SCH (09:00)
[2019-01-13] MEDS: HYDROCORTISONE 1% CR 28.35 GM TP SCH ×2 (09:00→21:00)
[2019-01-13] MEDS: MAGNESIUM OXIDE 400 MG TAB PO SCH (10:32)
[2019-01-13] MEDS: FERROUS SULFATE 325 MG TAB PO SCH (12:19)
[2019-01-13] MEDS: WARFARIN SOD 7.5 MG TAB PO SCH (13:41)
[2019-01-13] MEDS: ACETAMINOPHEN 500 MG TAB PO PRN (15:01)
[2019-01-13 15:50] VITALS: BP 120/73
[2019-01-13] MEDS: LIDOCAINE 5% PATCH TP SCH (21:00)
[2019-01-13 21:14] VITALS: BP 124/79
[2019-01-13 21:26] LABS: PLATELET COUNT, AUTOMATED 650 K/uL (150-450)
[2019-01-13] MEDS: INSULIN GLARGINE 100 U/ML 3 ML PEN SUBQ SCH (21:32)
[2019-01-13] MEDS ORDERED: IOPAMIDOL 76% 100 ML INFUS BTL 100 ML ONE (21:45)
--- NOTE | 2019-01-13 23:32 | RADIOLOGY IMAGING REPORT ---
FACILITY: [facility] - [place], [place] PATIENT NAME: Subha Martinez : 1965 MR: [id number] V: [id number] EXAM DATE: [id number] ORDERING PHYSICIAN: LARS BECKFORD TECHNOLOGIST: Location: [facility] [place] Patient: Subha Martinez : 1965 Visit/Account:[id number] Date of Sevice: 01/13/2019 CT CHEST ABDOMEN PELVIS W/CON HISTORY: Left-sided back pain and left shoulder pain. History of left empyema/perinephric abscess. St atus post VATS. COMPARISON: 12/28/2018 and studies dating to 05/26/2006. TECHNIQUE: Axial images were obtained from the thoracic inlet through the symphysis pubis with intrav enous contrast. Sagittal and coronal reformats were performed. One of the following dose optimization techniques was utilized in the performance of this exam: Autom ated exposure control; adjustment of the mA and/or kV according to the patient's size; or use of an i terative reconstruction technique. Specific details can be referenced in the facility's radiology CT exam operational policy. CONTRAST: 75 mL IV Isovue-370. FINDINGS: Thoracic inlet: Normal. Thoracic aorta: No aneurysm or dissection. There is mild atherosclerosis of the thoracic aorta. Heart/Pericardium: The heart is normal. There is a trace, likely physiologic, pericardial effusion. T here is mild coronary artery calcification. Mediastinum/Brii: There is an enlarged 1.2 cm short axis diameter precarinal node (image 41 series 2) previously 1.4 cm. Their are other smaller mediastinal and hilar lymph nodes. There are calcified le ft hilar and AP window nodes, compatible with prior granulomatous disease. Left upper extremity PICC terminates in the mid superior vena cava. Lungs/Pleura: There is a small left pleural effusion that has decreased in size. There is adjacent co nsolidation, unchanged, containing stable linear serpiginous high density material within it. There i s moderate centrilobular emphysema. There is patchy right lower lobe opacity that has improved. The f ocal consolidation in the lateral right upper lobe (image 23 series 4) has improved. 4 mm right upper lobe pulmonary nodule (image 37 series 4) has mildly decreased in size, previously 5 mm. Node along the minor fissure (image 60 series 4) has not significantly changed. There is a calci fied granuloma in the left upper lobe (image 44). No pneumothorax. The airways are normal. There is u nchanged left hemidiaphragm elevation. Liver: Normal. Gallbladder/biliary: Cholecystectomy. No intrahepatic or extrahepatic ductal dilation. Pancreas: Visible pancreas is normal. The pancreatic tail appears truncated and there is a coarse yoel cification at the distal pancreas, unchanged. Spleen: Absent. Adrenals: Normal. Kidneys/ureters/bladder: There is residual wedge-shaped area of low attenuation of the left cortex at the junction of the superior and mid kidney (coronal image 63 for example). Minimal adjacent inflamm ation has improved. Right kidney is normal. There is a nonobstructing 3 mm calculus of the inferior r ight kidney. The ureters and bladder are normal. GI/mesentery/peritoneal cavity: Stomach is superiorly displaced due to elevated left hemidiaphragm, u nchanged. There is no bowel obstruction. There is no wall thickening or pericolonic stranding. The ap pendix is not discretely visualized. No inflammatory stranding in the right lower quadrant. Vessels: There is mild atherosclerotic disease. No aneurysm. No dissection. Nodes: There is a right iliac chain node (image 184 series 2) that is at the upper limits of normal f or size, measuring 1.0 cm short axis diameter, unchanged. There is a mildly enlarged left iliac chain node (image 180 series 2), measuring 1.1 cm in short axis diameter, unchanged. There is a right dustin c chain node measuring 1.0 cm short axis diameter (image 149), unchanged. There are other smaller ret roperitoneal and iliac chain nodes that are stable. Pelvis: There are phleboliths. Uterus is absent. Ovaries are not identified Bones/vertebra/soft tissu es: There is a large heterogeneous collection in the left lateral chest wall that has dramatically in creased in size, now measuring 16.9 x 6.6 x 13.5 cm (axial image 51 series 2 and coronal image 59). T here are some focal areas of higher attenuation within this (images 39 and 35 for example) There is s urrounding stranding. There are some fluid-fluid levels within this collection. There has been interval decrease in the skin thickening of the left breast and the underlying strandi ng. There is a 1.7 cm short axis diameter left axillary node (image 13 series 2), previously 1.4 cm. The subcutaneous stranding in the abdominal wall has improved. There are numerous rounded densities i n the ventral subcutaneous fat, new, as well as one small focus of gas. There is skin thickening of t he lower ventral abdominal/pelvic wall, similar to prior study. There are injection granulomas in the posterior fat of the pelvis. There are fractures of the left posterolateral sixth and anterolateral sixth left rib with new perios teal reaction. There is a healing fracture of the anterolateral seventh left rib. There is a healed f racture of the posterior eleventh left rib. There is multilevel degenerative change of the spine, greatest at L5-S1, where there are endplate scl erosis, a vacuum cleft, circumferential disc osteophyte, and moderate loss of disc height. There is 3 mm retrolisthesis of L2 compared to L3, unchanged. There are several Schmorl nodes. IMPRESSION: 1. Large complex fluid collection in the left lateral chest wall with surrounding stranding. There ar e some areas of higher attenuation within this collection, and given history of sudden dramatic incre ase in size, suspect this is all hemorrhage with small areas of contrast extravasation into it. Absce ss is felt less likely given the provided history 2. Healing left rib fractures, potentially related to previous thoracotomy. 3. Stable consolidation in the left lower lobe but decrease in size of the small left pleural effusio n. 4. Interval improvement in aeration of the right lung. 5. Stable low-attenuation in the superolateral right renal cortex may be sequela of prior pyelonephri tis versus persistent pyelonephritis, although the surrounding stranding/inflammation has improved. 6. Numerous round high attenuation structures in the ventral abdominal fat, likely small subcutaneous hematomas related to subcutaneous injections. 7. Mediastinal lymphadenopathy has improved. Iliac chain lymphadenopathy is stable. Left axillary lym phadenopathy has progressed. These findings were discussed by phone with LARS BECKFORD on 01/13/2019 11:24 PM. Report Dictated By: Aimee Salcido at 01/13/2019 10:47 PM Report E-Signed By: Aimee Salcido at 01/13/2019 11:28 PM WSN:[id number]
--- NOTE | 2019-01-14 00:03 | Hospitalist Depart ---
Discharge Summary Reason for Hosp/Final Diag: (1) Hematoma Status: Acute Hospital Course & Plan: Called to see patient with onset of swelling and acute pain over L mid to upper back. The patient states she noticed some swelling this am. She went on pass to have dinner at her daughter's house. The swelling and pain worsened. She returned to [facility] in severe pain with new large mass over her L back/flank. The patient has a history of line related UE DVT and is on Coumadin. She had a subtherapeutic INR so was placed on Lovenox 80mg bid for bridging. Today her INR was nearly therapeutic at 1.97. She did receive a dose of Lovenox 80mg at 0900. The patient complains of severe pain but denies feeling lightheaded. Her Hgb did drop from 9.[address] of the chest/abdomen/pelvis was done STAT and showed a fluid collection, likely a hematoma, in the area of the swelling. This was very large and appeared to have some contrast per the radiologist which could mean that there was still active bleeding. I talked with Dr. Hernandez who recommends moving to ICU for close monitoring. Will reverse her anticoagulation with protamine 25mg, FFP, and vit K. Will recheck an INR one hour after the FFP is in. Will recheck a CBC in 6 hours after that last CBC was done. Will monitor closely in ICU. (2) Perinephric abscess Status: Acute Hospital Course & Plan: S/P percutaneous drainage. Cultures grew MRSA. She will continue Vancomycin through January 16. She is on oxycodone for acute pain as well as gabapentin 300mg TID. Vancomycin levels have been good. Other labs are improved/normal as well. (3) Empyema lung Status: Acute Hospital Course & Plan: S/P VATS. Cultures grew MRSA. Treatment with vancomycin through January 16. Re-check CT scan shows all issues to be improved or stable. (4) MRSA bacteremia Status: Resolved Hospital Course & Plan: Blood cultures at [facility] grew MRSA. Repeat cultures at [facility] were negative after the patient was on treatment with vancomycin. (5) Blood clot in vein Status: Acute Hospital Course & Plan: On enoxaparin 80mg SQ BID. Per records from [facility], she was to be on treatment for at least 3 months. She was being transitioned to Warfarin. INR 1.97 today. She developed a hematoma and her anticoagulation will now need to be reversed acutely. See above. (6) DEANNE (iron deficiency anemia) Status: Acute Hospital Course & Plan: Improved. Continue ferrous sulfate 325mg daily with food. (7) Type II diabetes mellitus Status: Chronic Hospital Course & Plan: Will continue Lantus 5units daily and SSI. (8) HTN (hypertension) Status: Chronic Hospital Course & Plan: Continue lisinopril 5mg daily and Cardizem CD 120mg daily. (9) GERD (gastroesophageal reflux disease) Status: Chronic Hospital Course & Plan: Continue a PPI. She takes omeprazole at home. Will place on Protonix here. (10) Hyperlipidemia Status: Chronic Hospital Course & Plan: The patient takes fluvastatin 20mg at home. Will have her bring this in as it is not on formulary at [facility]. (11) Depression Status: Chronic Hospital Course & Plan: Continue Effexor XR 75mg bid. She also takes buspirone 5mg bid. (12) COPD (chronic obstructive pulmonary disease) Status: Chronic Hospital Course & Plan: Continue Advair 500/50 with prn albuterol nebs. Departure Weight (Pounds): 159 Weight (Ounces): 6.0 Result Diagram: 01/13/19211801/13/192118 Condition: Critical Discharge: Another Hospital ([facility] acute care-ICU.) Time Spent: < 30 min Discharge Instructions Home Meds Active Scripts Vancomycin HCl/D5w (Vancomycin 1.5 Gram/250 ml-D5w) 1.5 Gram/250 Ml Plast..bag, 1.5 GM IV q18hrs for 42 Days, BAG Prov:DEE BECKFORD MD 11/26/18 Lidocaine (Lidocaine) 5 % Adh..patch, 1 EACH TP QDAY for 14 Days, #14 PATCH.24H Prov:DEE BECKFORD MD 11/26/18 Polyethylene Glycol 3350 (POLYETHYLENE GLYCOL 3350) 17 Gm Powd.pack, 17 GM PO QDAY for 30 Days, #30 PACK Prov:DEE BECKFORD MD 11/26/18 Estrogens, Conjugated (PREMARIN) 1.25 Mg Tablet, 1.25 MG PO QDAY, #30 TAB Prov:LARS BECKFORD MD 08/09/15 Omeprazole (OMEPRAZOLE) 20 Mg Capsule.dr, 1 CAP PO BID, #60 CAP Prov:LARS BECKFORD MD 08/09/15 Venlafaxine Hcl (VENLAFAXINE HCL ER) 75 Mg Tab.er.24, 75 MG PO BID, #60 TAB Prov:LARS BECKFORD MD 08/09/15 Reported Medications Magnesium Hydroxide (MILK OF MAGNESIA) 400 Mg/5 Ml Oral.susp, 30 ML PO BID, BOTTLE 12/21/18 Gabapentin (GABAPENTIN) 300 Mg Capsule, 300 MG PO TID, CAPSULE 12/21/18 Fluticasone/Salmeterol (ADVAIR 250-50 DISKUS) 1 Each Disk.w.dev, 1 PUFF IH BID 12/21/18 Docusate Sodium (COLACE) 100 Mg Capsule, 1 CAP PO BID PRN for CONSTIPATION, CAPSULE 12/21/18 Diltiazem Hcl (CARDIZEM CD) 120 Mg Cap.er.24h, 1 CAPSULE PO QDAY 12/21/18 Albuterol Sulfate 0.083% (ALBUTEROL SULFATE 0.083%) 2.5 Mg/3 Ml Vial.neb, 1 VIAL INH Q4H PRN for WHEEZING, INH 12/21/18 Venlafaxine Hcl (VENLAFAXINE HCL) 37.5 Mg Tab, 1 TAB PO BIDAC, TAB 12/21/18 Pantoprazole Sodium (PANTOPRAZOLE SODIUM) 40 Mg Tablet.dr, 40 MG PO BID, TAB.SR 12/21/18 Oxycodone Hcl (OXYCODONE HCL) 5 Mg Tablet, 1-2 TAB PO Q4H PRN for PAIN 12/21/18 Lisinopril (LISINOPRIL) 5 Mg Tablet, 5 MG PO QDAY, TAB 12/21/18 Insulin Lispro 100 Un/Ml Vial (HUMALOG 100 U/ML VIAL) 100 Unit/1 Ml Vial, 1-6 UNIT SQ TIDAC, VIAL 12/21/18 Enoxaparin Sodium (LOVENOX) 80 Mg/0.8 Ml Disp.syrin, 80 MG SQ Q12H 12/21/18 Multivitamin With Minerals (MULTIPLE VITAMIN) 1 Each Tablet, 1 EACH PO QDAY, TAB 12/21/18 Magnesium Oxide (MAGOX 400) 400 Mg Tablet, 1 TAB PO QDAY 12/21/18 Insulin Glargine 100 Un/Ml Pen (LANTUS SOLOSTAR PEN) 100 Unit/1 Ml Insuln.pen, 5 UNIT SQ QHS, PEN 12/21/18 Ferrous Sulfate (FERROUS SULFATE) 325 Mg Tablet.dr, 325 MG PO QDAY 12/21/18 Ergocalciferol (Vitamin D2) (VITAMIN D2) 50,000 Unit Capsule, 1 CAPSULE PO QWEEK, CAPSULE 12/21/18 Calcium Carbonate/Vitamin D3 (CALCIUM 600 + VIT D 400 TABLET) 1 Each Tablet, 1 EACH PO BIDAC 12/21/18 Buspirone Hcl (BUSPIRONE HCL) 5 Mg Tab, 5 MG PO BID, #10 TAB 12/21/18 Fluvastatin Sodium (Lescol) 20 Mg Capsule, 20 MG PO QHS, 0 Refills 06/24/11 Diet: Regular Activity: As Tolerated Copies to: IVORY TORRES PA-C ; Venous Thromboembolism Antithrombotics Is Pt On Any Antithrombotics?: Yes LARS BECKFORD MD January 14, 2019 00:03
== END 2019-01-14 | disposition still patient (30) | DRG 689 ==
LOC: ECF 14:04
PROVIDERS: ADMIT Internal Medicine; ATTEND Internal Medicine
DX: N15.1 Renal and perinephric abscess (principal); J86.9 Pyothorax without fistula; I82.622 Acute embolism and thrombosis of deep veins of left upper extremity; M79.81 Nontraumatic hematoma of soft tissue; E11.9 Type 2 diabetes mellitus without complications; I10 Essential (primary) hypertension; K21.9 Gastro-esophageal reflux disease without esophagitis; E78.5 Hyperlipidemia, unspecified; D50.9 Iron deficiency anemia, unspecified; F32.9 Major depressive disorder, single episode, unspecified; J44.9 Chronic obstructive pulmonary disease, unspecified; L29.9 Pruritus, unspecified; Z79.4 Long term (current) use of insulin; Z90.49 Acquired absence of other specified parts of digestive tract; Z86.14 Personal history of Methicillin resistant Staphylococcus aureus infection
CPT/HCPCS: 36415; 36416; 71046; 71260; 74177; 80202; 82040; 82247; 82310; 82374; 82435; 82565; 82947; 82948; 84075; 84132; 84155; 84295; 84450; 84460; 84520; 85025; 85610; 86140; 94640; 97162; 97165; J1200; J1650; J1815; J2997; J3370; J7040; J7050; J7613; Q0163; Q9967

== ENCOUNTER 2019-01-14 | Inpatient (IN) | payer MEDICAID ==
[2019-01-14] VITALS (37 sets, daily range): BP systolic 112–175; BP diastolic 56–107; Ht 160 cm; Wt 70.3 kg
[~2019-01-14] VITALS: Ht 160 cm; Wt 70.3 kg
[~2019-01-14] MED LIST changes: +ALBU2.5V36 INH; +BUS5 PO; +CALC-634 PO; +DILT120C PO; +DOCU-416 PO; +ENOX80DI8 SQ; +ERGO500037 PO; +FERR-41 PO; +INSU100I30 SQ; +LISI5TAB25 PO; +MAGN400T52 PO; +MOM PO; +MULT-1335 PO; +OMEP-125 PO; -OMEP-126 PO; +PANT40TA65 PO; +VENL37.514 PO
[2019-01-14] MEDS ORDERED: ACETAMINOPHEN 325 MG TAB PO PRN (00:20)
[2019-01-14] MEDS ORDERED: FLUSH 10 ML SYR IVP PRN (00:20)
[2019-01-14] MEDS ORDERED: INSULIN HUM LISPRO 100 UN/ML 3 ML VIAL SUBQ PRN (00:25)
[2019-01-14] MEDS ORDERED: PHYTONADIONE (*) 10 MG/ML AMP 10 MG in NS(*) 0.9% 50 ML BAG 50 ML IVPB ONE (00:25)
[2019-01-14] MEDS ORDERED: PROTAMINE SULFATE IVP ONE (00:25)
[2019-01-14] MEDS ORDERED: oxyCODONE HCL 5 MG CAP PO PRN (00:50)
[2019-01-14] MEDS ORDERED: DOCUSATE SODIUM 100 MG CAP PO PRN (00:50)
[2019-01-14] MEDS ORDERED: ALTEPLASE RECOMB 2 MG VIAL IVP PRN (00:50)
[2019-01-14] MEDS ORDERED: diphenhydrAMINE 25 MG CAP PO PRN (00:50)
[2019-01-14] MEDS ORDERED: POLYETHYLENE GLYCOL 17 GM PKT PO PRN (00:50)
[2019-01-14] MEDS ORDERED: ALBUTEROL 2.5 MG/3 ML NEB NEB PRN (00:50)
[2019-01-14] MEDS: NS(*) 0.9% 1000 ML BAG 1,000 ML IV PRN ×2 (01:01→21:39)
[2019-01-14] MEDS: MORPHINE 2 MG/ML SYR IVP PRN ×3 (01:01→10:25)
[2019-01-14] MEDS ORDERED: MAGNESIUM HYDROXIDE* 30ML UDCP PO PRN (01:05)
--- NOTE | 2019-01-14 01:38 | History & Physical ---
History of Present Illness Chief Complaint Hematoma History of Present Illness Called to see patient on ECF with onset of swelling and acute pain over L mid to upper back. The patient states she noticed some swelling this am. She went on pass to have dinner at her daughter's house. The swelling and pain worsened. She returned to [facility] in severe pain with new large mass over her L back/flank. The patient has a history of line related UE DVT that developed while she was hospitalized at [facility] and is on Coumadin. She had a subtherapeutic INR so was placed on Lovenox 80mg bid for bridging. Today her INR was nearly therapeutic at 1.97. She did receive a dose of Lovenox 80mg at 0900. The patient complains of severe pain but denies feeling lightheaded. Her Hgb did drop from 9.[address] of the chest/abdomen/pelvis was done STAT and showed a fluid collection, likely a hematoma, in the area of the swelling. This was very large and appeared to have some contrast per the radiologist which could mean that there was still active bleeding. General surgery was consulted and recommended moving the patient to ICU for close monitoring. 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 (6) Status post thoracotomy Status: Resolved (7) MRSA bacteremia Status: Resolved (8) Blood clot in vein Status: Acute (9) Type II diabetes mellitus Status: Chronic (10) HTN (hypertension) Status: Chronic (11) GERD (gastroesophageal reflux disease) Status: Chronic (12) DEANNE (iron deficiency anemia) Status: Acute (13) Perinephric abscess Status: Resolved (14) Hyperlipidemia Status: Chronic (15) Empyema lung Status: Resolved (16) DKA (diabetic ketoacidoses) Status: Resolved (17) Depression Status: Chronic (18) COPD (chronic obstructive pulmonary disease) Status: Chronic (19) Chronic hip pain Status: Chronic (20) Hx of cervical cancer Status: Chronic (21) Hx of tuberculosis Status: Chronic (22) Chronic back pain Status: Chronic (23) Sleep apnea Status: Chronic (24) Drug-seeking behavior Status: Acute (25) Angioedema Status: Acute (26) Allergic rhinitis Status: Chronic (27) Arthritis Status: Chronic (28) Asthma Status: Acute Home Meds Active Scripts Vancomycin HCl/D5w (Vancomycin 1.5 Gram/250 ml-D5w) 1.5 Gram/250 Ml Plast..bag, 1.5 GM IV q18hrs for 42 Days, BAG Prov:DEE BECKFORD MD 11/26/18 Lidocaine (Lidocaine) 5 % Adh..patch, 1 EACH TP QDAY for 14 Days, #14 PATCH.24H Prov:DEE BECKFORD MD 11/26/18 Polyethylene Glycol 3350 (POLYETHYLENE GLYCOL 3350) 17 Gm Powd.pack, 17 GM PO QDAY for 30 Days, #30 PACK Prov:DEE BECKFORD MD 11/26/18 Estrogens, Conjugated (PREMARIN) 1.25 Mg Tablet, 1.25 MG PO QDAY, #30 TAB Prov:LARS BECKFORD MD 08/09/15 Omeprazole (OMEPRAZOLE) 20 Mg Capsule.dr, 1 CAP PO BID, #60 CAP Prov:LARS BECKFORD MD 08/09/15 Venlafaxine Hcl (VENLAFAXINE HCL ER) 75 Mg Tab.er.24, 75 MG PO BID, #60 TAB Prov:LARS BECKFORD MD 08/09/15 Reported Medications Magnesium Hydroxide (MILK OF MAGNESIA) 400 Mg/5 Ml Oral.susp, 30 ML PO BID, BOTTLE 12/21/18 Gabapentin (GABAPENTIN) 300 Mg Capsule, 300 MG PO TID, CAPSULE 12/21/18 Fluticasone/Salmeterol (ADVAIR 250-50 DISKUS) 1 Each Disk.w.dev, 1 PUFF IH BID 12/21/18 Docusate Sodium (COLACE) 100 Mg Capsule, 1 CAP PO BID PRN for CONSTIPATION, CAPSULE 12/21/18 Diltiazem Hcl (CARDIZEM CD) 120 Mg Cap.er.24h, 1 CAPSULE PO QDAY 12/21/18 Albuterol Sulfate 0.083% (ALBUTEROL SULFATE 0.083%) 2.5 Mg/3 Ml Vial.neb, 1 VIAL INH Q4H PRN for WHEEZING, INH 12/21/18 Venlafaxine Hcl (VENLAFAXINE HCL) 37.5 Mg Tab, 1 TAB PO BIDAC, TAB 12/21/18 Pantoprazole Sodium (PANTOPRAZOLE SODIUM) 40 Mg Tablet.dr, 40 MG PO BID, TAB.SR 12/21/18 Oxycodone Hcl (OXYCODONE HCL) 5 Mg Tablet, 1-2 TAB PO Q4H PRN for PAIN 12/21/18 Lisinopril (LISINOPRIL) 5 Mg Tablet, 5 MG PO QDAY, TAB 12/21/18 Insulin Lispro 100 Un/Ml Vial (HUMALOG 100 U/ML VIAL) 100 Unit/1 Ml Vial, 1-6 UNIT SQ TIDAC, VIAL 12/21/18 Enoxaparin Sodium (LOVENOX) 80 Mg/0.8 Ml Disp.syrin, 80 MG SQ Q12H 12/21/18 Multivitamin With Minerals (MULTIPLE VITAMIN) 1 Each Tablet, 1 EACH PO QDAY, TAB 12/21/18 Magnesium Oxide (MAGOX 400) 400 Mg Tablet, 1 TAB PO QDAY 12/21/18 Insulin Glargine 100 Un/Ml Pen (LANTUS SOLOSTAR PEN) 100 Unit/1 Ml Insuln.pen, 5 UNIT SQ QHS, PEN 12/21/18 Ferrous Sulfate (FERROUS SULFATE) 325 Mg Tablet.dr, 325 MG PO QDAY 12/21/18 Ergocalciferol (Vitamin D2) (VITAMIN D2) 50,000 Unit Capsule, 1 CAPSULE PO QWE EK, CAPSULE 12/21/18 Calcium Carbonate/Vitamin D3 (CALCIUM 600 + VIT D 400 TABLET) 1 Each Tablet, 1 EACH PO BIDAC 12/21/18 Buspirone Hcl (BUSPIRONE HCL) 5 Mg Tab, 5 MG PO BID, #10 TAB 12/21/18 Fluvastatin Sodium (Lescol) 20 Mg Capsule, 20 MG PO QHS, 0 Refills 06/24/11 Allergies: Coded Allergies: Penicillins (Verified Allergy, Severe, BLISTERS, 08/18/18) pneumococcal vaccine (Verified Allergy, Severe, HIVES, 08/18/18) Influenza Virus Vaccines (Verified Allergy, Intermediate, SWELLING TO FACE, 08/18/18) corn (Verified Allergy, Mild, UNKNOWN, 08/18/18) TINGLING FEELING dextromethorphan (Verified Allergy, Mild, 08/18/18) grass pollen-Anju ([place] blue) grass, std (Verified Allergy, Mild, ITCHING, 08/18/18) guaifenesin (Verified Allergy, Mild, 08/18/18) ibuprofen (Verified Allergy, Mild, 08/18/18) LIQUID CAPSULES pseudoephedrine (Verified Allergy, Mild, 08/18/18) Uncoded Allergies: ANIMALS (Allergy, Mild, 09/03/08) MOLD (Allergy, Unknown, 01/29/14) Patient History: Blood clots CHILD FH: CAD (coronary artery disease) FATHER BROTHER OR SISTER FH: COPD (chronic obstructive pulmonary disease) BROTHER OR SISTER BROTHER OR SISTER FH: CVA (cerebrovascular accident) FATHER FH: HTN (hypertension) FATHER BROTHER OR SISTER FH: depression MOTHER FH: diabetes mellitus FATHER BROTHER OR SISTER MOTHER FH: kidney failure FATHER FH: stroke FATHER Other Social/Family Hx The patient is . She takes care of her daughter's children but is otherwise disabled. Hx Smoking: Yes Smoking Status: Current: Every Day Smoker Exposure to Second Hand Smoke?: Yes Caffeine Intake: Coffee, Tea Caffeine/Cups Per Day: 10-15 cups Hx Alcohol Use: No Hx Substance Use Disorder: No Social Drug Use: Occasional Social Drugs: Marijuana History of IV Drug Use: No Review of Systems Constitutional: No Fever Neurological: No Weakness Cardiovascular: No Chest Pain Respiratory: No Shortness of Breath Gastrointestinal: No Nausea, No Vomiting Musculoskeletal: Other (Pain and swelling over L flank and back.) Exam General Appearance: Alert, Awake Neuro: No Gross deficits Cardiovascular: Regular Rate and Rhythm Respiratory: Clear to Auscultation GI: Abd Soft and Non-Tender Musculoskeletal: Other (Large firm mass above previous thoracotomy scar L back. Mass is tender. It extends under the axilla.) Medical Decision Making Data Points Item Value Date Time Prothrombin Time 22.7 seconds H 01/13/1932 Prothromb Time International Ratio 1.97 01/13/1932 Item Value Date Time White Blood Count 16.4 k/uL H 01/13/192118 Red Blood Count 2.94 M/uL L 01/13/192118 Hemoglobin 8.6 g/dL *L 01/13/192118 Hematocrit 26.7 % *L 01/13/192118 Mean Corpuscular Volume 90.8 fL 01/13/192118 Mean Corpuscular Hemoglobin 29.3 pg 01/13/192118 Mean Corpuscular Hemoglobin Concent 32.3 g/dL 01/13/192118 Red Cell Distribution Width 14.7 % H 01/13/192118 Platelet Count 650 K/uL H 01/13/192118 Mean Platelet Volume 6.7 fL L 01/13/192118 Neutrophils (%) (Auto) 70.1 % 01/13/192118 Lymphocytes (%) (Auto) 14.2 % L 01/13/192118 Monocytes (%) (Auto) 14.1 % H 01/13/192118 Eosinophils (%) (Auto) 1.0 % 01/13/192118 Basophils (%) (Auto) 0.6 % 01/13/192118 Nucleated RBC Relative Count (auto) 0.0 /100WBC 01/13/192118 Neutrophils # (Auto) 11.5 K/uL H 01/13/192118 Lymphocytes # (Auto) 2.3 K/uL 01/13/192118 Monocytes # (Auto) 2.3 K/uL H 01/13/192118 Eosinophils # (Auto) 0.2 K/uL 01/13/192118 Basophils # (Auto) 0.1 K/uL 01/13/192118 Nucleated RBC Absolute Count (auto) 0.01 K/uL 01/13/192118 Sodium Level 126 mmol/L L 01/13/192118 Potassium Level 4.7 mmol/L 01/13/192118 Chloride Level 92 mmol/L L 01/13/192118 Carbon Dioxide Level 24 mmol/L 01/13/192118 Blood Urea Nitrogen 16 mg/dl 01/13/192118 Creatinine 0.80 mg/dl 01/13/192118 Glomerular Filtration Rate Calc > 60.0 01/13/192118 Whole Blood Glucose 71 mg/DL L 01/14/193 Random Glucose 391 mg/dl H 01/13/192118 EKG / Imaging Imaging FACILITY: [facility] [place] PATIENT NAME: Subha Martinez : 1965 MR: [id number] V: [id number] EXAM DATE: [id number] ORDERING PHYSICIAN: LARS BECKFORD TECHNOLOGIST: Location: [facility] [place] Patient: Subha Martinez : 1965 Visit/Account:[id number] Date of Sevdagoberto: 01/13/2019 CT CHEST ABDOMEN PELVIS W/CON HISTORY: Left-sided back pain and left shoulder pain. History of left empyema/perinephric abscess. Status post VATS. COMPARISON: 12/28/2018 and studies dating to 05/26/2006. TECHNIQUE: Axial images were obtained from the thoracic inlet through the symphysis pubis with intravenous contrast. Sagittal and coronal reformats were performed. One of the following dose optimization techniques was utilized in the performance of this exam: Automated exposure control; adjustment of the mA and/or kV according to the patient's size; or use of an iterative reconstruction technique. Specific details can be referenced in the facility's radiology CT exam operational policy. CONTRAST: 75 mL IV [id number]. FINDINGS: Thoracic inlet: Normal. Thoracic aorta: No aneurysm or dissection. There is mild atherosclerosis of the thoracic aorta. Heart/Pericardium: The heart is normal. There is a trace, likely physiologic, pericardial effusion. There is mild coronary artery calcification. Mediastinum/Brii: There is an enlarged 1.2 cm short axis diameter precarinal node (image 41 series 2) previously 1.4 cm. Their are other smaller mediastinal and hilar lymph nodes. There are calcified left hilar and AP window nodes, compatible with prior granulomatous disease. Left upper extremity PICC terminates in the mid superior vena cava. Lungs/Pleura: There is a small left pleural effusion that has decreased in size. There is adjacent consolidation, unchanged, containing stable linear serpiginous high density material within it. There is moderate centrilobular emphysema. There is patchy right lower lobe opacity that has improved. The focal consolidation in the lateral right upper lobe (image 23 series 4) has improved. 4 mm right upper lobe pulmonary nodule (image 37 series 4) has mildly decreased in size, previously 5 mm. Node along the minor fissure (image 60 series 4) has not significantly changed. There is a calcified granuloma in the left upper lobe (image 44). No pneumothorax. The airways are normal. There is unchanged left hemidiaphragm elevation. Liver: Normal. Gallbladder/biliary: Cholecystectomy. No intrahepatic or extrahepatic ductal dilation. Pancreas: Visible pancreas is normal. The pancreatic tail appears truncated and there is a coarse calcification at the distal pancreas, unchanged. Spleen: Absent. Adrenals: Normal. Kidneys/ureters/bladder: There is residual wedge-shaped area of low attenuation of the left cortex at the junction of the superior and mid kidney (coronal image 63 for example). Minimal adjacent inflammation has improved. Right kidney is normal. There is a nonobstructing 3 mm calculus of the inferior right kidney. The ureters and bladder are normal. GI/mesentery/peritoneal cavity: Stomach is superiorly displaced due to elevated left hemidiaphragm, unchanged. There is no bowel obstruction. There is no wall thickening or pericolonic stranding. The appendix is not discretely visualized. No inflammatory stranding in the right lower quadrant. Vessels: There is mild atherosclerotic disease. No aneurysm. No dissection. Nodes: There is a right iliac chain node (image 184 series 2) that is at the upper limits of normal for size, measuring 1.0 cm short axis diameter, unchanged. There is a mildly enlarged left iliac chain node (image 180 series 2), measuring 1.1 cm in short axis diameter, unchanged. There is a right iliac chain node measuring 1.0 cm short axis diameter (image 149), unchanged. There are other smaller retroperitoneal and iliac chain nodes that are stable. Pelvis: There are phleboliths. Uterus is absent. Ovaries are not identified Bones/vertebra/soft tissues: There is a large heterogeneous collection in the left lateral chest wall that has dramatically increased in size, now measuring 16.9 x 6.6 x 13.5 cm (axial image 51 series 2 and coronal image 59). There are some focal areas of higher attenuation within this (images 39 and 35 for example) There is surrounding stranding. There are some fluid-fluid levels within this collection. There has been interval decrease in the skin thickening of the left breast and the underlying stranding. There is a 1.7 cm short axis diameter left axillary node (image 13 series 2), previously 1.4 cm. The subcutaneous stranding in the abdominal wall has improved. There are numerous rounded densities in the ventral subcutaneous fat, new, as well as one small focus of gas. There is skin thickening of the lower ventral abdominal/pelvic wall, similar to prior study. There are injection granulomas in the posterior fat of the pelvis. There are fractures of the left posterolateral sixth and anterolateral sixth left rib with new periosteal reaction. There is a healing fracture of the anterolateral seventh left rib. There is a healed fracture of the posterior eleventh left rib. There is multilevel degenerative change of the spine, greatest at L5-S1, where there are endplate sclerosis, a vacuum cleft, circumferential disc osteophyte, and moderate loss of disc height. There is 3 mm retrolisthesis of L2 compared to L3, unchanged. There are several Schmorl nodes. IMPRESSION: 1. Large complex fluid collection in the left lateral chest wall with surrounding stranding. There are some areas of higher attenuation within this collection, and given history of sudden dramatic increase in size, suspect this is all hemorrhage with small areas of contrast extravasation into it. Abscess is felt less likely given the provided history 2. Healing left rib fractures, potentially related to previous thoracotomy. 3. Stable consolidation in the left lower lobe but decrease in size of the small left pleural effusion. 4. Interval improvement in aeration of the right lung. 5. Stable low-attenuation in the superolateral right renal cortex may be sequela of prior pyelonephritis versus persistent pyelonephritis, although the surrounding stranding/inflammation has improved. 6. Numerous round high attenuation structures in the ventral abdominal fat, likely small subcutaneous hematomas related to subcutaneous injections. 7. Mediastinal lymphadenopathy has improved. Iliac chain lymphadenopathy is stable. Left axillary lymphadenopathy has progressed. These findings were discussed by phone with LARS BECKFORD on 01/13/2019 11:24 PM. Report Dictated By: Aimee Salcido at 01/13/2019 10:47 PM Report E-Signed By: Aimee Salcido at 01/13/2019 11:28 PM [id number] Pre-Admit Course Medical Record Review: Yes Assessment and Plan Problems: (1) Hematoma Status: Acute Assessment & Plan: Will reverse her anticoagulation with protamine 25mg, FFP, and vit K. Will recheck an INR one hour after the FFP is in. Will recheck a CBC in 6 hours after that last CBC was done. Will monitor closely in ICU. General surgery consulted. (2) Perinephric abscess Status: Resolved Assessment & Plan: S/P percutaneous drainage. Cultures grew MRSA. She will continue Vancomycin through January 16. She is on oxycodone for acute pain as well as gabapentin 300mg TID. Vancomycin levels have been good. Other labs are improved/normal as well. Repeat CT this evening shows improvement overall. (3) Empyema lung Status: Resolved Assessment & Plan: S/P VATS. Cultures grew MRSA. Treatment with vancomycin through January 16. Re-check CT scan shows all issues to be improved or stable. (4) MRSA bacteremia Status: Resolved Assessment & Plan: Blood cultures at [facility] grew MRSA. Repeat cultures at [facility] were negative after the patient was on treatment with vancomycin. She will complete her course of Vancomycin on January 16. (5) Blood clot in vein Status: Acute Assessment & Plan: On enoxaparin 80mg SQ BID. Per records from [facility], she was to be on treatment for at least 3 months. She was being transitioned to Warfarin. INR 1.97 today. She has developed a hematoma and her anticoagulation will now need to be reversed acutely. See above. (6) DEANNE (iron deficiency anemia) Status: Acute Assessment & Plan: Improved. Continue ferrous sulfate 325mg daily with food. (7) Type II diabetes mellitus Status: Chronic Assessment & Plan: Will place on glucose checks q 6 hrs and SSI for now while NPO for possible surgical intervention of hematoma. She had been on Lantus 7u at plus SSI level II. (8) HTN (hypertension) Status: Chronic Assessment & Plan: Continue lisinopril 5mg daily and Cardizem CD 120mg daily. (9) GERD (gastroesophageal reflux disease) Status: Chronic Assessment & Plan: Continue a PPI. She takes omeprazole at home. Will place on Protonix here. (10) Hyperlipidemia Status: Chronic Assessment & Plan: The patient takes fluvastatin 20mg at home. She is not on it currently as it is not on formulary at [facility]. (11) Depression Status: Chronic Assessment & Plan: Continue Effexor XR 75mg bid. She also takes buspirone 5mg bid. (12) COPD (chronic obstructive pulmonary disease) Status: Chronic Assessment & Plan: Continue Advair 500/50 with prn albuterol nebs. Time Spent on Plan of Care: < 30 min Venous Thromboembolism Antithrombotics Is Pt On Any Antithrombotics?: No Prophylaxis Tx Contraindicated Pharmacological Contraindicati: Active Bleeding Mechanical Contraindications: Medical Contraindication LARS BECKFORD MD January 14, 2019 01:38
[2019-01-14] MEDS: VANCOMYCIN HCL(*) 0.750 GM ADD 0.75 GM in NS(*) 0.9% 250 ML ADDVAN BAG 250 ML IVPB SCH ×2 (04:13→16:48)
[2019-01-14] MEDS: SALMETEROL/FLUTIC 500/50 1 INH INH SCH ×2 (05:58→17:04)
[2019-01-14 06:45] LABS: PLATELET COUNT, AUTOMATED 549 K/uL (150-450)
[2019-01-14 06:58] LABS: INR 1.34
[2019-01-14] MEDS: MULTIVITAMINS TAB PO SCH (08:29)
[2019-01-14] MEDS: busPIRone HCL 5 MG TAB PO SCH ×2 (08:30→21:41)
[2019-01-14] MEDS: DILTIAZEM CD 120 MG CAPCR PO SCH (08:30)
[2019-01-14] MEDS: CALCIUM CARBONATE/VITAMIN D3 PO SCH ×2 (08:30→16:52)
[2019-01-14] MEDS: GABAPENTIN 300 MG CAP PO SCH ×2 (08:30→21:38)
[2019-01-14] MEDS: PANTOPRAZOLE SOD 40 MG TABEC PO SCH ×2 (08:30→21:38)
[2019-01-14] MEDS: FEXOFENADINE HCL 60 MG TAB PO SCH ×2 (08:30→21:40)
[2019-01-14] MEDS: ESTROGENS CONJ 0.625 MG TAB PO SCH (08:31)
[2019-01-14] MEDS: VENLAFAXINE XR 75 MG CAPCR PO SCH ×2 (08:32→21:38)
[2019-01-14] MEDS ORDERED: LISINOPRIL 5 MG TAB PO SCH (09:00)
[2019-01-14] MEDS: HYDROCORTISONE 1% CR 28.35 GM TP SCH ×3 (09:00→21:40)
[2019-01-14] MEDS: PATCH REMOVAL 1 EA TP SCH (09:00)
[2019-01-14] MEDS: MAGNESIUM OXIDE 400 MG TAB PO SCH (10:05)
--- NOTE | 2019-01-14 10:06 | NUR ---
ICU nurse removed lidocaine patch
--- NOTE | 2019-01-14 10:54 | General Surgery Consultation ---
History of Present Illness Requesting Physician Dr Beckford Internal Medicine Reason for Consult Left chest wall hematoma and full anticoagulation Chief Complaint Left chest wall pain and swelling History of Present Illness Pt in rehab facility ECF at [facility] and on 01/14/19 the Hospitalist was called to see patient with onset of swelling and acute pain over L mid to upper back in proximity to her prior thoracotomy incision. The patient has a history of line related upper ext DVT that developed while ho spitalized at [facility] and is being transitioned to Coumadin. She had a subtherapeutic INR so was placed on therapeutic Lovenox 80mg bid for bridging. IBNR 01/13 was1.97. She did receive a dose of Lovenox 80mg at 0900 on 01/13. The patient states she noticed some swelling on AM of 01/13. She went home on a pass to have dinner at her daughter's house. The swelling and pain worsened while there. She returned to [facility] ECF in severe pain with new large mass over her L chest wall. STAT CT Chest reveals: Large complex left hematoma with small blush in proximity to thoracotomy incision. Left hemidiaphragm elevation; Stable consolidation of left lung; small left pleural effusion. Healing left 6th rib fx. Transferred to ICU at [facility]. Surgery consulted and has recommended reversal of anticoagulation. HgB showed mild decrease. Transfused 3 units FFP (no PCC available) and 25 mg Protamine and repeat labs 01/14/19 with INR 1.3, HgB Remains on Vancomycin for MRSA. Pt recent history: 11/19 + MRSA Blood cx at [facility] 11/20 ECHO Neg [facility] 11/26 Transferred to [facility] 11/26 + MRSA blood Cx 11/27 Repeat ECHO Neg 11/27 Right Perinephric drain placed into abscess by IR 11/29 + MRSA Blood Cx 11/30 IR placed left Pigtail catheter, Left chest 12/05 Left Chest tube placed by IR, + MRSA 12/06 Right perirenal drain removed 12/08 Left VATS and thoracotomy with ICU admit post op, on ventilator 12/11 Extubated 12/12 Chest tube #1 removed 12/14 Chest tube #2 removed; Persistent leukocytosis Family HX: Mother, , Explosion, young age Father, age 67, VCA, HTN, CKD Sister x3, Alive x 3; DM, COPD , HTN Brother x 2, HTN, CAD w Stents PSHX: Cholecystectomy TVH w BSO for Cervical CA ? Appendectomy Distal pancreatectomy and Splenectomy for mass x 3, non malignant Left thoracotomy 12/08/18 Multiple allergies to include PCN History Home Meds Active Scripts Vancomycin HCl/D5w (Vancomycin 1.5 Gram/250 ml-D5w) 1.5 Gram/250 Ml Plast..bag, 1.5 GM IV q18hrs for 42 Days, BAG Prov:DEE BECKFORD MD 11/26/18 Lidocaine (Lidocaine) 5 % Adh..patch, 1 EACH TP QDAY for 14 Days, #14 PATCH.24H Prov:DEE BECKFORD MD 11/26/18 Polyethylene Glycol 3350 (POLYETHYLENE GLYCOL 3350) 17 Gm Powd.pack, 17 GM PO QDAY for 30 Days, #30 PACK Prov:DEE BECKFORD MD 11/26/18 Estrogens, Conjugated (PREMARIN) 1.25 Mg Tablet, 1.25 MG PO QDAY, #30 TAB Prov:LARS BECKFORD MD 08/09/15 Omeprazole (OMEPRAZOLE) 20 Mg Capsule.dr, 1 CAP PO BID, #60 CAP Prov:LARS BECKFORD MD 08/09/15 Venlafaxine Hcl (VENLAFAXINE HCL ER) 75 Mg Tab.er.24, 75 MG PO BID, #60 TAB Prov:LARS BECKFORD MD 08/09/15 Reported Medications Magnesium Hydroxide (MILK OF MAGNESIA) 400 Mg/5 Ml Oral.susp, 30 ML PO BID, BOTTLE 12/21/18 Gabapentin (GABAPENTIN) 300 Mg Capsule, 300 MG PO TID, CAPSULE 12/21/18 Fluticasone/Salmeterol (ADVAIR 250-50 DISKUS) 1 Each Disk.w.dev, 1 PUFF IH BID 12/21/18 Docusate Sodium (COLACE) 100 Mg Capsule, 1 CAP PO BID PRN for CONSTIPATION, CAPSULE 12/21/18 Diltiazem Hcl (CARDIZEM CD) 120 Mg Cap.er.24h, 1 CAPSULE PO QDAY 12/21/18 Albuterol Sulfate 0.083% (ALBUTEROL SULFATE 0.083%) 2.5 Mg/3 Ml Vial.neb, 1 VIAL INH Q4H PRN for WHEEZING, INH 12/21/18 Venlafaxine Hcl (VENLAFAXINE HCL) 37.5 Mg Tab, 1 TAB PO BIDAC, TAB 12/21/18 Pantoprazole Sodium (PANTOPRAZOLE SODIUM) 40 Mg Tablet.dr, 40 MG PO BID, TAB.SR 12/21/18 Oxycodone Hcl (OXYCODONE HCL) 5 Mg Tablet, 1-2 TAB PO Q4H PRN for PAIN 12/21/18 Lisinopril (LISINOPRIL) 5 Mg Tablet, 5 MG PO QDAY, TAB 12/21/18 Insulin Lispro 100 Un/Ml Vial (HUMALOG 100 U/ML VIAL) 100 Unit/1 Ml Vial, 1-6 UNIT SQ TIDAC, VIAL 12/21/18 Enoxaparin Sodium (LOVENOX) 80 Mg/0.8 Ml Disp.syrin, 80 MG SQ Q12H 12/21/18 Multivitamin With Minerals (MULTIPLE VITAMIN) 1 Each Tablet, 1 EACH PO QDAY, TAB 12/21/18 Magnesium Oxide (MAGOX 400) 400 Mg Tablet, 1 TAB PO QDAY 12/21/18 Insulin Glargine 100 Un/Ml Pen (LANTUS SOLOSTAR PEN) 100 Unit/1 Ml Insuln.pen, 5 UNIT SQ QHS, PEN 12/21/18 Ferrous Sulfate (FERROUS SULFATE) 325 Mg Tablet.dr, 325 MG PO QDAY 12/21/18 Ergocalciferol (Vitamin D2) (VITAMIN D2) 50,000 Unit Capsule, 1 CAPSULE PO QWEEK, CAPSULE 12/21/18 Calcium Carbonate/Vitamin D3 (CALCIUM 600 + VIT D 400 TABLET) 1 Each Tablet, 1 EACH PO BIDAC 12/21/18 Buspirone Hcl (BUSPIRONE HCL) 5 Mg Tab, 5 MG PO BID, #10 TAB 12/21/18 Fluvastatin Sodium (Lescol) 20 Mg Capsule, 20 MG PO QHS, 0 Refills 06/24/11 Allergies: Coded Allergies: Penicillins (Verified Allergy, Severe, BLISTERS, 08/18/18) pneumococcal vaccine (Verified Allergy, Severe, HIVES, 08/18/18) Influenza Virus Vaccines (Verified Allergy, Intermediate, SWELLING TO FACE, 08/18/18) corn (Verified Allergy, Mild, UNKNOWN, 08/18/18) TINGLING FEELING dextromethorphan (Verified Allergy, Mild, 08/18/18) grass pollen-January ([facility]) grass, std (Verified Allergy, Mild, ITC BEAR, 08/18/18) guaifenesin (Verified Allergy, Mild, 08/18/18) ibuprofen (Verified Allergy, Mild, 08/18/18) LIQUID CAPSULES pseudoephedrine (Verified Allergy, Mild, 08/18/18) Uncoded Allergies: ANIMALS (Allergy, Mild, 09/03/08) MOLD (Allergy, Unknown, 01/29/14) Family History: Blood clots CHILD FH: CAD (coronary artery disease) FATHER BROTHER OR SISTER FH: COPD (chronic obstructive pulmonary disease) BROTHER OR SISTER BROTHER OR SISTER FH: CVA (cerebrovascular accident) FATHER FH: HTN (hypertension) FATHER BROTHER OR SISTER FH: depression MOTHER FH: diabetes mellitus FATHER BROTHER OR SISTER MOTHER FH: kidney failure FATHER FH: stroke FATHER Review of Systems Constitutional: Weight Loss (100 pound weight loss in one year; 30 pounds loss over 3 months); No Fever, No Weight Gain, No Chills, No Night Sweats Neurological: Weakness; No Syncope, No Confusion, No Slurred Speech Eyes: No Vision Change ENT: No Hearing Loss Cardiovascular: Chest Pain (Rare chest pain; improved with NTG; Poor exercise tolerance secondary to SOB); No Palpitations Respiratory: Shortness of Breath, Cough Gastrointestinal: No Nausea, No Vomiting, No Diarrhea, No Constipation, No Hematemesis, No Hematochezia, No Abdominal Pain Genitourinary: No Dysuria, No Hematuria Musculoskeletal: Impaired Mobility Psychiatric: Depression, Anxiety Exam Vital Signs Vital Signs Date Time Temp Pulse Resp B/P (MAP) Pulse Ox O2 Delivery O2 Flow Rate FiO2 01/14/19 10:16 95 Nasal Cannula 1.0 01/14/19 10:10 96.7 73 18 145/72 (96) General Appearance: Alert, Awake, No Acute Distress, Afebrile Neuro: No Gross deficits Eyes: PERRLA, Other (EOMI) ENT: Moist Mucous Membranes, Oropharynx Clear, Other (No teeth present) Neck: No Masses Cardiovascular: Normal Rhythm & Peripheral Pulses, Regular Rate and Rhythm, No Edema Respiratory: No Respiratory Distress, Other (Left basilar crackles and decrease) Chest: Other (Left healing thoracotomy insions. + Massive underlying mass/tenderness; No skin compromise/Mo blistering ) GI: Abd Soft and Non-Tender : No CVA Tenderness Musculoskeletal: No Weakness/Pain Extremities: Soft and Non Tender, Warm, Pulses, Perfused; No Edema Integumentary: Skin Intact without Lesion / Mass Psych: Alert & Oriented X3, Appropriate Mood & Affect Medical Decision Making Data Points Result Diagram: 01/14/19 0638 01/14/19 0638 INR 1.34 after repeat/FFP EKG / Imaging EKG Interpretation PENDING Monitor Interpretation: Normal Sinus Rhythm Imaging CT Chest 01/13/19:Large left chest wall, external to chest/pleural space, small active blush Left hemidiaphragm elevation Left lung consolidation, stable Small left pleural effusion Pre-Admit Course Medical Record Review: Yes Assessment and Plan Problems: (1) MRSA bacteremia Status: Acute Assessment & Plan: On Vancomycin for Bacteremia. (2) Hematoma Status: Acute Assessment & Plan: 01/14/19: Left wall hematoma, acute in association with full anticoagulation. Long discussion with pt and daughter to include the risks, benefits and complications which include wound infection and potential for additional surgery and drainage and residential wound vac requirement if the wound becomes infected. All questions answered and informed consent obtained. They request hematoma drainage today for pain management purposes. Will schedule this AM with the next operating room available. (3) Sleep apnea Status: Chronic (4) Type II diabetes mellitus Status: Chronic (5) HTN (hypertension) Status: Chronic (6) Asthma Status: Acute (7) GERD (gastroesophageal reflux disease) Status: Chronic (8) Perinephric abscess Status: Resolved (9) Hyperlipidemia Status: Chronic (10) Empyema lung Status: Resolved (11) Depression Status: Chronic (12) Angioedema Status: Chronic (13) COPD (chronic obstructive pulmonary disease) Status: Chronic (14) Tobacco dependency Status: Chronic Assessment & Plan: No smoking since October 2018. (15) Leukocytosis Status: Acute Assessment & Plan: Present since original perinephric infection. Improving. Time Spent: > 30 min (I spent a total of 75 minutes on the floor with the pt, in chart review to include [facility] record review, 40 minutes spent in consultation with Dr Beckford, coordination of care; image review, lab review, care plan and consent with pt and daugter. ) Venous Thromboembolism VTE Risk Patient's VTE Risk: High Antithrombotics Is Pt On Any Antithrombotics?: No (Had been on full anticoagulation until 01/14 when this was reversed; Will use SCDs at this time given complication of anticoagulation) Prophylaxis Tx Contraindicated Pharmacological Contraindicati: Active Bleeding MARAH GUILLERMO MD January 14, 2019 10:54
[2019-01-14] MEDS: FERROUS SULFATE 325 MG TAB PO SCH (11:18)
[2019-01-14] MEDS ORDERED: NORMOSOL R SOLN(*) 1000 ML BAG 1,000 ML IV ONE (11:40)
--- NOTE | 2019-01-14 11:43 | EKG ---
FACILITY: [facility] PATIENT NAME: ANJANA GONZALEZ : [id number] MR: [id number] V: [id number] EXAM DATE: ORDERING PHYSICIAN: MARAH GUILLERMO TECHNOLOGIST: REI Peterson Reason : PRE-PROCEDURE Blood Pressure : / mmHG Vent. Rate : 072 BPM Atrial Rate : 072 BPM P-R Int : 136 ms QRS Dur : 088 ms QT Int : 428 ms P-R-T Axes : 048 039 110 degrees QTc Int : 468 ms Normal sinus rhythm T wave abnormality, consider lateral ischemia Prolonged QT Abnormal ECG When compared with ECG of 24-NOV-2018 09:44, Nonspecific T wave abnormality, improved in Inferior leads Inverted T waves have replaced nonspecific T wave abnormality in Lateral leads Confirmed by SILVERIO RIZZO ([id number]) on 01/14/2019 7:05:41 PM Referred By: MIMA Confirmed By:SILVERIO RIZZO
--- NOTE | 2019-01-14 11:50 | NUR ---
Pt blood sugar 151. Pt going to surgery. Will hold insulin and recheck blood sugar post operatively
[2019-01-14] MEDS ORDERED: NS(*) 0.9% 500 ML BAG 500 ML ONE (12:08)
[2019-01-14] MEDS ORDERED: BUPIV/EPI 0.25% 1:200,000 50ML INFIL ONE (13:00)
[2019-01-14] MEDS ORDERED: fentaNYL CITR 100 MCG/2 ML AMP IVP ONE (13:10)
[2019-01-14] MEDS ORDERED: fentaNYL CITR 100 MCG/2 ML AMP ONE ×2 (13:42→16:03)
[2019-01-14] MEDS ORDERED: PROPOFOL EMUL(*) 10MG/ML 20 ML 20 ML ONE (13:43)
[2019-01-14] MEDS ORDERED: LIDOCAINE MPF 1% 5 ML VIAL ONE ×2 (13:43)
[2019-01-14] MEDS ORDERED: ONDANSETRON 4 MG/2 ML VIAL ONE (13:43)
[2019-01-14] MEDS ORDERED: ROCURONIUM BROM 10 MG/ML 10 ML ONE (13:43)
[2019-01-14] MEDS ORDERED: DEXAMETHASONE SOD PHOS 10MG/ML ONE (13:43)
[2019-01-14] MEDS ORDERED: KETAMINE HCL 200 MG/20 ML MDV ONE (13:45)
--- NOTE | 2019-01-14 14:06 | NUR ---
1230 Pt picked up from IP floor SBAR given to Julieta and Lauren RNs from [facility] RN Safety ensured during transfer, pt assessed and VS taken
[2019-01-14] MEDS ORDERED: NS 0.9% IRRIGATION 1000ML PLCT IR ONE (14:56)
[2019-01-14] MEDS: HYDROmorphone HCL 2 MG/ML SDV IVP PRN ×3 (16:53→21:38)
[2019-01-14] MEDS: oxyCODON/ACET (*)5/325MG (CII) 1 TAB TAB PO PRN (17:36)
--- NOTE | 2019-01-14 20:40 | Gen Surgery H&P BLANK ---
GENERAL SURGERY H&P BLANK Brief PROCEDURE NOTE: 01/14/19 Surgeon: MD CHRIS Parada Left thoracotomy incision opened down to the chest wall but excluding the chest wall. 100 ml of old blood and clot removed. Wound closed 19 Fr Drain placed. SCDs Vancomycin I will turn over the case and its further management to Dr Elton Negron of surgery starting 0700 on 15 Jan 2019. MD Yvonne 01/14/19 1038hours MARAH GUILLERMO MD January 14, 2019 20:39
[2019-01-14] MEDS: MORPHINE CR 15 MG TABCR PO SCH (21:38)
[2019-01-14] MEDS: LIDOCAINE 5% PATCH TP SCH (21:41)
[2019-01-14] MEDS: INSULIN GLARGINE 100 U/ML 3 ML PEN SUBQ SCH (21:42)
[2019-01-14] MEDS: INSULIN HUM LISPRO 100 UN/ML 3 ML VIAL SUBQ PRN (21:56)
[2019-01-15] VITALS: BP 160/86
[2019-01-15] MEDS: oxyCODON/ACET (*)5/325MG (CII) 1 TAB TAB PO PRN ×2 (00:25→21:17)
[2019-01-15] MEDS ORDERED: VANCOMYCIN HCL(*) 0.750 GM ADD 0.75 GM in NS(*) 0.9% 250 ML ADDVAN BAG 250 ML IVPB SCH (05:10)
[2019-01-15] MEDS ORDERED: NS(*) 0.9% 250 ML BAG 0 ML ONE (05:16)
[2019-01-15] MEDS ORDERED: VANCOMYCIN 1 GM VIAL ONE (05:16)
[2019-01-15] MEDS: SALMETEROL/FLUTIC 500/50 1 INH INH SCH ×2 (05:19→16:51)
[2019-01-15] MEDS: HYDROmorphone HCL 2 MG/ML SDV IVP PRN ×3 (05:19→12:38)
[2019-01-15] MEDS: VANCOMYCIN HCL(*) 0.750 GM ADD 0.75 GM in NS(*) 0.9% 250 ML ADDVAN BAG 250 ML IVPB SCH ×3 (05:21→21:14)
[2019-01-15 05:27] VITALS: BP 199/109
[2019-01-15] MEDS: INSULIN HUM LISPRO 100 UN/ML 3 ML VIAL SUBQ PRN ×4 (07:29→21:20)
[2019-01-15 07:32] LABS: PLATELET COUNT, AUTOMATED 524 K/uL (150-450)
--- NOTE | 2019-01-15 07:34 | OPERATIVE REPORT 1 ---
EVENT DATE: January 14, 2019 SURGEON: Troy Hernandez MD ANESTHESIOLOGIST: Rico Street MD ANESTHESIA: General endotracheal. PREOPERATIVE DIAGNOSES 1. Left chest wall hematoma, submuscular. 2. Severe comorbidities to include diabetes, hypertension, MRSA bacteremia, coronary artery disease. POSTOPERATIVE DIAGNOSIS 1. Left chest wall hematoma, submuscular. 2. Severe comorbidities to include diabetes, hypertension, MRSA bacteremia, coronary artery disease. PROCEDURE PERFORMED Left chest wall exploration via muscle splitting incision incorporating old thoracotomy incision and evacuation of approximately 750 cc of old blood clot and blood. No active extravasation identified. ESTIMATED BLOOD LOSS Minimal. TOTAL FLUIDS 1L PRBCs, 250 cc of normal saline and 600 cc of Normosol. DVT PROPHYLAXIS SCDs, recent full anticoagulation. ANTIBIOTICS Vancomycin. FINDINGS 250 cc of blood and clot up against the left chest wall at the site of her previous thoracotomy incision performed December 08, 2018, at [facility]. INDICATIONS Patient is a 53-year old female with multiple comorbidities. Recently underwent a left thoracotomy on December 08, 2018, for a left empyema at [facility]. Patient required mechanical ventilation for three days postoperatively. Since that time, patient has slowly recovered and developed a complication of a central line catheter DVT. For this, she was undergoing full anticoagulation with Lovenox, transitioning over to Coumadin. On the day prior to surgery, her INR was 1.97. During the day, she developed a large tense, painful left hematoma within the wound. Patient was transferred to the Intensive Care Unit at [facility] from the rehab floor, at which time she underwent reversal of her anticoagulation with three units of FFP, vitamin K, 25 mg of Protamine. Repeat INR was a1.34. Platelet count was normal. After a long discussion with the patient and he daughter in regards to operative versus observation management, the patient and her daughter have elected to undergo hematoma evacuation. Extensive risks were discussed given her history of angina, 100 pound weight loss, diabetes, active smoker, recent MRSA bacteremia, recent left empyema, CT scan with left lung consolidation and left hemidiaphragm elevation, etc. DESCRIPTION OF PROCEDURE Patient was brought to the operating room and placed in the supine position. General endotracheal anesthesia was initiated. Patient was then placed into the right lateral decubitus position. Her left arm was secured on an arm board. Appropriate padding placed between the legs. She was on a weaver bag, which was placed to vacuum after proper positioning. SCDs were used for DVT prophylaxis. Antibiotics scheduled with Vancomycin. Time-out was carried out per hospital policy. The left chest wall was prepped and draped using Betadine. A left thoracotomy-like incision was used, incorporating the patient's previous left thoracotomy incision. This was carried down to the muscle. Flaps were developed superiorly and inferiorly. Muscle was split in the direction of its fibers. Muscle-sparing incision was used. Underlying layers were also divided in a similar fashion, incorporating the previous incision. Once the space just superficial to her ribs was entered, a large hematoma and old blood was evacuated. A total of approximately 750 to 1000 cc of blood and clot were removed. The wound was copiously irrigated with normal saline. Hemostasis was assured. Electrocautery was used for hemostasis along the old reapproximated ribs. Previous CT scan had shown some extravasation in the posterior scapular region. However, there was no bleeding visualized here. After full wound exploration, a 19-Nigerian round Masoud drain was brought up through a separate stab incision and brought into the wound. The chest wall muscles were then reapproximated using 0 Vicryl running sutures. Subcutaneous portion of the wound was approximated using a running 2-0 Vicryl suture. Quinlan were used for further skin approximation. The wound was covered with a bulky, dry, sterile dressing. Patient was placed back supine. She was then transferred over to the [facility] and then extubated while in the operating room. Sponge, needle and instrument counts were correct. Patient tolerated the procedure well with no known complications. SHANNON
[2019-01-15 07:35] VITALS: BP 190/108
[2019-01-15] MEDS: CALCIUM CARBONATE/VITAMIN D3 PO SCH ×2 (07:51→16:21)
[2019-01-15] MEDS: PATCH REMOVAL 1 EA TP SCH (09:00)
[2019-01-15] MEDS: HYDROCORTISONE 1% CR 28.35 GM TP SCH ×2 (09:00→21:18)
[2019-01-15] MEDS: MULTIVITAMINS TAB PO SCH (09:02)
[2019-01-15] MEDS: VENLAFAXINE XR 75 MG CAPCR PO SCH ×2 (09:02→21:16)
[2019-01-15] MEDS: FEXOFENADINE HCL 60 MG TAB PO SCH ×2 (09:02→21:18)
[2019-01-15] MEDS: MORPHINE CR 15 MG TABCR PO SCH ×2 (09:02→21:17)
[2019-01-15] MEDS: GABAPENTIN 300 MG CAP PO SCH ×2 (09:02→21:19)
[2019-01-15] MEDS: ESTROGENS CONJ 0.625 MG TAB PO SCH (09:02)
[2019-01-15] MEDS: PANTOPRAZOLE SOD 40 MG TABEC PO SCH ×2 (09:02→21:17)
[2019-01-15] MEDS: busPIRone HCL 5 MG TAB PO SCH ×2 (09:02→21:15)
[2019-01-15] MEDS: NS(*) 0.9% 1000 ML BAG 1,000 ML IV PRN ×2 (09:02→21:13)
[2019-01-15] MEDS: DILTIAZEM CD 120 MG CAPCR PO SCH (09:02)
[2019-01-15] MEDS: MAGNESIUM OXIDE 400 MG TAB PO SCH (09:47)
[2019-01-15 10:49] VITALS: BP 187/106
--- NOTE | 2019-01-15 11:30 | Hospitalist Progress Note ---
Subjective Progress Notes Subjective She reports feeling improved. Less pain. Physical Exam Vital Signs Date Time Temp Pulse Resp B/P (MAP) Pulse Ox O2 Delivery O2 Flow Rate FiO2 01/15/19 10:49 97.6 75 187/106 (133) 94 01/15/19 07:39 2.0 01/15/19 07:35 18 Nasal Cannula Intake and Output 01/15/19 07:00 Intake Total 3037 ml Output Total 1000 ml Balance 2037 ml Intake Oral 360 ml IV Total 1377 ml Blood Product 500 ml Other 800 ml Other 1000 ml # Voids 3 General Appearance: Alert, Awake Cardiovascular: Regular Rate and Rhythm Respiratory: Clear to Auscultation (diminished at left base) Chest: Other (left chest dressed - not examined at this time) GI: Soft and Non-Tender Extremities: Warm, Perfused Psych: Alert & Oriented X3 Result Diagram: 01/15/1972401/15/19724 Monitor Interpretation: Normal Sinus Rhythm Assessment and Plan Problems: (1) Hematoma Status: Acute Assessment & Plan: We reversed her anticoagulation with protamine 25mg, FFP, and vitamin K. General surgery consulted and evacuated the hematoma. She will not be a candidate to resume the anticoagulation at this point. (2) Perinephric abscess Status: Resolved Assessment & Plan: S/P percutaneous drainage. Cultures grew MRSA. She will continue Vancomycin through January 16. She is on oxycodone for acute pain as well as gabapentin 300mg TID. Vancomycin levels have been good. Other labs are improved/normal as well. Repeat CT shows improvement overall. (3) Empyema lung Status: Resolved Assessment & Plan: S/P VATS. Cultures grew MRSA. Treatment with vancomycin thr ough January 16. Re-check CT scan shows all issues to be improved or stable. (4) MRSA bacteremia Status: Acute Assessment & Plan: Blood cultures at [facility] grew MRSA. Repeat cultures at [facility] were negative after the patient was on treatment with vancomycin. She will complete her course of Vancomycin on January 16. (5) Blood clot in vein Status: Acute Assessment & Plan: She was on enoxaparin 80mg SQ BID. Per records from [facility], she was to be on treatment for at least 3 months. She was being transitioned to Warfarin. Unfortunately, she has developed a hematoma and her anticoagulation needed to be reversed acutely. See above. She will not be a good candidate to resume the anticoagulation. She did receive approximately 6-7 weeks of therapy. (6) DEANNE (iron deficiency anemia) Status: Acute Assessment & Plan: Improved. Continue ferrous sulfate 325mg daily with food. She will need GI tract evaluated in near future. (7) Type II diabetes mellitus Status: Chronic Assessment & Plan: She is on low dose Lantus 7units at plus SSI as needed. (8) HTN (hypertension) Status: Chronic Assessment & Plan: Continue lisinopril 5mg daily and Cardizem CD 120mg daily. (9) GERD (gastroesophageal reflux disease) Status: Chronic Assessment & Plan: Continue a PPI. She takes omeprazole at home. Will place on Protonix here. (10) Hyperlipidemia Status: Chronic Assessment & Plan: The patient takes fluvastatin 20mg at home. She is not on it currently as it is not on formulary at [facility]. (11) Depression Status: Chronic Assessment & Plan: Continue Effexor XR 75mg bid. She also takes buspirone 5mg bid. (12) COPD (chronic obstructive pulmonary disease) Status: Chronic Assessment & Plan: Continue Advair 500/50 with prn albuterol nebs. Exam Sepsis Risk: No Definite Risk DEE BECKFORD MD January 15, 2019 11:30
[2019-01-15] MEDS: FERROUS SULFATE 325 MG TAB PO SCH (11:54)
[2019-01-15 14:36] VITALS: BP 172/97
--- NOTE | 2019-01-15 15:34 | Antimicrobial Stewardship ---
Antimicrobial Time Out Comments Comments Antimicrobial Time Out Antimicrobial Stewardship MD Service: Hospitalist Indications: Other (MRSA infection; grew in blood, perinephric abscess, and empyema fluid in cultures done at [facility].) Antimicrobial Used Vancomycin, currently dosed at 1 gm IV q8h Culture Results: Yes (MRSA grew in cultures done at [facility].) Eligible for PO Conversion Eligable for PO Conversion: No Comments Comments Vancomycin is to continue through 01/16. ITZEL VICTORIA January 15, 2019 15:34
[2019-01-15] MEDS: MORPHINE 2 MG/ML SYR IVP PRN (16:26)
--- NOTE | 2019-01-15 17:26 | General Surgery Progress Note ---
Subjective Progress Notes Subjective no acute events Physical Exam Vital Signs Date Time Temp Pulse Resp B/P (MAP) Pulse Ox O2 Delivery O2 Flow Rate FiO2 01/15/19 14:36 97.8 85 18 172/97 (122) 92 Nasal Cannula 3.0 Intake and Output 01/15/19 07:00 Intake Total 3037 ml Output Total 1000 ml Balance 2037 ml Intake Oral 360 ml IV Total 1377 ml Blood Product 500 ml Other 800 ml Other 1000 ml # Voids 3 General Appearance: No Acute Distress Cardiovascular: Other (reg heart rate) Chest: Other (drain in place) Result Diagram: 01/15/19 0725 01/15/19 07 Monitor Interpretation: Normal Sinus Rhythm Assessment and Plan Problems: (1) MRSA bacteremia Status: Acute Assessment & Plan: On Vancomycin for Bacteremia. (2) Hematoma Status: Acute Assessment & Plan: 01/14/19: Left wall hematoma, acute in association with full anticoagulation. Long discussion with pt and daughter to include the risks, benefits and complications which include wound infection and potential for additional surgery and drainage and detention wound vac requirement if the wound becomes infected. All questions answered and informed consent obtained. They request hematoma drainage today for pain management purposes. Will schedule this AM with the next operating room available. 01/15/19: monitor. cont drain until <30 ml/d output. hold anticoag. (3) Sleep apnea Status: Chronic (4) Type II diabetes mellitus Status: Chronic (5) HTN (hypertension) Status: Chronic (6) Asthma Status: Acute (7) GERD (gastroesophageal reflux disease) Status: Chronic (8) Perinephric abscess Status: Resolved (9) Hyperlipidemia Status: Chronic (10) Empyema lung Status: Resolved (11) Depression Status: Chronic (12) Angioedema Status: Chronic (13) COPD (chronic obstructive pulmonary disease) Status: Chronic (14) Tobacco dependency Status: Chronic Assessment & Plan: No smoking since October 2018. (15) Leukocytosis Status: Acute Assessment & Plan: Present since original perinephric infection. Improving. Exam Sepsis Risk: No Definite Risk ELLE POON January 15, 2019 17:26
[2019-01-15 19:40] VITALS: BP 178/96
[2019-01-15] MEDS: INSULIN GLARGINE 100 U/ML 3 ML PEN SUBQ SCH (21:18)
[2019-01-15] MEDS: LIDOCAINE 5% PATCH TP SCH (21:31)
[2019-01-16] MEDS: MORPHINE 2 MG/ML SYR IVP PRN (01:50)
[2019-01-16 01:53] VITALS: BP 160/86
[2019-01-16] MEDS: VANCOMYCIN HCL(*) 0.750 GM ADD 0.75 GM in NS(*) 0.9% 250 ML ADDVAN BAG 250 ML IVPB SCH ×3 (05:00→20:46)
[2019-01-16] MEDS: SALMETEROL/FLUTIC 500/50 1 INH INH SCH ×2 (05:38→16:46)
[2019-01-16 06:09] LABS: PLATELET COUNT, AUTOMATED 510 K/uL (150-450)
[2019-01-16 07:07] VITALS: BP 185/100
--- NOTE | 2019-01-16 07:15 | General Surgery Progress Note ---
Subjective Progress Notes Subjective no acute events Physical Exam Vital Signs Date Time Temp Pulse Resp B/P (MAP) Pulse Ox O2 Delivery O2 Flow Rate FiO2 01/16/19 07:07 98.0 73 16 185/100 (128) 96 Nasal Cannula 3.0 Intake and Output 01/16/19 07:00 Intake Total 2570 ml Output Total 115 ml Balance 2455 ml Intake Oral 1320 ml IV Total 1250 ml Output Drainage Total 115 ml # Voids 4 General Appearance: No Acute Distress Chest: Other (inc c/d/i, serosang output) Result Diagram: 01/16/19 0500 01/16/19 0500 Monitor Interpretation: Normal Sinus Rhythm Assessment and Plan Problems: (1) MRSA bacteremia Status: Acute Assessment & Plan: On Vancomycin for Bacteremia. (2) Hematoma Status: Acute Assessment & Plan: 01/14/19: Left wall hematoma, acute in association with full anticoagulation. Long discussion with pt and daughter to include the risks, benefits and complications which include wound infection and potential for additional surgery and drainage and terminal operations supervisor wound vac requirement if the wound becomes infected. All questions answered and informed consent obtained. They request hematoma drainage today for pain management purposes. Will schedule this AM with the next operating room available. 01/15/19: monitor. cont drain until <30 ml/d output. hold anticoag. 01/16/19: doing fine. cont drain. hold anticoag. monitor. (3) Sleep apnea Status: Chronic (4) Type II diabetes mellitus Status: Chronic (5) HTN (hypertension) Status: Chronic (6) Asthma Status: Acute (7) GERD (gastroesophageal reflux disease) Status: Chronic (8) Perinephric abscess Status: Resolved (9) Hyperlipidemia Status: Chronic (10) Empyema lung Status: Resolved (11) Depression Status: Chronic (12) Angioedema Status: Chronic (13) COPD (chronic obstructive pulmonary disease) Status: Chronic (14) Tobacco dependency Status: Chronic Assessment & Plan: No smoking since October 2018. (15) Leukocytosis Status: Acute Assessment & Plan: Present since original perinephric infection. Improving. Exam Sepsis Risk: No Definite Risk ELLE POON January 16, 2019 07:15
[2019-01-16] MEDS: CALCIUM CARBONATE/VITAMIN D3 PO SCH ×2 (07:44→17:00)
[2019-01-16] MEDS: oxyCODON/ACET (*)5/325MG (CII) 1 TAB TAB PO PRN ×3 (07:44→23:52)
[2019-01-16] MEDS: INSULIN HUM LISPRO 100 UN/ML 3 ML VIAL SUBQ PRN ×3 (07:45→20:45)
[2019-01-16] MEDS: PATCH REMOVAL 1 EA TP SCH (09:00)
[2019-01-16] MEDS: MULTIVITAMINS TAB PO SCH (09:36)
[2019-01-16] MEDS: MORPHINE CR 15 MG TABCR PO SCH ×2 (09:36→20:46)
[2019-01-16] MEDS: VENLAFAXINE XR 75 MG CAPCR PO SCH ×2 (09:36→20:52)
[2019-01-16] MEDS: busPIRone HCL 5 MG TAB PO SCH ×2 (09:36→20:47)
[2019-01-16] MEDS: ESTROGENS CONJ 0.625 MG TAB PO SCH (09:36)
[2019-01-16] MEDS: DILTIAZEM CD 120 MG CAPCR PO SCH (09:36)
[2019-01-16] MEDS: FEXOFENADINE HCL 60 MG TAB PO SCH ×2 (09:36→20:47)
[2019-01-16] MEDS: GABAPENTIN 300 MG CAP PO SCH ×2 (09:36→20:46)
[2019-01-16] MEDS: PANTOPRAZOLE SOD 40 MG TABEC PO SCH ×2 (09:36→20:46)
[2019-01-16] MEDS: HYDROCORTISONE 1% CR 28.35 GM TP SCH ×2 (09:36→20:46)
[2019-01-16] MEDS: MAGNESIUM OXIDE 400 MG TAB PO SCH (10:14)
[2019-01-16] MEDS ORDERED: NS(*) 0.9% 250 ML BAG 250 ML ONE (10:26)
[2019-01-16] MEDS ORDERED: NS(*) 0.9% 250 ML BAG 250 ML IV SCH (10:40)
--- NOTE | 2019-01-16 10:55 | Medical Nutrition Therapy ---
Nutrition Anthropometrics Height (Inches): 63.00 Height (Calculated Centimeters: 160.255507 Weight (Pounds): 158 Weight (Calculated Kilograms): 71.668 BMI: 28 Harvey Nutrition Score: Adequate Harvey Nutrition Risk Score: 21 Dietary Referral Nutrition Risk Factors: Unplanned Loss >10lbs Nutrition Risk Comment: pt. states rosanne her throat is sore from the intubation Physical Findings Physical Appearance: Overweight BMI 25-29 Skin Appearance Skin Appearance: Edema Edema Location Modifier: Edema Location: Type of Edema: Degree of Edema: Gastrointestinal Symptoms GI Symtoms: Tube Present: Bowel Sounds: Recent Bowel Pattern: Stool Characteristics: Nutritional Diagnosis Nutritional Risk Acuity 2: Blood Glucose > 300mg/dl, Abcess/Non-Healing Wound Nutritional Risk Acuity 3: Fair Appetite, Eat/Chew Problem (no teeth) Past Medical History: Hx of hyperlipidemia, GERD, T2DM, shingles, COPD, pancreatectomy, elbow surgery, cholecystectomy, hysterectomy, tuberculosis and HTN. Nutritional Acuity: 2-Moderate Nutrition Diagnosis: Inappropriate Carb Intake Nutrition Etiology: Physiological Causes Nutrition Problem/Etiology/Sym: AEB elevated RB up to 398 Adjusted Energy Requirement Re: 1830 (MSJ X 1.1 SF) Protein Requirement: 85 (1.2gm/kg) Fluid Requirement: 2130 (30ml/kg) Diet Type: Calorie Controlled (high protein/low carb) Nutrition Intervention: Cont diet as ordered, Encourage intake Additional Diet Restrictions: LIMIT CARBS TO 30GM/MEAL & DOUBLE MEAT SERVINGS Nutritional Education Nutrition Education Topic: Diabetic Nutrition Learning Readiness: Little Interest Teaching Methods: Handout Response to Teaching: Verbalize understanding, Reinforcement needed Teaching Recipient: Patient Nutrition Counseling: Reviwed low carb (30gm) high protein diet. Pt unhappy with diet and would like increased CHO. Explained that RBG was elevated. Reported to nursing pt's desire for increased CHO. Pt was eating cereal for breakfast. Expained that cereal is high glycemic index foods and can cause a high BG reading. Enouraged increased protein. Reviewed high protien, low CHO diet and encouraged pt to limit CHO to 30gms or 2 portions/meal. Recommend pt f/t with [facility]. Nutrition Monitoring & Eval RD Patient Assessment Time: [address] Assessment Type: RD Assessment Patient Nutrition Acuity: 2-Moderate Follow Up Date: January 21, 2019 Nutritional Comment: Pt admitted for hematoma. Pt curretnly NPO. BG ranging 71-15. Hgn low at 7.6, Hct low at 22.9. Will cont to monitor. 01/16 Pt's RBG has been running 200-300's with one 520 reading past 2 days. Pt is recieving insulin. Diet changed to High protein/low CHO diet. Pt eating 100% of most foods and is requesting more CHO. Pt may benefit from lower CHO diet to avoid the need for more insulin. Reviewed diet with pt and provided copy for pt to take home. Will cont to monitor and encourage intake. SHIMA SIDDIQI January 16, 2019 10:55
--- NOTE | 2019-01-16 12:08 | Hospitalist Progress Note ---
Subjective Progress Notes Subjective No reported cp/sob. No concerns from staff. Physical Exam Vital Signs Date Time Temp Pulse Resp B/P (MAP) Pulse Ox O2 Delivery O2 Flow Rate FiO2 01/16/19 07:07 98.0 73 16 185/100 (128) 96 Nasal Cannula 3.0 Intake and Output 01/16/19 07:00 Intake Total 2570 ml Output Total 115 ml Balance 2455 ml Intake Oral 1320 ml IV Total 1250 ml Output Drainage Total 115 ml # Voids 4 General Appearance: Alert, Awake, No Acute Distress Result Diagram: 01/16/19 0500 01/16/19 0500 Monitor Interpretation: Normal Sinus Rhythm Assessment and Plan Problems: (1) Hematoma Status: Acute Assessment & Plan: Her anticoagulation was reversed with protamine 25mg, FFP, and vitamin K. General surgery consulted and evacuated the hematoma. She will not be a candidate to resume the anticoagulation at this point. (2) Perinephric abscess Status: Resolved Assessment & Plan: S/P percutaneous drainage. Cultures grew MRSA. She will continue Vancomycin through January 16. She is on oxycodone for acute pain as well as gabapentin 300mg TID. Vancomycin levels have been good. Other labs are improved/normal as well. Repeat CT shows improvement overall. She will need a repeat in a couple of weeks. PICC line out after last dose of Vancomycin. (3) Empyema lung Status: Resolved Assessment & Plan: S/P VATS. Cultures grew MRSA. Treatment with vancomycin through January 16. Re-check CT scan shows all issues to be improved or stable. (4) MRSA bacteremia Status: Acute Assessment & Plan: Blood cultures at [facility] grew MRSA. Repeat cultures at [facility] were negative after the patient was on treatment with vancomycin. She will com plete her course of Vancomycin on January 16. (5) Blood clot in vein Status: Acute Assessment & Plan: She was on enoxaparin 80mg SQ BID. Per records from [facility], she was to be on treatment for at least 3 months. She was being transitioned to Warfarin. Unfortunately, she has developed a hematoma and her anticoagulation needed to be reversed acutely. See above. She will not be a good candidate to resume the anticoagulation. She did receive approximately 6-7 weeks of therapy. PICC line to come out tonight. (6) DEANNE (iron deficiency anemia) Status: Acute Assessment & Plan: Improved. Continue ferrous sulfate 325mg daily with food. She will need GI tract evaluated in near future. (7) Type II diabetes mellitus Status: Chronic Assessment & Plan: She is on low dose Lantus 7units at plus SSI as needed. (8) HTN (hypertension) Status: Chronic Assessment & Plan: Continue lisinopril 5mg daily and Cardizem CD 120mg daily. (9) GERD (gastroesophageal reflux disease) Status: Chronic Assessment & Plan: Continue a PPI. She takes omeprazole at home. On Protonix here. (10) Hyperlipidemia Status: Chronic Assessment & Plan: The patient takes fluvastatin 20mg at home. She is not on it currently as it is not on formulary at [facility]. (11) Depression Status: Chronic Assessment & Plan: Continue Effexor XR 75mg bid. She also takes buspirone 5mg bid. (12) COPD (chronic obstructive pulmonary disease) Status: Chronic Assessment & Plan: Continue Advair 500/50 with prn albuterol nebs. Exam Sepsis Risk: No Definite Risk WESLY MARIN MD January 16, 2019 12:08
[2019-01-16] MEDS: FERROUS SULFATE 325 MG TAB PO SCH (12:13)
[2019-01-16] MEDS: LISINOPRIL 5 MG TAB PO SCH (12:14)
--- NOTE | 2019-01-16 18:05 | EKG ---
FACILITY: [facility] [place] PATIENT NAME: ANJANA GONZALEZ : [id number] MR: [id number] V: [id number] EXAM DATE: ORDERING PHYSICIAN: WESLY MARIN TECHNOLOGIST: CARLOTA Test Reason : CP Blood Pressure : / mmHG Vent. Rate : 077 BPM Atrial Rate : 077 BPM P-R Int : 128 ms QRS Dur : 090 ms QT Int : 384 ms P-R-T Axes : 045 028 070 degrees QTc Int : 434 ms Normal sinus rhythm Nonspecific T wave abnormality Abnormal ECG When compared with ECG of 14-JAN-2019 11:29, Nonspecific T wave abnormality has replaced inverted T waves in Lateral leads Confirmed by WESLY MARIN ([id number]) on 01/16/2019 11:12:05 PM Referred By: TANIA Confirmed By:WESLY MARIN
[2019-01-16 19:27] VITALS: BP 188/95
[2019-01-16] MEDS: INSULIN GLARGINE 100 U/ML 3 ML PEN SUBQ SCH (20:45)
[2019-01-16 23:48] VITALS: BP 167/93
[2019-01-17 05:10] VITALS: BP 148/106
[2019-01-17] MEDS: SALMETEROL/FLUTIC 500/50 1 INH INH SCH (05:24)
[2019-01-17] MEDS: oxyCODON/ACET (*)5/325MG (CII) 1 TAB TAB PO PRN ×2 (06:01→12:12)
[2019-01-17 06:17] LABS: PLATELET COUNT, AUTOMATED 570 K/uL (150-450)
[2019-01-17 07:22] VITALS: BP 161/83
[2019-01-17] MEDS: CALCIUM CARBONATE/VITAMIN D3 PO SCH (07:45)
[2019-01-17] MEDS: INSULIN HUM LISPRO 100 UN/ML 3 ML VIAL SUBQ PRN (07:46)
--- NOTE | 2019-01-17 08:48 | General Surgery Progress Note ---
Subjective Progress Notes Subjective no acute events Physical Exam Vital Signs Date Time Temp Pulse Resp B/P (MAP) Pulse Ox O2 Delivery O2 Flow Rate FiO2 01/17/19 07:37 95 Nasal Cannula 2.0 01/17/19 07:22 97.9 70 12 161/83 (109) Intake and Output 01/17/19 07:00 Intake Total 2110 ml Output Total 55 ml Balance 2055 ml Intake Oral 2110 ml Output Drainage Total 55 ml # Voids 4 General Appearance: No Acute Distress Cardiovascular: Other (reg rate) Chest: Other (serosang drainage, about 60 ml in 12 hrs) Result Diagram: 01/17/19 0533 01/17/19 0533 Monitor Interpretation: Normal Sinus Rhythm Assessment and Plan Problems: (1) MRSA bacteremia Status: Acute Assessment & Plan: On Vancomycin for Bacteremia. (2) Hematoma Status: Acute Assessment & Plan: 01/14/19: Left wall hematoma, acute in association with full anticoagulation. Long discussion with pt and daughter to include the risks, benefits and complications which include wound infection and potential for additional surgery and drainage and termite treater wound vac requirement if the wound becomes infected. All questions answered and informed consent obtained. They request hematoma drainage today for pain management purposes. Will schedule this AM with the next operating room available. 01/15/19: monitor. cont drain until <30 ml/d output. hold anticoag. 01/16/19: doing fine. cont drain. hold anticoag. monitor. 01/16/19: cont drain. ok to d/c home from surg standpoint. f/u [facility] 1 wk ([phone]). (3) Sleep apnea Status: Chronic (4) Type II diabetes mellitus Status: Chronic (5) HTN (hypertension) Status: Chronic (6) Asthma Status: Acute (7) GERD (gastroesophageal reflux disease) Status: Chronic (8) Perinephric abscess Status: Resolved (9) Hyperlipidemia Status: Chronic (10) Empyema lung Status: Resolved (11) Depression Status: Chronic (12) Angioedema Status: Chronic (13) COPD (chronic obstructive pulmonary disease) Status: Chronic (14) Tobacco dependency Status: Chronic Assessment & Plan: No smoking since October 2018. (15) Leukocytosis Status: Acute Assessment & Plan: Present since original perinephric infection. Improving. Exam Sepsis Risk: No Definite Risk ELLE ZHANG January 17, 2019 08:48
[2019-01-17 09:47] VITALS: BP 156/91
[2019-01-17] MEDS: VENLAFAXINE XR 75 MG CAPCR PO SCH (09:51)
[2019-01-17] MEDS: MORPHINE CR 15 MG TABCR PO SCH (09:51)
[2019-01-17] MEDS: MULTIVITAMINS TAB PO SCH (09:51)
[2019-01-17] MEDS: FEXOFENADINE HCL 60 MG TAB PO SCH (09:51)
[2019-01-17] MEDS: GABAPENTIN 300 MG CAP PO SCH (09:52)
[2019-01-17] MEDS: busPIRone HCL 5 MG TAB PO SCH (09:52)
[2019-01-17] MEDS: PANTOPRAZOLE SOD 40 MG TABEC PO SCH (09:52)
[2019-01-17] MEDS: ESTROGENS CONJ 0.625 MG TAB PO SCH (09:52)
[2019-01-17] MEDS: DILTIAZEM CD 120 MG CAPCR PO SCH (09:53)
[2019-01-17] MEDS: LISINOPRIL 5 MG TAB PO SCH (09:53)
[2019-01-17] MEDS: PATCH REMOVAL 1 EA TP SCH (09:54)
[2019-01-17] MEDS: HYDROCORTISONE 1% CR 28.35 GM TP SCH (09:54)
[2019-01-17] MEDS: MAGNESIUM OXIDE 400 MG TAB PO SCH (10:01)
[2019-01-17] MEDS ORDERED: HYDR-385 PO (10:01)
--- NOTE | 2019-01-17 10:06 | Hospitalist Depart ---
Discharge Summary Reason for Hosp/Final Diag: (1) Hematoma Status: Acute Hospital Course & Plan: Her anticoagulation was reversed with protamine 25mg, FFP, and vitamin K. General surgery consulted and evacuated the hematoma. She will not be a candidate to resume the anticoagulation at this point. (2) Perinephric abscess Status: Resolved Hospital Course & Plan: S/P percutaneous drainage. Cultures grew MRSA. She has completed a course of Vancomycin. (3) Empyema lung Status: Resolved Hospital Course & Plan: S/P VATS. Cultures grew MRSA. She has completed vancomycin as above. (4) MRSA bacteremia Status: Acute Hospital Course & Plan: Blood cultures at [facility] grew MRSA. Repeat cultures at [facility] were negative after the patient was on treatment with vancomycin. (5) Blood clot in vein Status: Acute Hospital Course & Plan: She was on enoxaparin 80mg SQ BID. Per records from [facility], she was to be on treatment for at least 3 months. She was being transitioned to Warfarin. Unfortunately, she developed a hematoma and her anticoagulation needed to be reversed acutely. She will not be a good candidate to resume the anticoagulation. She did receive approximately 6-7 weeks of therapy. (6) DEANNE (iron deficiency anemia) Status: Acute Hospital Course & Plan: Improved. Continue ferrous sulfate 325mg daily with food. She will need GI tract evaluated in near future. (7) Type II diabetes mellitus Status: Chronic Hospital Course & Plan: She is on low dose Lantus and sliding scale as needed. (8) HTN (hypertension) Status: Chronic Hospital Course & Plan: She is on chronic treatment with lisinopril and diltiazem. (9) GERD (gastroesophageal reflux disease) Status: Chronic Hospital Course & Plan: She is on chronic treatment with Prilosec. (10) Depression Status: Chronic Hospital Course & Plan: She is on chronic treatment with venlafaxine and buspirone. (11) COPD (chronic obstructive pulmonary disease) Status: Chronic Hospital Course & Plan: She is on chronic treatment with Advair. Departure Latest Vital Signs Vital Signs 01/17/19 01/17/19 01/17/19 07:22 07:37 09:47 Temp 97.9 Pulse 81 Resp 12 B/P (MAP) 156/91 (112) Pulse Ox 81 O2 Delivery Room Air O2 Flow Rate 2.0 Weight (Pounds): 155 Weight (Ounces): 6.0 Result Diagram: 01/17/1953201/17/19532 Condition: Improved Discharge: Home, Self Care Discharge Instructions Home Meds Active Scripts Lidocaine (Lidocaine) 5 % Adh..patch, 1 EACH TP QDAY for 14 Days, #14 PATCH.24H Prov:DEE BECKFORD MD 11/26/18 Polyethylene Glycol 3350 (POLYETHYLENE GLYCOL 3350) 17 Gm Powd.pack, 17 GM PO QDAY for 30 Days, #30 PACK Prov:DEE BECKFORD MD 11/26/18 Estrogens, Conjugated (PREMARIN) 1.25 Mg Tablet, 1.25 MG PO QDAY, #30 TAB Prov:LARS BECKFORD MD 08/09/15 Omeprazole (OMEPRAZOLE) 20 Mg Capsule.dr, 1 CAP PO BID, #60 CAP Prov:LARS BECKFORD MD 08/09/15 Venlafaxine Hcl (VENLAFAXINE HCL ER) 75 Mg Tab.er.24, 75 MG PO BID, #60 TAB Prov:LARS BECKFORD MD 08/09/15 Reported Medications Magnesium Hydroxide (MILK OF MAGNESIA) 400 Mg/5 Ml Oral.susp, 30 ML PO BID, BOTTLE 12/21/18 Gabapentin (GABAPENTIN) 300 Mg Capsule, 300 MG PO TID, CAPSULE 12/21/18 Fluticasone/Salmeterol (ADVAIR 250-50 DISKUS) 1 Each Disk.w.dev, 1 PUFF IH BID 12/21/18 Docusate Sodium (COLACE) 100 Mg Capsule, 1 CAP PO BID PRN for CONSTIPATION, CAPSULE 12/21/18 Diltiazem Hcl (CARDIZEM CD) 120 Mg Cap.er.24h, 1 CAPSULE PO QDAY 12/21/18 Albuterol Sulfate 0.083% (ALBUTEROL SULFATE 0.083%) 2.5 Mg/3 Ml Vial.neb, 1 VIAL INH Q4H PRN for WHEEZING, INH 12/21/18 Lisinopril (LISINOPRIL) 5 Mg Tablet, 5 MG PO QDAY, TAB 12/21/18 Insulin Lispro 100 Un/Ml Vial (HUMALOG 100 U/ML VIAL) 100 Unit/1 Ml Vial, 1-6 UNIT SQ TIDAC, VIAL 12/21/18 Multivitamin With Minerals (MULTIPLE VITAMIN) 1 Each Tablet, 1 EACH PO QDAY, TAB 12/21/18 Magnesium Oxide (MAGOX 400) 400 Mg Tablet, 1 TAB PO QDAY 12/21/18 Insulin Glargine 100 Un/Ml Pen (LANTUS SOLOSTAR PEN) 100 Unit/1 Ml Insuln.pen, 5 UNIT SQ QHS, PEN 12/21/18 Ferrous Sulfate (FERROUS SULFATE) 325 Mg Tablet.dr, 325 MG PO QDAY 12/21/18 Ergocalciferol (Vitamin D2) (VITAMIN D2) 50,000 Unit Capsule, 1 CAPSULE PO QWEEK, CAPSULE 12/21/18 Calcium Carbonate/Vitamin D3 (CALCIUM 600 + VIT D 400 TABLET) 1 Each Tablet, 1 EACH PO BIDAC 12/21/18 Buspirone Hcl (BUSPIRONE HCL) 5 Mg Tab, 5 MG PO BID, #10 TAB 12/21/18 Discontinued Reported Medications Venlafaxine Hcl (VENLAFAXINE HCL) 37.5 Mg Tab, 1 TAB PO BIDAC, TAB 12/21/18 Pantoprazole Sodium (PANTOPRAZOLE SODIUM) 40 Mg Tablet.dr, 40 MG PO BID, TAB.SR 12/21/18 Oxycodone Hcl (OXYCODONE HCL) 5 Mg Tablet, 1-2 TAB PO Q4H PRN for PAIN 12/21/18 Enoxaparin Sodium (LOVENOX) 80 Mg/0.8 Ml Disp.syrin, 80 MG SQ Q12H 12/21/18 Fluvastatin Sodium (Lescol) 20 Mg Capsule, 20 MG PO QHS, 0 Refills 06/24/11 Discontinued Scripts Vancomycin HCl/D5w (Vancomycin 1.5 Gram/250 ml-D5w) 1.5 Gram/250 Ml Plast..bag, 1.5 GM IV q18hrs for 42 Days, BAG Prov:DEE BECKFORD MD 11/26/18 Diet: Diabetic Activity: As Tolerated Copies to: IVORY TORRES PA-C ; Venous Thromboembolism Antithrombotics Is Pt On Any Antithrombotics?: No (Had been on full anticoagulation until 01/14 when this was reversed; Will use SCDs at this time given complication of anticoagulation) SILVERIO RIZZO DO January 17, 2019 10:06
--- NOTE | 2019-01-17 12:11 | NUR ---
pt refused blood glucose check at this time
[2019-01-17] MEDS: FERROUS SULFATE 325 MG TAB PO SCH (12:12)
[2019-01-20] MEDS ORDERED: [UNRECOGNIZED DRUG - OTHER] PO SCH (09:00)
== END 2019-01-17 14:16 | disposition home or self-care (01) | DRG 502 ==
LOC: ICU → MED 09:50
PROVIDERS: ADMIT Internal Medicine; ATTEND Internal Medicine
PROC: 0KC Muscles, Extirpation (ICD-10-PCS; principal; 2019-01-14 14:26)
DX: M79.81 Nontraumatic hematoma of soft tissue (principal); I10 Essential (primary) hypertension; E11.9 Type 2 diabetes mellitus without complications; K21.9 Gastro-esophageal reflux disease without esophagitis; G89.29 Other chronic pain; D50.9 Iron deficiency anemia, unspecified; E78.5 Hyperlipidemia, unspecified; F32.9 Major depressive disorder, single episode, unspecified; J44.9 Chronic obstructive pulmonary disease, unspecified; G47.30 Sleep apnea, unspecified; T78.3XXA Angioneurotic edema, initial encounter; D72.829 Elevated white blood cell count, unspecified; F17.210 Nicotine dependence, cigarettes, uncomplicated; S22.32XD Fracture of one rib, left side, subsequent encounter for fracture with routine healing; Z86.718 Personal history of other venous thrombosis and embolism; Z79.01 Long term (current) use of anticoagulants; Z88.0 Allergy status to penicillin; Z88.7 Allergy status to serum and vaccine; Z88.8 Allergy status to other drugs, medicaments and biological substances; Z91.048 Other nonmedicinal substance allergy status; Z86.14 Personal history of Methicillin resistant Staphylococcus aureus infection; Z79.4 Long term (current) use of insulin; Z90.49 Acquired absence of other specified parts of digestive tract
CPT/HCPCS: 36415; 36416; 80202; 82310; 82374; 82435; 82565; 82947; 82948; 84132; 84295; 84484; 84520; 85025; 85610; 86850; 86900; 86901; 86920; 93005; 94640; J1100; J1170; J1815; J2001; J2270; J2405; J2704; J2720; J3010; J3370; J3430; J3490; J7030; J7040; J7050; P9016; P9059

== ENCOUNTER 2019-01-19 13:06 | Emergency (ER) | payer MEDICAID ==
[2019-01-14 12:38] VITALS: Wt 66.7 kg
[2019-01-19] MEDS ORDERED: NS(*) 0.9% 1000 ML BAG 1,000 ML IV ONE (13:16)
--- NOTE | 2019-01-19 13:16 | ER Report ---
History and Physical Time Seen By MD: 13:16 Hx. of Stated Complaint: HAD HEMATOMA REMOVED FROM BACK ON MONDAY THIS PAST WEEK. HAD A J-VAC PLACED TO LEFT LUNG. STATES SHE "CANNOT BREATH FROM HER LEFT SIDE: HPI/ROS CHIEF COMPLAINT: Shortness of breath HISTORY OF PRESENT ILLNESS: 53-year-old female patient presents to the emergency room with complaints of not feeling well. Patient states that she had a percutaneous drainage of an abscess around her kidney. Turned out that she was growing MRSA. She is admitted to the hospital and was treated with IV antibiotics. Following a release to visit with her daughter in her home she came back and had some swelling. She had a spontaneous hematoma which required surgical intervention for drainage. Patient states that she is feeling as if she is not feeling well today, feeling that she is having hard time taking a deep breath. She denies any fevers, but states she just has not felt like herself. She states she has not been taking her medication since she was discharged, as her medications are in storage while she is moving. REVIEW OF SYSTEMS: Respiratory: As noted above Cardiovascular: No chest pain, no palpitations. Gastrointestinal: No vomiting, no abdominal pain. Musculoskeletal: No back pain. Allergies: Coded Allergies: Penicillins (Verified Allergy, Severe, BLISTERS, 01/19/19) pneumococcal vaccine (Verified Allergy, Severe, HIVES, 01/19/19) Influenza Virus Vaccines (Verified Allergy, Intermediate, SWELLING TO FACE, 01/19/19) corn (Verified Allergy, Mild, UNKNOWN, 01/19/19) TINGLING FEELING dextromethorphan (Verified Allergy, Mild, 01/19/19) grass pollen-January ([place] blue) grass, std (Verified Allergy, Mild, ITCHING, 01/19/19) guaifenesin (Verified Allergy, Mild, 01/19/19) ibuprofen (Verified Allergy, Mild, 01/19/19) LIQUID CAPSULES pseudoephedrine (Verified Allergy, Mild, 01/19/19) Uncoded Allergies: ANIMALS (Allergy, Mild, 09/03/08) MOLD (Allergy, Unknown, 01/29/14) Home Meds Active Scripts Hydrocodone Bit/Acetaminophen (HYDROCODON-ACETAMINOPHEN 5-325) 1 Each Tablet, 1 EACH PO Q4H PRN for PAIN, #30 TAB Prov:SILVERIO RIZZO DO 01/17/19 Lidocaine (Lidocaine) 5 % Adh..patch, 1 EACH TP QDAY for 14 Days, #14 PATCH.24H Prov:DEE BECKFORD MD 11/26/18 Polyethylene Glycol 3350 (POLYETHYLENE GLYCOL 3350) 17 Gm Powd.pack, 17 GM PO QDAY for 30 Days, #30 PACK Prov:DEE BECKFORD MD 11/26/18 Estrogens, Conjugated (PREMARIN) 1.25 Mg Tablet, 1.25 MG PO QDAY, #30 TAB Prov:LARS BECKFORD MD 08/09/15 Omeprazole (OMEPRAZOLE) 20 Mg Capsule.dr, 1 CAP PO BID, #60 CAP Prov:LARS BECKFORD MD 08/09/15 Venlafaxine Hcl (VENLAFAXINE HCL ER) 75 Mg Tab.er.24, 75 MG PO BID, #60 TAB Prov:LARS BECKFORD MD 08/09/15 Reported Medications Magnesium Hydroxide (MILK OF MAGNESIA) 400 Mg/5 Ml Oral.susp, 30 ML PO BID, BOTTLE 12/21/18 Gabapentin (GABAPENTIN) 300 Mg Capsule, 300 MG PO TID, CAPSULE 12/21/18 Fluticasone/Salmeterol (ADVAIR 250-50 DISKUS) 1 Each Disk.w.dev, 1 PUFF IH BID 12/21/18 Docusate Sodium (COLACE) 100 Mg Capsule, 1 CAP PO BID PRN for CONSTIPATION, CAPSULE 12/21/18 Diltiazem Hcl (CARDIZEM CD) 120 Mg Cap.er.24h, 1 CAPSULE PO QDAY 12/21/18 Albuterol Sulfate 0.083% (ALBUTEROL SULFATE 0.083%) 2.5 Mg/3 Ml Vial.neb, 1 VIAL INH Q4H PRN for WHEEZING, INH 12/21/18 Lisinopril (LISINOPRIL) 5 Mg Tablet, 5 MG PO QDAY, TAB 12/21/18 Insulin Lispro 100 Un/Ml Vial (HUMALOG 100 U/ML VIAL) 100 Unit/1 Ml Vial, 1-6 UNIT SQ TIDAC, VIAL 12/21/18 Multivitamin With Minerals (MULTIPLE VITAMIN) 1 Each Tablet, 1 EACH PO QDAY, TAB 12/21/18 Magnesium Oxide (MAGOX 400) 400 Mg Tablet, 1 TAB PO QDAY 12/21/18 Insulin Glargine 100 Un/Ml Pen (LANTUS SOLOSTAR PEN) 100 Unit/1 Ml Insuln.pen, 5 UNIT SQ QHS, PEN 12/21/18 Ferrous Sulfate (FERROUS SULFATE) 325 Mg Tablet.dr, 325 MG PO QDAY 12/21/18 Ergocalciferol (Vitamin D2) (VITAMIN D2) 50,000 Unit Capsule, 1 CAPSULE PO QWEEK, CAPSULE 12/21/18 Calcium Carbonate/Vitamin D3 (CALCIUM 600 + VIT D 400 TABLET) 1 Each Tablet, 1 EACH PO BIDAC 12/21/18 Buspirone Hcl (BUSPIRONE HCL) 5 Mg Tab, 5 MG PO BID, #10 TAB 12/21/18 Discontinued Reported Medications Venlafaxine Hcl (VENLAFAXINE HCL) 37.5 Mg Tab, 1 TAB PO BIDAC, TAB 12/21/18 Pantoprazole Sodium (PANTOPRAZOLE SODIUM) 40 Mg Tablet.dr, 40 MG PO BID, TAB.SR 12/21/18 Oxycodone Hcl (OXYCODONE HCL) 5 Mg Tablet, 1-2 TAB PO Q4H PRN for PAIN 12/21/18 Enoxaparin Sodium (LOVENOX) 80 Mg/0.8 Ml Disp.syrin, 80 MG SQ Q12H 12/21/18 Fluvastatin Sodium (Lescol) 20 Mg Capsule, 20 MG PO QHS, 0 Refills 06/24/11 Discontinued Scripts Vancomycin HCl/D5w (Vancomycin 1.5 Gram/250 ml-D5w) 1.5 Gram/250 Ml Plast..bag, 1.5 GM IV q18hrs for 42 Days, BAG Prov:DEE BECKFORD MD 11/26/18 Past Medical/Surgical History Patient has a past medical history of migraines, chest pain, angina, hypertension, hyperlipidemia, asthma, emphysema, pneumonia, tuberculosis, COPD, reflux, cholecystitis, pyelonephritis, frequent UTI, ovarian cancer, hip bursitis, arthritis, degenerative disc disease, diabetes, depression, cervical cancer. 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 Patient has a family medical history of cancer, CAD, stroke, diabetes. Reviewed Nurses Notes: Yes Hx Smoking: Yes Smoking Status: Current: Every Day Smoker Exposure to Second Hand Smoke?: Yes Hx Substance Use Disorder: No Hx Alcohol Use: No Constitutional Vital Sign - Last 24 Hours 01/19/19 01/19/19 01/19/19 01/19/19 13:11 13:30 13:47 13:54 Temp 99.4 Pulse 102 74 Resp 22 B/P (MAP) 181/128 173/108 (129) 166/116 (133) Pulse Ox 90 97 O2 Delivery Room Air O2 Flow Rate 2.5 01/19/19 01/19/19 01/19/19 01/19/19 14:00 14:30 15:00 15:08 Pulse 70 68 72 Resp 27 16 15 B/P (MAP) 175/109 (131) 177/105 (129) 173/116 (135) 177/98 (124) Pulse Ox 97 97 100 01/19/19 15:30 Pulse 65 Resp 18 B/P (MAP) 166/96 (119) Pulse Ox 99 Physical Exam General Appearance: The patient is alert, has no immediate need for airway protection and no current signs of toxicity. Respiratory: Chest is non tender, lungs are diminished in the left lower lobe to auscultation. Cardiac: regular rate and rhythm Gastrointestinal: Abdomen is soft and non tender, no masses, bowel sounds normal. Musculoskeletal: Neck: Neck is supple and non tender. Extremities have full range of motion and are non tender. Skin: No rashes or lesions. Dressing appears to be intact, there is no obvious drainage noted. DIFFERENTIAL DIAGNOSIS: After history and physical exam differential diagnosis was considered for collapsed lung, recurrence of hematoma, pneumonia, h yperglycemia, DKA. Medical Decision Making Data Points Result Diagram: 01/19/19 1330 01/19/19 1330 Laboratory Hematology Test 01/19/19 13:30 01/19/19 15:08 Red Blood Count 4.16 M/uL (4.17-5.56) Mean Corpuscular Volume 89.7 fL (80.0-96.0) Mean Corpuscular Hemoglobin 29.6 pg (26.0-33.0) Mean Corpuscular Hemoglobin Concent 33.0 g/dL (32.0-36.0) Red Cell Distribution Width 14.7 % (11.5-14.5) Mean Platelet Volume 7.1 fL (7.2-11.1) Neutrophils (%) (Auto) 58.5 % (39.4-72.5) Lymphocytes (%) (Auto) 19.2 % (17.6-49.6) Monocytes (%) (Auto) 10.8 % (4.1-12.4) Eosinophils (%) (Auto) 10.4 % (0.4-6.7) Basophils (%) (Auto) 1.1 % (0.3-1.4) Nucleated RBC Relative Count (auto) 0.1 /100WBC Neutrophils # (Auto) 6.1 K/uL (2.0-7.4) Lymphocytes # (Auto) 2.0 K/uL (1.3-3.6) Monocytes # (Auto) 1.1 K/uL (0.3-1.0) Eosinophils # (Auto) 1.1 K/uL (0.0-0.5) Basophils # (Auto) 0.1 K/uL (0.0-0.1) Nucleated RBC Absolute Count (auto) 0.01 K/uL Peripheral Blood Smear Yes Y/N Sodium Level 134 mmol/L (137-145) Potassium Level 4.3 mmol/L (3.5-5.0) Chloride Level 97 mmol/L (98-107) Carbon Dioxide Level 27 mmol/L (22-31) Blood Urea Nitrogen 13 mg/dl (7-18) Creatinine 0.70 mg/dl (0.52-1.04) Glomerular Filtration Rate Calc > 60.0 Random Glucose 383 mg/dl (75-110) Osmolality 299 mOSM/K (275-295) Calcium Level 9.3 mg/dl (8.4-10.2) Total Bilirubin 0.2 mg/dl (0.2-1.3) Aspartate Amino Transf (AST/SGOT) 19 U/L (0-35) Alanine Aminotransferase (ALT/SGPT) 11 U/L (0-56) Alkaline Phosphatase 180 U/L (0-126) Troponin I < 0.012 ng/ml B-Type Natriuretic Peptide 390 pg/ml (0-100) Total Protein 7.7 g/dl (6.3-8.2) Albumin 3.9 g/dl (3.5-5.0) Acetone, Qualitative Negative Whole Blood Glucose 304 mg/DL (75-110) Chemistry Test 01/19/19 13:30 01/19/19 15:08 White Blood Count 10.4 k/uL (4.5-11.0) Red Blood Count 4.16 M/uL (4.17-5.56) Hemoglobin 12.3 g/dL (12.0-16.0) Hematocrit 37.3 % (34.0-47.0) Mean Corpuscular Volume 89.7 fL (80.0-96.0) Mean Corpuscular Hemoglobin 29.6 pg (26.0-33.0) Mean Corpuscular Hemoglobin Concent 33.0 g/dL (32.0-36.0) Red Cell Distribution Width 14.7 % (11.5-14.5) Platelet Count 664 K/uL (150-450) Mean Platelet Volume 7.1 fL (7.2-11.1) Neutrophils (%) (Auto) 58.5 % (39.4-72.5) Lymphocytes (%) (Auto) 19.2 % (17.6-49.6) Monocytes (%) (Auto) 10.8 % (4.1-12.4) Eosinophils (%) (Auto) 10.4 % (0.4-6.7) Basophils (%) (Auto) 1.1 % (0.3-1.4) Nucleated RBC Relative Count (auto) 0.1 /100WBC Neutrophils # (Auto) 6.1 K/uL (2.0-7.4) Lymphocytes # (Auto) 2.0 K/uL (1.3-3.6) Monocytes # (Auto) 1.1 K/uL (0.3-1.0) Eosinophils # (Auto) 1.1 K/uL (0.0-0.5) Basophils # (Auto) 0.1 K/uL (0.0-0.1) Nucleated RBC Absolute Count (auto) 0.01 K/uL Peripheral Blood Smear Yes Y/N Glomerular Filtration Rate Calc > 60.0 Osmolality 299 mOSM/K (275-295) Calcium Level 9.3 mg/dl (8.4-10.2) Total Bilirubin 0.2 mg/dl (0.2-1.3) Aspartate Amino Transf (AST/SGOT) 19 U/L (0-35) Alanine Aminotransferase (ALT/SGPT) 11 U/L (0-56) Alkaline Phosphatase 180 U/L (0-126) Troponin I < 0.012 ng/ml B-Type Natriuretic Peptide 390 pg/ml (0-100) Total Protein 7.7 g/dl (6.3-8.2) Albumin 3.9 g/dl (3.5-5.0) Acetone, Qualitative Negative Whole Blood Glucose 304 mg/DL (75-110) Toxicology Test 01/19/19 13:30 Acetone, Qualitative Negative EKG/Imaging EKG Interpretation 12 lead EKG: Rhythm: normal sinus rhythm [place]: normal QRS: normal, prolonged QT interval ST segments: Nonspecific T-wave abnormality Imaging CHEST PA LAT COMPARISON: December 27, 2018 chest x-ray, CT chest with IV contrast 01/13/2019 HISTORY: RESP DISTRESS FINDINGS: CARDIAC/VASC: No cardiac silhouette abnormality or cardiomegaly. Unremarkable pulmonary vasculature. MEDIASTINUM: No visible mass or adenopathy. LUNGS/PLEURA: No pneumothorax. No new parenchymal abnormalities. Postsurgical c hanges in the left lung base related to previous partial lobectomy with a gas containing rounded lucency in the left lung base, corresponding to the gastric fundus on prior CT, with mild adjacent atelectasis.. No effusion or pleural thickening. BONES: No fracture or visible bony lesion. OTHER: Skin harshad, left lateral chest wall or breast, new from previous. These have a convex configuration on the PA view suggestive of residual chest wall soft tissue swelling. There is a surgical drain present in the left chest wall soft tissues. The left PICC has been removed. IMPRESSION: 1. No acute cardiopulmonary findings. 2. Gas-containing lucency in the left lung base corresponds to gastric fundus adjacent postsurgical changes on prior CT. 3. Post debridement/drainage changes in the left lateral chest wall. Report Dictated By: Tomi Brown at 01/19/2019 2:02 PM Report E-Signed By: Tomi Brown at 01/19/2019 2:09 PM ED Course/Re-evaluation ED Course Patient was admitted on exam room, history and physical were obtained. Differential diagnoses were considered. On examination lungs are clear, heart is regular, abdomen soft nontender. There is no obvious drainage from the wound. An IV was started, a CBC, CMP, acetone, osmolality and BNP were done. Patient had a normal white count, there was no left shift. Patient had a blood sugar of 383, acetone was negative, as long as 299. Patient did have an elevated BNP of 380. With her labs being elevated, especially her BNP I do wonder if that is not Fluid retention secondary to her elevated blood sugar. Patient received a dose of insulin here. Patient had an elevated blood pressure on arrival. Chest x-ray was done which was negative. We did go ahead and give her her blood pressure medications, as she is not been taking her medications for the last 2 days. She also has not been on her oxygen and had a room air sat of 81% when she arrived. Patient did get a bottle of oxygen from her home oxygen company, however she has her medications and her option concentrator in storage. I recommended that she have her daughter get those out of storage so that she can have those available. I anticipate that will help her feel better. Patient is return to the emergency room if condition worsens. Patient verbalized understanding and agreement. Patient did have improvement with her blood pressure following her blood pressure medications. Decision to Disposition Date: January 19, 2019 Decision to Disposition Time: 15:45 Depart Departure Latest Vital Signs Vital Signs Date Time Temp Pulse Resp B/P (MAP) Pulse Ox O2 Delivery O2 Flow Rate FiO2 01/19/19 15:30 65 18 166/96 (119) 99 01/19/19 13:47 2.5 01/19/19 13:11 99.4 Room Air Impression: Primary Impression: Hyperglycemia Additional Impressions: HTN (hypertension) Hypoxia Condition: Improved Disposition: HOME OR SELF-CARE Referrals: IVORY TORRES PA-C (PCP) Patient Instructions: Diabetic Hyperglycemia (ED), Hypertension (ED) Additional Instructions: Continue with your current medications. Monitor your blood sugar twice a day. Return to the ER if condition worsens. Follow up with your primary care provider in the next 3-4 days. Get your medications and your concentrator out of the storage unit so you can take and use them. Problem Qualifiers Additional Impressions: HTN (hypertension) Hypertension type: unspecified Qualified Codes: I10 - Essential (primary) hypertension CANDE GALICIA January 19, 2019 13:16
[2019-01-19] MEDS ORDERED: INSU HUM REG 100 U/ML(ER ONLY) 10 ML VIAL SUBQ ONE (13:35)
[2019-01-19 13:41] LABS: PLATELET COUNT, AUTOMATED 664 K/uL (150-450)
--- NOTE | 2019-01-19 13:47 | EKG ---
FACILITY: [facility] PATIENT NAME: ANJANA GONZALEZ : [id number] MR: [id number] V: [id number] EXAM DATE: ORDERING PHYSICIAN: CANDE GALICIA TECHNOLOGIST: SERGIO Test Reason : LEFT SIDED PAIN Blood Pressure : / mmHG Vent. Rate : 080 BPM Atrial Rate : 080 BPM P-R Int : 124 ms QRS Dur : 086 ms QT Int : 410 ms P-R-T Axes : 054 019 085 degrees QTc Int : 472 ms Normal sinus rhythm Nonspecific T wave abnormality , diffuse R wave progression consistent with an old ant/sep AK vs lead placement When compared with ECG of 16-JAN-2019 17:56, Now with poor R wave progression vs lead placement Confirmed by WESLY MARIN ([id number]) on 01/19/2019 7:07:20 PM Referred By: CANDE Confirmed By:WESLY MARIN
--- NOTE | 2019-01-19 14:12 | RADIOLOGY IMAGING REPORT ---
FACILITY: [facility] PATIENT NAME: Subha Martinez : 1965 MR: [id number] V: [id number] EXAM DATE: ORDERING PHYSICIAN: CANDE GALICIA TECHNOLOGIST: Location: Patient: Subha Martinez : 1965 Visit/Account:[id number] Date of Sevice: 01/19/2019 CHEST PA LAT COMPARISON: December 27, 2018 chest x-ray, CT chest with IV contrast 01/13/2019 HISTORY: RESP DISTRESS FINDINGS: CARDIAC/VASC: No cardiac silhouette abnormality or cardiomegaly. Unremarkable pulmonary vasculatu re. MEDIASTINUM: No visible mass or adenopathy. LUNGS/PLEURA: No pneumothorax. No new parenchymal abnormalities. Postsurgical changes in the left armando ng base related to previous partial lobectomy with a gas containing rounded lucency in the left lung base, corresponding to the gastric fundus on prior CT, with mild adjacent atelectasis.. No effusion or pleural thickening. BONES: No fracture or visible bony lesion. OTHER: Skin harshad, left lateral chest wall or breast, new from previous. These have a convex con figuration on the PA view suggestive of residual chest wall soft tissue swelling. There is a surgical drain present in the left chest wall soft tissues. The left PICC has been removed. IMPRESSION: 1. No acute cardiopulmonary findings. 2. Gas-containing lucency in the left lung base corresponds to gastric fundus adjacent postsurgical changes on prior CT. 3. Post debridement/drainage changes in the left lateral chest wall. Report Dictated By: Tomi Brown at 01/19/2019 2:02 PM Report E-Signed By: Tomi Brown at 01/19/2019 2:09 PM WSN:[id number]
[2019-01-19] MEDS ORDERED: LISINOPRIL 10 MG TAB PO ONE (14:45)
[2019-01-19] MEDS ORDERED: DILTIAZEM SR 60 MG CAPCR PO ONE (14:45)
[2019-01-19 15:30] VITALS: BP 166/96
== END 2019-01-19 15:50 | disposition home or self-care (01) ==
LOC: ER 13:12
DX: E11.65 Type 2 diabetes mellitus with hyperglycemia (principal); I10 Essential (primary) hypertension; R09.02 Hypoxemia; F17.210 Nicotine dependence, cigarettes, uncomplicated
CPT/HCPCS: 36416; 71046; 82009; 82948; 83880; 83930; 84484; 85025; 93005; 96360; 96372; 99284; J7030; 82040; 82247; 82310; 82374; 82435; 82565; 82947; 84075; 84132; 84155; 84295; 84450; 84460; 84520; J1815

== ENCOUNTER 2019-01-27 22:16 | Emergency (ER) | payer MEDICAID ==
[2019-01-14 12:38] VITALS: Wt 60.8 kg
[~2019-01-27 22:16] MED LIST changes: -OMEP-125 PO; +OMEP-126 PO
--- NOTE | 2019-01-27 22:19 | ER Report ---
History and Physical Time Seen By MD: 22:18 HPI/ROS CHIEF COMPLAINT: Chest wall pain and swelling HISTORY OF PRESENT ILLNESS: 33-year-old female recently discharged one week ago from the hospital after having a spontaneous hematoma of her left chest wall while on anticoagulation for renal vein thrombosis. Her coagulation was reversed. The hematoma was quite painful and they she elected to have it drained by general surgery. Drain was placed. The drain was removed [address] Negron in the clinic. With plans to follow-up in one week for staple removal. She presents to the ER tonight complaining of increased swelling and pain in her left chest wall. Prior to having the drain removed. There was minimal drainage noted. Patient notes no fever or chills. She notes no shortness of breath. Her blood sugars over 400. Patient's lethargic and slow to respond from her family. Patient denies fever or chills. Patient denies shortness of breath. She arrives without her oxygen on. He is on 2 L. Her pulse ox is upper 80s. REVIEW OF SYSTEMS: Respiratory: No cough, no dyspnea. Cardiovascular: No chest pain, no palpitations. Gastrointestinal: No vomiting, no abdominal pain. Musculoskeletal: No back pain. Allergies: Coded Allergies: Penicillins (Verified Allergy, Severe, BLISTERS, 01/19/19) pneumococcal vaccine (Verified Allergy, Severe, HIVES, 01/19/19) Influenza Virus Vaccines (Verified Allergy, Intermediate, SWELLING TO FACE, 01/19/19) corn (Verified Allergy, Mild, UNKNOWN, 01/19/19) TINGLING FEELING dextromethorphan (Verified Allergy, Mild, 01/19/19) grass pollen-January ([place] blue) grass, std (Verified Allergy, Mild, ITCHING, 01/19/19) guaifenesin (Verified Allergy, Mild, 01/19/19) ibuprofen (Verified Allergy, Mild, 01/19/19) LIQUID CAPSULES pseudoephedrine (Verified Allergy, Mild, 01/19/19) Uncoded Allergies: ANIMALS (Allergy, Mild, 09/03/08) MOLD (Allergy, Unknown, 01/29/14) Home Meds Active Scripts Hydrocodone Bit/Acetaminophen (HYDROCODON-ACETAMINOPHEN 5-325) 1 Each Tablet, 1 EACH PO Q4H PRN for PAIN, #30 TAB Prov:SOSILVERIO WORTHY DO 01/17/19 Lidocaine (Lidocaine) 5 % Adh..patch, 1 EACH TP QDAY for 14 Days, #14 PATCH.24H Prov:DEE BECKFORD MD 11/26/18 Polyethylene Glycol 3350 (POLYETHYLENE GLYCOL 3350) 17 Gm Powd.pack, 17 GM PO QDAY for 30 Days, #30 PACK Prov:DEE BECKFORD MD 11/26/18 Estrogens, Conjugated (PREMARIN) 1.25 Mg Tablet, 1.25 MG PO QDAY, #30 TAB Prov:LARS BECKFORD MD 08/09/15 Omeprazole (OMEPRAZOLE) 20 Mg Capsule.dr, 1 CAP PO BID, #60 CAP Prov:LARS BECKFORD MD 08/09/15 Venlafaxine Hcl (VENLAFAXINE HCL ER) 75 Mg Tab.er.24, 75 MG PO BID, #60 TAB Prov:LARS BECKFORD MD 08/09/15 Reported Medications Magnesium Hydroxide (MILK OF MAGNESIA) 400 Mg/5 Ml Oral.susp, 30 ML PO BID, BOTTLE 12/21/18 Gabapentin (GABAPENTIN) 300 Mg Capsule, 300 MG PO TID, CAPSULE 12/21/18 Fluticasone/Salmeterol (ADVAIR 250-50 DISKUS) 1 Each Disk.w.dev, 1 PUFF IH BID 12/21/18 Docusate Sodium (COLACE) 100 Mg Capsule, 1 CAP PO BID PRN for CONSTIPATION, CAPSULE 12/21/18 Diltiazem Hcl (CARDIZEM CD) 120 Mg Cap.er.24h, 1 CAPSULE PO QDAY 12/21/18 Albuterol Sulfate 0.083% (ALBUTEROL SULFATE 0.083%) 2.5 Mg/3 Ml Vial.neb, 1 VIAL INH Q4H PRN for WHEEZING, INH 12/21/18 Lisinopril (LISINOPRIL) 5 Mg Tablet, 5 MG PO QDAY, TAB 12/21/18 Insulin Lispro 100 Un/Ml Vial (HUMALOG 100 U/ML VIAL) 100 Unit/1 Ml Vial, 1-6 UNIT SQ TIDAC, VIAL 12/21/18 Multivitamin With Minerals (MULTIPLE VITAMIN) 1 Each Tablet, 1 EACH PO QDAY, TAB 12/21/18 Magnesium Oxide (MAGOX 400) 400 Mg Tablet, 1 TAB PO QDAY 12/21/18 Insulin Glargine 100 Un/Ml Pen (LANTUS SOLOSTAR PEN) 100 Unit/1 Ml Insuln.pen, 5 UNIT SQ QHS, PEN 12/21/18 Ferrous Sulfate (FERROUS SULFATE) 325 Mg Tablet.dr, 325 MG PO QDAY 12/21/18 Ergocalciferol (Vitamin D2) (VITAMIN D2) 50,000 Unit Capsule, 1 CAPSULE PO QWEEK, CAPSULE 12/21/18 Calcium Carbonate/Vitamin D3 (CALCIUM 600 + VIT D 400 TABLET) 1 Each Tablet, 1 EACH PO BIDAC 12/21/18 Buspirone Hcl (BUSPIRONE HCL) 5 Mg Tab, 5 MG PO BID, #10 TAB 12/21/18 Past Medical/Surgical History Patient has a past medical history of migraines, chest pain, angina, hypertension, hyperlipidemia, asthma, emphysema, pneumonia, tuberculosis, COPD, reflux, cholecystitis, pyelonephritis, frequent UTI, ovarian cancer, hip bursitis, arthritis, degenerative disc disease, diabetes, depression, cervical cancer. 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 Patient has a family medical history of cancer, CAD, stroke, diabetes. Reviewed Nurses Notes: Yes Old Medical Records Reviewed: Yes Hx Smoking: Yes Smoking Status: Current: Every Day Smoker Exposure to Second Hand Smoke?: Yes Hx Substance Use Disorder: No Hx Alcohol Use: No Constitutional Vital Sign - Last 24 Hours 01/27/19 01/27/19 01/27/19 01/27/19 22:21 22:30 23:30 23:35 Temp 98.0 Pulse 109 93 85 86 Resp 18 24 26 38 B/P (MAP) 130/86 128/89 (102) 138/75 (96) Pulse Ox 91 94 97 97 O2 Delivery Room Air 01/28/19 01/28/19 01/28/19 01/28/19 00:30 01:00 01:30 01:45 Pulse 84 86 90 Resp 28 26 24 B/P (MAP) 144/84 (104) 114/75 (88) 138/97 (111) Pulse Ox 95 96 95 97 01/28/19 01/28/19 01/28/19 01/28/19 02:00 02:05 02:30 02:35 Pulse 89 86 84 Resp 24 15 B/P (MAP) 131/89 (103) Pulse Ox 99 95 01/28/19 01/28/19 01/28/19 01/28/19 03:00 03:05 03:30 03:35 Pulse 82 82 Resp 22 25 B/P (MAP) 124/82 (96) 138/91 (107) Pulse Ox 100 96 01/28/19 01/28/19 04:00 04:30 Pulse 87 87 Resp 17 21 B/P (MAP) 132/84 (100) 133/85 (101) Pulse Ox 95 96 Intake and Output 01/27/19 01/27/19 01/28/19 15:00 23:00 07:00 Intake Total 2200 ml Balance 2200 ml Physical Exam General Appearance: The patient is alert, has no immediate need for airway protection and no current signs of toxicity. Vital signs stable, mild tachycardia, mild hypoxia, eyebrow HEENT: Pupils equal and round no injection. Oropharynx without erythema, mucous. Membranes are moist Respiratory: Chest is non tender, lungs are clear to auscultation. There is a long incision along the left chest wall with a dressing near the breast. There is no drainage. There is no fluctuance. There is no fluid. There is no bruising. There is no warmth. There is no erythema. Pupils are intact along the length of the incision. It appears to be healing well., Patient thinks there is swelling Cardiac: regular rate and rhythm Gastrointestinal: Abdomen is soft and non tender, no masses, bowel sounds normal. Musculoskeletal: Neck: Neck is supple and non tender. Extremities have full range of motion and are non tender. Skin: No rashes or lesions. DIFFERENTIAL DIAGNOSIS: After history and physical exam differential diagnosis was considered for chest pain including but not limited to myocardial ischemia, pericarditis pulmonary embolus, chest wall pain, recurrence of hematoma, cellulitis, wound infection, pleural inflammation and pulmonary infectious causes. Medical Decision Making Data Points Result Diagram: 01/28/19 0000 01/27/19 8087 Laboratory Hematology Test 01/27/19 22:45 01/27/19 23:16 01/27/19 23:47 01/28/19 00:00 Neutrophils (%) (Auto) 82.5 % (39.4-72.5) Lymphocytes (%) (Auto) 6.8 % (17.6-49.6) Monocytes (%) (Auto) 9.8 % (4.1-12.4) Eosinophils (%) (Auto) 0.3 % (0.4-6.7) Basophils (%) (Auto) 0.6 % (0.3-1.4) Nucleated RBC Relative Count (auto) 0.0 /100WBC Neutrophils # (Auto) 35.0 K/uL (2.0-7.4) Lymphocytes # (Auto) 2.9 K/uL (1.3-3.6) Monocytes # (Auto) 4.2 K/uL (0.3-1.0) Eosinophils # (Auto) 0.1 K/uL (0.0-0.5) Basophils # (Auto) 0.3 K/uL (0.0-0.1) Nucleated RBC Absolute Count (auto) 0.02 K/uL Peripheral Blood Smear Yes Y/N B-Type Natriuretic Peptide 149 pg/ml (0-100) Prothrombin Time 14.4 seconds (12.0-14.4) Prothromb Time International Ratio 1.12 Activated Partial Thromboplast Time 26 seconds (23-35) Sodium Level 132 mmol/L (137-145) Potassium Level 3.8 mmol/L (3.5-5.0) Chloride Level 95 mmol/L (98-107) Carbon Dioxide Level 23 mmol/L (22-31) Blood Urea Nitrogen 19 mg/dl (7-18) Creatinine 0.70 mg/dl (0.52-1.04) Glomerular Filtration Rate Calc > 60.0 Random Glucose 311 mg/dl (75-110) Lactate 1.5 mmol/L (0.7-2.1) Calcium Level 9.0 mg/dl (8.4-10.2) Total Bilirubin 0.5 mg/dl (0.2-1.3) Aspartate Amino Transf (AST/SGOT) 14 U/L (0-35) Alanine Aminotransferase (ALT/SGPT) 12 U/L (0-56) Alkaline Phosphatase 108 U/L (0-126) Troponin I < 0.012 ng/ml Total Protein 7.1 g/dl (6.3-8.2) Albumin 3.6 g/dl (3.5-5.0) Red Blood Count 4.61 M/uL (4.17-5.56) Mean Corpuscular Volume 89.3 fL (80.0-96.0) Mean Corpuscular Hemoglobin 29.7 pg (26.0-33.0) Mean Corpuscular Hemoglobin Concent 33.2 g/dL (32.0-36.0) Red Cell Distribution Width 15.0 % (11.5-14.5) Mean Platelet Volume 7.5 fL (7.2-11.1) Neutrophils % (Manual) 81 % (39.4-72.5) Band Neutrophils % 1 % Lymphocytes % (Manual) 4 % (17.6-49.6) Atypical Lymphocytes % 3 % Monocytes % (Manual) 7 % (4.1-12.4) Eosinophils % (Manual) 1 % (0.4-6.7) Basophils % (Manual) 0 % (0.3-1.4) Metamyelocytes % 2 % Nucleated Red Blood Cells 1 Platelet Estimate High Test 01/28/19 00:05 01/28/19 01:31 Urine Color Yellow Urine Clarity Clear Urine pH 6.0 pH (4.8-9.5) Urine Specific [place] 1.020 Urine Protein Negative mg/dL (NEGATIVE) Urine Glucose (UA) 150 mg/dL (NEGATIVE) Urine Ketones Negative mg/dL (NEGATIVE) Urine Blood Negative (NEGATIVE) Urine Nitrite Negative (NEGATIVE) Urine Bilirubin Negative (NEGATIVE) Urine Urobilinogen Negative mg/dL (0.2-1.9) Urine Leukocyte Esterase Trace (NEGATIVE) Urine RBC 1 /HPF (0-2/HPF) Urine WBC 16 /HPF (0-5/HPF) Urine Squamous Epithelial Cells Many /LPF (</=FEW) Urine Bacteria Negative /HPF (NONE-FEW) Urine Hyaline Casts Few /LPF (NONE-FEW) Urine Mucus None /HPF (NONE-FEW) Whole Blood Glucose 220 mg/DL (75-110) Chemistry Test 01/27/19 22:45 01/27/19 23:16 01/27/19 23:47 01/28/19 00:00 Neutrophils (%) (Auto) 82.5 % (39.4-72.5) Lymphocytes (%) (Auto) 6.8 % (17.6-49.6) Monocytes (%) (Auto) 9.8 % (4.1-12.4) Eosinophils (%) (Auto) 0.3 % (0.4-6.7) Basophils (%) (Auto) 0.6 % (0.3-1.4) Nucleated RBC Relative Count (auto) 0.0 /100WBC Neutrophils # (Auto) 35.0 K/uL (2.0-7.4) Lymphocytes # (Auto) 2.9 K/uL (1.3-3.6) Monocytes # (Auto) 4.2 K/uL (0.3-1.0) Eosinophils # (Auto) 0.1 K/uL (0.0-0.5) Basophils # (Auto) 0.3 K/uL (0.0-0.1) Nucleated RBC Absolute Count (auto) 0.02 K/uL Peripheral Blood Smear Yes Y/N B-Type Natriuretic Peptide 149 pg/ml (0-100) Prothrombin Time 14.4 seconds (12.0-14.4) Prothromb Time International Ratio 1.12 Activated Partial Thromboplast Time 26 seconds (23-35) Glomerular Filtration Rate Calc > 60.0 Lactate 1.5 mmol/L (0.7-2.1) Calcium Level 9.0 mg/dl (8.4-10.2) Total Bilirubin 0.5 mg/dl (0.2-1.3) Aspartate Amino Transf (AST/SGOT) 14 U/L (0-35) Alanine Aminotransferase (ALT/SGPT) 12 U/L (0-56) Alkaline Phosphatase 108 U/L (0-126) Troponin I < 0.012 ng/ml Total Protein 7.1 g/dl (6.3-8.2) Albumin 3.6 g/dl (3.5-5.0) White Blood Count 37.7 k/uL (4.5-11.0) Red Blood Count 4.61 M/uL (4.17-5.56) Hemoglobin 13.7 g/dL (12.0-16.0) Hematocrit 41.2 % (34.0-47.0) Mean Corpuscular Volume 89.3 fL (80.0-96.0) Mean Corpuscular Hemoglobin 29.7 pg (26.0-33.0) Mean Corpuscular Hemoglobin Concent 33.2 g/dL (32.0-36.0) Red Cell Distribution Width 15.0 % (11.5-14.5) Platelet Count 591 K/uL (150-450) Mean Platelet Volume 7.5 fL (7.2-11.1) Neutrophils % (Manual) 81 % (39.4-72.5) Band Neutrophils % 1 % Lymphocytes % (Manual) 4 % (17.6-49.6) Atypical Lymphocytes % 3 % Monocytes % (Manual) 7 % (4.1-12.4) Eosinophils % (Manual) 1 % (0.4-6.7) Basophils % (Manual) 0 % (0.3-1.4) Metamyelocytes % 2 % Nucleated Red Blood Cells 1 Platelet Estimate High Test 01/28/19 00:05 01/28/19 01:31 Urine Color Yellow Urine Clarity Clear Urine pH 6.0 pH (4.8-9.5) Urine Specific [place] 1.020 Urine Protein Negative mg/dL (NEGATIVE) Urine Glucose (UA) 150 mg/dL (NEGATIVE) Urine Ketones Negative mg/dL (NEGATIVE) Urine Blood Negative (NEGATIVE) Urine Nitrite Negative (NEGATIVE) Urine Bilirubin Negative (NEGATIVE) Urine Urobilinogen Negative mg/dL (0.2-1.9) Urine Leukocyte Esterase Trace (NEGATIVE) Urine RBC 1 /HPF (0-2/HPF) Urine WBC 16 /HPF (0-5/HPF) Urine Squamous Epithelial Cells Many /LPF (</=FEW) Urine Bacteria Negative /HPF (NONE-FEW) Urine Hyaline Casts Few /LPF (NONE-FEW) Urine Mucus None /HPF (NONE-FEW) Whole Blood Glucose 220 mg/DL (75-110) Coagulation Test 01/27/19 23:16 Prothrombin Time 14.4 seconds Prothromb Time International Ratio 1.12 Activated Partial Thromboplast Time 26 seconds Urinalysis Test 01/28/19 00:05 Urine Color Yellow Urine Clarity Clear Urine pH 6.0 pH (4.8-9.5) Urine Specific [place] 1.020 Urine Protein Negative mg/dL (NEGATIVE) Urine Glucose (UA) 150 mg/dL (NEGATIVE) Urine Ketones Negative mg/dL (NEGATIVE) Urine Blood Negative (NEGATIVE) Urine Nitrite Negative (NEGATIVE) Urine Bilirubin Negative (NEGATIVE) Urine Urobilinogen Negative mg/dL (0.2-1.9) Urine Leukocyte Esterase Trace (NEGATIVE) Urine RBC 1 /HPF (0-2/HPF) Urine WBC 16 /HPF (0-5/HPF) Urine Squamous Epithelial Cells Many /LPF (</=FEW) Urine Bacteria Negative /HPF (NONE-FEW) Urine Hyaline Casts Few /LPF (NONE-FEW) Urine Mucus None /HPF (NONE-FEW) Microbiology Microbiology Date/Time Source Procedure Growth Status 01/27/19 23:52 Blood Peripheral Draw Blood Culture - Preliminary NO GROWTH AFTER 1 DAY, REINCUBATED Resulted 01/27/19 23:47 Blood Peripheral Draw Blood Culture - Preliminary NO GROWTH AFTER 1 DAY, REINCUBATED Resulted 01/28/19 02:48 Drainage Gram Stain - Final Resulted 01/28/19 02:48 Drainage Wound Culture Pending Resulted 01/28/19 02:48 Drainage Anaerobic Culture Pending Resulted EKG/Imaging EKG Interpretation 12 lead EK Rhythm: normal sinus rhythm [place]: normal QRS: normal ST segments:, Inverted abnormal T waves noted anteriorly, laterally, prolonged QT, comparison to previous EKG 01/19/19, T-wave inversions were noted in V2 through V4 on the previous EKG here more pronounced and widespread now, there is just gross T-wave flattening Imaging X-ray: Two-view chest x-ray was obtained. I viewed the images myself on the PACS system. My interpretation of the images is: No infiltrate, left chronic effusion, gastric hiatal hernia and left chest, comparison to previous chest x- ray. 01/19/19, no significant change. Septum baby atelectasis in the left base. The radiologist interpretation had no clinically significant variation from this interpretation. Results: CT scan of the chest, abdomen and pelvis with IV contrast was obtained. The results of the study are CT CHEST ABDOMEN PELVIS W/CON HISTORY: Postop pain and fever TECHNIQUE: CT imaging was obtained through the chest, abdomen and pelvis with intravenous contrast. One of the following dose optimization techniques was utilized in the performance of this exam: automated exposure control; adjustment of the mA and/or kv according to patient size; or use of iterative reconstruction technique. Specific details can be referenced in the facility's radiology CT exam operational policy. CONTRAST: 75 cc of Isovue-370 COMPARISON: CT chest, abdomen and pelvis 01/13/2019 FINDINGS: CHEST: Lower neck: Negative. Vessels: Mild calcification of the coronary arteries. Heart and pericardium: Negative Mediastinum/hilum/lymph nodes: Stable mildly enlarged bilateral axillary lymph nodes. Lungs/pleura: Stable elevation the left diaphragm with adjacent airspace disease. Chronic reticular nodular opacities within the right lower lobe. Background of centrilobular emphysema. No pleural effusion or pneumothorax. Stable 4 mm right upper lobe nodule (series 4 image 33). Bones/soft tissues: Prior complex fluid collection along the left chest wall has markedly decreased in size residual 5.2 x 1.6 x 4.5 cm fluid collection along the left lateral chest wall (series 2 image 60) tract of fluid extending from the anterior aspect of the collection to the skin surface. Multiple left rib fractures. Other findings: None significant ABDOMEN/PELVIS: Hepatobiliary: Cholecystectomy. Spleen: Splenectomy Adrenals: Stable thickening of the left adrenal gland. Pancreas: Negative. Kidneys/ureters/bladder: Persistent stranding adjacent to the upper pole the right kidney. 4 mm nonobstructing right lower pole renal calculus. Stable patchy low attenuation within the upper pole of the left kidney. Bowel/peritoneum/mesentery: Elevated left diaphragm with stomach. No bowel obstruction, free air or ascites. Vessels: Negative. Lymph nodes: Reidentified are mildly enlarged retroperitoneal and bilateral iliac lymph nodes. Borderline enlarged bilateral inguinal lymph nodes. Pelvic genitourinary: Hysterectomy Bones/soft tissues: Chronic appearing subcutaneous lesions within the ventral abdominal wall, likely hematomas or injection sites. Other findings: None significant IMPRESSION: 1. Imaging of the chest reveals interval drainage of a complex fluid collection within the left chest wall with a 5.2 x 1.6 x 4.5 cm fluid collection remaining. There is a tract of fluid extending to the skin surface. Recommend correlation for fistula. Chronic elevation left diaphragm with adjacent airspace disease, likely atelectasis. Chronic reticulonodular opacities within the right lower lobe. Stable mild bilateral axillary lymphadenopathy. 2. Imaging the abdomen and pelvis reveals stable mild stranding adjacent to the upper pole of the right kidney. Stable patchy low attenuation within the upper pole of the left kidney. Recommend clinical correlation for pyelonephritis. Stable mild retroperitoneal and iliac lymphadenopathy. 3. Chronic subcutaneous lesions within the ventral abdominal wall, likely hematomas or injection sites. The study was read by the radiologist. I viewed the images myself on the PACS system. ED Course/Re-evaluation Clinical Indication for ER IV: Hydration, IV Access ED Course Patient was admitted to an examination room. H&P was done. The differential diagnoses was considered. Patient complaining of left chest wall and flank swelling, discomfort, lethargy, elevated blood sugar. Diagnostic evaluation was undertaken. Patient with grossly elevated white blood cell count of 42,000. Previous white blood cell count 5 days ago here in the emergency department was normal at 10,000 without left shift. Patient with a history of MRSA sepsis. She has a chest wall drainage tube removed on 01/23/[address] Medhat Negron general surgery with anticipated follow-up in one week to remove her harshad. There is purulent drainage coming out of the site where the drainage tube was through the chest wall. A CT scan of the chest, abdomen and pelvis with IV contrast was performed. There is suggestion that there may be some pyelonephritis of the left kidney as well as a residual fluid collection in the left chest from drainage of the hematoma. There are a few white cells noted in the urine and trace site esterase. 01/28/2019 2:42:53 am case discussed with Dr. Sunil Beal still hospitalist, who advises transfer to facility with higher level of care. She may need infectious disease consult, other interventional radiology specialty drainage of potential hidden infection. 01/28/2019 3:28:45 am case discussed with hospitalist at [facility], Dr. Berkowitz, who accepts the patient for transfer to his facility Decision to Disposition Date: Jan 28, 2019 Decision to Disposition Time: 02:05 Depart Departure Latest Vital Signs Vital Signs Date Time Temp Pulse Resp B/P (MAP) Pulse Ox O2 Delivery O2 Flow Rate FiO2 01/28/19 04:30 87 21 133/85 (101) 96 01/27/19 22:21 98.0 Room Air Impression: Primary Impression: Leukocytosis Additional Impressions: Hyperglycemia Urinary tract infection Condition: Improved Disposition: HOME OR SELF-CARE Referrals: JAIRON MARROQUIN MD (PCP) Problem Qualifiers Primary Impression: Leukocytosis Leukocytosis type: unspecified Qualified Codes: D72.829 - Elevated white blood cell count, unspecified Additional Impressions: Urinary tract infection Urinary tract infection type: acute cystitis Hematuria presence: without hematuria Qualified Codes: N30.00 - Acute cystitis without hematuria NABIL BRADLEY DO Jan 27, 2019 22:18
[2019-01-27] MEDS ORDERED: NS(*) 0.9% 1000 ML BAG 1,000 ML IV ONE (22:22)
[2019-01-27] MEDS ORDERED: ONDANSETRON 4 MG/2 ML VIAL IVP ONE (22:25)
[2019-01-27 23:05] LABS: PLATELET COUNT, AUTOMATED 612 K/uL (150-450)
--- NOTE | 2019-01-27 23:17 | EKG ---
FACILITY: [facility] [place] PATIENT NAME: ANJANA GONZALEZ : [id number] MR: [id number] V: [id number] EXAM DATE: ORDERING PHYSICIAN: NABIL BRADLEY TECHNOLOGIST: CHECO Test Reason : CHEST PAIN Blood Pressure : / mmHG Vent. Rate : 094 BPM Atrial Rate : 094 BPM P-R Int : 130 ms QRS Dur : 088 ms QT Int : 404 ms P-R-T Axes : 067 051 091 degrees QTc Int : 505 ms Normal sinus rhythm T wave abnormality, consider anterolateral ischemia Prolonged QT Abnormal ECG When compared with ECG of 19-JAN-2019 13:21, T wave inversion more evident in Anterior leads Confirmed by Sunil Gloria ([id number]) on 01/28/2019 7:29:19 AM Referred By: Confirmed By:Sunil Ocampo
--- NOTE | 2019-01-27 23:41 | RADIOLOGY IMAGING REPORT ---
[place] [facility] [place] NAME: Subha Martinez : 1965 MR: [id number] V: [id number] EXAM DATE: ORDERING PHYSICIAN: NABIL BRADLEY TECHNOLOGIST: Location: [facility] [place] Patient: Subha Martinez : 1965 Visit/Account:[id number] Date of Sevice: 01/27/2019 CHEST: Indication: Postop pain. Technique: Frontal and lateral views were obtained. Comparison: Multiple previous studies, the most recent which is dated 01/19/2019. Skeletal and soft tissue structures: Skin harshad remain in the lower left chest wall. The surgical d rainage catheter was removed. Heart and mediastinum: Within normal limits. Lung mohan: There is chronic elevation of the left hemidiaphragm, with an air-fluid level in the sto mach. There are linear opacities in the left lower lung field, compatible with atelectasis. The right lung appears clear and unchanged. Pleural spaces: No evidence of pneumothorax or significant left effusion. Impression: Linear atelectasis in the left lower lung field. No evidence of pneumothorax or significa nt effusion. Report Dictated By: Bon Adkins MD at 01/27/2019 11:21 PM Report E-Signed By: Bon Adkins MD at 01/27/2019 11:37 PM WSN:[id number]
[2019-01-28 00:29] LABS: INR 1.12
[2019-01-28] MEDS ORDERED: INSU HUM REG 100 U/ML(ER ONLY) 10 ML VIAL IVP ONE (00:35)
[2019-01-28 00:41] LABS: PLATELET COUNT, AUTOMATED 591 K/uL (150-450)
[2019-01-28] MEDS ORDERED: IOPAMIDOL 76% 100 ML INFUS BTL 100 ML ONE (01:07)
[2019-01-28] MEDS ORDERED: PROMETHAZINE 25 MG/ML 1 ML AMP IVP ONE (01:20)
--- NOTE | 2019-01-28 01:56 | RADIOLOGY IMAGING REPORT ---
FACILITY: [facility] - [place] PATIENT NAME: Subha Martinez : 1965 MR: [id number] V: [id number] EXAM DATE: ORDERING PHYSICIAN: NABIL BRADLEY TECHNOLOGIST: Location: [facility] Patient: Subha Martinez : 1965 Visit/Account:[id number] Date of Sevice: 01/28/2019 CT CHEST ABDOMEN PELVIS W/CON HISTORY: Postop pain and fever TECHNIQUE: CT imaging was obtained through the chest, abdomen and pelvis with intravenous contrast. One of the following dose optimization techniques was utilized in the performance of this exam: autom ated exposure control; adjustment of the mA and/or kv according to patient size; or use of iterative reconstruction technique. Specific details can be referenced in the facility's radiology CT exam oper ational policy. CONTRAST: 75 cc of Isovue-[id number] COMPARISON: CT chest, abdomen and pelvis 01/13/2019 FINDINGS: CHEST: Lower neck: Negative. Vessels: Mild calcification of the coronary arteries. Heart and pericardium: Negative Mediastinum/hilum/lymph nodes: Stable mildly enlarged bilateral axillary lymph nodes. Lungs/pleura: Stable elevation the left diaphragm with adjacent airspace disease. Chronic reticular nodular opacities within the right lower lobe. Background of centrilobular emphysema. No pleural effu kelley or pneumothorax. Stable 4 mm right upper lobe nodule (series 4 image 33). Bones/soft tissues: Prior complex fluid collection along the left chest wall has markedly decreased in size residual 5.2 x 1.6 x 4.5 cm fluid collection along the left lateral chest wall (series 2 imag e 60) tract of fluid extending from the anterior aspect of the collection to the skin surface. Multip le left rib fractures. Other findings: None significant ABDOMEN/PELVIS: Hepatobiliary: Cholecystectomy. Spleen: Splenectomy Adrenals: Stable thickening of the left adrenal gland. Pancreas: Negative. Kidneys/ureters/bladder: Persistent stranding adjacent to the upper pole the right kidney. 4 mm nono bstructing right lower pole renal calculus. Stable patchy low attenuation within the upper pole of t he left kidney. Bowel/peritoneum/mesentery: Elevated left diaphragm with stomach. No bowel obstruction, free air or ascites. Vessels: Negative. Lymph nodes: Reidentified are mildly enlarged retroperitoneal and bilateral iliac lymph nodes. Border line enlarged bilateral inguinal lymph nodes. Pelvic genitourinary: Hysterectomy Bones/soft tissues: Chronic appearing subcutaneous lesions within the ventral abdominal wall, likely hematomas or injection sites. Other findings: None significant IMPRESSION: 1. Imaging of the chest reveals interval drainage of a complex fluid collection within the left chest wall with a 5.2 x 1.6 x 4.5 cm fluid collection remaining. There is a tract of fluid extending to th e skin surface. Recommend correlation for fistula. Chronic elevation left diaphragm with adjacent air space disease, likely atelectasis. Chronic reticulonodular opacities within the right lower lobe. Sta ble mild bilateral axillary lymphadenopathy. 2. Imaging the abdomen and pelvis reveals stable mild stranding adjacent to the upper pole of the rig ht kidney. Stable patchy low attenuation within the upper pole of the left kidney. Recommend clinical correlation for pyelonephritis. Stable mild retroperitoneal and iliac lymphadenopathy. 3. Chronic subcutaneous lesions within the ventral abdominal wall, likely hematomas or injection site s. Report Dictated By: Mina Avalos MD at 01/28/2019 1:35 AM Report E-Signed By: Mina Avalos MD at 01/28/2019 1:51 AM WSN:[id number]
[2019-01-28] MEDS ORDERED: VANCOMYCIN 1 GM ADDVIAL 1 GM in NS(*) 0.9% 250 ML ADDVAN BAG 250 ML IVPB ONE (02:55)
[2019-01-28] MEDS ORDERED: NS(*) 0.9% 250 ML BAG 250 ML ONE (03:28)
[2019-01-28] MEDS ORDERED: VANCOMYCIN 1 GM VIAL ONE (03:28)
[2019-01-28 04:30] VITALS: BP 133/85
== END 2019-01-28 05:10 | disposition short-term general hospital (02) ==
LOC: ER 22:31
DX: N30.00 Acute cystitis without hematuria (principal); D72.829 Elevated white blood cell count, unspecified; J98.11 Atelectasis; R50.9 Fever, unspecified; R07.9 Chest pain, unspecified; R94.31 Abnormal electrocardiogram [ECG] [EKG]
CPT/HCPCS: 36415; 36416; 71046; 71260; 74177; 81001; 82948; 83605; 83880; 84484; 85007; 85025; 85027; 85610; 85730; 87040; 87070; 87073; 87077; 87088; 87186; 87205; 93005; 96361; 96365; 96366; 96374; 96375; 99285; J2405; J2550; J3370; J7030; J7050; Q9967; 82040; 82247; 82310; 82374; 82435; 82565; 82947; 84075; 84132; 84155; 84295; 84450; 84460; 84520; J1815

== ENCOUNTER → 2019-01-28 | Outpatient (CLI) | payer MEDICAID ==
[2019-01-14 12:38] VITALS: BMI 26.0
== END ==
LOC: AMB 04:45
PROVIDERS: ATTEND Nurse Practitioner
DX: D72.829 Elevated white blood cell count, unspecified (principal)
CPT/HCPCS: A0425; A0426; A0888

== ENCOUNTER 2019-02-04 19:14 | Emergency (ER) | payer MEDICAID ==
[2019-01-14 12:38] VITALS: Wt 62.1 kg
--- NOTE | 2019-02-04 19:20 | ER Report ---
History and Physical Time Seen By MD: 19:20 Hx. of Stated Complaint: Wound vac alarm. HPI/ROS CHIEF COMPLAINT: wound pump alarm HISTORY OF PRESENT ILLNESS: 53 year old female presents to ED stating that her wound vac was alarming. She has a wound vac to surgical wound along the upper left rib cage on the posterior side. She reports her home health nurse changed her wound vac dressing today, but her alarm went off this evening. She reports she didn't look at the screen to see what type of alarm was going off but came to the ED. Alarm had turned off prior to arrival at the ED and wound vac working properly. Wound dressing is currently in place with no air leaks. REVIEW OF SYSTEMS: Respiratory: No cough, no dyspnea. Cardiovascular: No chest pain, no palpitations. Gastrointestinal: No vomiting, no abdominal pain. Musculoskeletal: No back pain. Allergies: Coded Allergies: Penicillins (Verified Allergy, Severe, BLISTERS, 01/19/19) pneumococcal vaccine (Verified Allergy, Severe, HIVES, 01/19/19) Influenza Virus Vaccines (Verified Allergy, Intermediate, SWELLING TO FACE, 01/19/19) corn (Verified Allergy, Mild, UNKNOWN, 01/19/19) TINGLING FEELING dextromethorphan (Verified Allergy, Mild, 01/19/19) grass pollen-January ([place] blue) grass, std (Verified Allergy, Mild, ITCHING, 01/19/19) guaifenesin (Verified Allergy, Mild, 01/19/19) ibuprofen (Verified Allergy, Mild, 01/19/19) LIQUID CAPSULES pseudoephedrine (Verified Allergy, Mild, 01/19/19) Uncoded Allergies: ANIMALS (Allergy, Mild, 09/03/08) MOLD (Allergy, Unknown, 01/29/14) Home Meds Active Scripts Hydrocodone Bit/Acetaminophen (HYDROCODON-ACETAMINOPHEN 5-325) 1 Each Tablet, 1 EACH PO Q4H PRN for PAIN, #30 TAB Prov:SILVERIO RIZZO DO 01/17/19 Lidocaine (Lidocaine) 5 % Adh..patch, 1 EACH TP QDAY for 14 Days, #14 PATCH.24H Prov:DEE BECKFORD MD 11/26/18 Polyethylene Glycol 3350 (POLYETHYLENE GLYCOL 3350) 17 Gm Powd.pack, 17 GM PO QDAY for 30 Days, #30 PACK Prov:DEE BECKFORD MD 11/26/18 Estrogens, Conjugated (PREMARIN) 1.25 Mg Tablet, 1.25 MG PO QDAY, #30 TAB Prov:LARS BECKFORD MD 08/09/15 Omeprazole (OMEPRAZOLE) 20 Mg Capsule.dr, 1 CAP PO BID, #60 CAP Prov:LARS BECKFORD MD 08/09/15 Venlafaxine Hcl (VENLAFAXINE HCL ER) 75 Mg Tab.er.24, 75 MG PO BID, #60 TAB Prov:LARS BECKFORD MD 08/09/15 Reported Medications Magnesium Hydroxide (MILK OF MAGNESIA) 400 Mg/5 Ml Oral.susp, 30 ML PO BID, BOTTLE 12/21/18 Gabapentin (GABAPENTIN) 300 Mg Capsule, 300 MG PO TID, CAPSULE 12/21/18 Fluticasone/Salmeterol (ADVAIR 250-50 DISKUS) 1 Each Disk.w.dev, 1 PUFF IH BID 12/21/18 Docusate Sodium (COLACE) 100 Mg Capsule, 1 CAP PO BID PRN for CONSTIPATION, CAPSULE 12/21/18 Diltiazem Hcl (CARDIZEM CD) 120 Mg Cap.er.24h, 1 CAPSULE PO QDAY 12/21/18 Albuterol Sulfate 0.083% (ALBUTEROL SULFATE 0.083%) 2.5 Mg/3 Ml Vial.neb, 1 VIAL INH Q4H PRN for WHEEZING, INH 12/21/18 Lisinopril (LISINOPRIL) 5 Mg Tablet, 5 MG PO QDAY, TAB 12/21/18 Insulin Lispro 100 Un/Ml Vial (HUMALOG 100 U/ML VIAL) 100 Unit/1 Ml Vial, 1-6 UNIT SQ TIDAC, VIAL 12/21/18 Multivitamin With Minerals (MULTIPLE VITAMIN) 1 Each Tablet, 1 EACH PO QDAY, TAB 12/21/18 Magnesium Oxide (MAGOX 400) 400 Mg Tablet, 1 TAB PO QDAY 12/21/18 Insulin Glargine 100 Un/Ml Pen (LANTUS SOLOSTAR PEN) 100 Unit/1 Ml Insuln.pen, 5 UNIT SQ QHS, PEN 12/21/18 Ferrous Sulfate (FERROUS SULFATE) 325 Mg Tablet.dr, 325 MG PO QDAY 12/21/18 Ergocalciferol (Vitamin D2) (VITAMIN D2) 50,000 Unit Capsule, 1 CAPSULE PO QWEEK, CAPSULE 12/21/18 Calcium Carbonate/Vitamin D3 (CALCIUM 600 + VIT D 400 TABLET) 1 Each Tablet, 1 EACH PO BIDAC 12/21/18 Buspirone Hcl (BUSPIRONE HCL) 5 Mg Tab, 5 MG PO BID, #10 TAB 12/21/18 Past Medical/Surgical History Past medical hx of migraines, angina, HTN, hypercholesterolemia, sleep apnea, asthma, emphysema, pneumonia, tuberculosis 1985, COPD, GERD, ulcers, ovarian cancer 1985, right hip bursitis, arthritis, back pain, DJD, diabetes, depression/anxiety, previous suicide attempt. Past surgical hx of heart cath in 1999, nose surgery 1989, right elbow surgery, hysterectomy 1987, cholecystectomy, appendectomy, 1/2 pancreas removed in 2011. Reviewed Nurses Notes: Yes Hx Smoking: Yes Smoking Status: Current: Every Day Smoker Exposure to Second Hand Smoke?: Yes Hx Substance Use Disorder: No Hx Alcohol Use: No Constitutional Vital Sign - Last 24 Hours 02/04/19 02/04/19 02/04/19 02/04/19 19:18 19:20 19:30 19:44 Temp 98.1 Pulse 90 88 Resp 18 B/P (MAP) 143/97 143/97 (112) 113/88 (96) Pulse Ox 90 96 02/04/19 02/04/19 20:00 20:14 Pulse 79 B/P (MAP) 140/90 (107) Pulse Ox 97 Physical Exam General Appearance: The patient is alert, has no immediate need for airway protection and no current signs of toxicity. Eyes: Pupils equal and round no injection. Respiratory: Chest is non tender, lungs are clear to auscultation. Cardiac: regular rate and rhythm Gastrointestinal: Abdomen is soft and non tender, no masses, bowel sounds normal. Musculoskeletal: Neck: Neck is supple and non tender. Extremities have full range of motion and are non tender. Skin: Wound vac on left upper ribs towards posterior side. No rashes or lesions. DIFFERENTIAL DIAGNOSIS: After history and physical exam differential diagnosis was considered for wound vac leak. Medical Decision Making ED Course/Re-evaluation ED Course Upon arrival to the ED, patient admitted to an exam room, hx and physical obtained, differentials considered. Patient presents to ED stating that her wound vac was alarming. She has a wound vac to surgical wound along the upper left rib cage on the posterior side. She reports her home health nurse changed her wound vac dressing today, but her alarm went off this evening. She reports she didn't look at the screen to see what type of alarm was going off but came to the ED. Alarm had turned off prior to arrival at the ED and wound vac was working properly. Wound dressing is currently in place with no air leaks. There could be a potential air leak along the anterior side of the dressing. Tegederm placed along edge of current dressing to hopefully protect against leaks. RN went over the different wound vac alarms with the patient. Patient was monitored for 1 hour; in that time, there were no alarms. Patient educated to return here with her wound vac supplies if she has a wound vac leak in the middle of the night. If she has a wound vac leak during the day, she should call her home health nurse. If an alarm is occurring, and she doesn't know what it means, she can call [facility] and walk through it with them. Patient to be discharged home. Patient agrees with plan of care. Decision to Disposition Date: Feb 04, 2019 Decision to Disposition Time: 20:21 Depart Departure Latest Vital Signs Vital Signs Date Time Temp Pulse Resp B/P (MAP) Pulse Ox O2 Delivery O2 Flow Rate FiO2 02/04/19 20:14 79 97 02/04/19 20:00 140/90 (107) 02/04/19 19:18 98.1 18 Impression: Primary Impression: Encounter for management of wound VAC Condition: Improved Disposition: HOME OR SELF-CARE Referrals: JAIRON MARROQUIN MD (PCP) ELLE NEGRON Additional Instructions: Please follow-up with Dr. Negron at your next scheduled appointment. If your wound vac alarms, look at the screen to see what the alarm is for. You can call the [facility] wound vac phone number for assistance. If the wound vac leaks in the middle of the night, you may return to the ER. If your wound vac leaks in the middle of the day, call your home health agency. Please return to the ER for a wound vac leak if you cannot get it fixed by another health professional, if you develop fever, if you have any difficulty breathing, or for any other concern. CANDE GALICIA Feb 04, 2019 19:20
[2019-02-04 20:00] VITALS: BP 140/90
== END 2019-02-04 20:33 | disposition home or self-care (01) ==
LOC: ER 19:27
DX: Z46.89 Encounter for fitting and adjustment of other specified devices (principal)
CPT/HCPCS: 99281

== ENCOUNTER → 2019-02-04 | Outpatient (REF) | payer MEDICAID ==
[2019-01-14 12:38] VITALS: BMI 26.0
[2019-02-04 17:39] LABS: PLATELET COUNT, AUTOMATED 655 K/uL (150-450)
== END ==
LOC: ZZSENDIN 17:23
PROVIDERS: ATTEND Internal Medicine
DX: Z79.2 Long term (current) use of antibiotics (principal)
CPT/HCPCS: 82040; 82247; 82310; 82374; 82435; 82565; 82947; 84075; 84132; 84155; 84295; 84450; 84460; 84520; 85025; 86140

== ENCOUNTER 2019-02-07 15:14 | Emergency (ER) | payer MEDICAID ==
[2019-01-14 12:38] VITALS: Wt 62.3 kg
[2019-02-07 15:43] VITALS: BP 140/102
--- NOTE | 2019-02-07 16:18 | ER Report ---
History and Physical Time Seen By MD: 16:18 Hx. of Stated Complaint: WOUND VAC ALARMING - UNABLE TO GET A HOLD OF HOME HEALTH RN HPI/ROS CHIEF COMPLAINT: wound vac alarm keeps going off. HISTORY OF PRESENT ILLNESS: This is a 53 year old female. She has a wound vac. No problem with the wound but the vac unit keeps alarming saying leak. Tried calling home health but unable to get ahold of them. Allergies: Coded Allergies: Penicillins (Verified Allergy, Severe, BLISTERS, 02/07/19) pneumococcal vaccine (Verified Allergy, Severe, HIVES, 02/07/19) Influenza Virus Vaccines (Verified Allergy, Intermediate, SWELLING TO FACE, 02/07/19) corn (Verified Allergy, Mild, UNKNOWN, 02/07/19) TINGLING FEELING dextromethorphan (Verified Allergy, Mild, 02/07/19) grass pollen-January ([place] blue) grass, std (Verified Allergy, Mild, ITCHING, 02/07/19) guaifenesin (Verified Allergy, Mild, 02/07/19) ibuprofen (Verified Allergy, Mild, 02/07/19) LIQUID CAPSULES pseudoephedrine (Verified Allergy, Mild, 02/07/19) Uncoded Allergies: ANIMALS (Allergy, Mild, 09/03/08) MOLD (Allergy, Unknown, 01/29/14) Home Meds Active Scripts Lidocaine (Lidocaine) 5 % Adh..patch, 1 EACH TP QDAY for 14 Days, #14 PATCH.24H Prov:DEE BECKFORD MD 11/26/18 Estrogens, Conjugated (PREMARIN) 1.25 Mg Tablet, 1.25 MG PO QDAY, #30 TAB Prov:LARS BECKFORD MD 08/09/15 Venlafaxine Hcl (VENLAFAXINE HCL ER) 75 Mg Tab.er.24, 75 MG PO BID, #60 TAB Prov:LARS BECKFORD MD 08/09/15 Reported Medications Fluticasone/Salmeterol (ADVAIR 250-50 DISKUS) 1 Each Disk.w.dev, 1 PUFF IH BID 12/21/18 Diltiazem Hcl (CARDIZEM CD) 120 Mg Cap.er.24h, 1 CAPSULE PO QDAY 12/21/18 Albuterol Sulfate 0.083% (ALBUTEROL SULFATE 0.083%) 2.5 Mg/3 Ml Vial.neb, 1 VIAL INH Q4H PRN for WHEEZING, INH 12/21/18 Lisinopril (LISINOPRIL) 5 Mg Tablet, 5 MG PO QDAY, TAB 12/21/18 Insulin Lispro 100 Un/Ml Vial (HUMALOG 100 U/ML VIAL) 100 Unit/1 Ml Vial, 1-6 UNIT SQ TIDAC, VIAL 12/21/18 Insulin Glargine 100 Un/Ml Pen (LANTUS SOLOSTAR PEN) 100 Unit/1 Ml Insuln.pen, 5 UNIT SQ QHS, PEN 12/21/18 Buspirone Hcl (BUSPIRONE HCL) 5 Mg Tab, 5 MG PO BID, #10 TAB 12/21/18 Discontinued Reported Medications Magnesium Hydroxide (MILK OF MAGNESIA) 400 Mg/5 Ml Oral.susp, 30 ML PO BID, BOTTLE 12/21/18 Gabapentin (GABAPENTIN) 300 Mg Capsule, 300 MG PO TID, CAPSULE 12/21/18 Docusate Sodium (COLACE) 100 Mg Capsule, 1 CAP PO BID PRN for CONSTIPATION, CAPSULE 12/21/18 Multivitamin With Minerals (MULTIPLE VITAMIN) 1 Each Tablet, 1 EACH PO QDAY, TAB 12/21/18 Magnesium Oxide (MAGOX 400) 400 Mg Tablet, 1 TAB PO QDAY 12/21/18 Ferrous Sulfate (FERROUS SULFATE) 325 Mg Tablet.dr, 325 MG PO QDAY 12/21/18 Ergocalciferol (Vitamin D2) (VITAMIN D2) 50,000 Unit Capsule, 1 CAPSULE PO QWEEK, CAPSULE 12/21/18 Calcium Carbonate/Vitamin D3 (CALCIUM 600 + VIT D 400 TABLET) 1 Each Tablet, 1 EACH PO BIDAC 12/21/18 Discontinued Scripts Hydrocodone Bit/Acetaminophen (HYDROCODON-ACETAMINOPHEN 5-325) 1 Each Tablet, 1 EACH PO Q4H PRN for PAIN, #30 TAB Prov:SILVERIO RIZZO DO 01/17/19 Polyethylene Glycol 3350 (POLYETHYLENE GLYCOL 3350) 17 Gm Powd.pack, 17 GM PO QDAY for 30 Days, #30 PACK Prov:DEE BECKFORD MD 11/26/18 Omeprazole (OMEPRAZOLE) 20 Mg Capsule.dr, 1 CAP PO BID, #60 CAP Prov:LARS BECKFORD MD 08/09/15 Reviewed Nurses Notes: Yes Hx Smoking: Yes Smoking Status: Current: Every Day Smoker Exposure to Second Hand Smoke?: Yes Hx Substance Use Disorder: No Hx Alcohol Use: No Constitutional Vital Sign - Last 24 Hours 02/07/19 15:43 Temp 99.1 Pulse 95 Resp 14 B/P (MAP) 140/102 Pulse Ox 91 O2 Delivery Room Air Physical Exam Wound vac dressing looks good. I cannot see a leak at this time. Medical Decision Making ED Course/Re-evaluation ED Course We were trying to get ahold of the wound care folks here in the hospital, but they are not available. [facility] [employer] called as well. She would prefer not to wait any longer and will return home and contact [facility]. Decision to Disposition Date: Feb 07, 2019 Decision to Disposition Time: 17:10 Depart Departure Latest Vital Signs Vital Signs Date Time Temp Pulse Resp B/P (MAP) Pulse Ox O2 Delivery O2 Flow Rate FiO2 02/07/19 15:43 99.1 95 14 140/102 91 Room Air Impression: Primary Impression: Encounter for management of wound VAC Condition: Improved Disposition: HOME OR SELF-CARE Referrals: JAIRON MARROQUIN MD (PCP) Additional Instructions: The wound vaccumn itself looks good. Follow-up with your home health nursing for further evaluation. If continuing to have problems, during daytime hours, you can come in and see the wound care nurses. PERRI SCOTT MD Feb 07, 2019 16:20
[2019-02-08] MEDS ORDERED: LOR5/325 PO (19:45)
== END 2019-02-07 17:18 | disposition home or self-care (01) ==
LOC: ER 16:20
DX: Z02.9 Encounter for administrative examinations, unspecified (principal)
CPT/HCPCS: 99281

== ENCOUNTER 2019-02-08 17:53 | Emergency (ER) | payer MEDICAID ==
[2019-01-14 12:38] VITALS: Wt 60.8 kg
--- NOTE | 2019-02-08 18:04 | ER Report ---
History and Physical Time Seen By MD: 18:02 Hx. of Stated Complaint: PATIENT SENT BY PRIMARY CARE PROVIDER FOR CONCERNS ABOUT FLUID/AIR IN HER RIGHT LUNG HPI/ROS CHIEF COMPLAINT:? Effusion versus pneumothorax versus elevated hemidiaphragm HISTORY OF PRESENT ILLNESS: 53-year-old female with recent staph infection of her left chest wall was transferred down to [facility] with a 42,000, white count. On 01/27/19 with likely infection of her chest wall hematoma cavity. She subsequently underwent drainage and wound VAC placement. She is currently has a PICC line in her right arm and receiving IV antibiotics. She states she has 2 days left of therapy. Patient was seen by her primary care Dr Marroquin to get a chest x-ray today that showed a suspicious air fluid level in the left lower chest, see radiology. X-ray report. He sent the patient over for a CT scan of the chest to better clarify if this is a potential collection of fluid/air versus empyema. Patient had diagnostic laboratory studies today showing a normal white blood cell count of 11,000. Her glucose is mildly elevated. REVIEW OF SYSTEMS: Respiratory: No cough, no dyspnea. Cardiovascular: No chest pain, no palpitations. Gastrointestinal: No vomiting, no abdominal pain. Musculoskeletal: No back pain. Allergies: Coded Allergies: Penicillins (Verified Allergy, Severe, BLISTERS, 02/07/19) pneumococcal vaccine (Verified Allergy, Severe, HIVES, 02/07/19) Influenza Virus Vaccines (Verified Allergy, Intermediate, SWELLING TO FACE, 02/07/19) corn (Verified Allergy, Mild, UNKNOWN, 02/07/19) TINGLING FEELING dextromethorphan (Verified Allergy, Mild, 02/07/19) grass pollen-January ([place] blue) grass, std (Verified Allergy, Mild, ITCHING, 02/07/19) guaifenesin (Verified Allergy, Mild, 02/07/19) ibuprofen (Verified Allergy, Mild, 02/07/19) LIQUID CAPSULES pseudoephedrine (Verified Allergy, Mild, 02/07/19) Uncoded Allergies: ANIMALS (Allergy, Mild, 09/03/08) MOLD (Allergy, Unknown, 01/29/14) Home Meds Active Scripts Hydrocodone Bit/Acetaminophen (HYDROCODON-ACETAMINOPHEN 5-325) 1 Each Tablet, 1 EACH PO Q4-6H PRN for PAIN, #15 TAKE ONE TABLET BY MOUTH EVERY 4-6 HOURS NEEDED FOR PAIN Prov:NABIL BRADLEY DO 02/08/19 Lidocaine (Lidocaine) 5 % Adh..patch, 1 EACH TP QDAY for 14 Days, #14 PATCH.24H Prov:DEE BECKFORD MD 11/26/18 Estrogens, Conjugated (PREMARIN) 1.25 Mg Tablet, 1.25 MG PO QDAY, #30 TAB Prov:LARS BECKFORD MD 08/09/15 Venlafaxine Hcl (VENLAFAXINE HCL ER) 75 Mg Tab.er.24, 75 MG PO BID, #60 TAB Prov:LARS BECKFORD MD 08/09/15 Reported Medications Fluticasone/Salmeterol (ADVAIR 250-50 DISKUS) 1 Each Disk.w.dev, 1 PUFF IH BID 12/21/18 Diltiazem Hcl (CARDIZEM CD) 120 Mg Cap.er.24h, 1 CAPSULE PO QDAY 12/21/18 Albuterol Sulfate 0.083% (ALBUTEROL SULFATE 0.083%) 2.5 Mg/3 Ml Vial.neb, 1 VIAL INH Q4H PRN for WHEEZING, INH 12/21/18 Lisinopril (LISINOPRIL) 5 Mg Tablet, 5 MG PO QDAY, TAB 12/21/18 Insulin Lispro 100 Un/Ml Vial (HUMALOG 100 U/ML VIAL) 100 Unit/1 Ml Vial, 1-6 UNIT SQ TIDAC, VIAL 12/21/18 Insulin Glargine 100 Un/Ml Pen (LANTUS SOLOSTAR PEN) 100 Unit/1 Ml Insuln.pen, 5 UNIT SQ QHS, PEN 12/21/18 Buspirone Hcl (BUSPIRONE HCL) 5 Mg Tab, 5 MG PO BID, #10 TAB 12/21/18 Discontinued Reported Medications Magnesium Hydroxide (MILK OF MAGNESIA) 400 Mg/5 Ml Oral.susp, 30 ML PO BID, BOTTLE 12/21/18 Gabapentin (GABAPENTIN) 300 Mg Capsule, 300 MG PO TID, CAPSULE 12/21/18 Docusate Sodium (COLACE) 100 Mg Capsule, 1 CAP PO BID PRN for CONSTIPATION, CAPSULE 12/21/18 Multivitamin With Minerals (MULTIPLE VITAMIN) 1 Each Tablet, 1 EACH PO QDAY, TAB 12/21/18 Magnesium Oxide (MAGOX 400) 400 Mg Tablet, 1 TAB PO QDAY 12/21/18 Ferrous Sulfate (FERROUS SULFATE) 325 Mg Tablet., 325 MG PO QDAY 12/21/18 Ergocalciferol (Vitamin D2) (VITAMIN D2) 50,000 Unit Capsule, 1 CAPSULE PO QWEEK, CAPSULE 12/21/18 Calcium Carbonate/Vitamin D3 (CALCIUM 600 + VIT D 400 TABLET) 1 Each Tablet, 1 EACH PO BIDAC 12/21/18 Discontinued Scripts Hydrocodone Bit/Acetaminophen (HYDROCODON-ACETAMINOPHEN 5-325) 1 Each Tablet, 1 EACH PO Q4H PRN for PAIN, #30 TAB Prov:SILVERIO RIZZO DO 01/17/19 Polyethylene Glycol 3350 (POLYETHYLENE GLYCOL 3350) 17 Gm Powd.pack, 17 GM PO QDAY for 30 Days, #30 PACK Prov:DEE BECKFORD MD 11/26/18 Omeprazole (OMEPRAZOLE) 20 Mg Capsule., 1 CAP PO BID, #60 CAP Prov:LARS BECKFORD MD 08/09/15 Past Medical/Surgical History Past medical hx of migraines, angina, HTN, hypercholesterolemia, sleep apnea, asthma, emphysema, pneumonia, tuberculosis 1985, COPD, GERD, ulcers, ovarian cancer 1985, right hip bursitis, arthritis, back pain, DJD, diabetes, depression/anxiety, previous suicide attempt. Past surgical hx of heart cath in 1999, nose surgery 1989, right elbow surgery, hysterectomy 1987, cholecystectomy, appendectomy, 1/2 pancreas removed in 201 Reviewed Nurses Notes: Yes Old Medical Records Reviewed: Yes Hx Smoking: Yes Smoking Status: Current: Every Day Smoker Exposure to Second Hand Smoke?: Yes Hx Substance Use Disorder: No Hx Alcohol Use: No Constitutional Vital Sign - Last 24 Hours 02/08/19 02/08/19 02/08/19 02/08/19 17:56 17:58 18:00 18:30 Temp 98.5 Pulse 92 Resp 20 B/P (MAP) 168/112 (130) 168/112 145/107 (120) 148/101 (117) Pulse Ox 92 O2 Delivery Room Air 02/08/19 02/08/19 02/08/19 02/08/19 18:35 18:50 19:00 19:05 Pulse 82 81 80 B/P (MAP) 146/104 (118) Pulse Ox 97 97 98 02/08/19 02/08/19 02/08/19 02/08/19 19:20 19:30 19:35 19:50 Pulse 82 80 95 B/P (MAP) 139/94 (109) Pulse Ox 99 97 96 Physical Exam Vital signs stable, afebrile, pulse ox stable on baseline O2 General Appearance: The patient is alert, has no immediate need for airway p rotection and no current signs of toxicity. No acute distress Eyes: Pupils equal and round no injection. Respiratory: Chest is non tender, lungs are clear to auscultation. Intact wound VAC left chest wall with clear serosanguineous drainage Cardiac: regular rate and rhythm Gastrointestinal: Abdomen is soft and non tender, no masses, bowel sounds normal. Musculoskeletal: Neck: Neck is supple and non tender. Extremities have full range of motion and are non tender. Skin: No rashes or lesions. DIFFERENTIAL DIAGNOSIS: After history and physical exam differential diagnosis was considered for left chest wall fluid collection, empyema, pleural effusion, pneumothorax, residual air from procedure. Medical Decision Making EKG/Imaging Imaging Results: CT scan of the CT scan of the chest was obtained. The results of the study are Examination: CT chest without contrast COMPARISON: Chest x-ray same day and earlier. CT 01/28/2019 and earlier. HISTORY: Left pleural effusion versus diaphragm elevation on earlier chest x- ray. PROCEDURE: Noncontrast imaging was acquired through the chest. One of the following dose optimization techniques was utilized in the performance of this exam: Automated exposure control; adjustment of the mA and/or kV according to the patient's size; or use of an iterative reconstruction technique. Specific details can be referenced in the facility's radiology CT exam operational policy. FINDINGS: Evaluation of the solid and viscus parenchymal organs and vascular structures is limited without the benefit of IV contrast. Mediastinum: Cardiac chamber size is normal. Trace pericardial fluid versus pericardial thickening. Mild coronary atherosclerosis. No thoracic aortic aneurysm. Lymph nodes: Bilateral axilla mild prominent lymph nodes are favored to be reactive. Mildly prominent mediastinal lymph nodes, some of which are calcified and suggestive of old granulomatous disease. Lungs, pleura, and diaphragm: Left posterior hemidiaphragm hernia with a 7.9 x 7.7 cm neck. Mildly distended gastric fundus extends through the hernia into the left lower hemithorax. No left pleural effusion. Linear hyperdensities in the left lower lung, suggestive of prior surgery, are unchanged. Emphysema. No acute infectious/inflammatory consolidation. Right upper lobe 4 mm nodule is unchanged. No pneumothorax or edema. Airways: Negative. Upper abdomen: Stomach containing diaphragmatic hernia as described above. Musculoskeletal: Although evaluation is somewhat limited by the lack of contrast, left lateral chest wall soft tissue inflammation appears to have slightly decreased in the interval. Left sixth rib segmental fracture with mildly displaced posterior lateral and anterolateral healing fractures. Left anterolateral seventh rib healing fracture. IMPRESSION: 1. Left posterior hemidiaphragm hernia containing gastric fundus. Hernia neck measures 7.9 x 7.7 cm. 2. Left lateral chest wall soft tissue inflammation has slightly decreased in the interval. If further evaluation for residual abscess is clinically indicated, CT with contrast could be performed. 3. Left chest healing fractures. 4. Additional chronic/incidental findings as described above. The study was read by the radiologist. I viewed the images myself on the PACS system. ED Course/Re-evaluation ED Course Patient was admitted to an examination room. H&P was done. The differential diagnoses was considered. Patient has laboratory studies and a chest x-ray with suspicious findings. Patient has an extensive history of problems with her left chest from empyema. And a spontaneous hematoma in the subcutaneous tissue of her chest wall. She recently had a wound VAC placed for infected hematoma cavity. Patient's chest x-ray shows suspicious air-fluid levels in the left chest. Patient was sent over by primary care for CT scan evaluation of the chest. A CT without contrast was performed and there was a diaphragmatic hernia noted on the CT scan. Patient is relatively asymptomatic and it has been present for some time it was noted to be present on the previous scan. There is no evidence of incarceration. Patient be discharged home with Lortab for pain relief. She'll need follow-up with her cardiothoracic surgeon for consideration of repair when she is healthier when the wound VAC is been discontinued. She has 2 more days of antibiotics scheduled. Decision to Disposition Date: Feb 08, 2019 Decision to Disposition Time: 19:42 Depart Departure Latest Vital Signs Vital Signs Date Time Temp Pulse Resp B/P (MAP) Pulse Ox O2 Delivery O2 Flow Rate FiO2 02/08/19 19:50 95 96 02/08/19 19:30 139/94 (109) 02/08/19 17:58 98.5 20 Room Air Impression: Primary Impression: Diaphragmatic hernia Additional Impression: Chest wall abscess Condition: Improved Disposition: HOME OR SELF-CARE Referrals: JAIRON MARROQUIN MD (PCP) New Scripts Hydrocodone Bit/Acetaminophen (HYDROCODON-ACETAMINOPHEN 5-325) 1 Each Tablet 1 EACH PO Q4-6H PRN for PAIN, #15 TAKE ONE TABLET BY MOUTH EVERY 4-6 HOURS NEEDED FOR PAIN Prov: NABIL BRADLEY DO 02/08/19 Patient Instructions: Abdominal Pain (ED) Additional Instructions: Your CAT scan showed a diaphragmatic hernia with an 8 cm neck You need to follow-up with your chest surgeon, this will likely need to be repaired electively You should take MiraLAX every day to keep her bowels functioning normally Follow-up with your primary care doctor as planned in one week Problem Qualifiers Primary Impression: Diaphragmatic hernia Obstruction and gangrene presence: without obstruction or gangrene Qualified Codes: K44.9 - Diaphragmatic hernia without obstruction or gangrene NABIL BRADLEY DO Feb 08, 2019 18:04
[2019-02-08 19:30] VITALS: BP 139/94
--- NOTE | 2019-02-08 19:33 | RADIOLOGY IMAGING REPORT ---
[place] [facility] [place] Subha [place] : 1965 MR: [id number] V: [id number] EXAM DATE: ORDERING PHYSICIAN: NABIL BRADLEY TECHNOLOGIST: Location: [facility] Patient: Subha Martinez : 1965 Visit/Account:[id number] Date of Sevice: 02/08/2019 Examination: CT chest without contrast COMPARISON: Chest x-ray same day and earlier. CT 01/28/2019 and earlier. HISTORY: Left pleural effusion versus diaphragm elevation on earlier chest x-ray. PROCEDURE: Noncontrast imaging was acquired through the chest. One of the following dose optimization techniques was utilized in the performance of this exam: Automated exposure control; adjustment of t he mA and/or kV according to the patient's size; or use of an iterative reconstruction technique. S pecific details can be referenced in the facility's radiology CT exam operational policy. FINDINGS: Evaluation of the solid and viscus parenchymal organs and vascular structures is limited wi thout the benefit of IV contrast. Mediastinum: Cardiac chamber size is normal. Trace pericardial fluid versus pericardial thickening. M ild coronary atherosclerosis. No thoracic aortic aneurysm. Lymph nodes: Bilateral axilla mild prominent lymph nodes are favored to be reactive. Mildly prominent mediastinal lymph nodes, some of which are calcified and suggestive of old granulomatous disease. Lungs, pleura, and diaphragm: Left posterior hemidiaphragm hernia with a 7.9 x 7.7 cm neck. Mildly di stended gastric fundus extends through the hernia into the left lower hemithorax. No left pleural eff usion. Linear hyperdensities in the left lower lung, suggestive of prior surgery, are unchanged. Emph ysema. No acute infectious/inflammatory consolidation. Right upper lobe 4 mm nodule is unchanged. No pneumothorax or edema. Airways: Negative. Upper abdomen: Stomach containing diaphragmatic hernia as described above. Musculoskeletal: Although evaluation is somewhat limited by the lack of contrast, left lateral chest wall soft tissue inflammation appears to have slightly decreased in the interval. Left sixth rib segm ental fracture with mildly displaced posterior lateral and anterolateral healing fractures. Left ante rolateral seventh rib healing fracture. IMPRESSION: 1. Left posterior hemidiaphragm hernia containing gastric fundus. Hernia neck measures 7.9 x 7.7 cm. 2. Left lateral chest wall soft tissue inflammation has slightly decreased in the interval. If furthe r evaluation for residual abscess is clinically indicated, CT with contrast could be performed. 3. Left chest healing fractures. 4. Additional chronic/incidental findings as described above. Results were discussed with NABIL BRADLEY at 02/08/2019 7:24 PM. Report Dictated By: Lakhwinder Maxwell MD at 02/08/2019 7:03 PM Report E-Signed By: Lakhwinder Maxwell MD at 02/08/2019 7:27 PM WSN:[id number]
[2019-02-08] MEDS ORDERED: LOR5/325 PO (19:45)
[2019-02-08] MEDS ORDERED: POLYETHYLENE GLYCOL 17 GM PKT PO ONE (19:50)
[2019-02-08] MEDS ORDERED: APAP/HYDROCODONE 325/5 TAB PO ONE (19:50)
== END 2019-02-08 20:00 | disposition home or self-care (01) ==
LOC: ER 18:05
DX: K44.9 Diaphragmatic hernia without obstruction or gangrene (principal); L02.213 Cutaneous abscess of chest wall
CPT/HCPCS: 71250; 99284

== ENCOUNTER → 2019-02-08 | Outpatient (CLI) | payer MEDICAID ==
[2019-01-14 12:38] VITALS: BMI 26.0
--- NOTE | 2019-02-08 12:16 | RADIOLOGY IMAGING REPORT ---
FACILITY: [facility] [place] PATIENT NAME: Subha Martinez : 1965 MR: [id number] V: [id number] EXAM DATE: ORDERING PHYSICIAN: JAIRON MARROQUIN TECHNOLOGIST: Location: [facility] [place] Patient: Subha Martinez : 1965 Visit/Account:[id number] Date of Sevice: 02/08/2019 CHEST PA LAT HISTORY: Chest wall abscess. COMPARISON: CT scan January 28, 2019. Chest x-ray January 27, 2019. FINDINGS: Cardiomediastinal contours: The heart size is normal. Lungs and pleura: In this patient status post left lower lobe surgery there are is either left pleura l effusion or elevation of left hemidiaphragm. A small left basilar pneumothorax is not seen on prev ious studies, but is difficult to exclude on this examination. There is parenchymal scarring in the left lower lobe with postoperative atelectasis. The catheter from a wound VAC is seen on only the la teral image. Bones/soft tissues: There are no findings of a fracture. Abdomen: There are surgical clips in right upper quadrant. IMPRESSION: 1. Status post left lower lobe surgery. 2. Left lateral wound VAC. 3. Parenchymal density representing scarring and/or atelectasis in the left lower lobe. 4. Probable left pleural effusion versus elevation of left hemidiaphragm. A small left basilar pneu mothorax is difficult to exclude. Report Dictated By: Ishaan De La Cruz MD at 02/08/2019 12:04 PM Report E-Signed By: Ishaan De La Cruz MD at 02/08/2019 12:10 PM WSN:[id number]
== END ==
LOC: RAD 11:45
PROVIDERS: ATTEND Family Medicine
DX: L02.213 Cutaneous abscess of chest wall (principal)
CPT/HCPCS: 71046

== ENCOUNTER → 2019-02-08 | Outpatient (REF) | payer MEDICAID ==
[2019-01-14 12:38] VITALS: BMI 26.0
[2019-02-08 14:41] LABS: PLATELET COUNT, AUTOMATED 619 K/uL (150-450)
== END ==
LOC: ZZSENDIN 14:23
PROVIDERS: ATTEND Family Medicine
DX: L02.213 Cutaneous abscess of chest wall (principal)
CPT/HCPCS: 82310; 82374; 82435; 82565; 82947; 84132; 84295; 84520; 85025

== ENCOUNTER → 2019-02-11 | Outpatient (REF) | payer MEDICAID ==
[2019-01-14 12:38] VITALS: BMI 26.0
[2019-02-11 16:00] LABS: PLATELET COUNT, AUTOMATED 649 K/uL (150-450)
== END ==
LOC: ZZPREMIUM 15:45
PROVIDERS: ATTEND Internal Medicine
DX: T14.8XXA Other injury of unspecified body region, initial encounter (principal)
CPT/HCPCS: 82040; 82247; 82310; 82374; 82435; 82565; 82947; 84075; 84132; 84155; 84295; 84450; 84460; 84520; 85025; 86140

== ENCOUNTER → 2019-02-21 | Outpatient (CLI) | payer MEDICAID ==
[2019-01-14 12:38] VITALS: BMI 26.0
== END ==
LOC: LAB 14:15
PROVIDERS: ATTEND Surgery
DX: S20.219A Contusion of unspecified front wall of thorax, initial encounter (principal)
CPT/HCPCS: 87070; 87073; 87205

== ENCOUNTER 2019-03-05 00:22 | Day surgery (SDC) | payer MEDICAID ==
[2019-01-14 12:38] VITALS: Ht 160 cm; Wt 60.8 kg
[2019-03-05] VITALS (7 sets, daily range): BP systolic 101–144; BP diastolic 66–95
[~2019-03-05] VITALS: Ht 160 cm; Wt 60.8 kg
[2019-03-05] MEDS ORDERED: NORMOSOL R SOLN(*) 1000 ML BAG 1,000 ML IV PRN (06:30)
[2019-03-05] MEDS ORDERED: LIDOCAINE/SOD BICARB 8.4% SYR ID ONE (06:30)
[2019-03-05] MEDS ORDERED: PROPOFOL EMUL(*) 10MG/ML 20 ML 20 ML ONE (07:00)
--- NOTE | 2019-03-05 08:53 | Short(Outpt) Discharge Summary ---
Discharge Summary Reason for Hosp/Final Diag: (1) Diaphragmatic hernia Status: Acute Hospital Course & Plan: pt presented for egd. she tolerated the procedure well and will be discharged home when criteria met. Discharge Instructions Home Meds Active Scripts Venlafaxine Hcl (VENLAFAXINE HCL ER) 75 Mg Tab.er.24, 75 MG PO BID, #60 TAB Prov:LARS BECKFORD MD 08/09/15 Reported Medications Fluticasone/Salmeterol (ADVAIR 250-50 DISKUS) 1 Each Disk.w.dev, 1 PUFF IH BID 12/21/18 Diltiazem Hcl (CARDIZEM CD) 120 Mg Cap.er.24h, 1 CAPSULE PO QDAY 12/21/18 Albuterol Sulfate 0.083% (ALBUTEROL SULFATE 0.083%) 2.5 Mg/3 Ml Vial.neb, 1 VIAL INH Q4H PRN for WHEEZING, INH 12/21/18 Lisinopril (LISINOPRIL) 5 Mg Tablet, 5 MG PO QDAY, TAB 12/21/18 Insulin Lispro 100 Un/Ml Vial (HUMALOG 100 U/ML VIAL) 100 Unit/1 Ml Vial, 1-6 UNIT SQ TIDAC, VIAL 12/21/18 Insulin Glargine 100 Un/Ml Pen (LANTUS SOLOSTAR PEN) 100 Unit/1 Ml Insuln.pen, 5 UNIT SQ QHS, PEN 12/21/18 Buspirone Hcl (BUSPIRONE HCL) 5 Mg Tab, 5 MG PO BID, #10 TAB 12/21/18 Discontinued Scripts Estrogens, Conjugated (PREMARIN) 1.25 Mg Tablet, 1.25 MG PO QDAY, #30 TAB Prov:LARS BECKFORD MD 08/09/15 Diet: Regular Activity: As Tolerated Special Instructions: we will call you in 10 days with results. ELLE POON Mar 05, 2019 08:53
--- NOTE | 2019-03-05 10:00 | NUR ---
patient vital signs stable, tolerating clear liquids, ambulating without difficulty. pt walked to vehicle without adverse events. pt wound vac in place at time of discharge.
== END 2019-03-05 09:55 | disposition home or self-care (01) ==
LOC: OR 00:22
PROVIDERS: ATTEND Surgery
DX: K29.70 Gastritis, unspecified, without bleeding (principal)
CPT/HCPCS: 36416; 43239; 43249; 82948; 87077; 88305; 88313; 88342; C1726; J2704

== ENCOUNTER → 2019-04-03 | Outpatient (CLI) | payer MEDICAID ==
[2019-01-14 12:38] VITALS: BMI 26.0
--- NOTE | 2019-04-03 19:55 | RADIOLOGY IMAGING REPORT ---
FACILITY: [facility] [place] PATIENT NAME: Subha Martinez : 1965 MR: [id number] V: [id number] EXAM DATE: ORDERING PHYSICIAN: JAIRON MARROQUIN TECHNOLOGIST: Location: [facility] Patient: Subha Martinez : 1965 Visit/Account:[id number] Date of Sevice: 04/03/2019 EXAMINATION: CT Thorax W/O Contrast CT Abdomen W/O Contrast CT Pelvis W/O Contrast HISTORY: Left upper quadrant pain. Recent surgeries. COMPARISON: CT of the chest from 02/08/2019. CT of the chest/abdomen/pelvis from 01/28/2019. TECHNIQUE: Axial images were taken through the chest, abdomen and pelvis without intravenous contra st. Sagittal and coronal reformatted images are also submitted. One of the following dose optimization techniques was utilized in the performance of this exam: Autom ated exposure control; adjustment of the mA and/or kV according to the patient's size; or use of an i terative reconstruction technique. Specific details can be referenced in the facility's radiology C T exam operational policy. FINDINGS: CT THORAX W/O CONTRAST: Lungs / pleura: Continued elevation of the left hemidiaphragm with surgical changes along the left l cha base. There is volume loss in the left lower lobe with unchanged consolidation/atelectasis in the base of the left lower lobe along surgical clips. Small calcified granuloma in the left upper lung. Mild centrilobular emphysematous changes in the lungs. A few small pulmonary nodules are noted in the lungs and are unchanged. No pleural effusion. Mediastinum / marsha: Negative. Heart / pericardium: Negative. Vessels: Mild calcified plaque of the aorta and great vessels. Mild coronary artery calcification. Musculoskeletal / Body wall: There is a wound VAC along the lateral left chest wall. There is promin ent thickening of the soft tissues in the lateral left chest wall, significantly increased compared w ith the previous examination, with a hypoattenuating collection in this region of soft tissue thicken ing measuring 7.4 x 6.6 x 1.5 cm. Superiorly this collection extends into the left subscapular region . There are healing osteotomies or fractures of the left sixth rib. Lymph node assessment: Multiple enlarged left axillary lymph nodes. Multiple calcified mediastinal an d left hilar lymph nodes. Lower neck: Negative. CT ABDOMEN AND PELVIS W/O CONTRAST: Please note that without intravenous contrast, sensitivity to detection of parenchymal disease is nieves ited. Liver / biliary: Status post cholecystectomy. Pancreas: Status post distal pancreatectomy. Spleen: Status post splenectomy. Adrenal glands: Negative. Kidneys: 4 mm nonobstructive calculus in the lower pole of the right kidney. No hydronephrosis. Pelvic structures: Status post hysterectomy. Bowel: The bowel is normal caliber without obvious focal wall thickening. No evidence of bowel obstru ction. Peritoneum / retroperitoneum / mesenteries: No intraperitoneal free air or free fluid. Vessels: Calcified plaque along the aorta and iliac arteries. Musculoskeletal / Body wall: Multilevel disc degenerative changes in the lumbar spine. Lymph node assessment: Several mildly prominent retroperitoneal and iliac chain lymph nodes, similar to previous exam. IMPRESSION: There is prominent thickening of the soft tissues of the lateral left chest wall, significantly incre ased compared with the previous chest CT on 02/08/2019. There is a recurrent or enlarging fluid collec tion in the left chest wall within this region of soft tissue thickening measuring 7.4 x 6.6 x 1.5 cm . Postsurgical changes at the left lung base. Left axillary lymphadenopathy, increased in prominence compared with the previous examination. Post surgical changes in the abdomen as detailed in the body of the report. Small nonobstructive calculus in the right kidney. Mild prominence of the retroperitoneal periaortic and iliac chain lymph nodes, similar to previous ex amination on 01/28/2019. Otherwise no CT evidence of acute patholog in the abdomen or pelvis. Report Dictated By: Calvin Cormier MD at 04/03/2019 7:13 PM Report E-Signed By: Calvin Cormier MD at 04/03/2019 7:47 PM WSN:[email or web address]
== END ==
LOC: CT 18:15
PROVIDERS: ATTEND Family Medicine
DX: R59.0 Localized enlarged lymph nodes (principal); N20.0 Calculus of kidney
CPT/HCPCS: 71250; 74176